=== PATIENT | male | born 1940 | race Caucasian/White ===

== ENCOUNTER 2017-04-08 19:08 | Inpatient (IN) | payer MEDICARE, OTHER ==
[~2017-04-08] VITALS: Ht 180.3 cm; Wt 82.4 kg
[2017-04-08 22:39] VITALS: BP 134/69
[2017-04-08] MEDS ORDERED: METHYL SALICYLATE/MENTHOL TOPICAL OINTMENT 29GM TUBE. TP PRN (23:00)
[2017-04-08] MEDS ORDERED: MAG HYDROX/AL HYDROX/SIMETH 30 ML ORAL.SUSP PO PRN (23:00)
[2017-04-08] MEDS ORDERED: ACETAMINOPHEN 325 MG TABLET PO PRN (23:00)
[2017-04-08] MEDS ORDERED: HALOPERIDOL 5 MG TABLET PO PRN (23:45)
[2017-04-09] MEDS ORDERED: SERT100T PO (00:05)
[2017-04-09] MEDS ORDERED: LORA2TAB PO (00:05)
[2017-04-09] MEDS ORDERED: SENN-6 PO (00:05)
[2017-04-09] MEDS ORDERED: PSYL660P18 PO (00:05)
[2017-04-09] MEDS ORDERED: OMEP40CA5 PO (00:05)
[2017-04-09] MEDS ORDERED: HALO5TAB PO (00:05)
[2017-04-09] MEDS ORDERED: FERR-26 PO (00:05)
[2017-04-09] MEDS ORDERED: OXYB5TAB7 PO (00:05)
[2017-04-09] MEDS ORDERED: CLOM75CA2 PO (00:05)
[2017-04-09] MEDS ORDERED: ARIP30TA4 PO (00:05)
[2017-04-09] MEDS ORDERED: MORP15TA3 PO (00:05)
[2017-04-09] MEDS ORDERED: ENOX40DI SQ (00:05)
[2017-04-09] MEDS ORDERED: LISI10TA2 PO (00:05)
[2017-04-09] MEDS ORDERED: LOXA50CA PO ×2 (00:05)
[2017-04-09] MEDS ORDERED: ASPI325T11 PO (00:05)
[2017-04-09] MEDS ORDERED: BENZ0.5T PO (00:05)
[2017-04-09] MEDS ORDERED: FINA5TAB4 PO (00:05)
[2017-04-09] MEDS ORDERED: CHOL10003 PO (00:05)
[2017-04-09] MEDS ORDERED: METO25TA4 PO (00:05)
[2017-04-09] MEDS ORDERED: LORA1TAB PO (00:05)
[2017-04-09] MEDS ORDERED: LORazepam 1 MG TABLET PO PRN (00:15)
--- NOTE | 2017-04-09 05:37 | EKG ---
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
[2017-04-09 06:28] VITALS: BP 112/67
[2017-04-09 06:51] LABS: BASO # 0.1 x10^3/uL (0.0-0.2); BASO % 1 % (0-3); EOS # 0.2 x10^3/uL (0.0-0.7); EOS % 3 % (0-3); HEMATOCRIT 36.5 % (39.0-53.0); HEMOGLOBIN 12.2 g/dL (13.0-17.5); LYMPH # 2.7 x10^3/uL (1.0-4.8); LYMPH % 28 % (24-48); MEAN CORPUSCULAR HEMOGLOBIN 33 pg (25-35); MEAN CORPUSCULAR HGB CONC 33 g/dL (31-37); MEAN CORPUSCULAR VOLUME 99 fL (79-100); MONO # 0.8 x10^3/uL (0.0-1.1); MONO % 9 % (0-9); NEUT # 5.8 x10^3uL (1.8-7.7); NEUT % 60 % (31-73); PLATELET COUNT 352 x10^3/uL (140-400); RED CELL DISTRIBUTION WIDTH 13.4 % (11.5-14.5); WHITE BLOOD COUNT 9.6 x10^3/uL (4.0-11.0)
[2017-04-09 07:00] LABS: ALBUMIN 3.5 g/dL (3.4-5.0); ALBUMIN/GLOBULIN RATIO 0.9 (1.0-1.7); CALCIUM 8.7 mg/dL (8.5-10.1); GFR 72.6; MAGNESIUM 2.1 mg/dL (1.8-2.4); POTASSIUM 4.2 mmol/L (3.5-5.1); TOTAL BILIRUBIN 0.3 mg/dL (0.2-1.0); TOTAL PROTEIN 7.4 g/dL (6.4-8.2)
[2017-04-09] MEDS ORDERED: SENNOSIDES/DOCUSATE 8.6/50MG TABLET. PO PRN (10:00)
[2017-04-09] MEDS: ASPIRIN ENTERIC COATED 325 MG TABLET.DR. PO SCH (11:12)
[2017-04-09] MEDS: FERROUS SULFATE 325 MG TABLET PO SCH (11:12)
[2017-04-09] MEDS: MORPHINE ER 15 MG TABLET.ER PO SCH (11:12)
[2017-04-09] MEDS: CHOLECALCIFEROL (VITAMIN D3) 1,000 UNIT TABLET PO SCH (11:12)
[2017-04-09] MEDS: BENZTROPINE MESYLATE 0.5 MG TABLET PO SCH ×2 (11:12→19:32)
[2017-04-09] MEDS: OXYBUTYNIN CHLORIDE 5 MG TABLET PO SCH ×2 (11:12→19:32)
[2017-04-09] MEDS: LORazepam 1 MG TABLET PO SCH ×4 (11:14→19:35)
[2017-04-09] MEDS: PANTOPRAZOLE 40 MG TABLET. PO SCH (11:23)
[2017-04-09] MEDS: PSYLLIUM SEED (WITH SUGAR) PACKET. PO SCH (11:23)
[2017-04-09] MEDS: LISINOPRIL 10 MG TABLET PO SCH (11:24)
[2017-04-09] MEDS: METOPROLOL TART IMMED RELEASE 25 MG TABLET PO SCH ×2 (11:24→17:00)
[2017-04-09] MEDS: LOXAPINE SUCCINATE 25 MG CAPSULE PO SCH ×2 (11:26→19:41)
[2017-04-09] MEDS: ARIPiprazole 15 MG TABLET PO SCH (11:31)
[2017-04-09] MEDS ORDERED: ARIPiprazole 15 MG TABLET PO ONE (12:00)
[2017-04-09 13:55] LABS: THYROID STIM HORMONE (TSH) 3.574 uIU/mL (0.358-3.740)
[2017-04-09 16:32] VITALS: BP 102/57
[2017-04-09 16:37] LABS: BILIRUBIN,URINE NEG (NEG); CLARITY,URINE CLEAR; COLOR,URINE YELLOW; GLUCOSE,URINE NEG (NEG); NITRITE,URINE NEG (NEG); RBC,URINE OCC /HPF (0-2); UROBILINOGEN,URINE 0.2 mg/dL (0.2 mg/dL)
[2017-04-09 16:38] LABS: BACTERIA,URINE 0 /HPF (0-FEW); SQUAMOUS EPITHELIAL CELL,UR FEW /LPF
[2017-04-09 18:11] LABS: T3 TOTAL 75 ng/dL (71-180); THYROXINE 5.8 ug/dL (4.5-12.0)
--- NOTE | 2017-04-09 18:39 | PDOC ---
Exam José Miguel Demential Exam: José Miguel Note: Please also refer to the separate dictated note~for this date of service dictated separately.~Patient seen individually. Discussed the patient with Nursing staff reviewed the chart.~Reviewed interim history and current functioning. Reviewed vital signs,~Labs/ Radiology~and current medications noted below. Continue current treatment with the changes noted in the dictated addendum note Assessment: Vital Signs: Vital Signs Date Time Temp Pulse Resp B/P (MAP) Pulse Ox O2 Delivery O2 Flow Rate FiO2 04/09/17 17:00 71 102/57 04/09/17 16:32 97.4 19 99 04/08/17 22:39 Room Air I&O Intake and Output 04/09/17 07:00 # Voids 1 Labs: Laboratory Tests Test 04/09/17 06:25 04/09/17 14:43 White Blood Count 9.6 x10^3/uL (4.0-11.0) Red Blood Count 3.70 x10^6/uL (4.30-5.70) L Hemoglobin 12.2 g/dL (13.0-17.5) L Hematocrit 36.5 % (39.0-53.0) L Mean Corpuscular Volume 99 fL (79-100) Mean Corpuscular Hemoglobin 33 pg (25-35) Mean Corpuscular Hemoglobin Concent 33 g/dL (31-37) Red Cell Distribution Width 13.4 % (11.5-14.5) Platelet Count 352 x10^3/uL (140-400) Neutrophils (%) (Auto) 60 % (31-73) Lymphocytes (%) (Auto) 28 % (24-48) Monocytes (%) (Auto) 9 % (0-9) Eosinophils (%) (Auto) 3 % (0-3) Basophils (%) (Auto) 1 % (0-3) Neutrophils # (Auto) 5.8 x10^3uL (1.8-7.7) Lymphocytes # (Auto) 2.7 x10^3/uL (1.0-4.8) Monocytes # (Auto) 0.8 x10^3/uL (0.0-1.1) Eosinophils # (Auto) 0.2 x10^3/uL (0.0-0.7) Basophils # (Auto) 0.1 x10^3/uL (0.0-0.2) Sodium Level 140 mmol/L (136-145) Potassium Level 4.2 mmol/L (3.5-5.1) Chloride Level 103 mmol/L (98-107) Carbon Dioxide Level 31 mmol/L (21-32) Anion Gap 6 (6-14) Blood Urea Nitrogen 22 mg/dL (8-26) Creatinine 1.0 mg/dL (0.7-1.3) Estimated GFR (Cockcroft-Gault) 72.6 BUN/Creatinine Ratio 22 (6-20) H Glucose Level 87 mg/dL (70-99) Calcium Level 8.7 mg/dL (8.5-10.1) Magnesium Level 2.1 mg/dL (1.8-2.4) Iron Level 86 ug/dL (65-175) Total Iron Binding Capacity 221 ug/dL (250-450) L Iron Saturation 39 % (15-34) H Total Bilirubin 0.3 mg/dL (0.2-1.0) Aspartate Amino Transferase (AST) 16 U/L (15-37) Alanine Aminotransferase (ALT) 25 U/L (16-63) Alkaline Phosphatase 97 U/L (46-116) Total Protein 7.4 g/dL (6.4-8.2) Albumin 3.5 g/dL (3.4-5.0) Albumin/Globulin Ratio 0.9 (1.0-1.7) L Triglycerides Level 142 mg/dL (0-150) Cholesterol Level 187 mg/dL (0-200) LDL Cholesterol, Calculated 114 mg/dL (0-100) H VLDL Cholesterol, Calculated 28 mg/dL (0-40) Non-HDL Cholesterol Calculated 142 mg/dL (0-129) H HDL Cholesterol 45 mg/dL (40-60) Cholesterol/HDL Ratio 4.0 Vitamin B12 Level 448 pg/mL (247-911) 25-Hydroxy Vitamin D Total Pending Thyroid Stimulating Hormone (TSH) 3.574 uIU/mL (0.358-3.740) Thyroxine (T4) 5.8 ug/dL (4.5-12.0) Total Triiodothyronine (TT3) 75 ng/dL (71-180) RPR Titer Additional Testing Pending Urine Collection Type Unknown Urine Color Yellow Urine Clarity Clear Urine pH 5.5 Urine Specific [place] 1.020 Urine Protein Neg (NEG-TRACE) Urine Glucose (UA) Neg mg/dL (NEG) Urine Ketones (Stick) Neg mg/dL (NEG) Urine Blood Neg (NEG) Urine Nitrite Neg (NEG) Urine Bilirubin Neg (NEG) Urine Urobilinogen Dipstick 0.2 mg/dL (0.2 mg/dL) Urine Leukocyte Esterase Neg (NEG) Urine RBC Occ /HPF (0-2) Urine WBC 1-4 /HPF (0-4) Urine Squamous Epithelial Cells Few /LPF Urine Bacteria 0 /HPF (0-FEW) Urine Mucus Slight /LPF Current Medications: Meds: Current Medications Acetaminophen (Tylenol) 650 mg PRN Q6HRS PRN PO PAIN / TEMP; Start 04/08/17 at 23:00 Multi-Ingredient Ointment (Analgesic [place]) 1 phillip PRN QID PRN TP MUSCLE PAIN; Start 04/08/17 at 23:00 Al Hydroxide/Mg Hydroxide (Mylanta Plus Xs) 15 ml PRN AFTMEALHC PRN PO DYSPEPSIA; Start 04/08/17 at 23:00 Magnesium Hydroxide (Milk Of Magnesia) 2,400 mg PRN QHS PRN PO CONSTIPATION; Start 04/08/17 at 23:00 Benztropine Mesylate (Cogentin) 0.5 mg BID PO Last administered on 04/09/17 11 :12; Start 04/09/17 at 09:00 Haloperidol (Haldol) 5 mg PRN QID PRN PO ANXIETY / AGITATION; Start 04/08/17 at 23:45 Lorazepam (Ativan) 1 mg QID PO Last administered on 04/09/17 17:36; Start at 09:00 Aripiprazole (Abilify) 30 mg DAILY PO Last administered on 04/09/17 11:31; Start 04/09/17 at 09:00 Clomipramine HCl (Anafranil) 150 mg QHS PO ; Start 04/09/17 at 21:00 Lorazepam (Ativan) 2 mg PRN Q8HRS PRN PO ANXIETY / AGITATION; Start 04/09/17 at 00:15 Loxapine Succinate (Loxitane) 100 mg DAILY PO Last administered on 04/09/17 11 :26; Start 04/09/17 at 09:00 Loxapine Succinate (Loxitane) 150 mg QHS PO ; Start 04/09/17 at 21:00 Aspirin (Aspirin Enteric Coated) 325 mg DAILY PO Last administered on 11:12; Start 04/09/17 at 11:00 Vitamin D (Vitamin D3) 1,000 unit DAILY PO Last administered on 04/09/17 11:12 ; Start 04/09/17 at 11:00 Enoxaparin Sodium (Lovenox) 40 mg HS SQ ; Start 04/09/17 at 21:00 Ferrous Sulfate (Feosol) 324 mg DAILYAC PO Last administered on 04/09/17 11:12 ; Start 04/09/17 at 11:00 Finasteride (Proscar) 5 mg HS PO ; Start 04/09/17 at 21:00 Lisinopril (Prinivil) 10 mg DAILY PO Last administered on 04/09/17 11:24; Start 04/09/17 at 11:00 Metoprolol Tartrate (Lopressor) 25 mg BIDWMEALS PO Last administered on 11:24; Start 04/09/17 at 11:00 Morphine Sulfate (Ms Contin) 15 mg DAILY PO Last administered on 04/09/17 11: 12; Start 04/09/17 at 11:00 Oxybutynin Chloride (Ditropan) 5 mg BID PO Last administered on 04/09/17 11:12 ; Start 04/09/17 at 11:00 Senna/Docusate Sodium (Senna Plus) 2 tab PRN BID PRN PO CONSTIPATION; Start at 10:00 Pantoprazole Sodium (Protonix) 40 mg DAILYAC PO Last administered on 04/09/17 11:23; Start 04/09/17 at 11:00 Psyllium Hydrophilic Mucilloid (Metamucil) 1 pkt DAILY PO Last administered on 04/09/17 11:23; Start 04/09/17 at 11:00 Aripiprazole (Abilify) 30 mg 1X ONCE PO ; Start 04/09/17 at 12:00; Stop at 12:01; Status DC Active Scripts Active Reported Zoloft (Sertraline Hcl) 100 Mg Tablet 200 Mg PO DAILY Metamucil (Psyllium Husk) 660 Gm Powder 1 Packet PO DAILY Oxybutynin Chloride 5 Mg Tablet 5 Mg PO BID Omeprazole 40 Mg Capsule.dr 40 Mg PO DAILY Morphine Sulfate Er (Morphine Sulfate) 15 Mg Tablet.er 15 Mg PO DAILY Metoprolol Tartrate 25 Mg Tablet 25 Mg PO BIDWMEALS Loxapine (Loxapine Succinate) 50 Mg Capsule 150 Mg PO HS Loxapine (Loxapine Succinate) 50 Mg Capsule 100 Mg PO DAILY Lorazepam 2 Mg Tablet 2 Mg PO PRN Q8HRS PRN Lorazepam 1 Mg Tablet 1 Mg PO QID Lisinopril 10 Mg Tablet 10 Mg PO DAILY Haloperidol 5 Mg Tablet 5 Mg PO PRN QID PRN Finasteride 5 Mg Tablet 5 Mg PO HS Ferrous Sulfate 325 Mg Tablet 324 Mg PO DAILYAC Lovenox (Enoxaparin Sodium) 40 Mg/0.4 Ml Disp.syrin 40 Mg SQ HS Senna S Tablet (Sennosides/Docusate Sodium) 1 Each Tablet 2 Tab PO PRN BID PRN Clomipramine Hcl 75 Mg Capsule 150 Mg PO HS Vitamin D3 (Cholecalciferol (Vitamin D3)) 1,000 Unit Tablet 1,000 Unit PO DAILY Benztropine Mesylate 0.5 Mg Tablet 0.5 Mg PO BID Aspirin Ec (Aspirin) 325 Mg Tablet.dr 325 Mg PO DAILY Abilify (Aripiprazole) 30 Mg Tablet 30 Mg PO DAILY Diagnosis: Problems: (1) Anxiety disorder (2) Impulse control disorder (3) Obsessive compulsive disorder (4) Schizoaffective disorder (5) Schizophrenia, disorganized, subchronic with acute exacerbation (6) Mild cognitive disorder SHAKIR PAEZ MD Apr 09, 2017 18:39
[2017-04-09] MEDS: FINASTERIDE 5 MG TABLET PO SCH (19:38)
[2017-04-09] MEDS ORDERED: ENOXAPARIN 40 MG/0.4 ML DISP.SYRIN. SQ SCH (21:00)
--- NOTE | 2017-04-10 01:50 | ACF ---
Admission Criteria Forms PSYCHIATRIC DISORDERS Clinical Indications for Inpatient Care (Place 'X' for any and all applicable criteria): Ongoing inpatient care may be needed for 1 or more of the following(1)(2)(3)(4)( 6)(7)(8): [ ]I. Danger to self or others not manageable at lower level of care. [ ]II. Grave disability (eg, inability to perform self care necessary at lower level of care) [ ]III. Agitation or inappropriate behavior interfering with care for primary condition (eg, attempting to discontinue lines or drains prematurely, unable to cooperate with respiratory care) [x]IV. Severe disability or disorder indicated by ALL of the following: [x]a) Severe behavioral health disorder-related symptoms or condition indicated by 1 or more of the following: [ ]i) Severe problem with cognition, memory, judgment, or impulse control [x]ii) Severe clinical manifestations (eg, hallucinations, delusions, other acute psychotic symptoms, edie, extreme agitation or anxiety) [x]b) Patient management at lower level of care is not feasible until acute intervention or modification is initiated. Extended stay beyond goal length of stay for the primary condition may be needed untilALLof the following are present(1)(2)(3)(4)(722)(23): [ ]a) Danger to self or others is absent or manageable at lower level of care [ ]b) Behavior crisis management, including physical or chemical restraints, is required and is not available at a lower level of care. [ ]c) Behavioral symptoms (e.g., agitation, somnolence, inappropriate behavior) are present, and are not manageable at a lower level of care. [ ]d) Patient cannot understand follow-up treatment and crisis plan. [ ]e) Provider and supports are sufficiently available at lower level of care. [ ]f) Patient can participate (e.g., verify absence of plan for harm) and is in needed of monitoring. The original [facility] content created by [facility] has been revised. The portions of the content which have been revised are identified through the use of italic text, and [facility] has neither reviewed nor approved the modified material. All other unmodified content is copyright [facility]. Please see references footnoted in the original [facility] edition 2015 Admission Criteria Met?: Yes ANASTASIYA JARQUIN Apr 10, 2017 01:50
[2017-04-10 02:07] LABS: HEMOGLOBIN A1C 5.4 % (4.8-5.6)
[2017-04-10 06:22] VITALS: BP 144/73
[2017-04-10] MEDS: PSYLLIUM SEED (WITH SUGAR) PACKET. PO SCH (08:37)
[2017-04-10] MEDS: BENZTROPINE MESYLATE 0.5 MG TABLET PO SCH ×2 (08:38→19:37)
[2017-04-10] MEDS: METOPROLOL TART IMMED RELEASE 25 MG TABLET PO SCH ×2 (08:38→17:21)
[2017-04-10] MEDS: ASPIRIN ENTERIC COATED 325 MG TABLET.DR. PO SCH (08:38)
[2017-04-10] MEDS: PANTOPRAZOLE 40 MG TABLET. PO SCH (08:38)
[2017-04-10] MEDS: LISINOPRIL 10 MG TABLET PO SCH (08:38)
[2017-04-10] MEDS: OXYBUTYNIN CHLORIDE 5 MG TABLET PO SCH ×2 (08:38→19:37)
[2017-04-10] MEDS: CHOLECALCIFEROL (VITAMIN D3) 1,000 UNIT TABLET PO SCH (08:38)
[2017-04-10] MEDS: FERROUS SULFATE 325 MG TABLET PO SCH (08:39)
[2017-04-10] MEDS: LOXAPINE SUCCINATE 25 MG CAPSULE PO SCH ×2 (08:39→19:47)
[2017-04-10] MEDS: ARIPiprazole 15 MG TABLET PO SCH (08:39)
[2017-04-10] MEDS: LORazepam 1 MG TABLET PO SCH ×4 (08:41→19:46)
[2017-04-10] MEDS: MORPHINE ER 15 MG TABLET.ER PO SCH (08:41)
--- NOTE | 2017-04-10 12:04 | HP ---
ADMIT DATE: 04/09/2017 This late entry 04/09/2017, covers elements not covered in my initial note of 04/09/2017. I met with the patient evening of 04/09/2017 for this evaluation. IDENTIFYING DATA: The patient is a 76-year-old male referred to us from the [facility] by Dr. Rocael Becker, his psychiatrist after he presented to the [facility] from [facility] placement where he normally resides. Reportedly, the patient has been resistant to his medications, uncooperative, psychotic, confused from his baseline, responding to internal stimuli, having multiple falls. He was an inpatient at the [facility], medically stabilized since 03/30/2017, psychotic, received p.r.n. Haldol. Initially, he presented with the UTI. Dr. Becker determined there was a recurrence of schizophrenia, chronic, undifferentiated type with acute exacerbation, needed further psychiatric stabilization resulting in this referral. CHIEF COMPLAINT: "Yes those things happen." The patient responded after I related to him the circumstances and reasons why he was referred to us from inpatient hospitalization and about perceived psychotic symptoms. HISTORY OF PRESENT ILLNESS: Reportedly, the patient has a long history of schizophrenia, chronic, undifferentiated type. He has been residing at the above facility [facility], had a UTI with worsening confusion and psychosis hospitalized at [facility] medically stabilized, but still remains psychotic. He is having sleep and appetite changes, angry, irritable, resistive to his medications, uncooperative and referred for inpatient psychiatric stabilization. He does have a history of mood swings, raising the question of schizoaffective disorder, bipolar type. The patient also has significant symptoms of OCD with obsessive ruminative thinking, ritualistic behavior. Details will be enquired from his past records. PAST PSYCHIATRIC HISTORY: As above. The patient has also had a lobotomy in the past, details are unclear. 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 DRUG ALLERGIES: KLONOPIN. DIET: Regular. Takes his medications whole, ambulates wheelchair 1 or 2 person assist. UA was positive at the [place] on 03/30/2017. Augmentin completed 04/09/2017. CURRENT PSYCHOTROPICS: Abilify 30 mg a day, Cogentin 0.5 mg b.i.d., clomipramine 150 mg at bedtime, Haldol 5 mg p.r.n. q.i.d., Ativan 1 mg q.i.d. and 2 mg q.8h. p.r.n., loxapine 100 mg a.m. and 150 at bedtime, Zoloft 200 mg a.m. FAMILY HISTORY: Noncontributory. SOCIAL HISTORY: No clear history of drug and alcohol abuse. The patient categorically denies any drug or alcohol abuse. MENTAL STATUS EXAMINATION: The patient was seen individually evening of 04/09/2017. He is in his wheelchair, oriented to place and situation, knew it was 03/2017. Speech low in rate and rhythm, low in volume. Attention span short. Language function intact. Seems a little paranoid. Intellect average. Insight somewhat limited. No active suicidal or homicidal ideation. IMPRESSION: Schizophrenia, chronic undifferentiated with acute exacerbation: Schizoaffective disorder, bipolar type, mixed with psychotic features; anxiety disorder, unspecified; impulse control disorder, unspecified. Rest as above. Cognitive disorder, unspecified. PLAN: Continue the patient on his current psychotropics. I have reviewed 30-40 pages of records from the [facility]. We will ask for any further psychiatric records available from the past. Observe the patient's baseline. I will see him daily individually from a psychiatric standpoint. Medical followup per Dr. Flores/Dr Church. We will make further changes in his psychotropics depending on his progress. May need to add a mood stabilizer, perhaps Depakote at some point. Also, the patient is on a combination of clomipramine and Zoloft. Zoloft is 200 mg a day, clomipramine 150 mg at bedtime. I would like to try and avoid using 2 SSRIs and we have to reassess all of this and post baseline assessment. SHAKIR PAEZ MD DR: MELISA/marvel JOB#: [id number] / [id number]
[2017-04-10 16:18] VITALS: BP 122/62
--- NOTE | 2017-04-10 18:58 | HP ---
ADMIT DATE: 04/09/2017 MEDICAL HISTORY AND PHYSICAL FOR THE SENIOR BEHAVIORAL UNIT REASON FOR ADMISSION TO SENIOR BEHAVIORAL UNIT: This is a 76-year-old who was directly admitted from the [facility] where he had been in the hospitalized from "the [facility] in [place], [place] where he resides. Evidently he was being resistive uncooperative, confused from his baseline and having multiple falls. Indeed when I went to see him, he was in the quiet room and had sitting on the floor. Previous to that, he had thrown himself on the floor and had been combative with staff. At one point, he had been in a catatonic state at the [facility] and that is why he was admitted to the [facility]. PAST MEDICAL HISTORY: Consistent with urinary tract infections, psychosis, OCD, schizophrenia. He has had a lobotomy, pacemaker, hyperlipidemia, GERD, anxiety with history of pulmonary embolism, AV block, DVT, hearing loss, hypertension, BPH, anemia and hepatitis C ___. MEDICATIONS: Reviewed from the [place] and are available on the [facility]. HABITS: Tobacco use, never smoked. Alcohol: None. 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 IMMUNIZATIONS: Pneumonia vaccine in 11/2014. Flu shot in 05/2016. FUNCTIONALITY: The patient uses a wheelchair, but has been able to walk independently. He had recent several falls. He eats a regular diet. He is incontinent. FAMILY HISTORY: Unknown. Marital Status: He is single. REVIEW OF SYSTEMS: The patient becomes mildly agitated when asked when he questions and states you are asking me too many questions. He really could not follow the thought processes for review of systems. OBJECTIVE: VITAL SIGNS: Blood pressure is 144/73, pulse 64, temperature 97.4, blood pressure was a little bit lower yesterday afternoon 102/57. Height 71 inches, weight 168 pounds. GENERAL: The patient is awake and was sitting on the floor and was picked up and put in his wheelchair. He sits most of the time. HEENT: Moves eyes closed, but will open them. His eyes were clear. His nose was patent, but he has evidence of broken nose in the past. Throat was clear. He has very bad dentition. Tongue was moist. His hearing is mildly impaired. He states he uses hearing aids and glasses, but does not know where they are. NECK: Supple. LUNGS: Clear. CARDIOVASCULAR: Regular rhythm and rate. ABDOMEN: Soft, nontender. EXTREMITIES: Thin without edema. SKIN: Bruising on his legs. MUSCULOSKELETAL: Evidence of osteoarthritis of the hands, unsteady gait. NEUROLOGIC: Could not follow directions for cranial nerves. Does have a fine resting tremor. Muscle does have some considerable upper arm strength the musculature in his calf is basically atropic. LABORATORY DATA: Normal CBC. Vitamin D 29.9, normal B12, normal TSH. Urinalysis negative nitrites, negative leukocytes, 1-4 white cells, RPR titer is negative. ASSESSMENT: 1. Schizophrenia with behavior disturbance. 2. Resistance to care. 3. Obsessive-compulsive disorder. 4. Frequent falls. 5. Pacemaker. 6. History of urinary tract infection 7. History of pulmonary embolism. 8. Hearing loss. 9. Hypertension. 10. Benign prostatic hypertrophy. 11. Mild anemia. 12. Vitamin D deficiency. PLAN: Follow along with Dr. Hernandez. Treat his medical conditions. PT, OT. GAIL WILKERSON DO DR: KIMBERLEE/marvel JOB#: [id number] / [id number]
[2017-04-10] MEDS: FINASTERIDE 5 MG TABLET PO SCH (19:37)
--- NOTE | 2017-04-10 20:47 | PDOC ---
Exam José Miguel Demential Exam: José Miguel Note: Please also refer to the separate dictated note~for this date of service dictated separately.~Patient seen individually. Discussed the patient with Nursing staff reviewed the chart.~Reviewed interim history and current functioning. Reviewed vital signs,~Labs/ Radiology~and current medications noted below. Continue current treatment with the changes noted in the dictated addendum note Assessment: Vital Signs: Vital Signs Date Time Temp Pulse Resp B/P (MAP) Pulse Ox O2 Delivery O2 Flow Rate FiO2 04/10/17 17:21 64 122/62 04/10/17 16:18 97.8 20 92 04/08/17 22:39 Room Air I&O Intake and Output 04/10/17 07:00 Intake Total 1440 ml Balance 1440 ml Intake Oral 1440 ml # Voids 2 Current Medications: Meds: Current Medications Acetaminophen (Tylenol) 650 mg PRN Q6HRS PRN PO PAIN / TEMP; Start 04/08/17 at 23:00 Multi-Ingredient Ointment (Analgesic [place]) 1 phillip PRN QID PRN TP MUSCLE PAIN; Start 04/08/17 at 23:00 Al Hydroxide/Mg Hydroxide (Mylanta Plus Xs) 15 ml PRN AFTMEALHC PRN PO DYSPEPSIA; Start 04/08/17 at 23:00 Magnesium Hydroxide (Milk Of Magnesia) 2,400 mg PRN QHS PRN PO CONSTIPATION; Start 04/08/17 at 23:00 Benztropine Mesylate (Cogentin) 0.5 mg BID PO Last administered on 04/10/17 19 :37; Start 04/09/17 at 09:00 Haloperidol (Haldol) 5 mg PRN QID PRN PO ANXIETY / AGITATION; Start 04/08/17 at 23:45 Lorazepam (Ativan) 1 mg QID PO Last administered on 04/10/17 19:46; Start at 09:00 Aripiprazole (Abilify) 30 mg DAILY PO Last administered on 04/10/17 08:39; Start 04/09/17 at 09:00 Clomipramine HCl (Anafranil) 150 mg QHS PO Last administered on 04/10/17 19:46 ; Start 04/09/17 at 21:00 Lorazepam (Ativan) 2 mg PRN Q8HRS PRN PO ANXIETY / AGITATION; Start 04/09/17 at 00:15 Loxapine Succinate (Loxitane) 100 mg DAILY PO Last administered on 04/10/17 08 :39; Start 04/09/17 at 09:00 Loxapine Succinate (Loxitane) 150 mg QHS PO Last administered on 04/10/17 19: 47; Start 04/09/17 at 21:00 Aspirin (Aspirin Enteric Coated) 325 mg DAILY PO Last administered on 08:38; Start 04/09/17 at 11:00 Vitamin D (Vitamin D3) 1,000 unit DAILY PO Last administered on 04/10/17 08:38 ; Start 04/09/17 at 11:00; Stop 04/10/17 at 14:48; Status DC Enoxaparin Sodium (Lovenox) 40 mg HS SQ Last administered on 04/09/17 19:38; Start 04/09/17 at 21:00; Stop 04/10/17 at 14:48; Status DC Ferrous Sulfate (Feosol) 324 mg DAILYAC PO Last administered on 04/10/17 08:39 ; Start 04/09/17 at 11:00 Finasteride (Proscar) 5 mg HS PO Last administered on 04/10/17 19:37; Start at 21:00 Lisinopril (Prinivil) 10 mg DAILY PO Last administered on 04/10/17 08:38; Start 04/09/17 at 11:00 Metoprolol Tartrate (Lopressor) 25 mg BIDWMEALS PO Last administered on 17:21; Start 04/09/17 at 11:00 Morphine Sulfate (Ms Contin) 15 mg DAILY PO Last administered on 04/10/17 08: 41; Start 04/09/17 at 11:00 Oxybutynin Chloride (Ditropan) 5 mg BID PO Last administered on 04/10/17 19:37 ; Start 04/09/17 at 11:00 Senna/Docusate Sodium (Senna Plus) 2 tab PRN BID PRN PO CONSTIPATION; Start at 10:00 Pantoprazole Sodium (Protonix) 40 mg DAILYAC PO Last administered on 04/10/17 08:38; Start 04/09/17 at 11:00 Psyllium Hydrophilic Mucilloid (Metamucil) 1 pkt DAILY PO Last administered on 04/10/17t 08:37; Start 04/09/17 at 11:00 Aripiprazole (Abilify) 30 mg 1X ONCE PO ; Start 04/09/17 at 12:00; Stop at 12:01; Status DC Vitamin D (Vitamin D3) 2,000 unit DAILY PO ; Start 04/11/17 at 09:00 Active Scripts Active Reported Zoloft (Sertraline Hcl) 100 Mg Tablet 200 Mg PO DAILY Metamucil (Psyllium Husk) 660 Gm Powder 1 Packet PO DAILY Oxybutynin Chloride 5 Mg Tablet 5 Mg PO BID Omeprazole 40 Mg Capsule.dr 40 Mg PO DAILY Morphine Sulfate Er (Morphine Sulfate) 15 Mg Tablet.er 15 Mg PO DAILY Metoprolol Tartrate 25 Mg Tablet 25 Mg PO BIDWMEALS Loxapine (Loxapine Succinate) 50 Mg Capsule 150 Mg PO HS Loxapine (Loxapine Succinate) 50 Mg Capsule 100 Mg PO DAILY Lorazepam 2 Mg Tablet 2 Mg PO PRN Q8HRS PRN Lorazepam 1 Mg Tablet 1 Mg PO QID Lisinopril 10 Mg Tablet 10 Mg PO DAILY Haloperidol 5 Mg Tablet 5 Mg PO PRN QID PRN Finasteride 5 Mg Tablet 5 Mg PO HS Ferrous Sulfate 325 Mg Tablet 324 Mg PO DAILYAC Lovenox (Enoxaparin Sodium) 40 Mg/0.4 Ml Disp.syrin 40 Mg SQ HS Senna S Tablet (Sennosides/Docusate Sodium) 1 Each Tablet 2 Tab PO PRN BID PRN Clomipramine Hcl 75 Mg Capsule 150 Mg PO HS Vitamin D3 (Cholecalciferol (Vitamin D3)) 1,000 Unit Tablet 1,000 Unit PO DAILY Benztropine Mesylate 0.5 Mg Tablet 0.5 Mg PO BID Aspirin Ec (Aspirin) 325 Mg Tablet.dr 325 Mg PO DAILY Abilify (Aripiprazole) 30 Mg Tablet 30 Mg PO DAILY Diagnosis: Problems: (1) Anxiety disorder (2) Impulse control disorder (3) Obsessive compulsive disorder (4) Schizoaffective disorder (5) Schizophrenia, disorganized, subchronic with acute exacerbation SHAKIR PAEZ MD Apr 10, 2017 20:47
[2017-04-11 06:07] VITALS: BP 165/97
[2017-04-11] MEDS: BENZTROPINE MESYLATE 0.5 MG TABLET PO SCH ×2 (08:49→20:12)
[2017-04-11] MEDS: OXYBUTYNIN CHLORIDE 5 MG TABLET PO SCH ×2 (08:49→20:25)
[2017-04-11] MEDS: LISINOPRIL 10 MG TABLET PO SCH (08:49)
[2017-04-11] MEDS: FERROUS SULFATE 325 MG TABLET PO SCH (08:49)
[2017-04-11] MEDS: PSYLLIUM SEED (WITH SUGAR) PACKET. PO SCH (08:49)
[2017-04-11] MEDS: PANTOPRAZOLE 40 MG TABLET. PO SCH (08:49)
[2017-04-11] MEDS: ASPIRIN ENTERIC COATED 325 MG TABLET.DR. PO SCH (08:49)
[2017-04-11] MEDS: METOPROLOL TART IMMED RELEASE 25 MG TABLET PO SCH ×2 (08:49→17:00)
[2017-04-11] MEDS: ARIPiprazole 15 MG TABLET PO SCH (08:50)
[2017-04-11] MEDS: LORazepam 1 MG TABLET PO SCH ×4 (08:52→20:24)
[2017-04-11] MEDS: MORPHINE ER 15 MG TABLET.ER PO SCH (08:52)
[2017-04-11] MEDS: CHOLECALCIFEROL (VITAMIN D3) 1,000 UNIT TABLET PO SCH (08:52)
[2017-04-11] MEDS: LOXAPINE SUCCINATE 25 MG CAPSULE PO SCH ×2 (08:53→20:24)
[2017-04-11 09:41] LABS: BASO # 0.1 x10^3/uL (0.0-0.2); BASO % 1 % (0-3); EOS # 0.2 x10^3/uL (0.0-0.7); EOS % 2 % (0-3); HEMATOCRIT 37.9 % (39.0-53.0); HEMOGLOBIN 12.6 g/dL (13.0-17.5); LYMPH % 23 % (24-48); MEAN CORPUSCULAR HEMOGLOBIN 33 pg (25-35); MEAN CORPUSCULAR HGB CONC 33 g/dL (31-37); MEAN CORPUSCULAR VOLUME 99 fL (79-100); MONO # 0.6 x10^3/uL (0.0-1.1); MONO % 7 % (0-9); NEUT # 5.8 x10^3uL (1.8-7.7); NEUT % 67 % (31-73); PLATELET COUNT 353 x10^3/uL (140-400); RED BLOOD COUNT 3.84 x10^6/uL (4.30-5.70); RED CELL DISTRIBUTION WIDTH 13.5 % (11.5-14.5); WHITE BLOOD COUNT 8.6 x10^3/uL (4.0-11.0)
[2017-04-11 10:03] LABS: ALBUMIN 3.5 g/dL (3.4-5.0); ALBUMIN/GLOBULIN RATIO 0.9 (1.0-1.7); CALCIUM 8.7 mg/dL (8.5-10.1); CREATININE 1.1 mg/dL (0.7-1.3); GFR 65.1; POTASSIUM 4.4 mmol/L (3.5-5.1); TOTAL BILIRUBIN 0.4 mg/dL (0.2-1.0); TOTAL PROTEIN 7.3 g/dL (6.4-8.2)
--- NOTE | 2017-04-11 10:20 | PDOC ---
Exam José Miguel Demential Exam: José Miguel Note: Please also refer to the separate dictated note~for this date of service dictated separately.~Patient seen individually. Discussed the patient with Nursing staff reviewed the chart.~Reviewed interim history and current functioning. Reviewed vital signs,~Labs/ Radiology~and current medications noted below. Continue current treatment with the changes noted in the dictated addendum note Assessment: Vital Signs: Vital Signs Date Time Temp Pulse Resp B/P (MAP) Pulse Ox O2 Delivery O2 Flow Rate FiO2 04/11/17 08:52 97 04/11/17 08:49 75 165/97 04/11/17 06:07 97.1 18 04/08/17 22:39 Room Air I&O Intake and Output 04/11/17 07:00 Intake Total 1200 ml Balance 1200 ml Intake Oral 1200 ml # Voids 1 # Bowel Movements 2 Labs: Laboratory Tests Test 04/11/17 09:28 White Blood Count 8.6 x10^3/uL (4.0-11.0) Red Blood Count 3.84 x10^6/uL (4.30-5.70) L Hemoglobin 12.6 g/dL (13.0-17.5) L Hematocrit 37.9 % (39.0-53.0) L Mean Corpuscular Volume 99 fL (79-100) Mean Corpuscular Hemoglobin 33 pg (25-35) Mean Corpuscular Hemoglobin Concent 33 g/dL (31-37) Red Cell Distribution Width 13.5 % (11.5-14.5) Platelet Count 353 x10^3/uL (140-400) Neutrophils (%) (Auto) 67 % (31-73) Lymphocytes (%) (Auto) 23 % (24-48) L Monocytes (%) (Auto) 7 % (0-9) Eosinophils (%) (Auto) 2 % (0-3) Basophils (%) (Auto) 1 % (0-3) Neutrophils # (Auto) 5.8 x10^3uL (1.8-7.7) Lymphocytes # (Auto) 2.0 x10^3/uL (1.0-4.8) Monocytes # (Auto) 0.6 x10^3/uL (0.0-1.1) Eosinophils # (Auto) 0.2 x10^3/uL (0.0-0.7) Basophils # (Auto) 0.1 x10^3/uL (0.0-0.2) Sodium Level 139 mmol/L (136-145) Potassium Level 4.4 mmol/L (3.5-5.1) Chloride Level 103 mmol/L (98-107) Carbon Dioxide Level 31 mmol/L (21-32) Anion Gap 5 (6-14) L Blood Urea Nitrogen 26 mg/dL (8-26) Creatinine 1.1 mg/dL (0.7-1.3) Estimated GFR (Cockcroft-Gault) 65.1 BUN/Creatinine Ratio 24 (6-20) H Glucose Level 136 mg/dL (70-99) H Calcium Level 8.7 mg/dL (8.5-10.1) Total Bilirubin 0.4 mg/dL (0.2-1.0) Aspartate Amino Transferase (AST) 14 U/L (15-37) L Alanine Aminotransferase (ALT) 23 U/L (16-63) Alkaline Phosphatase 100 U/L (46-116) Total Protein 7.3 g/dL (6.4-8.2) Albumin 3.5 g/dL (3.4-5.0) Albumin/Globulin Ratio 0.9 (1.0-1.7) L Current Medications: Meds: Current Medications Acetaminophen (Tylenol) 650 mg PRN Q6HRS PRN PO PAIN / TEMP; Start 04/08/17 at 23:00 Multi-Ingredient Ointment (Analgesic [place]) 1 phillip PRN QID PRN TP MUSCLE PAIN; Start 04/08/17 at 23:00 Al Hydroxide/Mg Hydroxide (Mylanta Plus Xs) 15 ml PRN AFTMEALHC PRN PO DYSPEPSIA; Start 04/08/17 at 23:00 Magnesium Hydroxide (Milk Of Magnesia) 2,400 mg PRN QHS PRN PO CONSTIPATION; Start 04/08/17 at 23:00 Benztropine Mesylate (Cogentin) 0.5 mg BID PO Last administered on 04/11/17 08 :49; Start 04/09/17 at 09:00 Haloperidol (Haldol) 5 mg PRN QID PRN PO ANXIETY / AGITATION; Start 04/08/17 at 23:45 Lorazepam (Ativan) 1 mg QID PO Last administered on 04/11/17 08:52; Start at 09:00 Aripiprazole (Abilify) 30 mg DAILY PO Last administered on 04/11/17 08:50; Start 04/09/17 at 09:00 Clomipramine HCl (Anafranil) 150 mg QHS PO Last administered on 04/10/17 19:46 ; Start 04/09/17 at 21:00 Lorazepam (Ativan) 2 mg PRN Q8HRS PRN PO ANXIETY / AGITATION; Start 04/09/17 at 00:15 Loxapine Succinate (Loxitane) 100 mg DAILY PO Last administered on 04/11/17 08 :53; Start 04/09/17 at 09:00 Loxapine Succinate (Loxitane) 150 mg QHS PO Last administered on 04/10/17 19: 47; Start 04/09/17 at 21:00 Aspirin (Aspirin Enteric Coated) 325 mg DAILY PO Last administered on 08:49; Start 04/09/17 at 11:00 Vitamin D (Vitamin D3) 1,000 unit DAILY PO Last administered on 04/10/17 08:38 ; Start 04/09/17 at 11:00; Stop 04/10/17 at 14:48; Status DC Enoxaparin Sodium (Lovenox) 40 mg HS SQ Last administered on 04/09/17 19:38; Start 04/09/17 at 21:00; Stop 04/10/17 at 14:48; Status DC Ferrous Sulfate (Feosol) 324 mg DAILYAC PO Last administered on 04/11/17 08:49 ; Start 04/09/17 at 11:00 Finasteride (Proscar) 5 mg HS PO Last administered on 04/10/17 19:37; Start at 21:00 Lisinopril (Prinivil) 10 mg DAILY PO Last administered on 04/11/17 08:49; Start 04/09/17 at 11:00 Metoprolol Tartrate (Lopressor) 25 mg BIDWMEALS PO Last administered on 08:49; Start 04/09/17 at 11:00 Morphine Sulfate (Ms Contin) 15 mg DAILY PO Last administered on 04/11/17 08: 52; Start 04/09/17 at 11:00 Oxybutynin Chloride (Ditropan) 5 mg BID PO Last administered on 04/11/17 08:49 ; Start 04/09/17 at 11:00 Senna/Docusate Sodium (Senna Plus) 2 tab PRN BID PRN PO CONSTIPATION; Start at 10:00 Pantoprazole Sodium (Protonix) 40 mg DAILYAC PO Last administered on 04/11/17 08:49; Start 04/09/17 at 11:00 Psyllium Hydrophilic Mucilloid (Metamucil) 1 pkt DAILY PO Last administered on 04/11/17 08:49; Start 04/09/17 at 11:00 Aripiprazole (Abilify) 30 mg 1X ONCE PO ; Start 04/09/17 at 12:00; Stop at 12:01; Status DC Vitamin D (Vitamin D3) 2,000 unit DAILY PO Last administered on 04/11/17 08:52 ; Start 04/11/17 at 09:00 Clozapine (Clozaril) 25 mg HS PO ; Start 04/11/17 at 21:00 Active Scripts Active Reported Zoloft (Sertraline Hcl) 100 Mg Tablet 200 Mg PO DAILY Metamucil (Psyllium Husk) 660 Gm Powder 1 Packet PO DAILY Oxybutynin Chloride 5 Mg Tablet 5 Mg PO BID Omeprazole 40 Mg Capsule.dr 40 Mg PO DAILY Morphine Sulfate Er (Morphine Sulfate) 15 Mg Tablet.er 15 Mg PO DAILY Metoprolol Tartrate 25 Mg Tablet 25 Mg PO BIDWMEALS Loxapine (Loxapine Succinate) 50 Mg Capsule 150 Mg PO HS Loxapine (Loxapine Succinate) 50 Mg Capsule 100 Mg PO DAILY Lorazepam 2 Mg Tablet 2 Mg PO PRN Q8HRS PRN Lorazepam 1 Mg Tablet 1 Mg PO QID Lisinopril 10 Mg Tablet 10 Mg PO DAILY Haloperidol 5 Mg Tablet 5 Mg PO PRN QID PRN Finasteride 5 Mg Tablet 5 Mg PO HS Ferrous Sulfate 325 Mg Tablet 324 Mg PO DAILYAC Lovenox (Enoxaparin Sodium) 40 Mg/0.4 Ml Disp.syrin 40 Mg SQ HS Senna S Tablet (Sennosides/Docusate Sodium) 1 Each Tablet 2 Tab PO PRN BID PRN Clomipramine Hcl 75 Mg Capsule 150 Mg PO HS Vitamin D3 (Cholecalciferol (Vitamin D3)) 1,000 Unit Tablet 1,000 Unit PO DAILY Benztropine Mesylate 0.5 Mg Tablet 0.5 Mg PO BID Aspirin Ec (Aspirin) 325 Mg Tablet.dr 325 Mg PO DAILY Abilify (Aripiprazole) 30 Mg Tablet 30 Mg PO DAILY Diagnosis: Problems: (1) Schizophrenia, disorganized, subchronic with acute exacerbation (2) Mild cognitive disorder (3) Schizoaffective disorder (4) Obsessive compulsive disorder (5) Impulse control disorder (6) Anxiety disorder SHAKIR PAEZ MD Apr 11, 2017 10:20
[2017-04-11 15:58] VITALS: BP 98/52
--- NOTE | 2017-04-11 19:58 | PDOC ---
Exam José Miguel Demential Exam: José Miguel Note: Please also refer to the separate dictated note~for this date of service dictated separately.~Patient seen individually. Discussed the patient with Nursing staff reviewed the chart.~Reviewed interim history and current functioning. Reviewed vital signs,~Labs/ Radiology~and current medications noted below. Continue current treatment with the changes noted in the dictated addendum note Assessment: Vital Signs: Vital Signs Date Time Temp Pulse Resp B/P (MAP) Pulse Ox O2 Delivery O2 Flow Rate FiO2 04/11/17 17:00 75 98/52 04/11/17 15:58 97.5 20 04/11/17 13:08 97 04/08/17 22:39 Room Air I&O Intake and Output 04/11/17 06:59 Intake Total 1200 ml Balance 1200 ml Intake Oral 1200 ml # Voids 1 # Bowel Movements 2 Labs: Laboratory Tests Test 04/11/17 09:28 White Blood Count 8.6 x10^3/uL (4.0-11.0) Red Blood Count 3.84 x10^6/uL (4.30-5.70) L Hemoglobin 12.6 g/dL (13.0-17.5) L Hematocrit 37.9 % (39.0-53.0) L Mean Corpuscular Volume 99 fL (79-100) Mean Corpuscular Hemoglobin 33 pg (25-35) Mean Corpuscular Hemoglobin Concent 33 g/dL (31-37) Red Cell Distribution Width 13.5 % (11.5-14.5) Platelet Count 353 x10^3/uL (140-400) Neutrophils (%) (Auto) 67 % (31-73) Lymphocytes (%) (Auto) 23 % (24-48) L Monocytes (%) (Auto) 7 % (0-9) Eosinophils (%) (Auto) 2 % (0-3) Basophils (%) (Auto) 1 % (0-3) Neutrophils # (Auto) 5.8 x10^3uL (1.8-7.7) Lymphocytes # (Auto) 2.0 x10^3/uL (1.0-4.8) Monocytes # (Auto) 0.6 x10^3/uL (0.0-1.1) Eosinophils # (Auto) 0.2 x10^3/uL (0.0-0.7) Basophils # (Auto) 0.1 x10^3/uL (0.0-0.2) Sodium Level 139 mmol/L (136-145) Potassium Level 4.4 mmol/L (3.5-5.1) Chloride Level 103 mmol/L (98-107) Carbon Dioxide Level 31 mmol/L (21-32) Anion Gap 5 (6-14) L Blood Urea Nitrogen 26 mg/dL (8-26) Creatinine 1.1 mg/dL (0.7-1.3) Estimated GFR (Cockcroft-Gault) 65.1 BUN/Creatinine Ratio 24 (6-20) H Glucose Level 136 mg/dL (70-99) H Calcium Level 8.7 mg/dL (8.5-10.1) Total Bilirubin 0.4 mg/dL (0.2-1.0) Aspartate Amino Transferase (AST) 14 U/L (15-37) L Alanine Aminotransferase (ALT) 23 U/L (16-63) Alkaline Phosphatase 100 U/L (46-116) Total Protein 7.3 g/dL (6.4-8.2) Albumin 3.5 g/dL (3.4-5.0) Albumin/Globulin Ratio 0.9 (1.0-1.7) L Current Medications: Meds: Current Medications Acetaminophen (Tylenol) 650 mg PRN Q6HRS PRN PO PAIN / TEMP; Start 04/08/17 at 23:00 Multi-Ingredient Ointment (Analgesic [place]) 1 phillip PRN QID PRN TP MUSCLE PAIN; Start 04/08/17 at 23:00 Al Hydroxide/Mg Hydroxide (Mylanta Plus Xs) 15 ml PRN AFTMEALHC PRN PO DYSPEPSIA; Start 04/08/17 at 23:00 Magnesium Hydroxide (Milk Of Magnesia) 2,400 mg PRN QHS PRN PO CONSTIPATION; Start 04/08/17 at 23:00 Benztropine Mesylate (Cogentin) 0.5 mg BID PO Last administered on 04/11/17 08 :49; Start 04/09/17 at 09:00 Haloperidol (Haldol) 5 mg PRN QID PRN PO ANXIETY / AGITATION; Start 04/08/17 at 23:45 Lorazepam (Ativan) 1 mg QID PO Last administered on 04/11/17 18:16; Start at 09:00 Aripiprazole (Abilify) 30 mg DAILY PO Last administered on 04/11/17 08:50; Start 04/09/17 at 09:00 Clomipramine HCl (Anafranil) 150 mg QHS PO Last administered on 04/10/17 19:46 ; Start 04/09/17 at 21:00 Lorazepam (Ativan) 2 mg PRN Q8HRS PRN PO ANXIETY / AGITATION; Start 04/09/17 at 00:15 Loxapine Succinate (Loxitane) 100 mg DAILY PO Last administered on 04/11/17 08 :53; Start 04/09/17 at 09:00 Loxapine Succinate (Loxitane) 150 mg QHS PO Last administered on 04/10/17 19: 47; Start 04/09/17 at 21:00 Aspirin (Aspirin Enteric Coated) 325 mg DAILY PO Last administered on 08:49; Start 04/09/17 at 11:00 Vitamin D (Vitamin D3) 1,000 unit DAILY PO Last administered on 04/10/17 08:38 ; Start 04/09/17 at 11:00; Stop 04/10/17 at 14:48; Status DC Enoxaparin Sodium (Lovenox) 40 mg HS SQ Last administered on 04/09/17 19:38; Start 04/09/17 at 21:00; Stop 04/10/17 at 14:48; Status DC Ferrous Sulfate (Feosol) 324 mg DAILYAC PO Last administered on 04/11/17 08:49 ; Start 04/09/17 at 11:00 Finasteride (Proscar) 5 mg HS PO Last administered on 04/10/17 19:37; Start at 21:00 Lisinopril (Prinivil) 10 mg DAILY PO Last administered on 04/11/17 08:49; Start 04/09/17 at 11:00 Metoprolol Tartrate (Lopressor) 25 mg BIDWMEALS PO Last administered on 08:49; Start 04/09/17 at 11:00 Morphine Sulfate (Ms Contin) 15 mg DAILY PO Last administered on 04/11/17 08: 52; Start 04/09/17 at 11:00 Oxybutynin Chloride (Ditropan) 5 mg BID PO Last administered on 04/11/17 08:49 ; Start 04/09/17 at 11:00 Senna/Docusate Sodium (Senna Plus) 2 tab PRN BID PRN PO CONSTIPATION; Start at 10:00 Pantoprazole Sodium (Protonix) 40 mg DAILYAC PO Last administered on 04/11/17 08:49; Start 04/09/17 at 11:00 Psyllium Hydrophilic Mucilloid (Metamucil) 1 pkt DAILY PO Last administered on 04/11/17 08:49; Start 04/09/17 at 11:00 Aripiprazole (Abilify) 30 mg 1X ONCE PO ; Start 04/09/17 at 12:00; Stop at 12:01; Status DC Vitamin D (Vitamin D3) 2,000 unit DAILY PO Last administered on 04/11/17 08:52 ; Start 04/11/17 at 09:00 Clozapine (Clozaril) 25 mg HS PO ; Start 04/11/17 at 21:00 Active Scripts Active Reported Zoloft (Sertraline Hcl) 100 Mg Tablet 200 Mg PO DAILY Metamucil (Psyllium Husk) 660 Gm Powder 1 Packet PO DAILY Oxybutynin Chloride 5 Mg Tablet 5 Mg PO BID Omeprazole 40 Mg Capsule.dr 40 Mg PO DAILY Morphine Sulfate Er (Morphine Sulfate) 15 Mg Tablet.er 15 Mg PO DAILY Metoprolol Tartrate 25 Mg Tablet 25 Mg PO BIDWMEALS Loxapine (Loxapine Succinate) 50 Mg Capsule 150 Mg PO HS Loxapine (Loxapine Succinate) 50 Mg Capsule 100 Mg PO DAILY Lorazepam 2 Mg Tablet 2 Mg PO PRN Q8HRS PRN Lorazepam 1 Mg Tablet 1 Mg PO QID Lisinopril 10 Mg Tablet 10 Mg PO DAILY Haloperidol 5 Mg Tablet 5 Mg PO PRN QID PRN Finasteride 5 Mg Tablet 5 Mg PO HS Ferrous Sulfate 325 Mg Tablet 324 Mg PO DAILYAC Lovenox (Enoxaparin Sodium) 40 Mg/0.4 Ml Disp.syrin 40 Mg SQ HS Senna S Tablet (Sennosides/Docusate Sodium) 1 Each Tablet 2 Tab PO PRN BID PRN Clomipramine Hcl 75 Mg Capsule 150 Mg PO HS Vitamin D3 (Cholecalciferol (Vitamin D3)) 1,000 Unit Tablet 1,000 Unit PO DAILY Benztropine Mesylate 0.5 Mg Tablet 0.5 Mg PO BID Aspirin Ec (Aspirin) 325 Mg Tablet. 325 Mg PO DAILY Abilify (Aripiprazole) 30 Mg Tablet 30 Mg PO DAILY Diagnosis: Problems: (1) Anxiety disorder (2) Impulse control disorder (3) Obsessive compulsive disorder (4) Schizoaffective disorder (5) Schizophrenia, disorganized, subchronic with acute exacerbation SHAKIR PAEZ MD Apr 11, 2017 19:58
[2017-04-11] MEDS: FINASTERIDE 5 MG TABLET PO SCH (20:12)
[2017-04-11] MEDS: cloZAPine 25 MG TABLET PO SCH (20:23)
--- NOTE | 2017-04-12 00:40 | PN ---
DATE: 04/10/2017 This is a late entry of 04/10/2017, covers elements not covered in my initial note of 04/10/2017. SUBJECTIVE: The patient was staffed at a treatment team meeting with the entire team morning of 04/10/2017. Reviewed the patient's history, diagnosis, progress, discharge plans. The patient's history reveals history of lobotomy, but when I questioned the patient on this, he is quite clear that he had electroconvulsive therapy and never received lobotomy. We will have to check on the veracity of his past records about this. He remains withdrawn, otherwise compliant social, somewhat paranoid at times, but otherwise pleasant, smiling, forthcoming as I met with him individually evening of 04/10/2017. REVIEW OF SYSTEMS: Ambulation impaired. No CV, , eye, ENT or pulmonary system symptoms on review. MENTAL STATUS EXAM: Oriented to himself and situation. Speech has moderate latency, low in volume. Abstraction fair, computation impaired, language function intact, attention span short. Mood and affect, little less withdrawn. LABORATORY DATA: Reviewed. IMPRESSION: Unchanged from initial note. PLAN: Continue current psychotropics including Abilify 30 mg a day, Cogentin 0.5 b.i.d., clomipramine 150 mg at bedtime, Haldol p.r.n., Ativan 1 mg 4 times a day , Zoloft 200 mg a day. The patient is on multiple antipsychotics including Abilify, loxapine along with Haldol p.r.n. and in addition, he is on a combination of clomipramine 150 mg at bedtime, Zoloft 200 mg a day. We will attempt to simplify his psychotropic regimen by starting treatment on Clozaril 25 mg at bedtime and then gradually reducing the Abilify and loxapine. We will check clomipramine blood level and then attempt to reduce the Zoloft to avoid duplication of antidepressants. Reviewed drug interactions at length and risk/benefit ratio favors no further change at this time. I have carefully reviewed potential of Clozaril to cause a granulocytosis and he should not have any overt drug interactions with his current psychotropics checking his CBC, absolute neutrophil count every week to monitor this carefully. I believe he would need a dosage of approximately 150 at 200 mg of Clozaril perhaps a little less or more depending on his response and then we can taper the other antipsychotics. Discussed all this with the patient. SHAKIR PAEZ MD DR: MELISA/marvel JOB#: [id number] / [id number]
[2017-04-12 06:09] VITALS: BP 173/84
[2017-04-12] MEDS: MORPHINE ER 15 MG TABLET.ER PO SCH (08:40)
[2017-04-12] MEDS: ARIPiprazole 15 MG TABLET PO SCH (08:40)
[2017-04-12] MEDS: PANTOPRAZOLE 40 MG TABLET. PO SCH (08:40)
[2017-04-12] MEDS: LORazepam 1 MG TABLET PO SCH ×5 (08:40→19:29)
[2017-04-12] MEDS: ASPIRIN ENTERIC COATED 325 MG TABLET.DR. PO SCH (08:40)
[2017-04-12] MEDS: OXYBUTYNIN CHLORIDE 5 MG TABLET PO SCH ×2 (08:40→19:27)
[2017-04-12] MEDS: FERROUS SULFATE 325 MG TABLET PO SCH (08:41)
[2017-04-12] MEDS: CHOLECALCIFEROL (VITAMIN D3) 1,000 UNIT TABLET PO SCH (08:41)
[2017-04-12] MEDS: METOPROLOL TART IMMED RELEASE 25 MG TABLET PO SCH ×2 (08:41→16:46)
[2017-04-12] MEDS: PSYLLIUM SEED (WITH SUGAR) PACKET. PO SCH (08:42)
[2017-04-12] MEDS: BENZTROPINE MESYLATE 0.5 MG TABLET PO SCH ×2 (08:42→19:27)
[2017-04-12] MEDS: LISINOPRIL 10 MG TABLET PO SCH (08:42)
[2017-04-12] MEDS: LOXAPINE SUCCINATE 25 MG CAPSULE PO SCH ×2 (08:45→19:28)
--- NOTE | 2017-04-12 09:04 | PN ---
DATE: 04/11/2017 This note covers elements not covered in my initial note of 04/11/2017. I met the patient morning of 04/11/2017. Per nursing report, the patient has been pleasant, compliant with his medications, attending groups. REVIEW OF SYSTEMS: Ambulation impaired, in a wheelchair. No CV, , pulmonary, eye system symptoms on review. MENTAL STATUS EXAM: Oriented to himself and situation. Speech is low in volume, coherent. Abstraction fair, computation impaired, language function intact, attention span short. Mood and affect, somewhat anxious, ____ reviewed. IMPRESSION: Unchanged from initial note that Clozaril has been started at 25 mg p.o. at bedtime. Follow CBC, CMP and absolute neutrophil count weekly and then gradually attempt to taper ____, continue rest unchanged. Reviewed drug interactions, risk benefit ratio favors no further change as of now. MAN Ravi PAEZ MD DR: MELISA/marvel JOB#: [id number] / [id number]
[2017-04-12 15:45] VITALS: BP 124/70
[2017-04-12] MEDS: cloZAPine 25 MG TABLET PO SCH (19:27)
[2017-04-12] MEDS: FINASTERIDE 5 MG TABLET PO SCH (19:27)
[2017-04-13 06:43] VITALS: BP 165/92
[2017-04-13] MEDS: CHOLECALCIFEROL (VITAMIN D3) 1,000 UNIT TABLET PO SCH (07:39)
[2017-04-13] MEDS: PANTOPRAZOLE 40 MG TABLET. PO SCH (07:39)
[2017-04-13] MEDS: LOXAPINE SUCCINATE 25 MG CAPSULE PO SCH ×2 (07:40→19:38)
[2017-04-13] MEDS: FERROUS SULFATE 325 MG TABLET PO SCH (07:41)
[2017-04-13] MEDS: ASPIRIN ENTERIC COATED 325 MG TABLET.DR. PO SCH (07:41)
[2017-04-13] MEDS: LISINOPRIL 10 MG TABLET PO SCH (07:41)
[2017-04-13] MEDS: ARIPiprazole 15 MG TABLET PO SCH (07:41)
[2017-04-13] MEDS: OXYBUTYNIN CHLORIDE 5 MG TABLET PO SCH ×2 (07:42→19:37)
[2017-04-13] MEDS: BENZTROPINE MESYLATE 0.5 MG TABLET PO SCH ×2 (07:42→19:37)
[2017-04-13] MEDS: METOPROLOL TART IMMED RELEASE 25 MG TABLET PO SCH ×2 (07:42→17:40)
[2017-04-13] MEDS: PSYLLIUM SEED (WITH SUGAR) PACKET. PO SCH (07:42)
[2017-04-13] MEDS: LORazepam 1 MG TABLET PO SCH ×5 (07:46→19:39)
[2017-04-13] MEDS: MORPHINE ER 15 MG TABLET.ER PO SCH (07:46)
[2017-04-13 16:46] VITALS: BP 128/75
[2017-04-13] MEDS: FINASTERIDE 5 MG TABLET PO SCH (19:37)
[2017-04-13] MEDS: cloZAPine 25 MG TABLET PO SCH (19:37)
--- NOTE | 2017-04-13 19:51 | PDOC ---
Exam José Miguel Demential Exam: José Miguel Note: Please also refer to the separate dictated note~for this date of service dictated separately.~Patient seen individually. Discussed the patient with Nursing staff reviewed the chart.~Reviewed interim history and current functioning. Reviewed vital signs,~Labs/ Radiology~and current medications noted below. Continue current treatment with the changes noted in the dictated addendum note Assessment: Vital Signs: Vital Signs Date Time Temp Pulse Resp B/P (MAP) Pulse Ox O2 Delivery O2 Flow Rate FiO2 04/13/17 17:40 74 128/75 04/13/17 16:46 97.8 20 99 04/12/17 15:45 Room Air I&O Intake and Output 04/13/17 06:59 Intake Total 1640 ml Balance 1640 ml Intake Oral 1640 ml Current Medications: Meds: Current Medications Acetaminophen (Tylenol) 650 mg PRN Q6HRS PRN PO PAIN / TEMP; Start 04/08/17 at 23:00 Multi-Ingredient Ointment (Analgesic [place]) 1 phillip PRN QID PRN TP MUSCLE PAIN; Start 04/08/17 at 23:00 Al Hydroxide/Mg Hydroxide (Mylanta Plus Xs) 15 ml PRN AFTMEALHC PRN PO DYSPEPSIA; Start 04/08/17 at 23:00 Magnesium Hydroxide (Milk Of Magnesia) 2,400 mg PRN QHS PRN PO CONSTIPATION; Start 04/08/17 at 23:00 Benztropine Mesylate (Cogentin) 0.5 mg BID PO Last administered on 04/13/17 19 :37; Start 04/09/17 at 09:00 Haloperidol (Haldol) 5 mg PRN QID PRN PO ANXIETY / AGITATION; Start 04/08/17 at 23:45 Lorazepam (Ativan) 1 mg QID PO Last administered on 04/13/17 19:39; Start at 09:00 Aripiprazole (Abilify) 30 mg DAILY PO Last administered on 04/13/17 07:41; Start 04/09/17 at 09:00 Clomipramine HCl (Anafranil) 150 mg QHS PO Last administered on 04/13/17 19:41 ; Start 04/09/17 at 21:00 Lorazepam (Ativan) 2 mg PRN Q8HRS PRN PO ANXIETY / AGITATION; Start 04/09/17 at 00:15 Loxapine Succinate (Loxitane) 100 mg DAILY PO Last administered on 04/13/17 07 :40; Start 04/09/17 at 09:00 Loxapine Succinate (Loxitane) 150 mg QHS PO Last administered on 04/13/17 19: 38; Start 04/09/17 at 21:00 Aspirin (Aspirin Enteric Coated) 325 mg DAILY PO Last administered on 07:41; Start 04/09/17 at 11:00 Vitamin D (Vitamin D3) 1,000 unit DAILY PO Last administered on 04/10/17 08:38 ; Start 04/09/17 at 11:00; Stop 04/10/17 at 14:48; Status DC Enoxaparin Sodium (Lovenox) 40 mg HS SQ Last administered on 04/09/17 19:38; Start 04/09/17 at 21:00; Stop 04/10/17 at 14:48; Status DC Ferrous Sulfate (Feosol) 324 mg DAILYAC PO Last administered on 04/11/17 08:49 ; Start 04/09/17 at 11:00; Stop 04/12/17 at 01:56; Status DC Finasteride (Proscar) 5 mg HS PO Last administered on 04/13/17 19:37; Start at 21:00 Lisinopril (Prinivil) 10 mg DAILY PO Last administered on 04/13/17 07:41; Start 04/09/17 at 11:00 Metoprolol Tartrate (Lopressor) 25 mg BIDWMEALS PO Last administered on 17:40; Start 04/09/17 at 11:00 Morphine Sulfate (Ms Contin) 15 mg DAILY PO Last administered on 04/13/17 07: 46; Start 04/09/17 at 11:00 Oxybutynin Chloride (Ditropan) 5 mg BID PO Last administered on 04/13/17 19:37 ; Start 04/09/17 at 11:00 Senna/Docusate Sodium (Senna Plus) 2 tab PRN BID PRN PO CONSTIPATION; Start at 10:00 Pantoprazole Sodium (Protonix) 40 mg DAILYAC PO Last administered on 04/13/17 07:39; Start 04/09/17 at 11:00 Psyllium Hydrophilic Mucilloid (Metamucil) 1 pkt DAILY PO Last administered on 04/13/17 07:42; Start 04/09/17 at 11:00 Aripiprazole (Abilify) 30 mg 1X ONCE PO ; Start 04/09/17 at 12:00; Stop at 12:01; Status DC Vitamin D (Vitamin D3) 2,000 unit DAILY PO Last administered on 04/13/17 07:39 ; Start 04/11/17 at 09:00 Clozapine (Clozaril) 25 mg HS PO Last administered on 04/13/17 19:37; Start at 21:00 Ferrous Sulfate (Feosol) 325 mg DAILYAC PO Last administered on 04/13/17 07:41 ; Start 04/12/17 at 07:30 Active Scripts Active Reported Zoloft (Sertraline Hcl) 100 Mg Tablet 200 Mg PO DAILY Metamucil (Psyllium Husk) 660 Gm Powder 1 Packet PO DAILY Oxybutynin Chloride 5 Mg Tablet 5 Mg PO BID Omeprazole 40 Mg Capsule.dr 40 Mg PO DAILY Morphine Sulfate Er (Morphine Sulfate) 15 Mg Tablet.er 15 Mg PO DAILY Metoprolol Tartrate 25 Mg Tablet 25 Mg PO BIDWMEALS Loxapine (Loxapine Succinate) 50 Mg Capsule 150 Mg PO HS Loxapine (Loxapine Succinate) 50 Mg Capsule 100 Mg PO DAILY Lorazepam 2 Mg Tablet 2 Mg PO PRN Q8HRS PRN Lorazepam 1 Mg Tablet 1 Mg PO QID Lisinopril 10 Mg Tablet 10 Mg PO DAILY Haloperidol 5 Mg Tablet 5 Mg PO PRN QID PRN Finasteride 5 Mg Tablet 5 Mg PO HS Ferrous Sulfate 325 Mg Tablet 324 Mg PO DAILYAC Lovenox (Enoxaparin Sodium) 40 Mg/0.4 Ml Disp.syrin 40 Mg SQ HS Senna S Tablet (Sennosides/Docusate Sodium) 1 Each Tablet 2 Tab PO PRN BID PRN Clomipramine Hcl 75 Mg Capsule 150 Mg PO HS Vitamin D3 (Cholecalciferol (Vitamin D3)) 1,000 Unit Tablet 1,000 Unit PO DAILY Benztropine Mesylate 0.5 Mg Tablet 0.5 Mg PO BID Aspirin Ec (Aspirin) 325 Mg Tablet.dr 325 Mg PO DAILY Abilify (Aripiprazole) 30 Mg Tablet 30 Mg PO DAILY Diagnosis: Problems: (1) Anxiety disorder (2) Impulse control disorder (3) Obsessive compulsive disorder (4) Schizoaffective disorder (5) Schizophrenia, disorganized, subchronic with acute exacerbation SHAKIR PAEZ MD Apr 13, 2017 19:51
[2017-04-14 06:07] VITALS: BP 141/77
[2017-04-14 07:51] LABS: BASO % 0 % (0-3); EOS # 0.2 x10^3/uL (0.0-0.7); EOS % 1 % (0-3); HEMOGLOBIN 12.1 g/dL (13.0-17.5); LYMPH # 1.8 x10^3/uL (1.0-4.8); LYMPH % 12 % (24-48); MEAN CORPUSCULAR HEMOGLOBIN 32 pg (25-35); MEAN CORPUSCULAR HGB CONC 33 g/dL (31-37); MEAN CORPUSCULAR VOLUME 99 fL (79-100); MONO # 1.2 x10^3/uL (0.0-1.1); MONO % 8 % (0-9); NEUT # 11.6 x10^3uL (1.8-7.7); NEUT % 78 % (31-73); PLATELET COUNT 330 x10^3/uL (140-400); RED BLOOD COUNT 3.74 x10^6/uL (4.30-5.70); RED CELL DISTRIBUTION WIDTH 13.5 % (11.5-14.5); WHITE BLOOD COUNT 14.8 x10^3/uL (4.0-11.0)
[2017-04-14 07:58] LABS: ALBUMIN 3.4 g/dL (3.4-5.0); CALCIUM 8.9 mg/dL (8.5-10.1); CREATININE 1.1 mg/dL (0.7-1.3); GFR 65.1; MAGNESIUM 1.9 mg/dL (1.8-2.4); POTASSIUM 4.4 mmol/L (3.5-5.1); TOTAL BILIRUBIN 0.2 mg/dL (0.2-1.0); TOTAL PROTEIN 6.9 g/dL (6.4-8.2)
[2017-04-14 08:38] LABS: % BANDS 1 % (0-9); % EOS 5 % (0-5); % LYMPHS 8 % (24-48); % MONOS 8 % (0-10); % SEGS 78 % (35-66)
[2017-04-14 08:39] LABS: PLT ESTIMATE ADEQUATE (ADEQUATE)
[2017-04-14 08:40] LABS: TOXIC GRANULATION SLIGHT
[2017-04-14] MEDS: PANTOPRAZOLE 40 MG TABLET. PO SCH (10:13)
[2017-04-14] MEDS: FERROUS SULFATE 325 MG TABLET PO SCH (10:13)
[2017-04-14] MEDS: ASPIRIN ENTERIC COATED 325 MG TABLET.DR. PO SCH (10:16)
[2017-04-14] MEDS: OXYBUTYNIN CHLORIDE 5 MG TABLET PO SCH ×2 (10:16→20:34)
[2017-04-14] MEDS: ARIPiprazole 15 MG TABLET PO SCH (10:16)
[2017-04-14] MEDS: LORazepam 1 MG TABLET PO SCH ×4 (10:16→20:38)
[2017-04-14] MEDS: BENZTROPINE MESYLATE 0.5 MG TABLET PO SCH ×2 (10:16→20:33)
[2017-04-14] MEDS: METOPROLOL TART IMMED RELEASE 25 MG TABLET PO SCH ×2 (10:16→17:24)
[2017-04-14] MEDS: MORPHINE ER 15 MG TABLET.ER PO SCH (10:17)
[2017-04-14] MEDS: PSYLLIUM SEED (WITH SUGAR) PACKET. PO SCH (10:17)
[2017-04-14] MEDS: LOXAPINE SUCCINATE 25 MG CAPSULE PO SCH ×2 (10:17→20:38)
[2017-04-14] MEDS: CHOLECALCIFEROL (VITAMIN D3) 1,000 UNIT TABLET PO SCH (10:18)
[2017-04-14] MEDS: LISINOPRIL 10 MG TABLET PO SCH (10:18)
--- NOTE | 2017-04-14 11:32 | RAD ---
AP portable chest radiograph 04/14/2017 Clinical History: Elevated white blood count. An AP portable erect digital radiograph of the chest was obtained. No previous studies are available for comparison. A pacemaker overlies the left anterior chest. Leads extends to overlie the right ventricle of the heart. The cardiac silhouette is borderline enlarged. The thoracic aorta is tortuous. Atherosclerotic calcification of the thoracic aorta is seen. No acute pulmonary infiltrate is noted. No pneumothorax or pleural effusion is seen. Degenerative changes are seen involving the thoracic spine and both shoulders. Impression: No acute abnormality is seen.
[2017-04-14 15:51] VITALS: BP 119/74
--- NOTE | 2017-04-14 19:58 | PDOC ---
Exam José Miguel Demential Exam: José Miguel Note: Please also refer to the separate dictated note~for this date of service dictated separately.~Patient seen individually. Discussed the patient with Nursing staff reviewed the chart.~Reviewed interim history and current functioning. Reviewed vital signs,~Labs/ Radiology~and current medications noted below. Continue current treatment with the changes noted in the dictated addendum note Assessment: Vital Signs: Vital Signs Date Time Temp Pulse Resp B/P (MAP) Pulse Ox O2 Delivery O2 Flow Rate FiO2 04/14/17 17:24 72 119/74 04/14/17 15:51 97.6 20 97 04/12/17 15:45 Room Air I&O Intake and Output 04/14/17 07:00 Intake Total 1200 ml Balance 1200 ml Intake Oral 1200 ml # Voids 1 Labs: Laboratory Tests Test 04/14/17 07:31 White Blood Count 14.8 x10^3/uL (4.0-11.0) #H Red Blood Count 3.74 x10^6/uL (4.30-5.70) L Hemoglobin 12.1 g/dL (13.0-17.5) L Hematocrit 37.0 % (39.0-53.0) L Mean Corpuscular Volume 99 fL (79-100) Mean Corpuscular Hemoglobin 32 pg (25-35) Mean Corpuscular Hemoglobin Concent 33 g/dL (31-37) Red Cell Distribution Width 13.5 % (11.5-14.5) Platelet Count 330 x10^3/uL (140-400) Neutrophils (%) (Auto) 78 % (31-73) H Lymphocytes (%) (Auto) 12 % (24-48) L Monocytes (%) (Auto) 8 % (0-9) Eosinophils (%) (Auto) 1 % (0-3) Basophils (%) (Auto) 0 % (0-3) Neutrophils # (Auto) 11.6 x10^3uL (1.8-7.7) H Lymphocytes # (Auto) 1.8 x10^3/uL (1.0-4.8) Monocytes # (Auto) 1.2 x10^3/uL (0.0-1.1) H Eosinophils # (Auto) 0.2 x10^3/uL (0.0-0.7) Basophils # (Auto) 0.0 x10^3/uL (0.0-0.2) Segmented Neutrophils % 78 % (35-66) H Band Neutrophils % 1 % (0-9) Lymphocytes % 8 % (24-48) L Monocytes % 8 % (0-10) Eosinophils % 5 % (0-5) Toxic Granulation Slight Platelet Estimate Adequate (ADEQUATE) Large Platelets Occ Sodium Level 142 mmol/L (136-145) Potassium Level 4.4 mmol/L (3.5-5.1) Chloride Level 105 mmol/L (98-107) Carbon Dioxide Level 33 mmol/L (21-32) H Anion Gap 4 (6-14) L Blood Urea Nitrogen 24 mg/dL (8-26) Creatinine 1.1 mg/dL (0.7-1.3) Estimated GFR (Cockcroft-Gault) 65.1 BUN/Creatinine Ratio 22 (6-20) H Glucose Level 97 mg/dL (70-99) Calcium Level 8.9 mg/dL (8.5-10.1) Magnesium Level 1.9 mg/dL (1.8-2.4) Total Bilirubin 0.2 mg/dL (0.2-1.0) Aspartate Amino Transferase (AST) 13 U/L (15-37) L Alanine Aminotransferase (ALT) 24 U/L (16-63) Alkaline Phosphatase 103 U/L (46-116) Total Protein 6.9 g/dL (6.4-8.2) Albumin 3.4 g/dL (3.4-5.0) Albumin/Globulin Ratio 1.0 (1.0-1.7) Current Medications: Meds: Current Medications Acetaminophen (Tylenol) 650 mg PRN Q6HRS PRN PO PAIN / TEMP; Start 04/08/17 at 23:00 Multi-Ingredient Ointment (Analgesic [place]) 1 phillip PRN QID PRN TP MUSCLE PAIN; Start 04/08/17 at 23:00 Al Hydroxide/Mg Hydroxide (Mylanta Plus Xs) 15 ml PRN AFTMEALHC PRN PO DYSPEPSIA; Start 04/08/17 at 23:00 Magnesium Hydroxide (Milk Of Magnesia) 2,400 mg PRN QHS PRN PO CONSTIPATION; Start 04/08/17 at 23:00 Benztropine Mesylate (Cogentin) 0.5 mg BID PO Last administered on 04/14/17 10 :16; Start 04/09/17 at 09:00 Haloperidol (Haldol) 5 mg PRN QID PRN PO ANXIETY / AGITATION; Start 04/08/17 at 23:45 Lorazepam (Ativan) 1 mg QID PO Last administered on 04/14/17 17:24; Start at 09:00; Stop 04/14/17 at 23:00 Aripiprazole (Abilify) 30 mg DAILY PO Last administered on 04/14/17 10:16; Start 04/09/17 at 09:00 Clomipramine HCl (Anafranil) 150 mg QHS PO Last administered on 04/13/17 19:41 ; Start 04/09/17 at 21:00 Lorazepam (Ativan) 2 mg PRN Q8HRS PRN PO ANXIETY / AGITATION; Start 04/09/17 at 00:15 Loxapine Succinate (Loxitane) 100 mg DAILY PO Last administered on 04/14/17 10 :17; Start 04/09/17 at 09:00 Loxapine Succinate (Loxitane) 150 mg QHS PO Last administered on 04/13/17 19: 38; Start 04/09/17 at 21:00 Aspirin (Aspirin Enteric Coated) 325 mg DAILY PO Last administered on 10:16; Start 04/09/17 at 11:00 Vitamin D (Vitamin D3) 1,000 unit DAILY PO Last administered on 04/10/17 08:38 ; Start 04/09/17 at 11:00; Stop 04/10/17 at 14:48; Status DC Enoxaparin Sodium (Lovenox) 40 mg HS SQ Last administered on 04/09/17 19:38; Start 04/09/17 at 21:00; Stop 04/10/17 at 14:48; Status DC Ferrous Sulfate (Feosol) 324 mg DAILYAC PO Last administered on 04/11/17 08:49 ; Start 04/09/17 at 11:00; Stop 04/12/17 at 01:56; Status DC Finasteride (Proscar) 5 mg HS PO Last administered on 04/13/17 19:37; Start at 21:00 Lisinopril (Prinivil) 10 mg DAILY PO Last administered on 04/14/17 10:18; Start 04/09/17 at 11:00 Metoprolol Tartrate (Lopressor) 25 mg BIDWMEALS PO Last administered on 17:24; Start 04/09/17 at 11:00 Morphine Sulfate (Ms Contin) 15 mg DAILY PO Last administered on 04/14/17 10: 17; Start 04/09/17 at 11:00 Oxybutynin Chloride (Ditropan) 5 mg BID PO Last administered on 04/14/17 10:16 ; Start 04/09/17 at 11:00 Senna/Docusate Sodium (Senna Plus) 2 tab PRN BID PRN PO CONSTIPATION; Start at 10:00 Pantoprazole Sodium (Protonix) 40 mg DAILYAC PO Last administered on 04/14/17 10:13; Start 04/09/17 at 11:00 Psyllium Hydrophilic Mucilloid (Metamucil) 1 pkt DAILY PO Last administered on 04/14/17 10:17; Start 04/09/17 at 11:00 Aripiprazole (Abilify) 30 mg 1X ONCE PO ; Start 04/09/17 at 12:00; Stop at 12:01; Status DC Vitamin D (Vitamin D3) 2,000 unit DAILY PO Last administered on 04/14/17 10:18 ; Start 04/11/17 at 09:00 Clozapine (Clozaril) 25 mg HS PO Last administered on 04/13/17 19:37; Start at 21:00; Stop 04/15/17 at 20:59 Ferrous Sulfate (Feosol) 325 mg DAILYAC PO Last administered on 04/14/17 10:13 ; Start 04/12/17 at 07:30 Clozapine (Clozaril) 50 mg HS PO ; Start 04/14/17 at 21:00; Stop 04/14/17 at 21: 00; Status DC Clozapine (Clozaril) 50 mg HS PO ; Start 04/16/17 at 21:00 Lorazepam (Ativan) 0.5 mg DAILY PO ; Start 04/15/17 at 09:00; Stop 04/17/17 at 10:00 Lorazepam (Ativan) 1 mg TID@1300,1700,2100 PO ; Start 04/15/17 at 13:00; Stop at 23:00 Lorazepam (Ativan) 0.5 mg BID@0900,1300 PO ; Start 04/18/17 at 09:00; Stop at 15:00 Lorazepam (Ativan) 1 mg BID@1700,2100 PO ; Start 04/18/17 at 17:00; Stop 04/20/17 at 23:00 Lorazepam (Ativan) 0.5 mg TID@0900,1300,1700 PO ; Start 04/21/17 at 09:00; Stop 04/23/17 at 19:00 Lorazepam (Ativan) 1 mg HS PO ; Start 04/21/17 at 21:00; Stop 04/23/17 at 23:00 Lorazepam (Ativan) 0.5 mg QID PO ; Start 04/24/17 at 09:00 Active Scripts Active Reported Zoloft (Sertraline Hcl) 100 Mg Tablet 200 Mg PO DAILY Metamucil (Psyllium Husk) 660 Gm Powder 1 Packet PO DAILY Oxybutynin Chloride 5 Mg Tablet 5 Mg PO BID Omeprazole 40 Mg Capsule. 40 Mg PO DAILY Morphine Sulfate Er (Morphine Sulfate) 15 Mg Tablet.er 15 Mg PO DAILY Metoprolol Tartrate 25 Mg Tablet 25 Mg PO BIDWMEALS Loxapine (Loxapine Succinate) 50 Mg Capsule 150 Mg PO HS Loxapine (Loxapine Succinate) 50 Mg Capsule 100 Mg PO DAILY Lorazepam 2 Mg Tablet 2 Mg PO PRN Q8HRS PRN Lorazepam 1 Mg Tablet 1 Mg PO QID Lisinopril 10 Mg Tablet 10 Mg PO DAILY Haloperidol 5 Mg Tablet 5 Mg PO PRN QID PRN Finasteride 5 Mg Tablet 5 Mg PO HS Ferrous Sulfate 325 Mg Tablet 324 Mg PO DAILYAC Lovenox (Enoxaparin Sodium) 40 Mg/0.4 Ml Disp.syrin 40 Mg SQ HS Senna S Tablet (Sennosides/Docusate Sodium) 1 Each Tablet 2 Tab PO PRN BID PRN Clomipramine Hcl 75 Mg Capsule 150 Mg PO HS Vitamin D3 (Cholecalciferol (Vitamin D3)) 1,000 Unit Tablet 1,000 Unit PO DAILY Benztropine Mesylate 0.5 Mg Tablet 0.5 Mg PO BID Aspirin Ec (Aspirin) 325 Mg Tablet. 325 Mg PO DAILY Abilify (Aripiprazole) 30 Mg Tablet 30 Mg PO DAILY Diagnosis: Problems: (1) Anxiety disorder (2) Impulse control disorder (3) Obsessive compulsive disorder (4) Schizoaffective disorder (5) Schizophrenia, disorganized, subchronic with acute exacerbation SHAKIR PAEZ MD Apr 14, 2017 19:58
[2017-04-14] MEDS: cloZAPine 25 MG TABLET PO SCH (20:33)
[2017-04-14] MEDS: FINASTERIDE 5 MG TABLET PO SCH (20:33)
[2017-04-14] MEDS ORDERED: cloZAPine 25 MG TABLET PO SCH (21:00)
[2017-04-15 09:00] VITALS: BP 185/92
[2017-04-15] MEDS: ARIPiprazole 15 MG TABLET PO SCH (09:11)
[2017-04-15] MEDS: CHOLECALCIFEROL (VITAMIN D3) 1,000 UNIT TABLET PO SCH (09:11)
[2017-04-15] MEDS: ASPIRIN ENTERIC COATED 325 MG TABLET.DR. PO SCH (09:12)
[2017-04-15] MEDS: OXYBUTYNIN CHLORIDE 5 MG TABLET PO SCH ×2 (09:12→20:48)
[2017-04-15] MEDS: BENZTROPINE MESYLATE 0.5 MG TABLET PO SCH ×2 (09:12→20:49)
[2017-04-15] MEDS: PANTOPRAZOLE 40 MG TABLET. PO SCH (09:12)
[2017-04-15] MEDS: METOPROLOL TART IMMED RELEASE 25 MG TABLET PO SCH ×2 (09:12→17:00)
[2017-04-15] MEDS: FERROUS SULFATE 325 MG TABLET PO SCH (09:12)
[2017-04-15] MEDS: LISINOPRIL 10 MG TABLET PO SCH (09:13)
[2017-04-15] MEDS: PSYLLIUM SEED (WITH SUGAR) PACKET. PO SCH (09:13)
[2017-04-15] MEDS: MORPHINE ER 15 MG TABLET.ER PO SCH (09:15)
[2017-04-15] MEDS: LORazepam 0.5 MG TABLET PO SCH (09:15)
[2017-04-15] MEDS: LOXAPINE SUCCINATE 25 MG CAPSULE PO SCH ×2 (09:16→20:52)
--- NOTE | 2017-04-15 13:12 | PN ---
DATE: 04/13/2017 PSYCHIATRIC PROGRESS NOTE This late entry for 04/13/2017 covers elements not covered in my initial note. SUBJECTIVE: I met with the patient in the evening of 04/13/2017. Per nursing report, the patient has been calm, compliant with taking medications. REVIEW OF SYSTEMS: Ambulation impaired, in a wheelchair. No CV, , pulmonary, eye, ENT system symptoms on review. MENTAL STATUS EXAM: Oriented to himself and situation. Speech, low in volume, difficult to understand, coherent, abstraction fair, computation impaired, language function intact, attention span short. Mood and affect, somewhat anxious, obsessive. LABORATORY DATA: Reviewed. IMPRESSION: Unchanged. PLAN: Maintain current psychotropics. We will go ahead and stop the Zoloft since the patient is on clomipramine 150 mg at bedtime. He has been started on Clozaril 25 mg at bedtime. Follow labs level and absolute neutrophil count, increase the Clozaril gradually and then reduce the loxapine. SHAKIR PAEZ MD DR: MELISA/marvel JOB#: [id number] / [id number]
[2017-04-15] MEDS: LORazepam 1 MG TABLET PO SCH ×3 (13:15→20:51)
[2017-04-15 14:10] LABS: BACTERIA,URINE 0 /HPF (0-FEW); BILIRUBIN,URINE NEG (NEG); CLARITY,URINE CLEAR; COLOR,URINE YELLOW; GLUCOSE,URINE NEG (NEG); NITRITE,URINE NEG (NEG); RBC,URINE 0 /HPF (0-2); UROBILINOGEN,URINE 0.2 mg/dL (0.2 mg/dL); WBC,URINE 0 /HPF (0-4)
[2017-04-15 15:58] VITALS: BP 107/64
--- NOTE | 2017-04-15 19:57 | PDOC ---
Exam José Miguel Demential Exam: José Miguel Note: Please also refer to the separate dictated note~for this date of service dictated separately.~Patient seen individually. Discussed the patient with Nursing staff reviewed the chart.~Reviewed interim history and current functioning. Reviewed vital signs,~Labs/ Radiology~and current medications noted below. Continue current treatment with the changes noted in the dictated addendum note Assessment: Vital Signs: Vital Signs Date Time Temp Pulse Resp B/P (MAP) Pulse Ox O2 Delivery O2 Flow Rate FiO2 04/15/17 17:00 63 107/64 04/15/17 15:58 97.8 18 99 04/12/17 15:45 Room Air I&O Intake and Output 04/16/17 07:00 Intake Total 1440 ml Balance 1440 ml Intake Oral 1440 ml # Bowel Movements 1 Labs: Laboratory Tests Test 04/15/17 13:54 Urine Collection Type Unknown Urine Color Yellow Urine Clarity Clear Urine pH 6.5 Urine Specific [place] 1.010 Urine Protein Neg (NEG-TRACE) Urine Glucose (UA) Neg mg/dL (NEG) Urine Ketones (Stick) Neg mg/dL (NEG) Urine Blood Neg (NEG) Urine Nitrite Neg (NEG) Urine Bilirubin Neg (NEG) Urine Urobilinogen Dipstick 0.2 mg/dL (0.2 mg/dL) Urine Leukocyte Esterase Neg (NEG) Urine RBC 0 /HPF (0-2) Urine WBC 0 /HPF (0-4) Urine Squamous Epithelial Cells None /LPF Urine Bacteria 0 /HPF (0-FEW) Current Medications: Meds: Current Medications Acetaminophen (Tylenol) 650 mg PRN Q6HRS PRN PO PAIN / TEMP; Start 04/08/17 at 23:00 Multi-Ingredient Ointment (Analgesic [place]) 1 phillip PRN QID PRN TP MUSCLE PAIN; Start 04/08/17 at 23:00 Al Hydroxide/Mg Hydroxide (Mylanta Plus Xs) 15 ml PRN AFTMEALHC PRN PO DYSPEPSIA; Start 04/08/17 at 23:00 Magnesium Hydroxide (Milk Of Magnesia) 2,400 mg PRN QHS PRN PO CONSTIPATION; Start 04/08/17 at 23:00 Benztropine Mesylate (Cogentin) 0.5 mg BID PO Last administered on 04/15/17t 09 :12; Start 04/09/17 at 09:00 Haloperidol (Haldol) 5 mg PRN QID PRN PO ANXIETY / AGITATION; Start 04/08/17 at 23:45 Lorazepam (Ativan) 1 mg QID PO Last administered on 04/14/17 20:38; Start at 09:00; Stop 04/14/17 at 23:00; Status DC Aripiprazole (Abilify) 30 mg DAILY PO Last administered on 04/15/17 09:11; Start 04/09/17 at 09:00 Clomipramine HCl (Anafranil) 150 mg QHS PO Last administered on 04/14/17 20:39 ; Start 04/09/17 at 21:00 Lorazepam (Ativan) 2 mg PRN Q8HRS PRN PO ANXIETY / AGITATION; Start 04/09/17 at 00:15 Loxapine Succinate (Loxitane) 100 mg DAILY PO Last administered on 04/15/17 09 :16; Start 04/09/17 at 09:00 Loxapine Succinate (Loxitane) 150 mg QHS PO Last administered on 04/14/17 20: 38; Start 04/09/17 at 21:00 Aspirin (Aspirin Enteric Coated) 325 mg DAILY PO Last administered on 09:12; Start 04/09/17 at 11:00 Vitamin D (Vitamin D3) 1,000 unit DAILY PO Last administered on 04/10/17 08:38 ; Start 04/09/17 at 11:00; Stop 04/10/17 at 14:48; Status DC Enoxaparin Sodium (Lovenox) 40 mg HS SQ Last administered on 04/09/17 19:38; Start 04/09/17 at 21:00; Stop 04/10/17 at 14:48; Status DC Ferrous Sulfate (Feosol) 324 mg DAILYAC PO Last administered on 04/11/17 08:49 ; Start 04/09/17 at 11:00; Stop 04/12/17 at 01:56; Status DC Finasteride (Proscar) 5 mg HS PO Last administered on 04/14/17 20:33; Start at 21:00 Lisinopril (Prinivil) 10 mg DAILY PO Last administered on 04/15/17 09:13; Start 04/09/17 at 11:00 Metoprolol Tartrate (Lopressor) 25 mg BIDWMEALS PO Last administered on 09:12; Start 04/09/17 at 11:00 Morphine Sulfate (Ms Contin) 15 mg DAILY PO Last administered on 04/15/17 09: 15; Start 04/09/17 at 11:00 Oxybutynin Chloride (Ditropan) 5 mg BID PO Last administered on 04/15/17 09:12 ; Start 04/09/17 at 11:00 Senna/Docusate Sodium (Senna Plus) 2 tab PRN BID PRN PO CONSTIPATION; Start at 10:00 Pantoprazole Sodium (Protonix) 40 mg DAILYAC PO Last administered on 04/15/17 09:12; Start 04/09/17 at 11:00 Psyllium Hydrophilic Mucilloid (Metamucil) 1 pkt DAILY PO Last administered on 04/15/17 09:13; Start 04/09/17 at 11:00 Aripiprazole (Abilify) 30 mg 1X ONCE PO ; Start 04/09/17 at 12:00; Stop at 12:01; Status DC Vitamin D (Vitamin D3) 2,000 unit DAILY PO Last administered on 04/15/17 09:11 ; Start 04/11/17 at 09:00 Clozapine (Clozaril) 25 mg HS PO Last administered on 04/14/17 20:33; Start at 21:00; Stop 04/15/17 at 20:59 Ferrous Sulfate (Feosol) 325 mg DAILYAC PO Last administered on 04/15/17 09:12 ; Start 04/12/17 at 07:30 Clozapine (Clozaril) 50 mg HS PO ; Start 04/14/17 at 21:00; Stop 04/14/17 at 21: 00; Status DC Clozapine (Clozaril) 50 mg HS PO ; Start 04/16/17 at 21:00 Lorazepam (Ativan) 0.5 mg DAILY PO Last administered on 04/15/17 09:15; Start 04/15/17 at 09:00; Stop 04/17/17 at 10:00 Lorazepam (Ativan) 1 mg TID@1300,1700,2100 PO Last administered on 8/29/17at 17 :34; Start 04/15/17 at 13:00; Stop 04/17/17 at 23:00 Lorazepam (Ativan) 0.5 mg BID@0900,1300 PO ; Start 04/18/17 at 09:00; Stop at 15:00 Lorazepam (Ativan) 1 mg BID@1700,2100 PO ; Start 04/18/17 at 17:00; Stop 04/20/17 at 23:00 Lorazepam (Ativan) 0.5 mg TID@0900,1300,1700 PO ; Start 04/21/17 at 09:00; Stop 04/23/17 at 19:00 Lorazepam (Ativan) 1 mg HS PO ; Start 04/21/17 at 21:00; Stop 04/23/17 at 23:00 Lorazepam (Ativan) 0.5 mg QID PO ; Start 04/24/17 at 09:00 Active Scripts Active Reported Zoloft (Sertraline Hcl) 100 Mg Tablet 200 Mg PO DAILY Metamucil (Psyllium Husk) 660 Gm Powder 1 Packet PO DAILY Oxybutynin Chloride 5 Mg Tablet 5 Mg PO BID Omeprazole 40 Mg Capsule.dr 40 Mg PO DAILY Morphine Sulfate Er (Morphine Sulfate) 15 Mg Tablet.er 15 Mg PO DAILY Metoprolol Tartrate 25 Mg Tablet 25 Mg PO BIDWMEALS Loxapine (Loxapine Succinate) 50 Mg Capsule 150 Mg PO HS Loxapine (Loxapine Succinate) 50 Mg Capsule 100 Mg PO DAILY Lorazepam 2 Mg Tablet 2 Mg PO PRN Q8HRS PRN Lorazepam 1 Mg Tablet 1 Mg PO QID Lisinopril 10 Mg Tablet 10 Mg PO DAILY Haloperidol 5 Mg Tablet 5 Mg PO PRN QID PRN Finasteride 5 Mg Tablet 5 Mg PO HS Ferrous Sulfate 325 Mg Tablet 324 Mg PO DAILYAC Lovenox (Enoxaparin Sodium) 40 Mg/0.4 Ml Disp.syrin 40 Mg SQ HS Senna S Tablet (Sennosides/Docusate Sodium) 1 Each Tablet 2 Tab PO PRN BID PRN Clomipramine Hcl 75 Mg Capsule 150 Mg PO HS Vitamin D3 (Cholecalciferol (Vitamin D3)) 1,000 Unit Tablet 1,000 Unit PO DAILY Benztropine Mesylate 0.5 Mg Tablet 0.5 Mg PO BID Aspirin Ec (Aspirin) 325 Mg Tablet. 325 Mg PO DAILY Abilify (Aripiprazole) 30 Mg Tablet 30 Mg PO DAILY Diagnosis: Problems: (1) Anxiety disorder (2) Impulse control disorder (3) Obsessive compulsive disorder (4) Schizoaffective disorder (5) Schizophrenia, disorganized, subchronic with acute exacerbation SHAKIR PAEZ MD Apr 15, 2017 19:57
[2017-04-15] MEDS: FINASTERIDE 5 MG TABLET PO SCH (20:48)
--- NOTE | 2017-04-16 02:03 | PN ---
DATE: 04/14/2017 This is a late entry for 04/14/2017 and covers the elements not covered in my initial note of 04/14/2017. SUBJECTIVE: I met with the patient in the evening of 04/14/2017. The patient's chest x-ray was negative. UA will be rechecked since he has leukocytosis. There is a case reporting Clozaril causing leukocytosis, especially in combination with Ativan and we will go ahead and taper the Ativan down and monitor labs. Overall, the patient has been calmer, cooperative, taking his medications. REVIEW OF SYSTEMS: Ambulation impaired, in wheelchair. No CV, , pulmonary, eye system symptoms on review. MENTAL STATUS EXAM: Oriented to himself and situation. Speech is coherent, has some latency, low in volume. Abstraction fair, computation impaired, language function intact. Mood and affect remain somewhat anxious, labile at times. LABORATORY DATA: Reviewed. IMPRESSION: Unchanged from initial note. PLAN: Taper the Ativan. Continue Clozaril 25 mg at bedtime. CBC is unremarkable other than leukocytosis, absolute neutrophil count is unremarkable. We will increase Clozaril gradually, follow labs level, maintain Abilify and later taper the Abilify. Reviewed drug interactions, risk/benefit ratio favors no further interventions at this time. SHAKIR PAEZ MD DR: MELISA/marvel JOB#: [id number] / [id number]
[2017-04-16 06:09] VITALS: BP 158/87
[2017-04-16] MEDS: ASPIRIN ENTERIC COATED 325 MG TABLET.DR. PO SCH (08:32)
[2017-04-16] MEDS: PSYLLIUM SEED (WITH SUGAR) PACKET. PO SCH (08:32)
[2017-04-16] MEDS: ARIPiprazole 15 MG TABLET PO SCH (08:32)
[2017-04-16] MEDS: FERROUS SULFATE 325 MG TABLET PO SCH (08:32)
[2017-04-16] MEDS: MORPHINE ER 15 MG TABLET.ER PO SCH (08:32)
[2017-04-16] MEDS: OXYBUTYNIN CHLORIDE 5 MG TABLET PO SCH ×2 (08:32→20:24)
[2017-04-16] MEDS: BENZTROPINE MESYLATE 0.5 MG TABLET PO SCH ×2 (08:33→20:24)
[2017-04-16] MEDS: LORazepam 0.5 MG TABLET PO SCH (08:33)
[2017-04-16] MEDS: PANTOPRAZOLE 40 MG TABLET. PO SCH (08:33)
[2017-04-16] MEDS: METOPROLOL TART IMMED RELEASE 25 MG TABLET PO SCH ×2 (08:33→17:31)
[2017-04-16] MEDS: CHOLECALCIFEROL (VITAMIN D3) 1,000 UNIT TABLET PO SCH (08:34)
[2017-04-16] MEDS: LISINOPRIL 10 MG TABLET PO SCH (08:34)
[2017-04-16] MEDS: LOXAPINE SUCCINATE 25 MG CAPSULE PO SCH ×2 (08:36→20:29)
[2017-04-16] MEDS: LORazepam 1 MG TABLET PO SCH ×3 (14:38→20:29)
--- NOTE | 2017-04-16 20:05 | PDOC ---
Exam José Miguel Demential Exam: José Miguel Note: Please also refer to the separate dictated note~for this date of service dictated separately.~Patient seen individually. Discussed the patient with Nursing staff reviewed the chart.~Reviewed interim history and current functioning. Reviewed vital signs,~Labs/ Radiology~and current medications noted below. Continue current treatment with the changes noted in the dictated addendum note Assessment: Vital Signs: Vital Signs Date Time Temp Pulse Resp B/P (MAP) Pulse Ox O2 Delivery O2 Flow Rate FiO2 04/16/17 17:31 103 177/113 04/16/17 12:47 97 04/16/17 06:09 97.2 18 04/12/17 15:45 Room Air I&O Intake and Output 04/17/17 07:00 Intake Total 0 ml Balance 0 ml Intake Oral 0 ml Current Medications: Meds: Current Medications Acetaminophen (Tylenol) 650 mg PRN Q6HRS PRN PO PAIN / TEMP; Start 04/08/17 at 23:00 Multi-Ingredient Ointment (Analgesic [place]) 1 phillip PRN QID PRN TP MUSCLE PAIN; Start 04/08/17 at 23:00 Al Hydroxide/Mg Hydroxide (Mylanta Plus Xs) 15 ml PRN AFTMEALHC PRN PO DYSPEPSIA; Start 04/08/17 at 23:00 Magnesium Hydroxide (Milk Of Magnesia) 2,400 mg PRN QHS PRN PO CONSTIPATION; Start 04/08/17 at 23:00 Benztropine Mesylate (Cogentin) 0.5 mg BID PO Last administered on 04/16/17 08 :33; Start 04/09/17 at 09:00 Haloperidol (Haldol) 5 mg PRN QID PRN PO ANXIETY / AGITATION; Start 04/08/17 at 23:45 Lorazepam (Ativan) 1 mg QID PO Last administered on 04/14/17 20:38; Start at 09:00; Stop 04/14/17 at 23:00; Status DC Aripiprazole (Abilify) 30 mg DAILY PO Last administered on 04/16/17 08:32; Start 04/09/17 at 09:00 Clomipramine HCl (Anafranil) 150 mg QHS PO Last administered on 04/15/17 20:52 ; Start 04/09/17 at 21:00 Lorazepam (Ativan) 2 mg PRN Q8HRS PRN PO ANXIETY / AGITATION; Start 04/09/17 at 00:15 Loxapine Succinate (Loxitane) 100 mg DAILY PO Last administered on 04/16/17 08 :36; Start 04/09/17 at 09:00 Loxapine Succinate (Loxitane) 150 mg QHS PO Last administered on 04/15/17 20: 52; Start 04/09/17 at 21:00 Aspirin (Aspirin Enteric Coated) 325 mg DAILY PO Last administered on 08:32; Start 04/09/17 at 11:00 Vitamin D (Vitamin D3) 1,000 unit DAILY PO Last administered on 04/10/17 08:38 ; Start 04/09/17 at 11:00; Stop 04/10/17 at 14:48; Status DC Enoxaparin Sodium (Lovenox) 40 mg HS SQ Last administered on 04/09/17 19:38; Start 04/09/17 at 21:00; Stop 04/10/17 at 14:48; Status DC Ferrous Sulfate (Feosol) 324 mg DAILYAC PO Last administered on 04/11/17 08:49 ; Start 04/09/17 at 11:00; Stop 04/12/17 at 01:56; Status DC Finasteride (Proscar) 5 mg HS PO Last administered on 04/15/17 20:48; Start at 21:00 Lisinopril (Prinivil) 10 mg DAILY PO Last administered on 04/16/17 08:34; Start 04/09/17 at 11:00 Metoprolol Tartrate (Lopressor) 25 mg BIDWMEALS PO Last administered on 17:31; Start 04/09/17 at 11:00 Morphine Sulfate (Ms Contin) 15 mg DAILY PO Last administered on 04/16/17 08: 32; Start 04/09/17 at 11:00 Oxybutynin Chloride (Ditropan) 5 mg BID PO Last administered on 04/16/17 08:32 ; Start 04/09/17 at 11:00 Senna/Docusate Sodium (Senna Plus) 2 tab PRN BID PRN PO CONSTIPATION; Start at 10:00 Pantoprazole Sodium (Protonix) 40 mg DAILYAC PO Last administered on 04/16/17 08:33; Start 04/09/17 at 11:00 Psyllium Hydrophilic Mucilloid (Metamucil) 1 pkt DAILY PO Last administered on 04/16/17 08:32; Start 04/09/17 at 11:00 Aripiprazole (Abilify) 30 mg 1X ONCE PO ; Start 04/09/17 at 12:00; Stop at 12:01; Status DC Vitamin D (Vitamin D3) 2,000 unit DAILY PO Last administered on 04/16/17 08:34 ; Start 04/11/17 at 09:00 Clozapine (Clozaril) 25 mg HS PO Last administered on 04/14/17 20:33; Start at 21:00; Stop 04/15/17 at 20:59; Status DC Ferrous Sulfate (Feosol) 325 mg DAILYAC PO Last administered on 04/16/17 08:32 ; Start 04/12/17 at 07:30 Clozapine (Clozaril) 50 mg HS PO ; Start 04/14/17 at 21:00; Stop 04/14/17 at 21: 00; Status DC Clozapine (Clozaril) 50 mg HS PO ; Start 04/16/17 at 21:00 Lorazepam (Ativan) 0.5 mg DAILY PO Last administered on 04/16/17 08:33; Start 04/15/17 at 09:00; Stop 04/16/17 at 18:35; Status DC Lorazepam (Ativan) 1 mg TID@1300,1700,2100 PO Last administered on 04/16/17 17 :30; Start 04/15/17 at 13:00; Stop 04/16/17 at 18:35; Status DC Lorazepam (Ativan) 0.5 mg BID@0900,1300 PO ; Start 04/18/17 at 09:00; Stop at 09:00; Status DC Lorazepam (Ativan) 1 mg BID@1700,2100 PO ; Start 04/18/17 at 17:00; Stop 04/18/17 at 17:00; Status DC Lorazepam (Ativan) 0.5 mg TID@0900,1300,1700 PO ; Start 04/21/17 at 09:00; Stop 04/21/17 at 09:00; Status DC Lorazepam (Ativan) 1 mg HS PO ; Start 04/21/17 at 21:00; Stop 04/21/17 at 21:00; Status DC Lorazepam (Ativan) 0.5 mg QID PO ; Start 04/24/17 at 09:00; Stop 04/24/17 at 09:00 ; Status DC Lorazepam (Ativan) 1 mg QID PO ; Start 04/16/17 at 21:00; Stop 04/17/17 at 23:00 Active Scripts Active Reported Zoloft (Sertraline Hcl) 100 Mg Tablet 200 Mg PO DAILY Metamucil (Psyllium Husk) 660 Gm Powder 1 Packet PO DAILY Oxybutynin Chloride 5 Mg Tablet 5 Mg PO BID Omeprazole 40 Mg Capsule.dr 40 Mg PO DAILY Morphine Sulfate Er (Morphine Sulfate) 15 Mg Tablet.er 15 Mg PO DAILY Metoprolol Tartrate 25 Mg Tablet 25 Mg PO BIDWMEALS Loxapine (Loxapine Succinate) 50 Mg Capsule 150 Mg PO HS Loxapine (Loxapine Succinate) 50 Mg Capsule 100 Mg PO DAILY Lorazepam 2 Mg Tablet 2 Mg PO PRN Q8HRS PRN Lorazepam 1 Mg Tablet 1 Mg PO QID Lisinopril 10 Mg Tablet 10 Mg PO DAILY Haloperidol 5 Mg Tablet 5 Mg PO PRN QID PRN Finasteride 5 Mg Tablet 5 Mg PO HS Ferrous Sulfate 325 Mg Tablet 324 Mg PO DAILYAC Lovenox (Enoxaparin Sodium) 40 Mg/0.4 Ml Disp.syrin 40 Mg SQ HS Senna S Tablet (Sennosides/Docusate Sodium) 1 Each Tablet 2 Tab PO PRN BID PRN Clomipramine Hcl 75 Mg Capsule 150 Mg PO HS Vitamin D3 (Cholecalciferol (Vitamin D3)) 1,000 Unit Tablet 1,000 Unit PO DAILY Benztropine Mesylate 0.5 Mg Tablet 0.5 Mg PO BID Aspirin Ec (Aspirin) 325 Mg Tablet.dr 325 Mg PO DAILY Abilify (Aripiprazole) 30 Mg Tablet 30 Mg PO DAILY Diagnosis: Problems: (1) Anxiety disorder (2) Impulse control disorder (3) Obsessive compulsive disorder (4) Schizoaffective disorder (5) Schizophrenia, disorganized, subchronic with acute exacerbation SHAKIR PAEZ MD Apr 16, 2017 20:05
[2017-04-16] MEDS: FINASTERIDE 5 MG TABLET PO SCH (20:24)
[2017-04-16] MEDS: cloZAPine 25 MG TABLET PO SCH (20:29)
--- NOTE | 2017-04-17 01:00 | PN ---
DATE: 04/15/2017 PSYCHIATRIC PROGRESS NOTE This is a late entry of 04/15/2017 covers elements not covered in my initial note. SUBJECTIVE: I met with the patient evening of 04/15/2017. Overall, the patient is compliant with his medications. UA is negative. He does have some leukocytosis and he is on Clozaril. We will monitor this. Ativan is being tapered. REVIEW OF SYSTEMS: Positive for impaired ambulation in wheelchair. No CV, , pulmonary, eye system symptoms on review. Reliability varies. MENTAL STATUS EXAM: Oriented to himself and situation. Speech, low in volume, coherent, abstraction fair, computation impaired, language function intact. No clear suicidal or homicidal ideation. LABORATORY DATA: Reviewed. IMPRESSION: Schizophrenia, chronic undifferentiated with acute exacerbation, schizoaffective disorder, bipolar type, mixed with psychotic features; cognitive disorder, unspecified versus mild cognitive impairment. PLAN: Taper the Ativan, which is currently at 1 mg 3 times a day, 0.5 mg at bedtime, increase Clozaril on 04/16/2017 to 50 mg at bedtime. Check CBC, CMP, absolute neutrophil count every Friday. Maintain Abilify, Cogentin, ____ at current dosage along with Haldol p.r.n.. loxapine at current dosage, Zoloft. We will next reduce the Abilify once the Clozaril is at a decent dosage. MAN Ravi PAEZ MD DR: MELISA/marvel JOB#: [id number] / [id number]
[2017-04-17 06:16] VITALS: BP 180/88
[2017-04-17] MEDS: ARIPiprazole 15 MG TABLET PO SCH (07:53)
[2017-04-17] MEDS: LISINOPRIL 10 MG TABLET PO SCH (07:54)
[2017-04-17] MEDS: OXYBUTYNIN CHLORIDE 5 MG TABLET PO SCH ×2 (07:54→20:46)
[2017-04-17] MEDS: PANTOPRAZOLE 40 MG TABLET. PO SCH (07:54)
[2017-04-17] MEDS: BENZTROPINE MESYLATE 0.5 MG TABLET PO SCH ×2 (07:54→20:46)
[2017-04-17] MEDS: METOPROLOL TART IMMED RELEASE 25 MG TABLET PO SCH ×2 (07:54→17:17)
[2017-04-17] MEDS: CHOLECALCIFEROL (VITAMIN D3) 1,000 UNIT TABLET PO SCH (07:55)
[2017-04-17] MEDS: LORazepam 1 MG TABLET PO SCH ×4 (07:55→21:02)
[2017-04-17] MEDS: FERROUS SULFATE 325 MG TABLET PO SCH (07:55)
[2017-04-17] MEDS: ASPIRIN ENTERIC COATED 325 MG TABLET.DR. PO SCH (07:55)
[2017-04-17 07:56] LABS: BASO % 1 % (0-3); EOS # 0.1 x10^3/uL (0.0-0.7); EOS % 2 % (0-3); HEMOGLOBIN 11.2 g/dL (13.0-17.5); LYMPH # 2.1 x10^3/uL (1.0-4.8); LYMPH % 28 % (24-48); MEAN CORPUSCULAR HEMOGLOBIN 33 pg (25-35); MEAN CORPUSCULAR HGB CONC 34 g/dL (31-37); MEAN CORPUSCULAR VOLUME 97 fL (79-100); MONO # 1.1 x10^3/uL (0.0-1.1); MONO % 15 % (0-9); NEUT # 4.2 x10^3uL (1.8-7.7); NEUT % 55 % (31-73); PLATELET COUNT 254 x10^3/uL (140-400); RED CELL DISTRIBUTION WIDTH 13.2 % (11.5-14.5); WHITE BLOOD COUNT 7.6 x10^3/uL (4.0-11.0)
[2017-04-17] MEDS: MORPHINE ER 15 MG TABLET.ER PO SCH (07:56)
[2017-04-17] MEDS: PSYLLIUM SEED (WITH SUGAR) PACKET. PO SCH (07:56)
[2017-04-17] MEDS: LOXAPINE SUCCINATE 25 MG CAPSULE PO SCH ×2 (07:58→21:02)
[2017-04-17 08:14] LABS: ALBUMIN 3.2 g/dL (3.4-5.0); CALCIUM 8.6 mg/dL (8.5-10.1); CREATININE 1.1 mg/dL (0.7-1.3); GFR 65.1; MAGNESIUM 1.9 mg/dL (1.8-2.4); POTASSIUM 3.9 mmol/L (3.5-5.1); TOTAL BILIRUBIN 0.6 mg/dL (0.2-1.0); TOTAL PROTEIN 6.3 g/dL (6.4-8.2)
[2017-04-17 16:21] VITALS: BP 131/60
--- NOTE | 2017-04-17 20:03 | PDOC ---
Exam José Miguel Demential Exam: José Miguel Note: Please also refer to the separate dictated note~for this date of service dictated separately.~Patient seen individually. Discussed the patient with Nursing staff reviewed the chart.~Reviewed interim history and current functioning. Reviewed vital signs,~Labs/ Radiology~and current medications noted below. Continue current treatment with the changes noted in the dictated addendum note Assessment: Vital Signs: Vital Signs Date Time Temp Pulse Resp B/P (MAP) Pulse Ox O2 Delivery O2 Flow Rate FiO2 04/17/17 17:17 60 131/60 04/17/17 16:21 97.3 18 92 04/17/17 07:56 Room Air I&O Intake and Output 04/18/17 07:00 Intake Total 1560 ml Balance 1560 ml Intake Oral 1560 ml Labs: Laboratory Tests Test 04/17/17 07:02 White Blood Count 7.6 x10^3/uL (4.0-11.0) Red Blood Count 3.40 x10^6/uL (4.30-5.70) L Hemoglobin 11.2 g/dL (13.0-17.5) L Hematocrit 33.0 % (39.0-53.0) L Mean Corpuscular Volume 97 fL (79-100) Mean Corpuscular Hemoglobin 33 pg (25-35) Mean Corpuscular Hemoglobin Concent 34 g/dL (31-37) Red Cell Distribution Width 13.2 % (11.5-14.5) Platelet Count 254 x10^3/uL (140-400) Neutrophils (%) (Auto) 55 % (31-73) Lymphocytes (%) (Auto) 28 % (24-48) Monocytes (%) (Auto) 15 % (0-9) H Eosinophils (%) (Auto) 2 % (0-3) Basophils (%) (Auto) 1 % (0-3) Neutrophils # (Auto) 4.2 x10^3uL (1.8-7.7) Lymphocytes # (Auto) 2.1 x10^3/uL (1.0-4.8) Monocytes # (Auto) 1.1 x10^3/uL (0.0-1.1) Eosinophils # (Auto) 0.1 x10^3/uL (0.0-0.7) Basophils # (Auto) 0.0 x10^3/uL (0.0-0.2) Sodium Level 140 mmol/L (136-145) Potassium Level 3.9 mmol/L (3.5-5.1) Chloride Level 105 mmol/L (98-107) Carbon Dioxide Level 30 mmol/L (21-32) Anion Gap 5 (6-14) L Blood Urea Nitrogen 27 mg/dL (8-26) H Creatinine 1.1 mg/dL (0.7-1.3) Estimated GFR (Cockcroft-Gault) 65.1 BUN/Creatinine Ratio 25 (6-20) H Glucose Level 78 mg/dL (70-99) Calcium Level 8.6 mg/dL (8.5-10.1) Magnesium Level 1.9 mg/dL (1.8-2.4) Total Bilirubin 0.6 mg/dL (0.2-1.0) Aspartate Amino Transferase (AST) 17 U/L (15-37) Alanine Aminotransferase (ALT) 20 U/L (16-63) Alkaline Phosphatase 86 U/L (46-116) Total Protein 6.3 g/dL (6.4-8.2) L Albumin 3.2 g/dL (3.4-5.0) L Albumin/Globulin Ratio 1.0 (1.0-1.7) Current Medications: Meds: Current Medications Acetaminophen (Tylenol) 650 mg PRN Q6HRS PRN PO PAIN / TEMP; Start 04/08/17 at 23:00 Multi-Ingredient Ointment (Analgesic [place]) 1 phillip PRN QID PRN TP MUSCLE PAIN; Start 04/08/17 at 23:00 Al Hydroxide/Mg Hydroxide (Mylanta Plus Xs) 15 ml PRN AFTMEALHC PRN PO DYSPEPSIA; Start 04/08/17 at 23:00 Magnesium Hydroxide (Milk Of Magnesia) 2,400 mg PRN QHS PRN PO CONSTIPATION; Start 04/08/17 at 23:00 Benztropine Mesylate (Cogentin) 0.5 mg BID PO Last administered on 04/17/17t 07 :54; Start 04/09/17 at 09:00 Haloperidol (Haldol) 5 mg PRN QID PRN PO ANXIETY / AGITATION; Start 04/08/17 at 23:45 Lorazepam (Ativan) 1 mg QID PO Last administered on 04/14/17 20:38; Start at 09:00; Stop 04/14/17 at 23:00; Status DC Aripiprazole (Abilify) 30 mg DAILY PO Last administered on 04/17/17 07:53; Start 04/09/17 at 09:00 Clomipramine HCl (Anafranil) 150 mg QHS PO Last administered on 04/16/17 20:29 ; Start 04/09/17 at 21:00 Lorazepam (Ativan) 2 mg PRN Q8HRS PRN PO ANXIETY / AGITATION; Start 04/09/17 at 00:15 Loxapine Succinate (Loxitane) 100 mg DAILY PO Last administered on 04/17/17 07 :58; Start 04/09/17 at 09:00 Loxapine Succinate (Loxitane) 150 mg QHS PO Last administered on 04/16/17 20: 29; Start 04/09/17 at 21:00 Aspirin (Aspirin Enteric Coated) 325 mg DAILY PO Last administered on 07:55; Start 04/09/17 at 11:00 Vitamin D (Vitamin D3) 1,000 unit DAILY PO Last administered on 04/10/17 08:38 ; Start 04/09/17 at 11:00; Stop 04/10/17 at 14:48; Status DC Enoxaparin Sodium (Lovenox) 40 mg HS SQ Last administered on 04/09/17 19:38; Start 04/09/17 at 21:00; Stop 04/10/17 at 14:48; Status DC Ferrous Sulfate (Feosol) 324 mg DAILYAC PO Last administered on 04/11/17 08:49 ; Start 04/09/17 at 11:00; Stop 04/12/17 at 01:56; Status DC Finasteride (Proscar) 5 mg HS PO Last administered on 04/16/17 20:24; Start at 21:00 Lisinopril (Prinivil) 10 mg DAILY PO Last administered on 04/17/17 07:54; Start 04/09/17 at 11:00 Metoprolol Tartrate (Lopressor) 25 mg BIDWMEALS PO Last administered on 17:17; Start 04/09/17 at 11:00 Morphine Sulfate (Ms Contin) 15 mg DAILY PO Last administered on 04/17/17 07: 56; Start 04/09/17 at 11:00 Oxybutynin Chloride (Ditropan) 5 mg BID PO Last administered on 04/17/17 07:54 ; Start 04/09/17 at 11:00 Senna/Docusate Sodium (Senna Plus) 2 tab PRN BID PRN PO CONSTIPATION; Start at 10:00 Pantoprazole Sodium (Protonix) 40 mg DAILYAC PO Last administered on 04/17/17 07:54; Start 04/09/17 at 11:00 Psyllium Hydrophilic Mucilloid (Metamucil) 1 pkt DAILY PO Last administered on 04/17/17 07:56; Start 04/09/17 at 11:00 Aripiprazole (Abilify) 30 mg 1X ONCE PO ; Start 04/09/17 at 12:00; Stop at 12:01; Status DC Vitamin D (Vitamin D3) 2,000 unit DAILY PO Last administered on 04/17/17 07:55 ; Start 04/11/17 at 09:00 Clozapine (Clozaril) 25 mg HS PO Last administered on 04/14/17 20:33; Start at 21:00; Stop 04/15/17 at 20:59; Status DC Ferrous Sulfate (Feosol) 325 mg DAILYAC PO Last administered on 04/17/17 07:55 ; Start 04/12/17 at 07:30 Clozapine (Clozaril) 50 mg HS PO ; Start 04/14/17 at 21:00; Stop 04/14/17 at 21: 00; Status DC Clozapine (Clozaril) 50 mg HS PO Last administered on 04/16/17 20:29; Start at 21:00 Lorazepam (Ativan) 0.5 mg DAILY PO Last administered on 04/16/17 08:33; Start 04/15/17 at 09:00; Stop 04/16/17 at 18:35; Status DC Lorazepam (Ativan) 1 mg TID@1300,1700,2100 PO Last administered on 04/16/17 17 :30; Start 04/15/17 at 13:00; Stop 04/16/17 at 18:35; Status DC Lorazepam (Ativan) 0.5 mg BID@0900,1300 PO ; Start 04/18/17 at 09:00; Stop at 09:00; Status DC Lorazepam (Ativan) 1 mg BID@1700,2100 PO ; Start 04/18/17 at 17:00; Stop 04/18/17 at 17:00; Status DC Lorazepam (Ativan) 0.5 mg TID@0900,1300,1700 PO ; Start 04/21/17 at 09:00; Stop 04/21/17 at 09:00; Status DC Lorazepam (Ativan) 1 mg HS PO ; Start 04/21/17 at 21:00; Stop 04/21/17 at 21:00; Status DC Lorazepam (Ativan) 0.5 mg QID PO ; Start 04/24/17 at 09:00; Stop 04/24/17 at 09:00 ; Status DC Lorazepam (Ativan) 1 mg QID PO Last administered on 04/17/17t 17:17; Start at 21:00; Stop 04/17/17 at 23:00 Active Scripts Active Reported Zoloft (Sertraline Hcl) 100 Mg Tablet 200 Mg PO DAILY Metamucil (Psyllium Husk) 660 Gm Powder 1 Packet PO DAILY Oxybutynin Chloride 5 Mg Tablet 5 Mg PO BID Omeprazole 40 Mg Capsule.dr 40 Mg PO DAILY Morphine Sulfate Er (Morphine Sulfate) 15 Mg Tablet.er 15 Mg PO DAILY Metoprolol Tartrate 25 Mg Tablet 25 Mg PO BIDWMEALS Loxapine (Loxapine Succinate) 50 Mg Capsule 150 Mg PO HS Loxapine (Loxapine Succinate) 50 Mg Capsule 100 Mg PO DAILY Lorazepam 2 Mg Tablet 2 Mg PO PRN Q8HRS PRN Lorazepam 1 Mg Tablet 1 Mg PO QID Lisinopril 10 Mg Tablet 10 Mg PO DAILY Haloperidol 5 Mg Tablet 5 Mg PO PRN QID PRN Finasteride 5 Mg Tablet 5 Mg PO HS Ferrous Sulfate 325 Mg Tablet 324 Mg PO DAILYAC Lovenox (Enoxaparin Sodium) 40 Mg/0.4 Ml Disp.syrin 40 Mg SQ HS Senna S Tablet (Sennosides/Docusate Sodium) 1 Each Tablet 2 Tab PO PRN BID PRN Clomipramine Hcl 75 Mg Capsule 150 Mg PO HS Vitamin D3 (Cholecalciferol (Vitamin D3)) 1,000 Unit Tablet 1,000 Unit PO DAILY Benztropine Mesylate 0.5 Mg Tablet 0.5 Mg PO BID Aspirin Ec (Aspirin) 325 Mg Tablet.dr 325 Mg PO DAILY Abilify (Aripiprazole) 30 Mg Tablet 30 Mg PO DAILY Diagnosis: Problems: (1) Anxiety disorder (2) Impulse control disorder (3) Obsessive compulsive disorder (4) Schizoaffective disorder (5) Schizophrenia, disorganized, subchronic with acute exacerbation SHAKIR PAEZ MD Apr 17, 2017 20:03
[2017-04-17] MEDS: FINASTERIDE 5 MG TABLET PO SCH (20:46)
[2017-04-17] MEDS: cloZAPine 25 MG TABLET PO SCH (20:47)
--- NOTE | 2017-04-18 03:13 | PN ---
DATE: 04/16/2017 This late entry 04/16/2017 covers elements, not covered in my initial note. I met with the patient in the evening of 04/16/2017. Per nursing report, he has had a very difficult day, anxious, agitated, refusing to eat, refusing to interact with staff "get away, get away." This was evident even as I met with him in the evening of 04/16/2017. He slept through breakfast, was combative, tense. Some of this seems to be worsened, tapered the Ativan. REVIEW OF SYSTEMS: Ambulation impaired, in wheelchair. No CV, , pulmonary, eye system symptoms on review. Reliability poor. MENTAL STATUS EXAM: Oriented to himself and situation. Speech moderate latency, often responses monosyllabic, dismissive abstraction fair, computation impaired, language function intact, attention span short, mood and affect labile, anxious, psychotic. IMPRESSION: Unchanged from initial note. PLAN: Stop the taper of Ativan, gated back to the previous dosage 1 mg 4 times a day. We will attempt to taper again. Once the Clozaril is therapeutic, maintain the rest of his psychotropics, reviewed drug contractions, risk/benefit ratio favors no further change as of now. SHAKIR PAEZ MD DR: MELISA/marvel JOB#: [id number] / [id number]
[2017-04-18 05:35] VITALS: BP 144/80
[2017-04-18] MEDS ORDERED: LORazepam 0.5 MG TABLET PO SCH (09:00)
[2017-04-18] MEDS: ASPIRIN ENTERIC COATED 325 MG TABLET.DR. PO SCH (09:31)
[2017-04-18] MEDS: PANTOPRAZOLE 40 MG TABLET. PO SCH (09:31)
[2017-04-18] MEDS: PSYLLIUM SEED (WITH SUGAR) PACKET. PO SCH (09:31)
[2017-04-18] MEDS: METOPROLOL TART IMMED RELEASE 25 MG TABLET PO SCH ×2 (09:31→17:08)
[2017-04-18] MEDS: BENZTROPINE MESYLATE 0.5 MG TABLET PO SCH ×2 (09:32→19:57)
[2017-04-18] MEDS: ARIPiprazole 15 MG TABLET PO SCH (09:32)
[2017-04-18] MEDS: FERROUS SULFATE 325 MG TABLET PO SCH (09:32)
[2017-04-18] MEDS: LISINOPRIL 10 MG TABLET PO SCH (09:32)
[2017-04-18] MEDS: OXYBUTYNIN CHLORIDE 5 MG TABLET PO SCH ×2 (09:32→19:57)
[2017-04-18] MEDS: CHOLECALCIFEROL (VITAMIN D3) 1,000 UNIT TABLET PO SCH (09:32)
[2017-04-18] MEDS: LORazepam 1 MG TABLET PO SCH ×4 (10:15→20:03)
[2017-04-18] MEDS: MORPHINE ER 15 MG TABLET.ER PO SCH (10:16)
[2017-04-18] MEDS: LOXAPINE SUCCINATE 25 MG CAPSULE PO SCH ×2 (10:16→20:05)
[2017-04-18 16:19] VITALS: BP 144/73
[2017-04-18] MEDS ORDERED: LORazepam 1 MG TABLET PO SCH (17:00)
--- NOTE | 2017-04-18 19:53 | PDOC ---
Exam José Miguel Demential Exam: José Miguel Note: Please also refer to the separate dictated note~for this date of service dictated separately.~Patient seen individually. Discussed the patient with Nursing staff reviewed the chart.~Reviewed interim history and current functioning. Reviewed vital signs,~Labs/ Radiology~and current medications noted below. Continue current treatment with the changes noted in the dictated addendum note Assessment: Vital Signs: Vital Signs Date Time Temp Pulse Resp B/P (MAP) Pulse Ox O2 Delivery O2 Flow Rate FiO2 04/18/17 17:08 63 144/73 04/18/17 16:19 97.7 16 100 04/17/17 07:56 Room Air I&O Intake and Output 04/19/17 07:00 Intake Total 840 ml Balance 840 ml Intake Oral 840 ml Current Medications: Meds: Current Medications Acetaminophen (Tylenol) 650 mg PRN Q6HRS PRN PO PAIN / TEMP; Start 04/08/17 at 23:00 Multi-Ingredient Ointment (Analgesic [place]) 1 phillip PRN QID PRN TP MUSCLE PAIN; Start 04/08/17 at 23:00 Al Hydroxide/Mg Hydroxide (Mylanta Plus Xs) 15 ml PRN AFTMEALHC PRN PO DYSPEPSIA; Start 04/08/17 at 23:00 Magnesium Hydroxide (Milk Of Magnesia) 2,400 mg PRN QHS PRN PO CONSTIPATION; Start 04/08/17 at 23:00 Benztropine Mesylate (Cogentin) 0.5 mg BID PO Last administered on 04/18/17 09: 32; Start 04/09/17 at 09:00 Haloperidol (Haldol) 5 mg PRN QID PRN PO ANXIETY / AGITATION; Start 04/08/17 at 23:45 Lorazepam (Ativan) 1 mg QID PO Last administered on 04/14/17 20:38; Start at 09:00; Stop 04/14/17 at 23:00; Status DC Aripiprazole (Abilify) 30 mg DAILY PO Last administered on 04/18/17 09:32; Start 04/09/17 at 09:00; Stop 04/18/17 at 18:33; Status DC Clomipramine HCl (Anafranil) 150 mg QHS PO Last administered on 04/17/17 21:02 ; Start 04/09/17 at 21:00 Lorazepam (Ativan) 2 mg PRN Q8HRS PRN PO ANXIETY / AGITATION; Start 04/09/17 at 00:15 Loxapine Succinate (Loxitane) 100 mg DAILY PO Last administered on 04/18/17 10: 16; Start 04/09/17 at 09:00 Loxapine Succinate (Loxitane) 150 mg QHS PO Last administered on 04/17/17 21: 02; Start 04/09/17 at 21:00 Aspirin (Aspirin Enteric Coated) 325 mg DAILY PO Last administered on 04/18/17 09:31; Start 04/09/17 at 11:00 Vitamin D (Vitamin D3) 1,000 unit DAILY PO Last administered on 04/10/17 08:38 ; Start 04/09/17 at 11:00; Stop 04/10/17 at 14:48; Status DC Enoxaparin Sodium (Lovenox) 40 mg HS SQ Last administered on 04/09/17 19:38; Start 04/09/17 at 21:00; Stop 04/10/17 at 14:48; Status DC Ferrous Sulfate (Feosol) 324 mg DAILYAC PO Last administered on 04/11/17 08:49 ; Start 04/09/17 at 11:00; Stop 04/12/17 at 01:56; Status DC Finasteride (Proscar) 5 mg HS PO Last administered on 04/17/17 20:46; Start at 21:00 Lisinopril (Prinivil) 10 mg DAILY PO Last administered on 04/18/17 09:32; Start 04/09/17 at 11:00 Metoprolol Tartrate (Lopressor) 25 mg BIDWMEALS PO Last administered on 17:08; Start 04/09/17 at 11:00 Morphine Sulfate (Ms Contin) 15 mg DAILY PO Last administered on 04/18/17 10:16 ; Start 04/09/17 at 11:00 Oxybutynin Chloride (Ditropan) 5 mg BID PO Last administered on 04/18/17 09:32 ; Start 04/09/17 at 11:00 Senna/Docusate Sodium (Senna Plus) 2 tab PRN BID PRN PO CONSTIPATION; Start at 10:00 Pantoprazole Sodium (Protonix) 40 mg DAILYAC PO Last administered on 04/18/17 09:31; Start 04/09/17 at 11:00 Psyllium Hydrophilic Mucilloid (Metamucil) 1 pkt DAILY PO Last administered on 04/18/17 09:31; Start 04/09/17 at 11:00 Aripiprazole (Abilify) 30 mg 1X ONCE PO ; Start 04/09/17 at 12:00; Stop at 12:01; Status DC Vitamin D (Vitamin D3) 2,000 unit DAILY PO Last administered on 04/18/17 09:32 ; Start 04/11/17 at 09:00 Clozapine (Clozaril) 25 mg HS PO Last administered on 04/14/17 20:33; Start at 21:00; Stop 04/15/17 at 20:59; Status DC Ferrous Sulfate (Feosol) 325 mg DAILYAC PO Last administered on 04/18/17 09:32 ; Start 04/12/17 at 07:30 Clozapine (Clozaril) 50 mg HS PO ; Start 04/14/17 at 21:00; Stop 04/14/17 at 21: 00; Status DC Clozapine (Clozaril) 50 mg HS PO Last administered on 04/17/17 20:47; Start at 21:00 Lorazepam (Ativan) 0.5 mg DAILY PO Last administered on 04/16/17 08:33; Start 04/15/17 at 09:00; Stop 04/16/17 at 18:35; Status DC Lorazepam (Ativan) 1 mg TID@1300,1700,2100 PO Last administered on 04/16/17 17 :30; Start 04/15/17 at 13:00; Stop 04/16/17 at 18:35; Status DC Lorazepam (Ativan) 0.5 mg BID@0900,1300 PO ; Start 04/18/17 at 09:00; Stop at 09:00; Status DC Lorazepam (Ativan) 1 mg BID@1700,2100 PO ; Start 04/18/17 at 17:00; Stop 04/18/17 at 17:00; Status DC Lorazepam (Ativan) 0.5 mg TID@0900,1300,1700 PO ; Start 04/21/17 at 09:00; Stop 04/21/17 at 09:00; Status DC Lorazepam (Ativan) 1 mg HS PO ; Start 04/21/17 at 21:00; Stop 04/21/17 at 21:00; Status DC Lorazepam (Ativan) 0.5 mg QID PO ; Start 04/24/17 at 09:00; Stop 04/24/17 at 09:00 ; Status DC Lorazepam (Ativan) 1 mg QID PO Last administered on 04/17/17 21:02; Start at 21:00; Stop 04/17/17 at 23:00; Status DC Lorazepam (Ativan) 1 mg QID PO Last administered on 04/18/17 17:08; Start at 09:00 Aripiprazole (Abilify) 20 mg DAILY PO ; Start 04/19/17 at 09:00 Divalproex Sodium (Depakote Sprinkles) 250 mg BID PO ; Start 04/18/17 at 21:00 Active Scripts Active Reported Zoloft (Sertraline Hcl) 100 Mg Tablet 200 Mg PO DAILY Metamucil (Psyllium Husk) 660 Gm Powder 1 Packet PO DAILY Oxybutynin Chloride 5 Mg Tablet 5 Mg PO BID Omeprazole 40 Mg Capsule.dr 40 Mg PO DAILY Morphine Sulfate Er (Morphine Sulfate) 15 Mg Tablet.er 15 Mg PO DAILY Metoprolol Tartrate 25 Mg Tablet 25 Mg PO BIDWMEALS Loxapine (Loxapine Succinate) 50 Mg Capsule 150 Mg PO HS Loxapine (Loxapine Succinate) 50 Mg Capsule 100 Mg PO DAILY Lorazepam 2 Mg Tablet 2 Mg PO PRN Q8HRS PRN Lorazepam 1 Mg Tablet 1 Mg PO QID Lisinopril 10 Mg Tablet 10 Mg PO DAILY Haloperidol 5 Mg Tablet 5 Mg PO PRN QID PRN Finasteride 5 Mg Tablet 5 Mg PO HS Ferrous Sulfate 325 Mg Tablet 324 Mg PO DAILYAC Lovenox (Enoxaparin Sodium) 40 Mg/0.4 Ml Disp.syrin 40 Mg SQ HS Senna S Tablet (Sennosides/Docusate Sodium) 1 Each Tablet 2 Tab PO PRN BID PRN Clomipramine Hcl 75 Mg Capsule 150 Mg PO HS Vitamin D3 (Cholecalciferol (Vitamin D3)) 1,000 Unit Tablet 1,000 Unit PO DAILY Benztropine Mesylate 0.5 Mg Tablet 0.5 Mg PO BID Aspirin Ec (Aspirin) 325 Mg Tablet. 325 Mg PO DAILY Abilify (Aripiprazole) 30 Mg Tablet 30 Mg PO DAILY Diagnosis: Problems: (1) Anxiety disorder (2) Impulse control disorder (3) Obsessive compulsive disorder (4) Schizoaffective disorder (5) Schizophrenia, disorganized, subchronic with acute exacerbation SHAKIR PAEZ MD Apr 18, 2017 19:53
[2017-04-18] MEDS: cloZAPine 25 MG TABLET PO SCH (19:56)
[2017-04-18] MEDS: FINASTERIDE 5 MG TABLET PO SCH (19:57)
[2017-04-18] MEDS: DIVALPROEX 125 MG CAP.SPRINK PO SCH (20:03)
[2017-04-19 05:51] VITALS: BP 179/91
[2017-04-19] MEDS: FERROUS SULFATE 325 MG TABLET PO SCH (07:59)
[2017-04-19] MEDS: OXYBUTYNIN CHLORIDE 5 MG TABLET PO SCH ×2 (07:59→20:03)
[2017-04-19] MEDS: METOPROLOL TART IMMED RELEASE 25 MG TABLET PO SCH ×2 (07:59→17:51)
[2017-04-19] MEDS: ASPIRIN ENTERIC COATED 325 MG TABLET.DR. PO SCH (07:59)
[2017-04-19] MEDS: PANTOPRAZOLE 40 MG TABLET. PO SCH (07:59)
[2017-04-19] MEDS: PSYLLIUM SEED (WITH SUGAR) PACKET. PO SCH (08:00)
[2017-04-19] MEDS: LISINOPRIL 10 MG TABLET PO SCH (08:00)
[2017-04-19] MEDS: CHOLECALCIFEROL (VITAMIN D3) 1,000 UNIT TABLET PO SCH (08:00)
[2017-04-19] MEDS: BENZTROPINE MESYLATE 0.5 MG TABLET PO SCH ×2 (08:01→20:03)
[2017-04-19] MEDS: DIVALPROEX 125 MG CAP.SPRINK PO SCH ×2 (08:01→20:03)
[2017-04-19] MEDS: ARIPiprazole 10 MG TABLET PO SCH (08:06)
[2017-04-19] MEDS: LOXAPINE SUCCINATE 25 MG CAPSULE PO SCH ×2 (08:06→20:05)
[2017-04-19] MEDS: LORazepam 1 MG TABLET PO SCH ×4 (08:06→20:03)
[2017-04-19] MEDS: MORPHINE ER 15 MG TABLET.ER PO SCH (08:06)
--- NOTE | 2017-04-19 08:32 | PN ---
DATE: 04/17/2017 PSYCHIATRIC PROGRESS NOTE This is a late entry for 04/17/2017, covers elements not covered in my initial note of 04/17/2017. SUBJECTIVE: The patient was staffed at a treatment team meeting morning of 04/17/2017. Seen individually evening of 04/17/2017. Since restarting Ativan back at 1 mg 4 times a day, he is much less anxious and doing better on 04/17/2017 as compared to 04/16/2017, more cooperative. Previous evening, he was resistive to medications. REVIEW OF SYSTEMS: Ambulation impaired, in a wheelchair. No CV, , pulmonary, eye system symptoms on review. MENTAL STATUS EXAM: Oriented to himself and situation. Speech low in volume, coherent, abstraction fair, computation impaired, language function intact, attention span short. Mood and affect somewhat labile, anxious at times. LABORATORY DATA: Reviewed. IMPRESSION: Unchanged from initial note. PLAN: Continue psychotropics mentioned in my initial note. Review drug interactions, risk/benefit ratio favors no further change at this time other than having got the Ativan back to the previous dosage. Clozaril has been increased. Follow labs, absolute neutrophil count on the Clozaril. SHAKIR PAEZ MD DR: MELISA/marvel JOB#: [id number] / [id number]
[2017-04-19 16:16] VITALS: BP 151/82
[2017-04-19] MEDS: FINASTERIDE 5 MG TABLET PO SCH (20:03)
[2017-04-19] MEDS: cloZAPine 25 MG TABLET PO SCH (20:03)
--- NOTE | 2017-04-19 23:25 | PDOC ---
Exam José Miguel Demential Exam: José Miguel Note: Please also refer to the separate dictated note~for this date of service dictated separately.~Patient seen individually. Discussed the patient with Nursing staff reviewed the chart.~Reviewed interim history and current functioning. Reviewed vital signs,~Labs/ Radiology~and current medications noted below. Continue current treatment with the changes noted in the dictated addendum note Assessment: Vital Signs: Vital Signs Date Time Temp Pulse Resp B/P (MAP) Pulse Ox O2 Delivery O2 Flow Rate FiO2 04/19/17 17:51 61 151/82 04/19/17 16:16 98.1 20 93 04/19/17 08:06 Room Air I&O Intake and Output 04/20/17 06:59 Intake Total 960 ml Balance 960 ml Intake Oral 960 ml Current Medications: Meds: Current Medications Acetaminophen (Tylenol) 650 mg PRN Q6HRS PRN PO PAIN / TEMP; Start 04/08/17 at 23:00 Multi-Ingredient Ointment (Analgesic [place]) 1 phillip PRN QID PRN TP MUSCLE PAIN; Start 04/08/17 at 23:00 Al Hydroxide/Mg Hydroxide (Mylanta Plus Xs) 15 ml PRN AFTMEALHC PRN PO DYSPEPSIA; Start 04/08/17 at 23:00 Magnesium Hydroxide (Milk Of Magnesia) 2,400 mg PRN QHS PRN PO CONSTIPATION; Start 04/08/17 at 23:00 Benztropine Mesylate (Cogentin) 0.5 mg BID PO Last administered on 04/19/17 20: 03; Start 04/09/17 at 09:00 Haloperidol (Haldol) 5 mg PRN QID PRN PO ANXIETY / AGITATION; Start 04/08/17 at 23:45 Lorazepam (Ativan) 1 mg QID PO Last administered on 04/14/17 20:38; Start at 09:00; Stop 04/14/17 at 23:00; Status DC Aripiprazole (Abilify) 30 mg DAILY PO Last administered on 04/18/17 09:32; Start 04/09/17 at 09:00; Stop 04/18/17 at 18:33; Status DC Clomipramine HCl (Anafranil) 150 mg QHS PO Last administered on 04/19/17 20:04 ; Start 04/09/17 at 21:00 Lorazepam (Ativan) 2 mg PRN Q8HRS PRN PO ANXIETY / AGITATION; Start 04/09/17 at 00:15 Loxapine Succinate (Loxitane) 100 mg DAILY PO Last administered on 04/19/17 08: 06; Start 04/09/17 at 09:00 Loxapine Succinate (Loxitane) 150 mg QHS PO Last administered on 04/19/17 20:05 ; Start 04/09/17 at 21:00 Aspirin (Aspirin Enteric Coated) 325 mg DAILY PO Last administered on 04/19/17 07:59; Start 04/09/17 at 11:00 Vitamin D (Vitamin D3) 1,000 unit DAILY PO Last administered on 04/10/17 08:38 ; Start 04/09/17 at 11:00; Stop 04/10/17 at 14:48; Status DC Enoxaparin Sodium (Lovenox) 40 mg HS SQ Last administered on 04/09/17 19:38; Start 04/09/17 at 21:00; Stop 04/10/17 at 14:48; Status DC Ferrous Sulfate (Feosol) 324 mg DAILYAC PO Last administered on 04/11/17 08:49 ; Start 04/09/17 at 11:00; Stop 04/12/17 at 01:56; Status DC Finasteride (Proscar) 5 mg HS PO Last administered on 04/19/17 20:03; Start at 21:00 Lisinopril (Prinivil) 10 mg DAILY PO Last administered on 04/19/17 08:00; Start 04/09/17 at 11:00 Metoprolol Tartrate (Lopressor) 25 mg BIDWMEALS PO Last administered on 17:51; Start 04/09/17 at 11:00 Morphine Sulfate (Ms Contin) 15 mg DAILY PO Last administered on 04/19/17 08:06 ; Start 04/09/17 at 11:00 Oxybutynin Chloride (Ditropan) 5 mg BID PO Last administered on 04/19/17 20:03 ; Start 04/09/17 at 11:00 Senna/Docusate Sodium (Senna Plus) 2 tab PRN BID PRN PO CONSTIPATION; Start at 10:00 Pantoprazole Sodium (Protonix) 40 mg DAILYAC PO Last administered on 04/19/17 07:59; Start 04/09/17 at 11:00 Psyllium Hydrophilic Mucilloid (Metamucil) 1 pkt DAILY PO Last administered on 04/19/17 08:00; Start 04/09/17 at 11:00 Aripiprazole (Abilify) 30 mg 1X ONCE PO ; Start 04/09/17 at 12:00; Stop at 12:01; Status DC Vitamin D (Vitamin D3) 2,000 unit DAILY PO Last administered on 04/19/17 08:00 ; Start 04/11/17 at 09:00 Clozapine (Clozaril) 25 mg HS PO Last administered on 04/14/17 20:33; Start at 21:00; Stop 04/15/17 at 20:59; Status DC Ferrous Sulfate (Feosol) 325 mg DAILYAC PO Last administered on 04/19/17 07:59 ; Start 04/12/17 at 07:30 Clozapine (Clozaril) 50 mg HS PO ; Start 04/14/17 at 21:00; Stop 04/14/17 at 21: 00; Status DC Clozapine (Clozaril) 50 mg HS PO Last administered on 04/19/17 20:03; Start at 21:00 Lorazepam (Ativan) 0.5 mg DAILY PO Last administered on 04/16/17 08:33; Start 04/15/17 at 09:00; Stop 04/16/17 at 18:35; Status DC Lorazepam (Ativan) 1 mg TID@1300,1700,2100 PO Last administered on 04/16/17 17 :30; Start 04/15/17 at 13:00; Stop 04/16/17 at 18:35; Status DC Lorazepam (Ativan) 0.5 mg BID@0900,1300 PO ; Start 04/18/17 at 09:00; Stop at 09:00; Status DC Lorazepam (Ativan) 1 mg BID@1700,2100 PO ; Start 04/18/17 at 17:00; Stop 04/18/17 at 17:00; Status DC Lorazepam (Ativan) 0.5 mg TID@0900,1300,1700 PO ; Start 04/21/17 at 09:00; Stop 04/21/17 at 09:00; Status DC Lorazepam (Ativan) 1 mg HS PO ; Start 04/21/17 at 21:00; Stop 04/21/17 at 21:00; Status DC Lorazepam (Ativan) 0.5 mg QID PO ; Start 04/24/17 at 09:00; Stop 04/24/17 at 09:00 ; Status DC Lorazepam (Ativan) 1 mg QID PO Last administered on 04/17/17 21:02; Start at 21:00; Stop 04/17/17 at 23:00; Status DC Lorazepam (Ativan) 1 mg QID PO Last administered on 04/19/17 20:03; Start at 09:00 Aripiprazole (Abilify) 20 mg DAILY PO Last administered on 04/19/17 08:06; Start 04/19/17 at 09:00 Divalproex Sodium (Depakote Sprinkles) 250 mg BID PO Last administered on 20:03; Start 04/18/17 at 21:00 Active Scripts Active Reported Zoloft (Sertraline Hcl) 100 Mg Tablet 200 Mg PO DAILY Metamucil (Psyllium Husk) 660 Gm Powder 1 Packet PO DAILY Oxybutynin Chloride 5 Mg Tablet 5 Mg PO BID Omeprazole 40 Mg Capsule.dr 40 Mg PO DAILY Morphine Sulfate Er (Morphine Sulfate) 15 Mg Tablet.er 15 Mg PO DAILY Metoprolol Tartrate 25 Mg Tablet 25 Mg PO BIDWMEALS Loxapine (Loxapine Succinate) 50 Mg Capsule 150 Mg PO HS Loxapine (Loxapine Succinate) 50 Mg Capsule 100 Mg PO DAILY Lorazepam 2 Mg Tablet 2 Mg PO PRN Q8HRS PRN Lorazepam 1 Mg Tablet 1 Mg PO QID Lisinopril 10 Mg Tablet 10 Mg PO DAILY Haloperidol 5 Mg Tablet 5 Mg PO PRN QID PRN Finasteride 5 Mg Tablet 5 Mg PO HS Ferrous Sulfate 325 Mg Tablet 324 Mg PO DAILYAC Lovenox (Enoxaparin Sodium) 40 Mg/0.4 Ml Disp.syrin 40 Mg SQ HS Senna S Tablet (Sennosides/Docusate Sodium) 1 Each Tablet 2 Tab PO PRN BID PRN Clomipramine Hcl 75 Mg Capsule 150 Mg PO HS Vitamin D3 (Cholecalciferol (Vitamin D3)) 1,000 Unit Tablet 1,000 Unit PO DAILY Benztropine Mesylate 0.5 Mg Tablet 0.5 Mg PO BID Aspirin Ec (Aspirin) 325 Mg Tablet.dr 325 Mg PO DAILY Abilify (Aripiprazole) 30 Mg Tablet 30 Mg PO DAILY Diagnosis: Problems: (1) Anxiety disorder (2) Impulse control disorder (3) Obsessive compulsive disorder (4) Schizoaffective disorder (5) Mild cognitive disorder (6) Schizophrenia, disorganized, subchronic with acute exacerbation SHAKIR PAEZ MD Apr 19, 2017 23:25
--- NOTE | 2017-04-20 03:48 | PN ---
DATE: 04/18/2017 PSYCHIATRIC PROGRESS NOTE This is a late entry of 04/18/2017 covers elements not covered in my initial note. SUBJECTIVE: I met with the patient evening of 04/18/2017. The patient has been noncompliant during the day 04/18/2017, leaning forward in his wheelchair following over banging his head on the table. He refused to answer or open his eyes resistive with staff assisting him on the toilet, refusing to eat feed himself, wanting staff to help him when they stopped helping him he fed himself somewhat irritable. REVIEW OF SYSTEMS: Ambulation impaired in wheelchair. No CV, , pulmonary, eye, ENT system symptoms on review. MENTAL STATUS EXAM: Oriented to himself and situation. Speech low in volume, coherent, abstraction fair, computation impaired, language function intact, attention span short, mood and affect withdrawn. LABORATORY DATA: Reviewed. IMPRESSION: Unchanged from initial note. PLAN: Continue current psychotropics. Reduce Abilify from 30 mg a day to 20 mg a day since the patient has been started on Clozaril. Start Depakote as a mood stabilizer 250 mg twice a day. Follow labs level. Continue Luvox, Loxitane, Zoloft, and adjust the Clozaril gradually. MAN Ravi PAEZ MD DR: MELISA/marvel JOB#: [id number] / [id number]
[2017-04-20 06:00] VITALS: BP 142/71
[2017-04-20] MEDS: FERROUS SULFATE 325 MG TABLET PO SCH (07:37)
[2017-04-20] MEDS: PANTOPRAZOLE 40 MG TABLET. PO SCH (07:38)
[2017-04-20] MEDS: METOPROLOL TART IMMED RELEASE 25 MG TABLET PO SCH ×2 (07:38→16:55)
[2017-04-20] MEDS: ASPIRIN ENTERIC COATED 325 MG TABLET.DR. PO SCH (07:39)
[2017-04-20] MEDS: BENZTROPINE MESYLATE 0.5 MG TABLET PO SCH ×2 (07:39→20:17)
[2017-04-20] MEDS: ARIPiprazole 10 MG TABLET PO SCH (07:39)
[2017-04-20] MEDS: DIVALPROEX 125 MG CAP.SPRINK PO SCH ×2 (07:39→20:16)
[2017-04-20] MEDS: OXYBUTYNIN CHLORIDE 5 MG TABLET PO SCH ×2 (07:40→20:17)
[2017-04-20] MEDS: PSYLLIUM SEED (WITH SUGAR) PACKET. PO SCH (07:40)
[2017-04-20] MEDS: MORPHINE ER 15 MG TABLET.ER PO SCH (07:42)
[2017-04-20] MEDS: LORazepam 1 MG TABLET PO SCH ×4 (07:43→20:17)
[2017-04-20] MEDS: CHOLECALCIFEROL (VITAMIN D3) 1,000 UNIT TABLET PO SCH (07:43)
[2017-04-20] MEDS: LISINOPRIL 10 MG TABLET PO SCH (07:43)
[2017-04-20] MEDS: LOXAPINE SUCCINATE 25 MG CAPSULE PO SCH ×2 (07:46→20:17)
[2017-04-20 15:50] VITALS: BP 140/58
[2017-04-20] MEDS: cloZAPine 25 MG TABLET PO SCH (20:16)
[2017-04-20] MEDS: FINASTERIDE 5 MG TABLET PO SCH (20:16)
--- NOTE | 2017-04-20 21:54 | PDOC ---
Exam José Miguel Demential Exam: José Miguel Note: Please also refer to the separate dictated note~for this date of service dictated separately.~Patient seen individually. Discussed the patient with Nursing staff reviewed the chart.~Reviewed interim history and current functioning. Reviewed vital signs,~Labs/ Radiology~and current medications noted below. Continue current treatment with the changes noted in the dictated addendum note Assessment: Vital Signs: Vital Signs Date Time Temp Pulse Resp B/P (MAP) Pulse Ox O2 Delivery O2 Flow Rate FiO2 04/20/17 16:55 76 140/58 04/20/17 15:50 98.3 17 92 04/20/17 11:42 Room Air I&O Intake and Output 04/21/17 06:59 Intake Total 1085 ml Balance 1085 ml Intake Oral 1085 ml Current Medications: Meds: Current Medications Acetaminophen (Tylenol) 650 mg PRN Q6HRS PRN PO PAIN / TEMP; Start 04/08/17 at 23:00 Multi-Ingredient Ointment (Analgesic [place]) 1 phillip PRN QID PRN TP MUSCLE PAIN; Start 04/08/17 at 23:00 Al Hydroxide/Mg Hydroxide (Mylanta Plus Xs) 15 ml PRN AFTMEALHC PRN PO DYSPEPSIA; Start 04/08/17 at 23:00 Magnesium Hydroxide (Milk Of Magnesia) 2,400 mg PRN QHS PRN PO CONSTIPATION; Start 04/08/17 at 23:00 Benztropine Mesylate (Cogentin) 0.5 mg BID PO Last administered on 04/20/17 20: 17; Start 04/09/17 at 09:00 Haloperidol (Haldol) 5 mg PRN QID PRN PO ANXIETY / AGITATION; Start 04/08/17 at 23:45 Lorazepam (Ativan) 1 mg QID PO Last administered on 04/14/17 20:38; Start at 09:00; Stop 04/14/17 at 23:00; Status DC Aripiprazole (Abilify) 30 mg DAILY PO Last administered on 04/18/17 09:32; Start 04/09/17 at 09:00; Stop 04/18/17 at 18:33; Status DC Clomipramine HCl (Anafranil) 150 mg QHS PO Last administered on 04/20/17 20:20 ; Start 04/09/17 at 21:00 Lorazepam (Ativan) 2 mg PRN Q8HRS PRN PO ANXIETY / AGITATION; Start 04/09/17 at 00:15 Loxapine Succinate (Loxitane) 100 mg DAILY PO Last administered on 04/20/17 07: 46; Start 04/09/17 at 09:00 Loxapine Succinate (Loxitane) 150 mg QHS PO Last administered on 04/20/17 20:17 ; Start 04/09/17 at 21:00 Aspirin (Aspirin Enteric Coated) 325 mg DAILY PO Last administered on 04/20/17 07:39; Start 04/09/17 at 11:00 Vitamin D (Vitamin D3) 1,000 unit DAILY PO Last administered on 04/10/17 08:38 ; Start 04/09/17 at 11:00; Stop 04/10/17 at 14:48; Status DC Enoxaparin Sodium (Lovenox) 40 mg HS SQ Last administered on 04/09/17 19:38; Start 04/09/17 at 21:00; Stop 04/10/17 at 14:48; Status DC Ferrous Sulfate (Feosol) 324 mg DAILYAC PO Last administered on 04/11/17 08:49 ; Start 04/09/17 at 11:00; Stop 04/12/17 at 01:56; Status DC Finasteride (Proscar) 5 mg HS PO Last administered on 04/20/17 20:16; Start at 21:00 Lisinopril (Prinivil) 10 mg DAILY PO Last administered on 04/20/17 07:43; Start 04/09/17 at 11:00 Metoprolol Tartrate (Lopressor) 25 mg BIDWMEALS PO Last administered on 16:55; Start 04/09/17 at 11:00 Morphine Sulfate (Ms Contin) 15 mg DAILY PO Last administered on 04/20/17 07:42 ; Start 04/09/17 at 11:00 Oxybutynin Chloride (Ditropan) 5 mg BID PO Last administered on 04/20/17 20:17 ; Start 04/09/17 at 11:00 Senna/Docusate Sodium (Senna Plus) 2 tab PRN BID PRN PO CONSTIPATION; Start at 10:00 Pantoprazole Sodium (Protonix) 40 mg DAILYAC PO Last administered on 04/20/17 07:38; Start 04/09/17 at 11:00 Psyllium Hydrophilic Mucilloid (Metamucil) 1 pkt DAILY PO Last administered on 04/20/17 07:40; Start 04/09/17 at 11:00 Aripiprazole (Abilify) 30 mg 1X ONCE PO ; Start 04/09/17 at 12:00; Stop at 12:01; Status DC Vitamin D (Vitamin D3) 2,000 unit DAILY PO Last administered on 04/20/17 07:43 ; Start 04/11/17 at 09:00 Clozapine (Clozaril) 25 mg HS PO Last administered on 04/14/17 20:33; Start at 21:00; Stop 04/15/17 at 20:59; Status DC Ferrous Sulfate (Feosol) 325 mg DAILYAC PO Last administered on 04/20/17 07:37 ; Start 04/12/17 at 07:30 Clozapine (Clozaril) 50 mg HS PO ; Start 04/14/17 at 21:00; Stop 04/14/17 at 21: 00; Status DC Clozapine (Clozaril) 50 mg HS PO Last administered on 04/20/17 20:16; Start at 21:00 Lorazepam (Ativan) 0.5 mg DAILY PO Last administered on 04/16/17 08:33; Start 04/15/17 at 09:00; Stop 04/16/17 at 18:35; Status DC Lorazepam (Ativan) 1 mg TID@1300,1700,2100 PO Last administered on 04/16/17 17 :30; Start 04/15/17 at 13:00; Stop 04/16/17 at 18:35; Status DC Lorazepam (Ativan) 0.5 mg BID@0900,1300 PO ; Start 04/18/17 at 09:00; Stop at 09:00; Status DC Lorazepam (Ativan) 1 mg BID@1700,2100 PO ; Start 04/18/17 at 17:00; Stop 04/18/17 at 17:00; Status DC Lorazepam (Ativan) 0.5 mg TID@0900,1300,1700 PO ; Start 04/21/17 at 09:00; Stop 04/21/17 at 09:00; Status DC Lorazepam (Ativan) 1 mg HS PO ; Start 04/21/17 at 21:00; Stop 04/21/17 at 21:00; Status DC Lorazepam (Ativan) 0.5 mg QID PO ; Start 04/24/17 at 09:00; Stop 04/24/17 at 09:00 ; Status DC Lorazepam (Ativan) 1 mg QID PO Last administered on 04/17/17 21:02; Start at 21:00; Stop 04/17/17 at 23:00; Status DC Lorazepam (Ativan) 1 mg QID PO Last administered on 04/20/17 20:17; Start at 09:00 Aripiprazole (Abilify) 20 mg DAILY PO Last administered on 04/20/17 07:39; Start 04/19/17 at 09:00 Divalproex Sodium (Depakote Sprinkles) 250 mg BID PO Last administered on 20:16; Start 04/18/17 at 21:00 Active Scripts Active Reported Zoloft (Sertraline Hcl) 100 Mg Tablet 200 Mg PO DAILY Metamucil (Psyllium Husk) 660 Gm Powder 1 Packet PO DAILY Oxybutynin Chloride 5 Mg Tablet 5 Mg PO BID Omeprazole 40 Mg Capsule.dr 40 Mg PO DAILY Morphine Sulfate Er (Morphine Sulfate) 15 Mg Tablet.er 15 Mg PO DAILY Metoprolol Tartrate 25 Mg Tablet 25 Mg PO BIDWMEALS Loxapine (Loxapine Succinate) 50 Mg Capsule 150 Mg PO HS Loxapine (Loxapine Succinate) 50 Mg Capsule 100 Mg PO DAILY Lorazepam 2 Mg Tablet 2 Mg PO PRN Q8HRS PRN Lorazepam 1 Mg Tablet 1 Mg PO QID Lisinopril 10 Mg Tablet 10 Mg PO DAILY Haloperidol 5 Mg Tablet 5 Mg PO PRN QID PRN Finasteride 5 Mg Tablet 5 Mg PO HS Ferrous Sulfate 325 Mg Tablet 324 Mg PO DAILYAC Lovenox (Enoxaparin Sodium) 40 Mg/0.4 Ml Disp.syrin 40 Mg SQ HS Senna S Tablet (Sennosides/Docusate Sodium) 1 Each Tablet 2 Tab PO PRN BID PRN Clomipramine Hcl 75 Mg Capsule 150 Mg PO HS Vitamin D3 (Cholecalciferol (Vitamin D3)) 1,000 Unit Tablet 1,000 Unit PO DAILY Benztropine Mesylate 0.5 Mg Tablet 0.5 Mg PO BID Aspirin Ec (Aspirin) 325 Mg Tablet.dr 325 Mg PO DAILY Abilify (Aripiprazole) 30 Mg Tablet 30 Mg PO DAILY Diagnosis: Problems: (1) Anxiety disorder (2) Impulse control disorder (3) Obsessive compulsive disorder (4) Schizoaffective disorder (5) Schizophrenia, disorganized, subchronic with acute exacerbation SHAKIR PAEZ MD Apr 20, 2017 21:54
--- NOTE | 2017-04-21 01:29 | PN ---
DATE: 04/19/2017 PSYCHIATRIC PROGRESS NOTE This is a late entry of 04/19/2017 covers elements not covered in my initial note of 04/19/2017. SUBJECTIVE: The patient was seen individually evening of 04/19/2017. Per nursing report, the patient propels himself in the wheelchair. At times asks for assistance still somewhat irritable, labile at times, compliant with medications, demanding at times, stating staff is rude per nursing report. REVIEW OF SYSTEMS: Ambulation impaired in wheelchair. No CV, , pulmonary, eye system symptoms on review. MENTAL STATUS EXAM: Oriented to himself and situation. Speech is low in volume, difficult to understand. Abstraction fair, computation impaired, language function intact. Memory is impaired. No active suicidal or homicidal ideation. Still paranoid, psychotic. IMPRESSION: Unchanged from initial note. PLAN: Continue current psychotropics. We have increased the Ativan back to 1 mg 4 times a day since he was much worse with reduction and Abilify has been reduced to 20 mg a day. We will repeat labs on 04/21/2017 if absolute neutrophil count unremarkable, we will increase the Clozaril to 75 mg at bedtime and adhere to later reduce the Abilify further. Reviewed drug interactions risk/benefit ratio favors no further change beyond what is mentioned above. MAN Ravi PAEZ MD DR: MELISA/marvel JOB#: [id number] / [id number]
[2017-04-21 06:32] VITALS: BP 186/97
[2017-04-21] MEDS: PANTOPRAZOLE 40 MG TABLET. PO SCH (08:41)
[2017-04-21] MEDS: FERROUS SULFATE 325 MG TABLET PO SCH (08:41)
[2017-04-21] MEDS: CHOLECALCIFEROL (VITAMIN D3) 1,000 UNIT TABLET PO SCH (08:41)
[2017-04-21] MEDS: BENZTROPINE MESYLATE 0.5 MG TABLET PO SCH ×2 (08:41→20:06)
[2017-04-21] MEDS: OXYBUTYNIN CHLORIDE 5 MG TABLET PO SCH ×2 (08:41→20:06)
[2017-04-21] MEDS: DIVALPROEX 125 MG CAP.SPRINK PO SCH ×2 (08:41→20:06)
[2017-04-21] MEDS: METOPROLOL TART IMMED RELEASE 25 MG TABLET PO SCH ×2 (08:41→16:17)
[2017-04-21] MEDS: ASPIRIN ENTERIC COATED 325 MG TABLET.DR. PO SCH (08:41)
[2017-04-21] MEDS: ARIPiprazole 10 MG TABLET PO SCH (08:41)
[2017-04-21] MEDS: LISINOPRIL 10 MG TABLET PO SCH (08:41)
[2017-04-21] MEDS: PSYLLIUM SEED (WITH SUGAR) PACKET. PO SCH (08:42)
[2017-04-21] MEDS: MORPHINE ER 15 MG TABLET.ER PO SCH (08:43)
[2017-04-21] MEDS: LOXAPINE SUCCINATE 25 MG CAPSULE PO SCH ×2 (08:43→20:02)
[2017-04-21] MEDS: LORazepam 1 MG TABLET PO SCH ×4 (08:43→20:08)
[2017-04-21] MEDS ORDERED: LORazepam 0.5 MG TABLET PO SCH (09:00)
[2017-04-21 09:33] LABS: BASO # 0.1 x10^3/uL (0.0-0.2); BASO % 1 % (0-3); EOS # 0.1 x10^3/uL (0.0-0.7); EOS % 2 % (0-3); HEMATOCRIT 38.5 % (39.0-53.0); HEMOGLOBIN 12.7 g/dL (13.0-17.5); LYMPH # 1.5 x10^3/uL (1.0-4.8); LYMPH % 18 % (24-48); MEAN CORPUSCULAR HEMOGLOBIN 33 pg (25-35); MEAN CORPUSCULAR HGB CONC 33 g/dL (31-37); MEAN CORPUSCULAR VOLUME 100 fL (79-100); MONO # 0.5 x10^3/uL (0.0-1.1); MONO % 6 % (0-9); NEUT # 6.1 x10^3uL (1.8-7.7); NEUT % 74 % (31-73); PLATELET COUNT 276 x10^3/uL (140-400); RED BLOOD COUNT 3.85 x10^6/uL (4.30-5.70); RED CELL DISTRIBUTION WIDTH 13.6 % (11.5-14.5); WHITE BLOOD COUNT 8.2 x10^3/uL (4.0-11.0)
[2017-04-21 09:40] LABS: VAL ACID 30 mcg/mL (50-100)
[2017-04-21 09:41] LABS: ALBUMIN 3.5 g/dL (3.4-5.0); CALCIUM 8.6 mg/dL (8.5-10.1); GFR 72.6; MAGNESIUM 1.8 mg/dL (1.8-2.4); POTASSIUM 3.6 mmol/L (3.5-5.1); TOTAL BILIRUBIN 0.4 mg/dL (0.2-1.0)
[2017-04-21 13:00] VITALS: BP 88/40
[2017-04-21] MEDS ORDERED: IV NORMAL SALINE 1,000ML 500 ML IV ONE (15:30)
[2017-04-21 15:56] VITALS: BP 122/62
[2017-04-21] MEDS: FINASTERIDE 5 MG TABLET PO SCH (20:02)
[2017-04-21] MEDS: cloZAPine 25 MG TABLET PO SCH (20:08)
[2017-04-21] MEDS ORDERED: LORazepam 1 MG TABLET PO SCH (21:00)
--- NOTE | 2017-04-21 22:50 | PDOC ---
Exam José Miguel Demential Exam: José Miguel Note: Please also refer to the separate dictated note~for this date of service dictated separately.~Patient seen individually. Discussed the patient with Nursing staff reviewed the chart.~Reviewed interim history and current functioning. Reviewed vital signs,~Labs/ Radiology~and current medications noted below. Continue current treatment with the changes noted in the dictated addendum note Assessment: Vital Signs: Vital Signs Date Time Temp Pulse Resp B/P (MAP) Pulse Ox O2 Delivery O2 Flow Rate FiO2 04/21/17 15:56 122/62 (82) 04/21/17 13:00 97.8 84 20 95 04/20/17 11:42 Room Air I&O Intake and Output 04/22/17 06:59 Intake Total 1320 ml Balance 1320 ml Intake Oral 1320 ml # Voids 2 Labs: Laboratory Tests Test 04/21/17 09:17 White Blood Count 8.2 x10^3/uL (4.0-11.0) Red Blood Count 3.85 x10^6/uL (4.30-5.70) L Hemoglobin 12.7 g/dL (13.0-17.5) L Hematocrit 38.5 % (39.0-53.0) L Mean Corpuscular Volume 100 fL (79-100) Mean Corpuscular Hemoglobin 33 pg (25-35) Mean Corpuscular Hemoglobin Concent 33 g/dL (31-37) Red Cell Distribution Width 13.6 % (11.5-14.5) Platelet Count 276 x10^3/uL (140-400) Neutrophils (%) (Auto) 74 % (31-73) H Lymphocytes (%) (Auto) 18 % (24-48) L Monocytes (%) (Auto) 6 % (0-9) Eosinophils (%) (Auto) 2 % (0-3) Basophils (%) (Auto) 1 % (0-3) Neutrophils # (Auto) 6.1 x10^3uL (1.8-7.7) Lymphocytes # (Auto) 1.5 x10^3/uL (1.0-4.8) Monocytes # (Auto) 0.5 x10^3/uL (0.0-1.1) Eosinophils # (Auto) 0.1 x10^3/uL (0.0-0.7) Basophils # (Auto) 0.1 x10^3/uL (0.0-0.2) Sodium Level 142 mmol/L (136-145) Potassium Level 3.6 mmol/L (3.5-5.1) Chloride Level 105 mmol/L (98-107) Carbon Dioxide Level 32 mmol/L (21-32) Anion Gap 5 (6-14) L Blood Urea Nitrogen 20 mg/dL (8-26) Creatinine 1.0 mg/dL (0.7-1.3) Estimated GFR (Cockcroft-Gault) 72.6 BUN/Creatinine Ratio 20 (6-20) Glucose Level 121 mg/dL (70-99) H Calcium Level 8.6 mg/dL (8.5-10.1) Magnesium Level 1.8 mg/dL (1.8-2.4) Total Bilirubin 0.4 mg/dL (0.2-1.0) Aspartate Amino Transferase (AST) 15 U/L (15-37) Alanine Aminotransferase (ALT) 19 U/L (16-63) Alkaline Phosphatase 98 U/L (46-116) Total Protein 7.0 g/dL (6.4-8.2) Albumin 3.5 g/dL (3.4-5.0) Albumin/Globulin Ratio 1.0 (1.0-1.7) Valproic Acid Level 30 mcg/mL (50-100) L Valproic Acid Last Dose Date 04/20/2017 Valproic Acid Last Dose Time 2100 Current Medications: Meds: Current Medications Acetaminophen (Tylenol) 650 mg PRN Q6HRS PRN PO PAIN / TEMP; Start 04/08/17 at 23:00 Multi-Ingredient Ointment (Analgesic [place]) 1 phillip PRN QID PRN TP MUSCLE PAIN; Start 04/08/17 at 23:00 Al Hydroxide/Mg Hydroxide (Mylanta Plus Xs) 15 ml PRN AFTMEALHC PRN PO DYSPEPSIA; Start 04/08/17 at 23:00 Magnesium Hydroxide (Milk Of Magnesia) 2,400 mg PRN QHS PRN PO CONSTIPATION; Start 04/08/17 at 23:00 Benztropine Mesylate (Cogentin) 0.5 mg BID PO Last administered on 04/21/17t 20: 06; Start 04/09/17 at 09:00 Haloperidol (Haldol) 5 mg PRN QID PRN PO ANXIETY / AGITATION; Start 04/08/17 at 23:45 Lorazepam (Ativan) 1 mg QID PO Last administered on 04/14/17 20:38; Start at 09:00; Stop 04/14/17 at 23:00; Status DC Aripiprazole (Abilify) 30 mg DAILY PO Last administered on 04/18/17 09:32; Start 04/09/17 at 09:00; Stop 04/18/17 at 18:33; Status DC Clomipramine HCl (Anafranil) 150 mg QHS PO Last administered on 04/21/17 20:04 ; Start 04/09/17 at 21:00 Lorazepam (Ativan) 2 mg PRN Q8HRS PRN PO ANXIETY / AGITATION; Start 04/09/17 at 00:15 Loxapine Succinate (Loxitane) 100 mg DAILY PO Last administered on 04/21/17 08: 43; Start 04/09/17 at 09:00 Loxapine Succinate (Loxitane) 150 mg QHS PO Last administered on 04/21/17 20:02 ; Start 04/09/17 at 21:00 Aspirin (Aspirin Enteric Coated) 325 mg DAILY PO Last administered on 04/21/17 08:41; Start 04/09/17 at 11:00 Vitamin D (Vitamin D3) 1,000 unit DAILY PO Last administered on 04/10/17 08:38 ; Start 04/09/17 at 11:00; Stop 04/10/17 at 14:48; Status DC Enoxaparin Sodium (Lovenox) 40 mg HS SQ Last administered on 04/09/17 19:38; Start 04/09/17 at 21:00; Stop 04/10/17 at 14:48; Status DC Ferrous Sulfate (Feosol) 324 mg DAILYAC PO Last administered on 04/11/17 08:49 ; Start 04/09/17 at 11:00; Stop 04/12/17 at 01:56; Status DC Finasteride (Proscar) 5 mg HS PO Last administered on 04/21/17 20:02; Start at 21:00 Lisinopril (Prinivil) 10 mg DAILY PO Last administered on 04/21/17 08:41; Start 04/09/17 at 11:00 Metoprolol Tartrate (Lopressor) 25 mg BIDWMEALS PO Last administered on 08:41; Start 04/09/17 at 11:00 Morphine Sulfate (Ms Contin) 15 mg DAILY PO Last administered on 04/21/17 08:43 ; Start 04/09/17 at 11:00 Oxybutynin Chloride (Ditropan) 5 mg BID PO Last administered on 04/21/17 20:06 ; Start 04/09/17 at 11:00 Senna/Docusate Sodium (Senna Plus) 2 tab PRN BID PRN PO CONSTIPATION; Start at 10:00 Pantoprazole Sodium (Protonix) 40 mg DAILYAC PO Last administered on 04/21/17 08:41; Start 04/09/17 at 11:00 Psyllium Hydrophilic Mucilloid (Metamucil) 1 pkt DAILY PO Last administered on 04/21/17 08:42; Start 04/09/17 at 11:00 Aripiprazole (Abilify) 30 mg 1X ONCE PO ; Start 04/09/17 at 12:00; Stop at 12:01; Status DC Vitamin D (Vitamin D3) 2,000 unit DAILY PO Last administered on 04/21/17 08:41 ; Start 04/11/17 at 09:00 Clozapine (Clozaril) 25 mg HS PO Last administered on 04/14/17 20:33; Start at 21:00; Stop 04/15/17 at 20:59; Status DC Ferrous Sulfate (Feosol) 325 mg DAILYAC PO Last administered on 04/21/17 08:41 ; Start 04/12/17 at 07:30 Clozapine (Clozaril) 50 mg HS PO ; Start 04/14/17 at 21:00; Stop 04/14/17 at 21: 00; Status DC Clozapine (Clozaril) 50 mg HS PO Last administered on 04/21/17 20:08; Start at 21:00 Lorazepam (Ativan) 0.5 mg DAILY PO Last administered on 04/16/17 08:33; Start 04/15/17 at 09:00; Stop 04/16/17 at 18:35; Status DC Lorazepam (Ativan) 1 mg TID@1300,1700,2100 PO Last administered on 04/16/17 17 :30; Start 04/15/17 at 13:00; Stop 04/16/17 at 18:35; Status DC Lorazepam (Ativan) 0.5 mg BID@0900,1300 PO ; Start 04/18/17 at 09:00; Stop at 09:00; Status DC Lorazepam (Ativan) 1 mg BID@1700,2100 PO ; Start 04/18/17 at 17:00; Stop 04/18/17 at 17:00; Status DC Lorazepam (Ativan) 0.5 mg TID@0900,1300,1700 PO ; Start 04/21/17 at 09:00; Stop 04/21/17 at 09:00; Status DC Lorazepam (Ativan) 1 mg HS PO ; Start 04/21/17 at 21:00; Stop 04/21/17 at 21:00; Status DC Lorazepam (Ativan) 0.5 mg QID PO ; Start 04/24/17 at 09:00; Stop 04/24/17 at 09:00 ; Status DC Lorazepam (Ativan) 1 mg QID PO Last administered on 04/17/17 21:02; Start at 21:00; Stop 04/17/17 at 23:00; Status DC Lorazepam (Ativan) 1 mg QID PO Last administered on 04/21/17 20:08; Start at 09:00 Aripiprazole (Abilify) 20 mg DAILY PO Last administered on 04/21/17 08:41; Start 04/19/17 at 09:00 Divalproex Sodium (Depakote Sprinkles) 250 mg BID PO Last administered on 20:06; Start 04/18/17 at 21:00 Sodium Chloride 500 ml @ 0 mls/hr 1X ONCE IV Last administered on 04/21/17 15: 30; Start 04/21/17 at 15:30; Stop 04/21/17 at 15:31; Status DC Active Scripts Active Reported Zoloft (Sertraline Hcl) 100 Mg Tablet 200 Mg PO DAILY Metamucil (Psyllium Husk) 660 Gm Powder 1 Packet PO DAILY Oxybutynin Chloride 5 Mg Tablet 5 Mg PO BID Omeprazole 40 Mg Capsule.dr 40 Mg PO DAILY Morphine Sulfate Er (Morphine Sulfate) 15 Mg Tablet.er 15 Mg PO DAILY Metoprolol Tartrate 25 Mg Tablet 25 Mg PO BIDWMEALS Loxapine (Loxapine Succinate) 50 Mg Capsule 150 Mg PO HS Loxapine (Loxapine Succinate) 50 Mg Capsule 100 Mg PO DAILY Lorazepam 2 Mg Tablet 2 Mg PO PRN Q8HRS PRN Lorazepam 1 Mg Tablet 1 Mg PO QID Lisinopril 10 Mg Tablet 10 Mg PO DAILY Haloperidol 5 Mg Tablet 5 Mg PO PRN QID PRN Finasteride 5 Mg Tablet 5 Mg PO HS Ferrous Sulfate 325 Mg Tablet 324 Mg PO DAILYAC Lovenox (Enoxaparin Sodium) 40 Mg/0.4 Ml Disp.syrin 40 Mg SQ HS Senna S Tablet (Sennosides/Docusate Sodium) 1 Each Tablet 2 Tab PO PRN BID PRN Clomipramine Hcl 75 Mg Capsule 150 Mg PO HS Vitamin D3 (Cholecalciferol (Vitamin D3)) 1,000 Unit Tablet 1,000 Unit PO DAILY Benztropine Mesylate 0.5 Mg Tablet 0.5 Mg PO BID Aspirin Ec (Aspirin) 325 Mg Tablet.dr 325 Mg PO DAILY Abilify (Aripiprazole) 30 Mg Tablet 30 Mg PO DAILY Diagnosis: Problems: (1) Anxiety disorder (2) Impulse control disorder (3) Obsessive compulsive disorder (4) Schizophrenia, disorganized, subchronic with acute exacerbation SHAKIR PAEZ MD Apr 21, 2017 22:50
--- NOTE | 2017-04-22 00:34 | PN ---
DATE: 04/20/2017 This late entry of 04/20/2017 covers elements not covered in my initial note. SUBJECTIVE: The patient slept 7-1/2 hours the previous evening. During the day, he is being keeping his eyes closed, not interactive, staff having to feed him, still remains psychotic. REVIEW OF SYSTEMS: Ambulation impaired, in wheelchair. No CV, , pulmonary, eye, ENT system symptoms on review; reliability poor. MENTAL STATUS EXAMINATION: Oriented to himself and situation. Speech has some latency, low in volume, often responses monosyllabic. Abstraction fair, computation impaired, language function intact, attention span short, mood and affect withdrawn. LABORATORY DATA: Reviewed. IMPRESSION: Unchanged from initial note. PLAN: Continue current psychotropics. Check labs, 04/21/2017, if absolute neutrophil count unremarkable, we will increase Clozaril to 75 mg at bedtime, reduce the Abilify further. Continue Anafranil and Zoloft, would like to reduce the Zoloft at some stage as well. Check valproic acid level, adjust further as clinically indicated. Review drug interactions risk, benefit ratio, favors changes noted above. MAN Ravi PAEZ MD DR: MELISA/marvel JOB#: [id number] / [id number]
[2017-04-22 06:38] VITALS: BP 175/71
[2017-04-22] MEDS: PANTOPRAZOLE 40 MG TABLET. PO SCH (08:22)
[2017-04-22] MEDS: BENZTROPINE MESYLATE 0.5 MG TABLET PO SCH ×2 (08:22→19:43)
[2017-04-22] MEDS: FERROUS SULFATE 325 MG TABLET PO SCH (08:22)
[2017-04-22] MEDS: ASPIRIN ENTERIC COATED 325 MG TABLET.DR. PO SCH (08:22)
[2017-04-22] MEDS: OXYBUTYNIN CHLORIDE 5 MG TABLET PO SCH ×2 (08:22→19:44)
[2017-04-22] MEDS: PSYLLIUM SEED (WITH SUGAR) PACKET. PO SCH (08:22)
[2017-04-22] MEDS: ARIPiprazole 10 MG TABLET PO SCH (08:23)
[2017-04-22] MEDS: LISINOPRIL 10 MG TABLET PO SCH (08:23)
[2017-04-22] MEDS: CHOLECALCIFEROL (VITAMIN D3) 1,000 UNIT TABLET PO SCH (08:23)
[2017-04-22] MEDS: DIVALPROEX 125 MG CAP.SPRINK PO SCH ×2 (08:23→19:43)
[2017-04-22] MEDS: METOPROLOL TART IMMED RELEASE 25 MG TABLET PO SCH ×2 (08:23→17:27)
[2017-04-22] MEDS: LOXAPINE SUCCINATE 25 MG CAPSULE PO SCH ×2 (08:25→19:47)
[2017-04-22] MEDS: MORPHINE ER 15 MG TABLET.ER PO SCH (08:25)
[2017-04-22] MEDS: LORazepam 1 MG TABLET PO SCH ×4 (08:25→19:46)
[2017-04-22] MEDS: MAGNESIUM HYDROXIDE 2,400 MG/30 ML ORAL.SUSP. PO PRN (17:26)
[2017-04-22 17:33] VITALS: BP 172/81
--- NOTE | 2017-04-22 19:38 | PDOC ---
Exam José Miguel Demential Exam: José Miguel Note: Please also refer to the separate dictated note~for this date of service dictated separately.~Patient seen individually. Discussed the patient with Nursing staff reviewed the chart.~Reviewed interim history and current functioning. Reviewed vital signs,~Labs/ Radiology~and current medications noted below. Continue current treatment with the changes noted in the dictated addendum note Assessment: Vital Signs: Vital Signs Date Time Temp Pulse Resp B/P (MAP) Pulse Ox O2 Delivery O2 Flow Rate FiO2 04/22/17 17:33 97.5 65 18 172/81 (111) 98 Room Air I&O Intake and Output 04/23/17 07:00 Intake Total 840 ml Balance 840 ml Intake Oral 840 ml Current Medications: Meds: Current Medications Acetaminophen (Tylenol) 650 mg PRN Q6HRS PRN PO PAIN / TEMP; Start 04/08/17 at 23:00 Multi-Ingredient Ointment (Analgesic [place]) 1 phillip PRN QID PRN TP MUSCLE PAIN; Start 04/08/17 at 23:00 Al Hydroxide/Mg Hydroxide (Mylanta Plus Xs) 15 ml PRN AFTMEALHC PRN PO DYSPEPSIA; Start 04/08/17 at 23:00 Magnesium Hydroxide (Milk Of Magnesia) 2,400 mg PRN QHS PRN PO CONSTIPATION Last administered on 04/22/17 17:26; Start 04/08/17 at 23:00 Benztropine Mesylate (Cogentin) 0.5 mg BID PO Last administered on 04/22/17 08: 22; Start 04/09/17 at 09:00 Haloperidol (Haldol) 5 mg PRN QID PRN PO ANXIETY / AGITATION; Start 04/08/17 at 23:45 Lorazepam (Ativan) 1 mg QID PO Last administered on 04/14/17 20:38; Start at 09:00; Stop 04/14/17 at 23:00; Status DC Aripiprazole (Abilify) 30 mg DAILY PO Last administered on 04/18/17 09:32; Start 04/09/17 at 09:00; Stop 04/18/17 at 18:33; Status DC Clomipramine HCl (Anafranil) 150 mg QHS PO Last administered on 04/21/17 20:04 ; Start 04/09/17 at 21:00 Lorazepam (Ativan) 2 mg PRN Q8HRS PRN PO ANXIETY / AGITATION; Start 04/09/17 at 00:15 Loxapine Succinate (Loxitane) 100 mg DAILY PO Last administered on 04/22/17 08: 25; Start 04/09/17 at 09:00; Stop 04/22/17 at 18:32; Status DC Loxapine Succinate (Loxitane) 150 mg QHS PO Last administered on 04/21/17 20:02 ; Start 04/09/17 at 21:00 Aspirin (Aspirin Enteric Coated) 325 mg DAILY PO Last administered on 04/22/17 08:22; Start 04/09/17 at 11:00 Vitamin D (Vitamin D3) 1,000 unit DAILY PO Last administered on 04/10/17 08:38 ; Start 04/09/17 at 11:00; Stop 04/10/17 at 14:48; Status DC Enoxaparin Sodium (Lovenox) 40 mg HS SQ Last administered on 04/09/17 19:38; Start 04/09/17 at 21:00; Stop 04/10/17 at 14:48; Status DC Ferrous Sulfate (Feosol) 324 mg DAILYAC PO Last administered on 04/11/17 08:49 ; Start 04/09/17 at 11:00; Stop 04/12/17 at 01:56; Status DC Finasteride (Proscar) 5 mg HS PO Last administered on 04/21/17 20:02; Start at 21:00 Lisinopril (Prinivil) 10 mg DAILY PO Last administered on 04/22/17 08:23; Start 04/09/17 at 11:00 Metoprolol Tartrate (Lopressor) 25 mg BIDWMEALS PO Last administered on 17:27; Start 04/09/17 at 11:00 Morphine Sulfate (Ms Contin) 15 mg DAILY PO Last administered on 04/22/17 08:25 ; Start 04/09/17 at 11:00 Oxybutynin Chloride (Ditropan) 5 mg BID PO Last administered on 04/22/17 08:22 ; Start 04/09/17 at 11:00 Senna/Docusate Sodium (Senna Plus) 2 tab PRN BID PRN PO CONSTIPATION; Start at 10:00 Pantoprazole Sodium (Protonix) 40 mg DAILYAC PO Last administered on 04/22/17 08:22; Start 04/09/17 at 11:00 Psyllium Hydrophilic Mucilloid (Metamucil) 1 pkt DAILY PO Last administered on 04/22/17 08:22; Start 04/09/17 at 11:00 Aripiprazole (Abilify) 30 mg 1X ONCE PO ; Start 04/09/17 at 12:00; Stop at 12:01; Status DC Vitamin D (Vitamin D3) 2,000 unit DAILY PO Last administered on 04/22/17 08:23 ; Start 04/11/17 at 09:00 Clozapine (Clozaril) 25 mg HS PO Last administered on 04/14/17 20:33; Start at 21:00; Stop 04/15/17 at 20:59; Status DC Ferrous Sulfate (Feosol) 325 mg DAILYAC PO Last administered on 04/22/17 08:22 ; Start 04/12/17 at 07:30 Clozapine (Clozaril) 50 mg HS PO ; Start 04/14/17 at 21:00; Stop 04/14/17 at 21: 00; Status DC Clozapine (Clozaril) 50 mg HS PO Last administered on 04/21/17 20:08; Start at 21:00; Stop 04/22/17 at 18:32; Status DC Lorazepam (Ativan) 0.5 mg DAILY PO Last administered on 04/16/17 08:33; Start 04/15/17 at 09:00; Stop 04/16/17 at 18:35; Status DC Lorazepam (Ativan) 1 mg TID@1300,1700,2100 PO Last administered on 04/16/17 17 :30; Start 04/15/17 at 13:00; Stop 04/16/17 at 18:35; Status DC Lorazepam (Ativan) 0.5 mg BID@0900,1300 PO ; Start 04/18/17 at 09:00; Stop at 09:00; Status DC Lorazepam (Ativan) 1 mg BID@1700,2100 PO ; Start 04/18/17 at 17:00; Stop 04/18/17 at 17:00; Status DC Lorazepam (Ativan) 0.5 mg TID@0900,1300,1700 PO ; Start 04/21/17 at 09:00; Stop 04/21/17 at 09:00; Status DC Lorazepam (Ativan) 1 mg HS PO ; Start 04/21/17 at 21:00; Stop 04/21/17 at 21:00; Status DC Lorazepam (Ativan) 0.5 mg QID PO ; Start 04/24/17 at 09:00; Stop 04/24/17 at 09:00 ; Status DC Lorazepam (Ativan) 1 mg QID PO Last administered on 04/17/17 21:02; Start at 21:00; Stop 04/17/17 at 23:00; Status DC Lorazepam (Ativan) 1 mg QID PO Last administered on 04/22/17 17:27; Start at 09:00 Aripiprazole (Abilify) 20 mg DAILY PO Last administered on 04/22/17 08:23; Start 04/19/17 at 09:00 Divalproex Sodium (Depakote Sprinkles) 250 mg BID PO Last administered on 08:23; Start 04/18/17 at 21:00; Stop 04/22/17 at 16:11; Status DC Sodium Chloride 500 ml @ 0 mls/hr 1X ONCE IV Last administered on 04/21/17 15: 30; Start 04/21/17 at 15:30; Stop 04/21/17 at 15:31; Status DC Divalproex Sodium (Depakote Sprinkles) 500 mg BID PO ; Start 04/22/17 at 21:00 Clozapine (Clozaril) 75 mg HS PO ; Start 04/22/17 at 21:00 Loxapine Succinate (Loxitane) 50 mg DAILY PO ; Start 04/23/17 at 09:00 Active Scripts Active Reported Zoloft (Sertraline Hcl) 100 Mg Tablet 200 Mg PO DAILY Metamucil (Psyllium Husk) 660 Gm Powder 1 Packet PO DAILY Oxybutynin Chloride 5 Mg Tablet 5 Mg PO BID Omeprazole 40 Mg Capsule.dr 40 Mg PO DAILY Morphine Sulfate Er (Morphine Sulfate) 15 Mg Tablet.er 15 Mg PO DAILY Metoprolol Tartrate 25 Mg Tablet 25 Mg PO BIDWMEALS Loxapine (Loxapine Succinate) 50 Mg Capsule 150 Mg PO HS Loxapine (Loxapine Succinate) 50 Mg Capsule 100 Mg PO DAILY Lorazepam 2 Mg Tablet 2 Mg PO PRN Q8HRS PRN Lorazepam 1 Mg Tablet 1 Mg PO QID Lisinopril 10 Mg Tablet 10 Mg PO DAILY Haloperidol 5 Mg Tablet 5 Mg PO PRN QID PRN Finasteride 5 Mg Tablet 5 Mg PO HS Ferrous Sulfate 325 Mg Tablet 324 Mg PO DAILYAC Lovenox (Enoxaparin Sodium) 40 Mg/0.4 Ml Disp.syrin 40 Mg SQ HS Senna S Tablet (Sennosides/Docusate Sodium) 1 Each Tablet 2 Tab PO PRN BID PRN Clomipramine Hcl 75 Mg Capsule 150 Mg PO HS Vitamin D3 (Cholecalciferol (Vitamin D3)) 1,000 Unit Tablet 1,000 Unit PO DAILY Benztropine Mesylate 0.5 Mg Tablet 0.5 Mg PO BID Aspirin Ec (Aspirin) 325 Mg Tablet.dr 325 Mg PO DAILY Abilify (Aripiprazole) 30 Mg Tablet 30 Mg PO DAILY Diagnosis: Problems: (1) Anxiety disorder (2) Impulse control disorder (3) Obsessive compulsive disorder (4) Schizoaffective disorder (5) Schizophrenia, disorganized, subchronic with acute exacerbation SHAKIR PAEZ MD Apr 22, 2017 19:38
[2017-04-22] MEDS: cloZAPine 25 MG TABLET PO SCH (19:44)
[2017-04-22] MEDS: FINASTERIDE 5 MG TABLET PO SCH (19:44)
--- NOTE | 2017-04-23 01:50 | PN ---
DATE: 04/21/2017 This is a late entry for 04/21/2017, covers the elements not covered in my initial note of 04/21/2017. SUBJECTIVE: I met with the patient evening of 04/21/2017. Overall, per nursing report, labile, combative, with IV meds had to be placed for IV infusion. REVIEW OF SYSTEMS: Ambulation impaired, in a wheelchair. No CV, , pulmonary, eye, ENT system symptoms on review. Reliability varies. MENTAL STATUS EXAM: Oriented to himself. Insight, judgment, recent memory is impaired. Language function intact. Attention span short. Mood and affect remains labile; less so than before feeding himself, which is an improvement. LABORATORY DATA: Reviewed. IMPRESSION: Unchanged from initial note. PLAN: He has received a 500 mL normal saline bolus per Dr. Church. Valproic acid level on 04/21/2017 is 30; starting 04/22/2017, we will increase the Depakote from 250 b.i.d. to 500 mg b.i.d. Check labs level. Continue the rest of psychotropics including Clozaril. Check CBC, CMP, valproic acid level and absolute neutrophil count and if the latter is unremarkable, we will increase the Clozaril to 75 mg at bedtime. Adjust further as clinically indicated. MAN Ravi PAEZ MD DR: MELISA/marvel JOB#: [id number] / [id number]
[2017-04-23 06:14] VITALS: BP 182/91
[2017-04-23] MEDS ORDERED: LOXAPINE SUCCINATE 25 MG CAPSULE PO SCH (09:00)
[2017-04-23] MEDS: OXYBUTYNIN CHLORIDE 5 MG TABLET PO SCH ×2 (09:06→19:50)
[2017-04-23] MEDS: LISINOPRIL 10 MG TABLET PO SCH (09:06)
[2017-04-23] MEDS: PSYLLIUM SEED (WITH SUGAR) PACKET. PO SCH (09:06)
[2017-04-23] MEDS: BENZTROPINE MESYLATE 0.5 MG TABLET PO SCH ×2 (09:06→19:49)
[2017-04-23] MEDS: MORPHINE ER 15 MG TABLET.ER PO SCH (09:07)
[2017-04-23] MEDS: PANTOPRAZOLE 40 MG TABLET. PO SCH (09:07)
[2017-04-23] MEDS: METOPROLOL TART IMMED RELEASE 25 MG TABLET PO SCH ×2 (09:07→18:09)
[2017-04-23] MEDS: FERROUS SULFATE 325 MG TABLET PO SCH (09:07)
[2017-04-23] MEDS: ASPIRIN ENTERIC COATED 325 MG TABLET.DR. PO SCH (09:07)
[2017-04-23] MEDS: LORazepam 1 MG TABLET PO SCH ×4 (09:07→19:49)
[2017-04-23] MEDS: ARIPiprazole 10 MG TABLET PO SCH (09:08)
[2017-04-23] MEDS: CHOLECALCIFEROL (VITAMIN D3) 1,000 UNIT TABLET PO SCH (09:08)
[2017-04-23] MEDS: DIVALPROEX 125 MG CAP.SPRINK PO SCH ×2 (09:08→19:49)
[2017-04-23 16:24] VITALS: BP 184/94
[2017-04-23] MEDS: MAGNESIUM HYDROXIDE 2,400 MG/30 ML ORAL.SUSP. PO PRN (18:09)
[2017-04-23] MEDS: cloZAPine 25 MG TABLET PO SCH (19:49)
[2017-04-23] MEDS: LOXAPINE SUCCINATE 25 MG CAPSULE PO SCH (19:50)
[2017-04-23] MEDS: FINASTERIDE 5 MG TABLET PO SCH (19:51)
--- NOTE | 2017-04-23 20:01 | PDOC ---
Exam José Miguel Demential Exam: José Miguel Note: Please also refer to the separate dictated note~for this date of service dictated separately.~Patient seen individually. Discussed the patient with Nursing staff reviewed the chart.~Reviewed interim history and current functioning. Reviewed vital signs,~Labs/ Radiology~and current medications noted below. Continue current treatment with the changes noted in the dictated addendum note Assessment: Vital Signs: Vital Signs Date Time Temp Pulse Resp B/P (MAP) Pulse Ox O2 Delivery O2 Flow Rate FiO2 04/23/17 18:09 97 184/94 04/23/17 16:24 97.2 20 98 04/22/17 17:33 Room Air I&O Intake and Output 04/24/17 07:00 Intake Total 720 ml Balance 720 ml Intake Oral 720 ml Current Medications: Meds: Current Medications Acetaminophen (Tylenol) 650 mg PRN Q6HRS PRN PO PAIN / TEMP; Start 04/08/17 at 23:00 Multi-Ingredient Ointment (Analgesic [place]) 1 phillip PRN QID PRN TP MUSCLE PAIN; Start 04/08/17 at 23:00 Al Hydroxide/Mg Hydroxide (Mylanta Plus Xs) 15 ml PRN AFTMEALHC PRN PO DYSPEPSIA; Start 04/08/17 at 23:00 Magnesium Hydroxide (Milk Of Magnesia) 2,400 mg PRN QHS PRN PO CONSTIPATION Last administered on 04/23/17 18:09; Start 04/08/17 at 23:00 Benztropine Mesylate (Cogentin) 0.5 mg BID PO Last administered on 04/23/17 19: 49; Start 04/09/17 at 09:00 Haloperidol (Haldol) 5 mg PRN QID PRN PO ANXIETY / AGITATION; Start 04/08/17 at 23:45 Lorazepam (Ativan) 1 mg QID PO Last administered on 04/14/17 20:38; Start at 09:00; Stop 04/14/17 at 23:00; Status DC Aripiprazole (Abilify) 30 mg DAILY PO Last administered on 04/18/17 09:32; Start 04/09/17 at 09:00; Stop 04/18/17 at 18:33; Status DC Clomipramine HCl (Anafranil) 150 mg QHS PO Last administered on 04/23/17 19:48 ; Start 04/09/17 at 21:00 Lorazepam (Ativan) 2 mg PRN Q8HRS PRN PO ANXIETY / AGITATION; Start 04/09/17 at 00:15 Loxapine Succinate (Loxitane) 100 mg DAILY PO Last administered on 04/22/17 08: 25; Start 04/09/17 at 09:00; Stop 04/22/17 at 18:32; Status DC Loxapine Succinate (Loxitane) 150 mg QHS PO Last administered on 04/23/17 19:50 ; Start 04/09/17 at 21:00 Aspirin (Aspirin Enteric Coated) 325 mg DAILY PO Last administered on 04/23/17 09:07; Start 04/09/17 at 11:00 Vitamin D (Vitamin D3) 1,000 unit DAILY PO Last administered on 04/10/17 08:38 ; Start 04/09/17 at 11:00; Stop 04/10/17 at 14:48; Status DC Enoxaparin Sodium (Lovenox) 40 mg HS SQ Last administered on 04/09/17 19:38; Start 04/09/17 at 21:00; Stop 04/10/17 at 14:48; Status DC Ferrous Sulfate (Feosol) 324 mg DAILYAC PO Last administered on 04/11/17 08:49 ; Start 04/09/17 at 11:00; Stop 04/12/17 at 01:56; Status DC Finasteride (Proscar) 5 mg HS PO Last administered on 04/23/17 19:51; Start at 21:00 Lisinopril (Prinivil) 10 mg DAILY PO Last administered on 04/23/17 09:06; Start 04/09/17 at 11:00 Metoprolol Tartrate (Lopressor) 25 mg BIDWMEALS PO Last administered on 18:09; Start 04/09/17 at 11:00 Morphine Sulfate (Ms Contin) 15 mg DAILY PO Last administered on 04/23/17 09:07 ; Start 04/09/17 at 11:00 Oxybutynin Chloride (Ditropan) 5 mg BID PO Last administered on 04/23/17 19:50 ; Start 04/09/17 at 11:00 Senna/Docusate Sodium (Senna Plus) 2 tab PRN BID PRN PO CONSTIPATION; Start at 10:00 Pantoprazole Sodium (Protonix) 40 mg DAILYAC PO Last administered on 04/23/17 09:07; Start 04/09/17 at 11:00 Psyllium Hydrophilic Mucilloid (Metamucil) 1 pkt DAILY PO Last administered on 04/23/17 09:06; Start 04/09/17 at 11:00 Aripiprazole (Abilify) 30 mg 1X ONCE PO ; Start 04/09/17 at 12:00; Stop at 12:01; Status DC Vitamin D (Vitamin D3) 2,000 unit DAILY PO Last administered on 04/23/17 09:08 ; Start 04/11/17 at 09:00 Clozapine (Clozaril) 25 mg HS PO Last administered on 04/14/17 20:33; Start at 21:00; Stop 04/15/17 at 20:59; Status DC Ferrous Sulfate (Feosol) 325 mg DAILYAC PO Last administered on 04/23/17 09:07 ; Start 04/12/17 at 07:30 Clozapine (Clozaril) 50 mg HS PO ; Start 04/14/17 at 21:00; Stop 04/14/17 at 21: 00; Status DC Clozapine (Clozaril) 50 mg HS PO Last administered on 04/21/17 20:08; Start at 21:00; Stop 04/22/17 at 18:32; Status DC Lorazepam (Ativan) 0.5 mg DAILY PO Last administered on 04/16/17 08:33; Start 04/15/17 at 09:00; Stop 04/16/17 at 18:35; Status DC Lorazepam (Ativan) 1 mg TID@1300,1700,2100 PO Last administered on 04/16/17 17 :30; Start 04/15/17 at 13:00; Stop 04/16/17 at 18:35; Status DC Lorazepam (Ativan) 0.5 mg BID@0900,1300 PO ; Start 04/18/17 at 09:00; Stop at 09:00; Status DC Lorazepam (Ativan) 1 mg BID@1700,2100 PO ; Start 04/18/17 at 17:00; Stop 04/18/17 at 17:00; Status DC Lorazepam (Ativan) 0.5 mg TID@0900,1300,1700 PO ; Start 04/21/17 at 09:00; Stop 04/21/17 at 09:00; Status DC Lorazepam (Ativan) 1 mg HS PO ; Start 04/21/17 at 21:00; Stop 04/21/17 at 21:00; Status DC Lorazepam (Ativan) 0.5 mg QID PO ; Start 04/24/17 at 09:00; Stop 04/24/17 at 09:00 ; Status DC Lorazepam (Ativan) 1 mg QID PO Last administered on 04/17/17 21:02; Start at 21:00; Stop 04/17/17 at 23:00; Status DC Lorazepam (Ativan) 1 mg QID PO Last administered on 04/23/17 19:49; Start at 09:00 Aripiprazole (Abilify) 20 mg DAILY PO Last administered on 04/23/17 09:08; Start 04/19/17 at 09:00 Divalproex Sodium (Depakote Sprinkles) 250 mg BID PO Last administered on 08:23; Start 04/18/17 at 21:00; Stop 04/22/17 at 16:11; Status DC Sodium Chloride 500 ml @ 0 mls/hr 1X ONCE IV Last administered on 04/21/17 15: 30; Start 04/21/17 at 15:30; Stop 04/21/17 at 15:31; Status DC Divalproex Sodium (Depakote Sprinkles) 500 mg BID PO Last administered on 19:49; Start 04/22/17 at 21:00 Clozapine (Clozaril) 75 mg HS PO Last administered on 04/23/17 19:49; Start 04/22/17 at 21:00 Loxapine Succinate (Loxitane) 50 mg DAILY PO Last administered on 04/23/17 09: 09; Start 04/23/17 at 09:00; Stop 04/23/17 at 18:26; Status DC Active Scripts Active Reported Zoloft (Sertraline Hcl) 100 Mg Tablet 200 Mg PO DAILY Metamucil (Psyllium Husk) 660 Gm Powder 1 Packet PO DAILY Oxybutynin Chloride 5 Mg Tablet 5 Mg PO BID Omeprazole 40 Mg Capsule.dr 40 Mg PO DAILY Morphine Sulfate Er (Morphine Sulfate) 15 Mg Tablet.er 15 Mg PO DAILY Metoprolol Tartrate 25 Mg Tablet 25 Mg PO BIDWMEALS Loxapine (Loxapine Succinate) 50 Mg Capsule 150 Mg PO HS Loxapine (Loxapine Succinate) 50 Mg Capsule 100 Mg PO DAILY Lorazepam 2 Mg Tablet 2 Mg PO PRN Q8HRS PRN Lorazepam 1 Mg Tablet 1 Mg PO QID Lisinopril 10 Mg Tablet 10 Mg PO DAILY Haloperidol 5 Mg Tablet 5 Mg PO PRN QID PRN Finasteride 5 Mg Tablet 5 Mg PO HS Ferrous Sulfate 325 Mg Tablet 324 Mg PO DAILYAC Lovenox (Enoxaparin Sodium) 40 Mg/0.4 Ml Disp.syrin 40 Mg SQ HS Senna S Tablet (Sennosides/Docusate Sodium) 1 Each Tablet 2 Tab PO PRN BID PRN Clomipramine Hcl 75 Mg Capsule 150 Mg PO HS Vitamin D3 (Cholecalciferol (Vitamin D3)) 1,000 Unit Tablet 1,000 Unit PO DAILY Benztropine Mesylate 0.5 Mg Tablet 0.5 Mg PO BID Aspirin Ec (Aspirin) 325 Mg Tablet.dr 325 Mg PO DAILY Abilify (Aripiprazole) 30 Mg Tablet 30 Mg PO DAILY Diagnosis: Problems: (1) Anxiety disorder (2) Impulse control disorder (3) Obsessive compulsive disorder (4) Schizoaffective disorder (5) Schizophrenia, disorganized, subchronic with acute exacerbation SHAKIR PAEZ MD Apr 23, 2017 20:01
--- NOTE | 2017-04-24 01:17 | PN ---
DATE: 04/22/2017 PSYCHIATRIC PROGRESS NOTE This is a late entry for 04/22/2017, covers elements not covered in my initial note. SUBJECTIVE: I met with the patient the evening of 04/22/2017. The patient has had slumped forward in his wheelchair most of the day, was little more straight in the wheelchair evening of 04/22/2017 as I met with him, he was feeding himself supper, seemed to wake up after another psychotic patient seemed to attack and no injury was noted. REVIEW OF SYSTEMS: Ambulation impaired, in a wheelchair. No CV, , pulmonary, eye, ENT system symptoms on review. MENTAL STATUS EXAM: Oriented to himself and situation. Speech, low in volume, coherent, rapid at times. Abstraction fair, computation impaired, language function intact. Attention span short, somewhat obsessive, but improved. LABORATORY DATA: Reviewed. IMPRESSION: Unchanged from initial note. PLAN: Absolute neutrophil count is unremarkable. Increase Clozaril from 50 mg at bedtime to 75 mg at bedtime. Reduce loxapine from 100 mg in the morning to 50 mg in the morning, continue 150 mg at night. Continue Zoloft 200 mg a day, clomipramine 150 mg at bedtime, Haldol p.r.n., Cogentin 0.5 mg b.i.d., Abilify 20 mg a day, Depakote at 500 b.i.d., which was recently increased. Labs level to be checked on 04/25/2017. Reviewed drug contractions. Risk/benefit ratio favors no further change at this time. SHAKIR PAEZ MD DR: MELISA/marvel JOB#: [id number] / [id number]
[2017-04-24] MEDS: PANTOPRAZOLE 40 MG TABLET. PO SCH (05:31)
[2017-04-24] MEDS: FERROUS SULFATE 325 MG TABLET PO SCH (05:31)
[2017-04-24 06:02] VITALS: BP 175/83
[2017-04-24] MEDS: PSYLLIUM SEED (WITH SUGAR) PACKET. PO SCH (08:31)
[2017-04-24] MEDS: ARIPiprazole 10 MG TABLET PO SCH (08:31)
[2017-04-24] MEDS: LISINOPRIL 10 MG TABLET PO SCH (08:31)
[2017-04-24] MEDS: BENZTROPINE MESYLATE 0.5 MG TABLET PO SCH ×2 (08:32→19:39)
[2017-04-24] MEDS: METOPROLOL TART IMMED RELEASE 25 MG TABLET PO SCH ×2 (08:32→16:52)
[2017-04-24] MEDS: ASPIRIN ENTERIC COATED 325 MG TABLET.DR. PO SCH (08:32)
[2017-04-24] MEDS: CHOLECALCIFEROL (VITAMIN D3) 1,000 UNIT TABLET PO SCH (08:32)
[2017-04-24] MEDS: DIVALPROEX 125 MG CAP.SPRINK PO SCH ×2 (08:32→19:40)
[2017-04-24] MEDS: OXYBUTYNIN CHLORIDE 5 MG TABLET PO SCH ×2 (08:32→19:40)
[2017-04-24] MEDS: MORPHINE ER 15 MG TABLET.ER PO SCH (08:34)
[2017-04-24] MEDS: LORazepam 1 MG TABLET PO SCH ×4 (08:35→21:13)
[2017-04-24] MEDS ORDERED: LORazepam 0.5 MG TABLET PO SCH (09:00)
[2017-04-24 16:03] VITALS: BP 131/64
[2017-04-24] MEDS: MAGNESIUM HYDROXIDE 2,400 MG/30 ML ORAL.SUSP. PO PRN (16:51)
[2017-04-24] MEDS: cloZAPine 25 MG TABLET PO SCH (19:39)
[2017-04-24] MEDS: FINASTERIDE 5 MG TABLET PO SCH (19:40)
--- NOTE | 2017-04-24 19:44 | PDOC ---
Exam José Miguel Demential Exam: José Miguel Note: Please also refer to the separate dictated note~for this date of service dictated separately.~Patient seen individually. Discussed the patient with Nursing staff reviewed the chart.~Reviewed interim history and current functioning. Reviewed vital signs,~Labs/ Radiology~and current medications noted below. Continue current treatment with the changes noted in the dictated addendum note Assessment: Vital Signs: Vital Signs Date Time Temp Pulse Resp B/P (MAP) Pulse Ox O2 Delivery O2 Flow Rate FiO2 04/24/17 16:52 66 131/64 04/24/17 16:03 97.6 16 97 04/24/17 13:30 Room Air I&O Intake and Output 04/25/17 07:00 Intake Total 1000 ml Balance 1000 ml Intake Oral 1000 ml Current Medications: Meds: Current Medications Acetaminophen (Tylenol) 650 mg PRN Q6HRS PRN PO PAIN / TEMP; Start 04/08/17 at 23:00 Multi-Ingredient Ointment (Analgesic [place]) 1 phillip PRN QID PRN TP MUSCLE PAIN; Start 04/08/17 at 23:00 Al Hydroxide/Mg Hydroxide (Mylanta Plus Xs) 15 ml PRN AFTMEALHC PRN PO DYSPEPSIA; Start 04/08/17 at 23:00 Magnesium Hydroxide (Milk Of Magnesia) 2,400 mg PRN QHS PRN PO CONSTIPATION Last administered on 04/24/17 16:51; Start 04/08/17 at 23:00 Benztropine Mesylate (Cogentin) 0.5 mg BID PO Last administered on 04/24/17 08: 32; Start 04/09/17 at 09:00 Haloperidol (Haldol) 5 mg PRN QID PRN PO ANXIETY / AGITATION; Start 04/08/17 at 23:45 Lorazepam (Ativan) 1 mg QID PO Last administered on 04/14/17 20:38; Start at 09:00; Stop 04/14/17 at 23:00; Status DC Aripiprazole (Abilify) 30 mg DAILY PO Last administered on 04/18/17 09:32; Start 04/09/17 at 09:00; Stop 04/18/17 at 18:33; Status DC Clomipramine HCl (Anafranil) 150 mg QHS PO Last administered on 04/23/17 19:48 ; Start 04/09/17 at 21:00 Lorazepam (Ativan) 2 mg PRN Q8HRS PRN PO ANXIETY / AGITATION; Start 04/09/17 at 00:15 Loxapine Succinate (Loxitane) 100 mg DAILY PO Last administered on 04/22/17 08: 25; Start 04/09/17 at 09:00; Stop 04/22/17 at 18:32; Status DC Loxapine Succinate (Loxitane) 150 mg QHS PO Last administered on 04/23/17 19:50 ; Start 04/09/17 at 21:00 Aspirin (Aspirin Enteric Coated) 325 mg DAILY PO Last administered on 04/24/17 08:32; Start 04/09/17 at 11:00 Vitamin D (Vitamin D3) 1,000 unit DAILY PO Last administered on 04/10/17 08:38 ; Start 04/09/17 at 11:00; Stop 04/10/17 at 14:48; Status DC Enoxaparin Sodium (Lovenox) 40 mg HS SQ Last administered on 04/09/17 19:38; Start 04/09/17 at 21:00; Stop 04/10/17 at 14:48; Status DC Ferrous Sulfate (Feosol) 324 mg DAILYAC PO Last administered on 04/11/17 08:49 ; Start 04/09/17 at 11:00; Stop 04/12/17 at 01:56; Status DC Finasteride (Proscar) 5 mg HS PO Last administered on 04/23/17 19:51; Start at 21:00 Lisinopril (Prinivil) 10 mg DAILY PO Last administered on 04/24/17 08:31; Start 04/09/17 at 11:00 Metoprolol Tartrate (Lopressor) 25 mg BIDWMEALS PO Last administered on 16:52; Start 04/09/17 at 11:00 Morphine Sulfate (Ms Contin) 15 mg DAILY PO Last administered on 04/24/17 08:34 ; Start 04/09/17 at 11:00 Oxybutynin Chloride (Ditropan) 5 mg BID PO Last administered on 04/24/17 08:32 ; Start 04/09/17 at 11:00 Senna/Docusate Sodium (Senna Plus) 2 tab PRN BID PRN PO CONSTIPATION; Start at 10:00 Pantoprazole Sodium (Protonix) 40 mg DAILYAC PO Last administered on 04/24/17 05:31; Start 04/09/17 at 11:00 Psyllium Hydrophilic Mucilloid (Metamucil) 1 pkt DAILY PO Last administered on 04/24/17 08:31; Start 04/09/17 at 11:00 Aripiprazole (Abilify) 30 mg 1X ONCE PO ; Start 04/09/17 at 12:00; Stop at 12:01; Status DC Vitamin D (Vitamin D3) 2,000 unit DAILY PO Last administered on 04/24/17 08:32 ; Start 04/11/17 at 09:00 Clozapine (Clozaril) 25 mg HS PO Last administered on 04/14/17 20:33; Start at 21:00; Stop 04/15/17 at 20:59; Status DC Ferrous Sulfate (Feosol) 325 mg DAILYAC PO Last administered on 04/24/17 05:31 ; Start 04/12/17 at 07:30 Clozapine (Clozaril) 50 mg HS PO ; Start 04/14/17 at 21:00; Stop 04/14/17 at 21: 00; Status DC Clozapine (Clozaril) 50 mg HS PO Last administered on 04/21/17 20:08; Start at 21:00; Stop 04/22/17 at 18:32; Status DC Lorazepam (Ativan) 0.5 mg DAILY PO Last administered on 04/16/17 08:33; Start 04/15/17 at 09:00; Stop 04/16/17 at 18:35; Status DC Lorazepam (Ativan) 1 mg TID@1300,1700,2100 PO Last administered on 04/16/17 17 :30; Start 04/15/17 at 13:00; Stop 04/16/17 at 18:35; Status DC Lorazepam (Ativan) 0.5 mg BID@0900,1300 PO ; Start 04/18/17 at 09:00; Stop at 09:00; Status DC Lorazepam (Ativan) 1 mg BID@1700,2100 PO ; Start 04/18/17 at 17:00; Stop 04/18/17 at 17:00; Status DC Lorazepam (Ativan) 0.5 mg TID@0900,1300,1700 PO ; Start 04/21/17 at 09:00; Stop 04/21/17 at 09:00; Status DC Lorazepam (Ativan) 1 mg HS PO ; Start 04/21/17 at 21:00; Stop 04/21/17 at 21:00; Status DC Lorazepam (Ativan) 0.5 mg QID PO ; Start 04/24/17 at 09:00; Stop 04/24/17 at 09:00 ; Status DC Lorazepam (Ativan) 1 mg QID PO Last administered on 04/17/17 21:02; Start at 21:00; Stop 04/17/17 at 23:00; Status DC Lorazepam (Ativan) 1 mg QID PO Last administered on 04/24/17 16:51; Start at 09:00 Aripiprazole (Abilify) 20 mg DAILY PO Last administered on 04/24/17 08:31; Start 04/19/17 at 09:00 Divalproex Sodium (Depakote Sprinkles) 250 mg BID PO Last administered on 08:23; Start 04/18/17 at 21:00; Stop 04/22/17 at 16:11; Status DC Sodium Chloride 500 ml @ 0 mls/hr 1X ONCE IV Last administered on 04/21/17 15: 30; Start 04/21/17 at 15:30; Stop 04/21/17 at 15:31; Status DC Divalproex Sodium (Depakote Sprinkles) 500 mg BID PO Last administered on 08:32; Start 04/22/17 at 21:00 Clozapine (Clozaril) 75 mg HS PO Last administered on 04/23/17 19:49; Start 04/22/17 at 21:00 Loxapine Succinate (Loxitane) 50 mg DAILY PO Last administered on 04/23/17 09: 09; Start 04/23/17 at 09:00; Stop 04/23/17 at 18:26; Status DC Active Scripts Active Reported Zoloft (Sertraline Hcl) 100 Mg Tablet 200 Mg PO DAILY Metamucil (Psyllium Husk) 660 Gm Powder 1 Packet PO DAILY Oxybutynin Chloride 5 Mg Tablet 5 Mg PO BID Omeprazole 40 Mg Capsule.dr 40 Mg PO DAILY Morphine Sulfate Er (Morphine Sulfate) 15 Mg Tablet.er 15 Mg PO DAILY Metoprolol Tartrate 25 Mg Tablet 25 Mg PO BIDWMEALS Loxapine (Loxapine Succinate) 50 Mg Capsule 150 Mg PO HS Loxapine (Loxapine Succinate) 50 Mg Capsule 100 Mg PO DAILY Lorazepam 2 Mg Tablet 2 Mg PO PRN Q8HRS PRN Lorazepam 1 Mg Tablet 1 Mg PO QID Lisinopril 10 Mg Tablet 10 Mg PO DAILY Haloperidol 5 Mg Tablet 5 Mg PO PRN QID PRN Finasteride 5 Mg Tablet 5 Mg PO HS Ferrous Sulfate 325 Mg Tablet 324 Mg PO DAILYAC Lovenox (Enoxaparin Sodium) 40 Mg/0.4 Ml Disp.syrin 40 Mg SQ HS Senna S Tablet (Sennosides/Docusate Sodium) 1 Each Tablet 2 Tab PO PRN BID PRN Clomipramine Hcl 75 Mg Capsule 150 Mg PO HS Vitamin D3 (Cholecalciferol (Vitamin D3)) 1,000 Unit Tablet 1,000 Unit PO DAILY Benztropine Mesylate 0.5 Mg Tablet 0.5 Mg PO BID Aspirin Ec (Aspirin) 325 Mg Tablet.dr 325 Mg PO DAILY Abilify (Aripiprazole) 30 Mg Tablet 30 Mg PO DAILY Diagnosis: Problems: (1) Anxiety disorder (2) Impulse control disorder (3) Obsessive compulsive disorder (4) Schizoaffective disorder (5) Schizophrenia, disorganized, subchronic with acute exacerbation SHAKIR PAEZ MD Apr 24, 2017 19:44
[2017-04-24] MEDS: LOXAPINE SUCCINATE 25 MG CAPSULE PO SCH (21:33)
--- NOTE | 2017-04-25 02:55 | PN ---
DATE: 04/23/2017 This late entry for 04/23/2017 cover elements not covered in my initial note.. SUBJECTIVE: I met with the patient in the evening of 04/23/2017. He continues to bend forward in his wheelchair then straightens up, seems more behavioral than anything related to his psychosis. REVIEW OF SYSTEMS: Ambulation impaired, in wheelchair. No CV, , pulmonary, eye system symptoms on review, feeding himself supper. MENTAL STATUS EXAM: Speech, low in volume, coherent, abstraction fair, computation impaired, language function intact, attention span short. Mood and affect remains somewhat withdrawn. LABORATORY DATA: Reviewed. IMPRESSION: Unchanged from initial note. PLAN: Stop the morning Loxitane 50 mg. Continue 150 mg at bedtime. Clozaril was increased to 75 mg at bedtime. Depakote increased to 500 mg b.i.d. Repeat labs, , continue rest unchanged. Reviewed drug interactions. Risk/benefit ratio favors no further change. SHAKIR PAEZ MD DR: MELISA/marvel JOB#: [id number] / [id number]
[2017-04-25 06:04] VITALS: BP 129/75
[2017-04-25] MEDS: OXYBUTYNIN CHLORIDE 5 MG TABLET PO SCH ×2 (07:38→20:17)
[2017-04-25 07:39] LABS: BASO # 0.1 x10^3/uL (0.0-0.2); BASO % 1 % (0-3); EOS # 0.2 x10^3/uL (0.0-0.7); EOS % 3 % (0-3); HEMATOCRIT 32.1 % (39.0-53.0); HEMOGLOBIN 11.1 g/dL (13.0-17.5); LYMPH # 2.1 x10^3/uL (1.0-4.8); LYMPH % 29 % (24-48); MEAN CORPUSCULAR HEMOGLOBIN 34 pg (25-35); MEAN CORPUSCULAR HGB CONC 35 g/dL (31-37); MEAN CORPUSCULAR VOLUME 98 fL (79-100); MONO % 15 % (0-9); NEUT # 3.6 x10^3uL (1.8-7.7); NEUT % 52 % (31-73); PLATELET COUNT 210 x10^3/uL (140-400); RED BLOOD COUNT 3.27 x10^6/uL (4.30-5.70); RED CELL DISTRIBUTION WIDTH 13.6 % (11.5-14.5)
[2017-04-25] MEDS: LISINOPRIL 10 MG TABLET PO SCH (07:39)
[2017-04-25] MEDS: METOPROLOL TART IMMED RELEASE 25 MG TABLET PO SCH ×2 (07:39→17:00)
[2017-04-25] MEDS: ASPIRIN ENTERIC COATED 325 MG TABLET.DR. PO SCH (07:39)
[2017-04-25] MEDS: ARIPiprazole 10 MG TABLET PO SCH (07:39)
[2017-04-25] MEDS: PANTOPRAZOLE 40 MG TABLET. PO SCH (07:39)
[2017-04-25] MEDS: DIVALPROEX 125 MG CAP.SPRINK PO SCH ×2 (07:39→20:17)
[2017-04-25] MEDS: FERROUS SULFATE 325 MG TABLET PO SCH (07:40)
[2017-04-25] MEDS: BENZTROPINE MESYLATE 0.5 MG TABLET PO SCH ×2 (07:40→20:17)
[2017-04-25] MEDS: CHOLECALCIFEROL (VITAMIN D3) 1,000 UNIT TABLET PO SCH (07:40)
[2017-04-25] MEDS: PSYLLIUM SEED (WITH SUGAR) PACKET. PO SCH (07:40)
[2017-04-25] MEDS: LORazepam 1 MG TABLET PO SCH ×4 (07:41→20:19)
[2017-04-25] MEDS: MORPHINE ER 15 MG TABLET.ER PO SCH (07:42)
[2017-04-25 07:49] LABS: ALK PHOS 86 U/L (46-116); ALT (SGPT) 19 U/L (16-63); ANION GAP 0 (6-14); AST (SGOT) 19 U/L (15-37); BLOOD UREA NITROGEN 26 mg/dL (8-26); BUN/CREATININE RATIO 26 (6-20); CALCIUM 8.3 mg/dL (8.5-10.1); CARBON DIOXIDE 36 mmol/L (21-32); CHLORIDE 104 mmol/L (98-107); GFR 72.6; GLUCOSE 88 mg/dL (70-99); POTASSIUM 4.1 mmol/L (3.5-5.1); SODIUM 140 mmol/L (136-145); TOTAL BILIRUBIN 0.4 mg/dL (0.2-1.0)
[2017-04-25 07:53] LABS: VAL ACID 31 mcg/mL (50-100)
[2017-04-25 15:47] VITALS: BP 101/58
[2017-04-25] MEDS: cloZAPine 25 MG TABLET PO SCH (20:15)
[2017-04-25] MEDS: LOXAPINE SUCCINATE 25 MG CAPSULE PO SCH (20:15)
[2017-04-25] MEDS: FINASTERIDE 5 MG TABLET PO SCH (20:17)
--- NOTE | 2017-04-25 20:41 | PDOC ---
Exam José Miguel Demential Exam: José Miguel Note: Please also refer to the separate dictated note~for this date of service dictated separately.~Patient seen individually. Discussed the patient with Nursing staff reviewed the chart.~Reviewed interim history and current functioning. Reviewed vital signs,~Labs/ Radiology~and current medications noted below. Continue current treatment with the changes noted in the dictated addendum note Assessment: Vital Signs: Vital Signs Date Time Temp Pulse Resp B/P (MAP) Pulse Ox O2 Delivery O2 Flow Rate FiO2 04/25/17 17:00 66 101/58 04/25/17 15:47 97.1 19 96 04/25/17 13:53 Room Air I&O Intake and Output 04/26/17 07:00 Intake Total 840 ml Balance 840 ml Intake Oral 840 ml # Bowel Movements 1 Labs: Laboratory Tests Test 04/25/17 07:28 White Blood Count 7.0 x10^3/uL (4.0-11.0) Red Blood Count 3.27 x10^6/uL (4.30-5.70) L Hemoglobin 11.1 g/dL (13.0-17.5) L Hematocrit 32.1 % (39.0-53.0) L Mean Corpuscular Volume 98 fL (79-100) Mean Corpuscular Hemoglobin 34 pg (25-35) Mean Corpuscular Hemoglobin Concent 35 g/dL (31-37) Red Cell Distribution Width 13.6 % (11.5-14.5) Platelet Count 210 x10^3/uL (140-400) Neutrophils (%) (Auto) 52 % (31-73) Lymphocytes (%) (Auto) 29 % (24-48) Monocytes (%) (Auto) 15 % (0-9) H Eosinophils (%) (Auto) 3 % (0-3) Basophils (%) (Auto) 1 % (0-3) Neutrophils # (Auto) 3.6 x10^3uL (1.8-7.7) Lymphocytes # (Auto) 2.1 x10^3/uL (1.0-4.8) Monocytes # (Auto) 1.0 x10^3/uL (0.0-1.1) Eosinophils # (Auto) 0.2 x10^3/uL (0.0-0.7) Basophils # (Auto) 0.1 x10^3/uL (0.0-0.2) Sodium Level 140 mmol/L (136-145) Potassium Level 4.1 mmol/L (3.5-5.1) Chloride Level 104 mmol/L (98-107) Carbon Dioxide Level 36 mmol/L (21-32) H Anion Gap 0 (6-14) L Blood Urea Nitrogen 26 mg/dL (8-26) Creatinine 1.0 mg/dL (0.7-1.3) Estimated GFR (Cockcroft-Gault) 72.6 BUN/Creatinine Ratio 26 (6-20) H Glucose Level 88 mg/dL (70-99) Calcium Level 8.3 mg/dL (8.5-10.1) L Total Bilirubin 0.4 mg/dL (0.2-1.0) Aspartate Amino Transferase (AST) 19 U/L (15-37) Alanine Aminotransferase (ALT) 19 U/L (16-63) Alkaline Phosphatase 86 U/L (46-116) Total Protein 6.0 g/dL (6.4-8.2) L Albumin 3.0 g/dL (3.4-5.0) L Albumin/Globulin Ratio 1.0 (1.0-1.7) Valproic Acid Level 31 mcg/mL (50-100) L Valproic Acid Last Dose Date 04/24/2107 Valproic Acid Last Dose Time 2100 Current Medications: Meds: Current Medications Acetaminophen (Tylenol) 650 mg PRN Q6HRS PRN PO PAIN / TEMP; Start 04/08/17 at 23:00 Multi-Ingredient Ointment (Analgesic [place]) 1 phillip PRN QID PRN TP MUSCLE PAIN; Start 04/08/17 at 23:00 Al Hydroxide/Mg Hydroxide (Mylanta Plus Xs) 15 ml PRN AFTMEALHC PRN PO DYSPEPSIA; Start 04/08/17 at 23:00 Magnesium Hydroxide (Milk Of Magnesia) 2,400 mg PRN QHS PRN PO CONSTIPATION Last administered on 04/24/17 16:51; Start 04/08/17 at 23:00 Benztropine Mesylate (Cogentin) 0.5 mg BID PO Last administered on 04/25/17 20: 17; Start 04/09/17 at 09:00 Haloperidol (Haldol) 5 mg PRN QID PRN PO ANXIETY / AGITATION; Start 04/08/17 at 23:45 Lorazepam (Ativan) 1 mg QID PO Last administered on 04/14/17 20:38; Start at 09:00; Stop 04/14/17 at 23:00; Status DC Aripiprazole (Abilify) 30 mg DAILY PO Last administered on 04/18/17 09:32; Start 04/09/17 at 09:00; Stop 04/18/17 at 18:33; Status DC Clomipramine HCl (Anafranil) 150 mg QHS PO Last administered on 04/25/17 20:16 ; Start 04/09/17 at 21:00 Lorazepam (Ativan) 2 mg PRN Q8HRS PRN PO ANXIETY / AGITATION; Start 04/09/17 at 00:15 Loxapine Succinate (Loxitane) 100 mg DAILY PO Last administered on 04/22/17 08: 25; Start 04/09/17 at 09:00; Stop 04/22/17 at 18:32; Status DC Loxapine Succinate (Loxitane) 150 mg QHS PO Last administered on 04/25/17 20:15 ; Start 04/09/17 at 21:00 Aspirin (Aspirin Enteric Coated) 325 mg DAILY PO Last administered on 04/25/17 07:39; Start 04/09/17 at 11:00 Vitamin D (Vitamin D3) 1,000 unit DAILY PO Last administered on 04/10/17 08:38 ; Start 04/09/17 at 11:00; Stop 04/10/17 at 14:48; Status DC Enoxaparin Sodium (Lovenox) 40 mg HS SQ Last administered on 04/09/17 19:38; Start 04/09/17 at 21:00; Stop 04/10/17 at 14:48; Status DC Ferrous Sulfate (Feosol) 324 mg DAILYAC PO Last administered on 04/11/17 08:49 ; Start 04/09/17 at 11:00; Stop 04/12/17 at 01:56; Status DC Finasteride (Proscar) 5 mg HS PO Last administered on 04/25/17 20:17; Start at 21:00 Lisinopril (Prinivil) 10 mg DAILY PO Last administered on 04/25/17 07:39; Start 04/09/17 at 11:00 Metoprolol Tartrate (Lopressor) 25 mg BIDWMEALS PO Last administered on 07:39; Start 04/09/17 at 11:00 Morphine Sulfate (Ms Contin) 15 mg DAILY PO Last administered on 04/25/17 07:42 ; Start 04/09/17 at 11:00 Oxybutynin Chloride (Ditropan) 5 mg BID PO Last administered on 04/25/17 20:17 ; Start 04/09/17 at 11:00 Senna/Docusate Sodium (Senna Plus) 2 tab PRN BID PRN PO CONSTIPATION; Start at 10:00 Pantoprazole Sodium (Protonix) 40 mg DAILYAC PO Last administered on 04/25/17 07:39; Start 04/09/17 at 11:00 Psyllium Hydrophilic Mucilloid (Metamucil) 1 pkt DAILY PO Last administered on 04/25/17 07:40; Start 04/09/17 at 11:00 Aripiprazole (Abilify) 30 mg 1X ONCE PO ; Start 04/09/17 at 12:00; Stop at 12:01; Status DC Vitamin D (Vitamin D3) 2,000 unit DAILY PO Last administered on 04/25/17 07:40 ; Start 04/11/17 at 09:00 Clozapine (Clozaril) 25 mg HS PO Last administered on 04/14/17 20:33; Start at 21:00; Stop 04/15/17 at 20:59; Status DC Ferrous Sulfate (Feosol) 325 mg DAILYAC PO Last administered on 04/25/17 07:40 ; Start 04/12/17 at 07:30 Clozapine (Clozaril) 50 mg HS PO ; Start 04/14/17 at 21:00; Stop 04/14/17 at 21: 00; Status DC Clozapine (Clozaril) 50 mg HS PO Last administered on 04/21/17 20:08; Start at 21:00; Stop 04/22/17 at 18:32; Status DC Lorazepam (Ativan) 0.5 mg DAILY PO Last administered on 04/16/17 08:33; Start 04/15/17 at 09:00; Stop 04/16/17 at 18:35; Status DC Lorazepam (Ativan) 1 mg TID@1300,1700,2100 PO Last administered on 04/16/17 17 :30; Start 04/15/17 at 13:00; Stop 04/16/17 at 18:35; Status DC Lorazepam (Ativan) 0.5 mg BID@0900,1300 PO ; Start 04/18/17 at 09:00; Stop at 09:00; Status DC Lorazepam (Ativan) 1 mg BID@1700,2100 PO ; Start 04/18/17 at 17:00; Stop 04/18/17 at 17:00; Status DC Lorazepam (Ativan) 0.5 mg TID@0900,1300,1700 PO ; Start 04/21/17 at 09:00; Stop 04/21/17 at 09:00; Status DC Lorazepam (Ativan) 1 mg HS PO ; Start 04/21/17 at 21:00; Stop 04/21/17 at 21:00; Status DC Lorazepam (Ativan) 0.5 mg QID PO ; Start 04/24/17 at 09:00; Stop 04/24/17 at 09:00 ; Status DC Lorazepam (Ativan) 1 mg QID PO Last administered on 04/17/17 21:02; Start at 21:00; Stop 04/17/17 at 23:00; Status DC Lorazepam (Ativan) 1 mg QID PO Last administered on 04/25/17 20:19; Start at 09:00 Aripiprazole (Abilify) 20 mg DAILY PO Last administered on 04/25/17 07:39; Start 04/19/17 at 09:00 Divalproex Sodium (Depakote Sprinkles) 250 mg BID PO Last administered on 08:23; Start 04/18/17 at 21:00; Stop 04/22/17 at 16:11; Status DC Sodium Chloride 500 ml @ 0 mls/hr 1X ONCE IV Last administered on 04/21/17 15: 30; Start 04/21/17 at 15:30; Stop 04/21/17 at 15:31; Status DC Divalproex Sodium (Depakote Sprinkles) 500 mg BID PO Last administered on 07:39; Start 04/22/17 at 21:00; Stop 04/25/17 at 19:03; Status DC Clozapine (Clozaril) 75 mg HS PO Last administered on 04/25/17 20:15; Start 04/22/17 at 21:00 Loxapine Succinate (Loxitane) 50 mg DAILY PO Last administered on 04/23/17 09: 09; Start 04/23/17 at 09:00; Stop 04/23/17 at 18:26; Status DC Divalproex Sodium (Depakote Sprinkles) 750 mg BID PO Last administered on 20:17; Start 04/25/17 at 21:00 Active Scripts Active Reported Zoloft (Sertraline Hcl) 100 Mg Tablet 200 Mg PO DAILY Metamucil (Psyllium Husk) 660 Gm Powder 1 Packet PO DAILY Oxybutynin Chloride 5 Mg Tablet 5 Mg PO BID Omeprazole 40 Mg Capsule.dr 40 Mg PO DAILY Morphine Sulfate Er (Morphine Sulfate) 15 Mg Tablet.er 15 Mg PO DAILY Metoprolol Tartrate 25 Mg Tablet 25 Mg PO BIDWMEALS Loxapine (Loxapine Succinate) 50 Mg Capsule 150 Mg PO HS Loxapine (Loxapine Succinate) 50 Mg Capsule 100 Mg PO DAILY Lorazepam 2 Mg Tablet 2 Mg PO PRN Q8HRS PRN Lorazepam 1 Mg Tablet 1 Mg PO QID Lisinopril 10 Mg Tablet 10 Mg PO DAILY Haloperidol 5 Mg Tablet 5 Mg PO PRN QID PRN Finasteride 5 Mg Tablet 5 Mg PO HS Ferrous Sulfate 325 Mg Tablet 324 Mg PO DAILYAC Lovenox (Enoxaparin Sodium) 40 Mg/0.4 Ml Disp.syrin 40 Mg SQ HS Senna S Tablet (Sennosides/Docusate Sodium) 1 Each Tablet 2 Tab PO PRN BID PRN Clomipramine Hcl 75 Mg Capsule 150 Mg PO HS Vitamin D3 (Cholecalciferol (Vitamin D3)) 1,000 Unit Tablet 1,000 Unit PO DAILY Benztropine Mesylate 0.5 Mg Tablet 0.5 Mg PO BID Aspirin Ec (Aspirin) 325 Mg Tablet.dr 325 Mg PO DAILY Abilify (Aripiprazole) 30 Mg Tablet 30 Mg PO DAILY Diagnosis: Problems: (1) Anxiety disorder (2) Impulse control disorder (3) Obsessive compulsive disorder (4) Schizoaffective disorder (5) Schizophrenia, disorganized, subchronic with acute exacerbation SHAKIR PAEZ MD Apr 25, 2017 20:41
--- NOTE | 2017-04-26 02:42 | PN ---
DATE: 04/24/2017 SUBJECTIVE: This is a late entry 04/24/2017 covers elements not covered in my initial note of 04/24/2017. The patient was staffed at a treatment team meeting morning of 04/24/2017. Seen individually evening of 04/24/2017. At the treatment team meeting reviewed his history sleeping about 6 hours. Appetite 78%. Still somewhat sedated in the morning sitting bent forward at times. When I questioned him on it, he stated he has done this a long time and did not attribute it to any of his medications. REVIEW OF SYSTEMS: Otherwise, ambulation impaired in wheelchair. No CV, , pulmonary, or eye system symptoms on review. MENTAL STATUS EXAM: Oriented to himself and situation. Speech is low in rate and rhythm, low in volume, and often responses monosyllabic. Abstraction fair, computation impaired, and language function intact. No active suicidal or homicidal ideation. LABORATORY DATA: Reviewed. IMPRESSION: Unchanged from initial note sleeping about 8 hours. Labs to be checked on 04/25/2017 since Depakote was increased to 500 b.i.d. on the 04/22/2017. We will stop the morning Loxitane. Continue 150 at bedtime Loxitane. Clozaril 75 mg at bedtime, Abilify 20 mg a day and we will try and taper and stop the Abilify and Loxitane once Clozaril is therapeutic. Absolute neutrophil count so far unremarkable on the Clozaril. SHAKIR PAEZ MD DR: MELISA/marvel JOB#: [id number] / [id number]
[2017-04-26 05:58] VITALS: BP 173/81
[2017-04-26] MEDS: PSYLLIUM SEED (WITH SUGAR) PACKET. PO SCH (07:58)
[2017-04-26] MEDS: ARIPiprazole 10 MG TABLET PO SCH (07:58)
[2017-04-26] MEDS: DIVALPROEX 125 MG CAP.SPRINK PO SCH ×2 (07:58→20:16)
[2017-04-26] MEDS: METOPROLOL TART IMMED RELEASE 25 MG TABLET PO SCH ×2 (07:59→17:53)
[2017-04-26] MEDS: LISINOPRIL 10 MG TABLET PO SCH (07:59)
[2017-04-26] MEDS: OXYBUTYNIN CHLORIDE 5 MG TABLET PO SCH ×2 (07:59→20:17)
[2017-04-26] MEDS: BENZTROPINE MESYLATE 0.5 MG TABLET PO SCH ×2 (07:59→20:16)
[2017-04-26] MEDS: ASPIRIN ENTERIC COATED 325 MG TABLET.DR. PO SCH (07:59)
[2017-04-26] MEDS: FERROUS SULFATE 325 MG TABLET PO SCH (07:59)
[2017-04-26] MEDS: PANTOPRAZOLE 40 MG TABLET. PO SCH (08:00)
[2017-04-26] MEDS: CHOLECALCIFEROL (VITAMIN D3) 1,000 UNIT TABLET PO SCH (08:00)
[2017-04-26] MEDS: LORazepam 1 MG TABLET PO SCH ×4 (08:01→20:16)
[2017-04-26] MEDS: MORPHINE ER 15 MG TABLET.ER PO SCH (08:01)
[2017-04-26 17:22] VITALS: BP 147/77
[2017-04-26] MEDS: LOXAPINE SUCCINATE 25 MG CAPSULE PO SCH (20:15)
[2017-04-26] MEDS: FINASTERIDE 5 MG TABLET PO SCH (20:16)
[2017-04-26] MEDS: cloZAPine 25 MG TABLET PO SCH (20:17)
--- NOTE | 2017-04-26 21:55 | PN ---
DATE: 04/24/2017 This is a late entry for date of service 04/24/2017 and covers elements not covered in my initial note of 04/24/217. SUBJECTIVE: The patient was staffed at a treatment team meeting with the entire team morning of 04/24/2017 and seen individually evening of 04/24/2017. Reviewed the patient's history at some length at a treatment team meeting. The patient slept 6 hours previous evening. Appetite about 80%. He often sits bent forward in his wheelchair. Speech is slow in rate and rhythm, remains confused and psychotic, but better than before. REVIEW OF SYSTEMS: Ambulation impaired. No CV, , pulmonary, eye, ENT system symptoms on review. Reliability poor. MENTAL STATUS EXAM: Oriented to himself and situation. Speech as noted low in rate and rhythm, low in volume. Abstraction fair, computation impaired, language function intact. Attention span short, remains somewhat paranoid, better than before. LABORATORY DATA: Reviewed. IMPRESSION: Unchanged from initial note. Schizoaffective disorder, bipolar type, mixed with psychotic features; anxiety disorder, unspecified; impulse control disorder, unspecified; status post urinary tract infection. PLAN: Morning Loxitane has been discontinued. Continue Loxitane 150 mg at bedtime, Clozaril 75 mg at bedtime, Depakote 500 b.i.d., was increased on the . Labs to be checked on the . Maintain Luvox 150 at bedtime and rest of the psychotropics unchanged including Ativan 1 mg 4 times a day, Abilify 20 mg a day, Cogentin 0.5 b.i.d., Haldol p.r.n. Once the valproic acid level is therapeutic and we are able to increase the Clozaril further, we will ultimately stop the Loxitane and hopefully even the Abilify. Reviewed drug interactions, risk/benefit ratio favors no further change at this time. SHAKIR PAEZ MD DR: MELISA/marvel JOB#: [id number] / [id number]
--- NOTE | 2017-04-26 23:11 | PDOC ---
Exam José Miguel Demential Exam: José Miguel Note: Please also refer to the separate dictated note~for this date of service dictated separately.~Patient seen individually. Discussed the patient with Nursing staff reviewed the chart.~Reviewed interim history and current functioning. Reviewed vital signs,~Labs/ Radiology~and current medications noted below. Continue current treatment with the changes noted in the dictated addendum note Assessment: Vital Signs: Vital Signs Date Time Temp Pulse Resp B/P (MAP) Pulse Ox O2 Delivery O2 Flow Rate FiO2 04/26/17 17:53 65 147/77 04/26/17 17:22 97.4 18 98 04/26/17 12:01 Room Air I&O Intake and Output 04/27/17 07:00 Intake Total 840 ml Balance 840 ml Intake Oral 840 ml Current Medications: Meds: Current Medications Acetaminophen (Tylenol) 650 mg PRN Q6HRS PRN PO PAIN / TEMP; Start 04/08/17 at 23:00 Multi-Ingredient Ointment (Analgesic [place]) 1 phillip PRN QID PRN TP MUSCLE PAIN; Start 04/08/17 at 23:00 Al Hydroxide/Mg Hydroxide (Mylanta Plus Xs) 15 ml PRN AFTMEALHC PRN PO DYSPEPSIA; Start 04/08/17 at 23:00 Magnesium Hydroxide (Milk Of Magnesia) 2,400 mg PRN QHS PRN PO CONSTIPATION Last administered on 04/24/17 16:51; Start 04/08/17 at 23:00 Benztropine Mesylate (Cogentin) 0.5 mg BID PO Last administered on 04/26/17 20: 16; Start 04/09/17 at 09:00 Haloperidol (Haldol) 5 mg PRN QID PRN PO ANXIETY / AGITATION; Start 04/08/17 at 23:45 Lorazepam (Ativan) 1 mg QID PO Last administered on 04/14/17 20:38; Start at 09:00; Stop 04/14/17 at 23:00; Status DC Aripiprazole (Abilify) 30 mg DAILY PO Last administered on 04/18/17 09:32; Start 04/09/17 at 09:00; Stop 04/18/17 at 18:33; Status DC Clomipramine HCl (Anafranil) 150 mg QHS PO Last administered on 04/26/17 20:15 ; Start 04/09/17 at 21:00 Lorazepam (Ativan) 2 mg PRN Q8HRS PRN PO ANXIETY / AGITATION; Start 04/09/17 at 00:15 Loxapine Succinate (Loxitane) 100 mg DAILY PO Last administered on 04/22/17 08: 25; Start 04/09/17 at 09:00; Stop 04/22/17 at 18:32; Status DC Loxapine Succinate (Loxitane) 150 mg QHS PO Last administered on 04/26/17 20:15 ; Start 04/09/17 at 21:00 Aspirin (Aspirin Enteric Coated) 325 mg DAILY PO Last administered on 04/26/17 07:59; Start 04/09/17 at 11:00 Vitamin D (Vitamin D3) 1,000 unit DAILY PO Last administered on 04/10/17 08:38 ; Start 04/09/17 at 11:00; Stop 04/10/17 at 14:48; Status DC Enoxaparin Sodium (Lovenox) 40 mg HS SQ Last administered on 04/09/17 19:38; Start 04/09/17 at 21:00; Stop 04/10/17 at 14:48; Status DC Ferrous Sulfate (Feosol) 324 mg DAILYAC PO Last administered on 04/11/17 08:49 ; Start 04/09/17 at 11:00; Stop 04/12/17 at 01:56; Status DC Finasteride (Proscar) 5 mg HS PO Last administered on 04/26/17 20:16; Start at 21:00 Lisinopril (Prinivil) 10 mg DAILY PO Last administered on 04/26/17 07:59; Start 04/09/17 at 11:00 Metoprolol Tartrate (Lopressor) 25 mg BIDWMEALS PO Last administered on 17:53; Start 04/09/17 at 11:00 Morphine Sulfate (Ms Contin) 15 mg DAILY PO Last administered on 04/26/17 08:01 ; Start 04/09/17 at 11:00 Oxybutynin Chloride (Ditropan) 5 mg BID PO Last administered on 04/26/17 20:17 ; Start 04/09/17 at 11:00 Senna/Docusate Sodium (Senna Plus) 2 tab PRN BID PRN PO CONSTIPATION; Start at 10:00 Pantoprazole Sodium (Protonix) 40 mg DAILYAC PO Last administered on 04/26/17 08:00; Start 04/09/17 at 11:00 Psyllium Hydrophilic Mucilloid (Metamucil) 1 pkt DAILY PO Last administered on 04/26/17 07:58; Start 04/09/17 at 11:00 Aripiprazole (Abilify) 30 mg 1X ONCE PO ; Start 04/09/17 at 12:00; Stop at 12:01; Status DC Vitamin D (Vitamin D3) 2,000 unit DAILY PO Last administered on 04/26/17 08:00 ; Start 04/11/17 at 09:00 Clozapine (Clozaril) 25 mg HS PO Last administered on 04/14/17 20:33; Start at 21:00; Stop 04/15/17 at 20:59; Status DC Ferrous Sulfate (Feosol) 325 mg DAILYAC PO Last administered on 04/26/17 07:59 ; Start 04/12/17 at 07:30 Clozapine (Clozaril) 50 mg HS PO ; Start 04/14/17 at 21:00; Stop 04/14/17 at 21: 00; Status DC Clozapine (Clozaril) 50 mg HS PO Last administered on 04/21/17 20:08; Start at 21:00; Stop 04/22/17 at 18:32; Status DC Lorazepam (Ativan) 0.5 mg DAILY PO Last administered on 04/16/17 08:33; Start 04/15/17 at 09:00; Stop 04/16/17 at 18:35; Status DC Lorazepam (Ativan) 1 mg TID@1300,1700,2100 PO Last administered on 04/16/17 17 :30; Start 04/15/17 at 13:00; Stop 04/16/17 at 18:35; Status DC Lorazepam (Ativan) 0.5 mg BID@0900,1300 PO ; Start 04/18/17 at 09:00; Stop at 09:00; Status DC Lorazepam (Ativan) 1 mg BID@1700,2100 PO ; Start 04/18/17 at 17:00; Stop 04/18/17 at 17:00; Status DC Lorazepam (Ativan) 0.5 mg TID@0900,1300,1700 PO ; Start 04/21/17 at 09:00; Stop 04/21/17 at 09:00; Status DC Lorazepam (Ativan) 1 mg HS PO ; Start 04/21/17 at 21:00; Stop 04/21/17 at 21:00; Status DC Lorazepam (Ativan) 0.5 mg QID PO ; Start 04/24/17 at 09:00; Stop 04/24/17 at 09:00 ; Status DC Lorazepam (Ativan) 1 mg QID PO Last administered on 04/17/17 21:02; Start at 21:00; Stop 04/17/17 at 23:00; Status DC Lorazepam (Ativan) 1 mg QID PO Last administered on 04/26/17 20:16; Start at 09:00 Aripiprazole (Abilify) 20 mg DAILY PO Last administered on 04/26/17 07:58; Start 04/19/17 at 09:00; Stop 04/26/17 at 18:46; Status DC Divalproex Sodium (Depakote Sprinkles) 250 mg BID PO Last administered on 08:23; Start 04/18/17 at 21:00; Stop 04/22/17 at 16:11; Status DC Sodium Chloride 500 ml @ 0 mls/hr 1X ONCE IV Last administered on 04/21/17 15: 30; Start 04/21/17 at 15:30; Stop 04/21/17 at 15:31; Status DC Divalproex Sodium (Depakote Sprinkles) 500 mg BID PO Last administered on 07:39; Start 04/22/17 at 21:00; Stop 04/25/17 at 19:03; Status DC Clozapine (Clozaril) 75 mg HS PO Last administered on 04/26/17 20:17; Start 04/22/17 at 21:00 Loxapine Succinate (Loxitane) 50 mg DAILY PO Last administered on 04/23/17 09: 09; Start 04/23/17 at 09:00; Stop 04/23/17 at 18:26; Status DC Divalproex Sodium (Depakote Sprinkles) 750 mg BID PO Last administered on t 20:16; Start 04/25/17 at 21:00 Aripiprazole (Abilify) 10 mg DAILY PO ; Start 04/27/17 at 09:00; Status UNV Aripiprazole (Abilify) 10 mg DAILY PO ; Start 04/27/17 at 09:00 Active Scripts Active Reported Zoloft (Sertraline Hcl) 100 Mg Tablet 200 Mg PO DAILY Metamucil (Psyllium Husk) 660 Gm Powder 1 Packet PO DAILY Oxybutynin Chloride 5 Mg Tablet 5 Mg PO BID Omeprazole 40 Mg Capsule.dr 40 Mg PO DAILY Morphine Sulfate Er (Morphine Sulfate) 15 Mg Tablet.er 15 Mg PO DAILY Metoprolol Tartrate 25 Mg Tablet 25 Mg PO BIDWMEALS Loxapine (Loxapine Succinate) 50 Mg Capsule 150 Mg PO HS Loxapine (Loxapine Succinate) 50 Mg Capsule 100 Mg PO DAILY Lorazepam 2 Mg Tablet 2 Mg PO PRN Q8HRS PRN Lorazepam 1 Mg Tablet 1 Mg PO QID Lisinopril 10 Mg Tablet 10 Mg PO DAILY Haloperidol 5 Mg Tablet 5 Mg PO PRN QID PRN Finasteride 5 Mg Tablet 5 Mg PO HS Ferrous Sulfate 325 Mg Tablet 324 Mg PO DAILYAC Lovenox (Enoxaparin Sodium) 40 Mg/0.4 Ml Disp.syrin 40 Mg SQ HS Senna S Tablet (Sennosides/Docusate Sodium) 1 Each Tablet 2 Tab PO PRN BID PRN Clomipramine Hcl 75 Mg Capsule 150 Mg PO HS Vitamin D3 (Cholecalciferol (Vitamin D3)) 1,000 Unit Tablet 1,000 Unit PO DAILY Benztropine Mesylate 0.5 Mg Tablet 0.5 Mg PO BID Aspirin Ec (Aspirin) 325 Mg Tablet.dr 325 Mg PO DAILY Abilify (Aripiprazole) 30 Mg Tablet 30 Mg PO DAILY Diagnosis: Problems: (1) Anxiety disorder (2) Impulse control disorder (3) Obsessive compulsive disorder (4) Schizoaffective disorder (5) Mild cognitive disorder (6) Schizophrenia, disorganized, subchronic with acute exacerbation SHAKIR PAEZ MD Apr 26, 2017 23:11
--- NOTE | 2017-04-27 03:13 | PN ---
DATE: 04/25/2017 PSYCHIATRIC PROGRESS NOTE This late entry 04/25/2017 covers elements not covered in my initial note. SUBJECTIVE: I met with the patient in the evening of 04/25/2017. The patient has been fairly calm whole day, previous evening, he was combative at night, sorting his pills out by different colors and shapes before taking it. REVIEW OF SYSTEMS: Ambulation impaired, in a wheelchair. No CV, , pulmonary, eye, ENT system symptoms on review. Reliability poor. MENTAL STATUS EXAM: Oriented to himself and situation. Speech, low in volume, coherent, abstraction fair, computation impaired, language function intact, attention span short. Mood and affect still somewhat labile, anxious, still paranoid, but better than before. LABORATORY DATA: Reviewed. IMPRESSION: Unchanged from initial note. PLAN: Valproic acid level is 31 on 04/25/2017, on Depakote 500 b.i.d. We will increase to 750 twice a day. Check labs level. Ammonia level in 3 days and make further adjustments as clinically indicated. MAN Ravi PAEZ MD DR: MELISA/marvel JOB#: [id number] / [id number]
[2017-04-27 06:09] VITALS: BP 143/78
[2017-04-27] MEDS: CHOLECALCIFEROL (VITAMIN D3) 1,000 UNIT TABLET PO SCH (08:20)
[2017-04-27] MEDS: PANTOPRAZOLE 40 MG TABLET. PO SCH (08:21)
[2017-04-27] MEDS: LISINOPRIL 10 MG TABLET PO SCH (08:21)
[2017-04-27] MEDS: PSYLLIUM SEED (WITH SUGAR) PACKET. PO SCH (08:21)
[2017-04-27] MEDS: DIVALPROEX 125 MG CAP.SPRINK PO SCH ×2 (08:21→20:31)
[2017-04-27] MEDS: OXYBUTYNIN CHLORIDE 5 MG TABLET PO SCH ×2 (08:21→20:31)
[2017-04-27] MEDS: METOPROLOL TART IMMED RELEASE 25 MG TABLET PO SCH ×2 (08:21→17:51)
[2017-04-27] MEDS: BENZTROPINE MESYLATE 0.5 MG TABLET PO SCH ×2 (08:22→20:32)
[2017-04-27] MEDS: FERROUS SULFATE 325 MG TABLET PO SCH (08:22)
[2017-04-27] MEDS: LORazepam 1 MG TABLET PO SCH ×4 (08:22→20:32)
[2017-04-27] MEDS: ASPIRIN ENTERIC COATED 325 MG TABLET.DR. PO SCH (08:22)
[2017-04-27] MEDS: MORPHINE ER 15 MG TABLET.ER PO SCH (08:23)
[2017-04-27] MEDS: ARIPiprazole 10 MG TABLET PO SCH (08:23)
[2017-04-27] MEDS ORDERED: ARIPiprazole 10 MG TABLET PO SCH (09:00)
[2017-04-27 16:54] VITALS: BP 142/86
--- NOTE | 2017-04-27 20:08 | PDOC ---
Exam José Miguel Demential Exam: José Miguel Note: Please also refer to the separate dictated note~for this date of service dictated separately.~Patient seen individually. Discussed the patient with Nursing staff reviewed the chart.~Reviewed interim history and current functioning. Reviewed vital signs,~Labs/ Radiology~and current medications noted below. Continue current treatment with the changes noted in the dictated addendum note Assessment: Vital Signs: Vital Signs Date Time Temp Pulse Resp B/P (MAP) Pulse Ox O2 Delivery O2 Flow Rate FiO2 04/27/17 17:51 91 142/86 04/27/17 16:54 97.2 22 96 04/27/17 12:23 Room Air I&O Intake and Output 04/28/17 07:00 Intake Total 580 ml Balance 580 ml Intake Oral 580 ml Current Medications: Meds: Current Medications Acetaminophen (Tylenol) 650 mg PRN Q6HRS PRN PO PAIN / TEMP; Start 04/08/17 at 23:00 Multi-Ingredient Ointment (Analgesic [place]) 1 phillip PRN QID PRN TP MUSCLE PAIN; Start 04/08/17 at 23:00 Al Hydroxide/Mg Hydroxide (Mylanta Plus Xs) 15 ml PRN AFTMEALHC PRN PO DYSPEPSIA; Start 04/08/17 at 23:00 Magnesium Hydroxide (Milk Of Magnesia) 2,400 mg PRN QHS PRN PO CONSTIPATION Last administered on 04/24/17 16:51; Start 04/08/17 at 23:00 Benztropine Mesylate (Cogentin) 0.5 mg BID PO Last administered on 04/27/17 08 :22; Start 04/09/17 at 09:00 Haloperidol (Haldol) 5 mg PRN QID PRN PO ANXIETY / AGITATION; Start 04/08/17 at 23:45 Lorazepam (Ativan) 1 mg QID PO Last administered on 04/14/17 20:38; Start at 09:00; Stop 04/14/17 at 23:00; Status DC Aripiprazole (Abilify) 30 mg DAILY PO Last administered on 04/18/17 09:32; Start 04/09/17 at 09:00; Stop 04/18/17 at 18:33; Status DC Clomipramine HCl (Anafranil) 150 mg QHS PO Last administered on 04/26/17 20:15 ; Start 04/09/17 at 21:00 Lorazepam (Ativan) 2 mg PRN Q8HRS PRN PO ANXIETY / AGITATION; Start 04/09/17 at 00:15 Loxapine Succinate (Loxitane) 100 mg DAILY PO Last administered on 04/22/17 08: 25; Start 04/09/17 at 09:00; Stop 04/22/17 at 18:32; Status DC Loxapine Succinate (Loxitane) 150 mg QHS PO Last administered on 04/26/17 20:15 ; Start 04/09/17 at 21:00 Aspirin (Aspirin Enteric Coated) 325 mg DAILY PO Last administered on 08:22; Start 04/09/17 at 11:00 Vitamin D (Vitamin D3) 1,000 unit DAILY PO Last administered on 04/10/17 08:38 ; Start 04/09/17 at 11:00; Stop 04/10/17 at 14:48; Status DC Enoxaparin Sodium (Lovenox) 40 mg HS SQ Last administered on 04/09/17 19:38; Start 04/09/17 at 21:00; Stop 04/10/17 at 14:48; Status DC Ferrous Sulfate (Feosol) 324 mg DAILYAC PO Last administered on 04/11/17 08:49 ; Start 04/09/17 at 11:00; Stop 04/12/17 at 01:56; Status DC Finasteride (Proscar) 5 mg HS PO Last administered on 04/26/17 20:16; Start at 21:00 Lisinopril (Prinivil) 10 mg DAILY PO Last administered on 04/27/17 08:21; Start 04/09/17 at 11:00 Metoprolol Tartrate (Lopressor) 25 mg BIDWMEALS PO Last administered on 17:51; Start 04/09/17 at 11:00 Morphine Sulfate (Ms Contin) 15 mg DAILY PO Last administered on 04/27/17 08: 23; Start 04/09/17 at 11:00 Oxybutynin Chloride (Ditropan) 5 mg BID PO Last administered on 04/27/17 08:21 ; Start 04/09/17 at 11:00 Senna/Docusate Sodium (Senna Plus) 2 tab PRN BID PRN PO CONSTIPATION; Start at 10:00 Pantoprazole Sodium (Protonix) 40 mg DAILYAC PO Last administered on 04/27/17 08:21; Start 04/09/17 at 11:00 Psyllium Hydrophilic Mucilloid (Metamucil) 1 pkt DAILY PO Last administered on 04/27/17 08:21; Start 04/09/17 at 11:00 Aripiprazole (Abilify) 30 mg 1X ONCE PO ; Start 04/09/17 at 12:00; Stop at 12:01; Status DC Vitamin D (Vitamin D3) 2,000 unit DAILY PO Last administered on 04/27/17 08:20 ; Start 04/11/17 at 09:00 Clozapine (Clozaril) 25 mg HS PO Last administered on 04/14/17 20:33; Start at 21:00; Stop 04/15/17 at 20:59; Status DC Ferrous Sulfate (Feosol) 325 mg DAILYAC PO Last administered on 04/27/17 08:22 ; Start 04/12/17 at 07:30 Clozapine (Clozaril) 50 mg HS PO ; Start 04/14/17 at 21:00; Stop 04/14/17 at 21: 00; Status DC Clozapine (Clozaril) 50 mg HS PO Last administered on 04/21/17 20:08; Start at 21:00; Stop 04/22/17 at 18:32; Status DC Lorazepam (Ativan) 0.5 mg DAILY PO Last administered on 04/16/17 08:33; Start 04/15/17 at 09:00; Stop 04/16/17 at 18:35; Status DC Lorazepam (Ativan) 1 mg TID@1300,1700,2100 PO Last administered on 04/16/17 17 :30; Start 04/15/17 at 13:00; Stop 04/16/17 at 18:35; Status DC Lorazepam (Ativan) 0.5 mg BID@0900,1300 PO ; Start 04/18/17 at 09:00; Stop at 09:00; Status DC Lorazepam (Ativan) 1 mg BID@1700,2100 PO ; Start 04/18/17 at 17:00; Stop 04/18/17 at 17:00; Status DC Lorazepam (Ativan) 0.5 mg TID@0900,1300,1700 PO ; Start 04/21/17 at 09:00; Stop 04/21/17 at 09:00; Status DC Lorazepam (Ativan) 1 mg HS PO ; Start 04/21/17 at 21:00; Stop 04/21/17 at 21:00; Status DC Lorazepam (Ativan) 0.5 mg QID PO ; Start 04/24/17 at 09:00; Stop 04/24/17 at 09:00 ; Status DC Lorazepam (Ativan) 1 mg QID PO Last administered on 04/17/17 21:02; Start at 21:00; Stop 04/17/17 at 23:00; Status DC Lorazepam (Ativan) 1 mg QID PO Last administered on 04/27/17 17:51; Start 04/18 at 09:00 Aripiprazole (Abilify) 20 mg DAILY PO Last administered on 04/26/17 07:58; Start 04/19/17 at 09:00; Stop 04/26/17 at 18:46; Status DC Divalproex Sodium (Depakote Sprinkles) 250 mg BID PO Last administered on 08:23; Start 04/18/17 at 21:00; Stop 04/22/17 at 16:11; Status DC Sodium Chloride 500 ml @ 0 mls/hr 1X ONCE IV Last administered on 04/21/17 15: 30; Start 04/21/17 at 15:30; Stop 04/21/17 at 15:31; Status DC Divalproex Sodium (Depakote Sprinkles) 500 mg BID PO Last administered on 07:39; Start 04/22/17 at 21:00; Stop 04/25/17 at 19:03; Status DC Clozapine (Clozaril) 75 mg HS PO Last administered on 04/26/17 20:17; Start 04/22/17 at 21:00 Loxapine Succinate (Loxitane) 50 mg DAILY PO Last administered on 04/23/17 09: 09; Start 04/23/17 at 09:00; Stop 04/23/17 at 18:26; Status DC Divalproex Sodium (Depakote Sprinkles) 750 mg BID PO Last administered on 08:21; Start 04/25/17 at 21:00 Aripiprazole (Abilify) 10 mg DAILY PO ; Start 04/27/17 at 09:00; Status UNV Aripiprazole (Abilify) 10 mg DAILY PO Last administered on 04/27/17 08:23; Start 04/27/17 at 09:00 Active Scripts Active Reported Zoloft (Sertraline Hcl) 100 Mg Tablet 200 Mg PO DAILY Metamucil (Psyllium Husk) 660 Gm Powder 1 Packet PO DAILY Oxybutynin Chloride 5 Mg Tablet 5 Mg PO BID Omeprazole 40 Mg Capsule.dr 40 Mg PO DAILY Morphine Sulfate Er (Morphine Sulfate) 15 Mg Tablet.er 15 Mg PO DAILY Metoprolol Tartrate 25 Mg Tablet 25 Mg PO BIDWMEALS Loxapine (Loxapine Succinate) 50 Mg Capsule 150 Mg PO HS Loxapine (Loxapine Succinate) 50 Mg Capsule 100 Mg PO DAILY Lorazepam 2 Mg Tablet 2 Mg PO PRN Q8HRS PRN Lorazepam 1 Mg Tablet 1 Mg PO QID Lisinopril 10 Mg Tablet 10 Mg PO DAILY Haloperidol 5 Mg Tablet 5 Mg PO PRN QID PRN Finasteride 5 Mg Tablet 5 Mg PO HS Ferrous Sulfate 325 Mg Tablet 324 Mg PO DAILYAC Lovenox (Enoxaparin Sodium) 40 Mg/0.4 Ml Disp.syrin 40 Mg SQ HS Senna S Tablet (Sennosides/Docusate Sodium) 1 Each Tablet 2 Tab PO PRN BID PRN Clomipramine Hcl 75 Mg Capsule 150 Mg PO HS Vitamin D3 (Cholecalciferol (Vitamin D3)) 1,000 Unit Tablet 1,000 Unit PO DAILY Benztropine Mesylate 0.5 Mg Tablet 0.5 Mg PO BID Aspirin Ec (Aspirin) 325 Mg Tablet.dr 325 Mg PO DAILY Abilify (Aripiprazole) 30 Mg Tablet 30 Mg PO DAILY Diagnosis: Problems: (1) Anxiety disorder (2) Impulse control disorder (3) Obsessive compulsive disorder (4) Schizoaffective disorder (5) Schizophrenia, disorganized, subchronic with acute exacerbation SHAKIR PAEZ MD Apr 27, 2017 20:08
[2017-04-27] MEDS: FINASTERIDE 5 MG TABLET PO SCH (20:32)
[2017-04-27] MEDS: cloZAPine 25 MG TABLET PO SCH (20:32)
[2017-04-27] MEDS: LOXAPINE SUCCINATE 25 MG CAPSULE PO SCH (20:34)
--- NOTE | 2017-04-27 23:37 | PN ---
DATE: 04/26/2017 This late entry, 04/26/2017, covers elements not covered in my initial note of 04/26/2017. SUBJECTIVE: The patient seen individually evening of 04/26/2017. The patient continues to lean forward, but then starting around 3:00 p.m., he was sitting straight in his chair as he was evening of 04/26/2017 as I met with him. Overall, he is less psychotic than before. REVIEW OF SYSTEMS: Ambulation impaired, in wheelchair. No CV, , pulmonary, eye, ENT system symptoms on review. MENTAL STATUS EXAM: Oriented to himself and situation. Speech is coherent flow and volume, often responses monosyllabic. Abstraction fair, computation impaired, language function intact, attention span short. Mood and affect somewhat withdrawn. LABORATORY DATA: Reviewed. IMPRESSION: Schizoaffective disorder, bipolar type, mixed with psychotic features versus schizophrenia, chronic, undifferentiated with acute exacerbation. Rest unchanged. PLAN: We would reduce the Abilify from 20 mg a day down to 10 mg a day as we have increased the Clozaril, which is now at 75 mg at bedtime. Additionally, he is also on Loxitane 150 mg at bedtime, Ativan stays at 1 mg 4 times a day, Cogentin 0.5 b.i.d., clomipramine 150 at bedtime, Depakote 750 b.i.d. Labs level will be repeated 04/28/2017 to reach a therapeutic level. Plan is to gradually increase the Clozaril further as tolerated, especially with respect to the absolute neutrophil counts and ultimately stop the Abilify, and perhaps even stop the Loxitane at some stage with her here in the hospital or during as an outpatient alf followup post discharge. We will just have to see how he does before making that decision. Reviewed drug interactions. Risk/benefit ratio favors no further change at this time. SHAKIR PAEZ MD DR: MELISA/marvel JOB#: [id number] / [id number]
[2017-04-28 06:12] VITALS: BP 119/65
[2017-04-28 07:34] LABS: BASO % 1 % (0-3); EOS # 0.3 x10^3/uL (0.0-0.7); EOS % 4 % (0-3); HEMATOCRIT 36.6 % (39.0-53.0); HEMOGLOBIN 12.4 g/dL (13.0-17.5); LYMPH # 1.9 x10^3/uL (1.0-4.8); LYMPH % 25 % (24-48); MEAN CORPUSCULAR HEMOGLOBIN 34 pg (25-35); MEAN CORPUSCULAR HGB CONC 34 g/dL (31-37); MEAN CORPUSCULAR VOLUME 99 fL (79-100); MONO % 13 % (0-9); NEUT # 4.7 x10^3uL (1.8-7.7); NEUT % 58 % (31-73); PLATELET COUNT 229 x10^3/uL (140-400); RED BLOOD COUNT 3.69 x10^6/uL (4.30-5.70); RED CELL DISTRIBUTION WIDTH 13.3 % (11.5-14.5)
[2017-04-28 07:53] LABS: ALBUMIN 3.2 g/dL (3.4-5.0); ALBUMIN/GLOBULIN RATIO 0.9 (1.0-1.7); ALK PHOS 86 U/L (46-116); ALT (SGPT) 17 U/L (16-63); ANION GAP 4 (6-14); AST (SGOT) 12 U/L (15-37); BLOOD UREA NITROGEN 18 mg/dL (8-26); BUN/CREATININE RATIO 18 (6-20); CALCIUM 8.9 mg/dL (8.5-10.1); CARBON DIOXIDE 35 mmol/L (21-32); CHLORIDE 104 mmol/L (98-107); GFR 72.6; GLUCOSE 88 mg/dL (70-99); POTASSIUM 4.2 mmol/L (3.5-5.1); SODIUM 143 mmol/L (136-145); TOTAL BILIRUBIN 0.4 mg/dL (0.2-1.0); TOTAL PROTEIN 6.8 g/dL (6.4-8.2); VAL ACID 80 mcg/mL (50-100)
[2017-04-28] MEDS: PSYLLIUM SEED (WITH SUGAR) PACKET. PO SCH (08:39)
[2017-04-28] MEDS: DIVALPROEX 125 MG CAP.SPRINK PO SCH ×2 (08:40→19:13)
[2017-04-28] MEDS: ARIPiprazole 10 MG TABLET PO SCH (08:40)
[2017-04-28] MEDS: OXYBUTYNIN CHLORIDE 5 MG TABLET PO SCH ×2 (08:40→19:12)
[2017-04-28] MEDS: ASPIRIN ENTERIC COATED 325 MG TABLET.DR. PO SCH (08:40)
[2017-04-28] MEDS: BENZTROPINE MESYLATE 0.5 MG TABLET PO SCH ×2 (08:40→19:12)
[2017-04-28] MEDS: LORazepam 1 MG TABLET PO SCH ×4 (08:40→19:17)
[2017-04-28] MEDS: PANTOPRAZOLE 40 MG TABLET. PO SCH (08:40)
[2017-04-28] MEDS: CHOLECALCIFEROL (VITAMIN D3) 1,000 UNIT TABLET PO SCH (08:41)
[2017-04-28] MEDS: MORPHINE ER 15 MG TABLET.ER PO SCH (08:41)
[2017-04-28] MEDS: FERROUS SULFATE 325 MG TABLET PO SCH (08:41)
[2017-04-28] MEDS: LISINOPRIL 10 MG TABLET PO SCH (08:42)
[2017-04-28] MEDS: METOPROLOL TART IMMED RELEASE 25 MG TABLET PO SCH ×2 (08:43→17:28)
[2017-04-28 16:04] VITALS: BP 158/79
[2017-04-28] MEDS: FINASTERIDE 5 MG TABLET PO SCH (19:13)
[2017-04-28] MEDS: LOXAPINE SUCCINATE 25 MG CAPSULE PO SCH (19:15)
--- NOTE | 2017-04-28 19:49 | PDOC ---
Exam José Miguel Demential Exam: José Miguel Note: Please also refer to the separate dictated note~for this date of service dictated separately.~Patient seen individually. Discussed the patient with Nursing staff reviewed the chart.~Reviewed interim history and current functioning. Reviewed vital signs,~Labs/ Radiology~and current medications noted below. Continue current treatment with the changes noted in the dictated addendum note Assessment: Vital Signs: Vital Signs Date Time Temp Pulse Resp B/P (MAP) Pulse Ox O2 Delivery O2 Flow Rate FiO2 04/28/17 17:28 69 158/79 04/28/17 16:04 97.8 16 98 04/27/17 12:23 Room Air I&O Intake and Output 04/29/17 07:00 Intake Total 860 ml Balance 860 ml Intake Oral 860 ml Labs: Laboratory Tests Test 04/28/17 07:24 White Blood Count 8.0 x10^3/uL (4.0-11.0) Red Blood Count 3.69 x10^6/uL (4.30-5.70) L Hemoglobin 12.4 g/dL (13.0-17.5) L Hematocrit 36.6 % (39.0-53.0) L Mean Corpuscular Volume 99 fL (79-100) Mean Corpuscular Hemoglobin 34 pg (25-35) Mean Corpuscular Hemoglobin Concent 34 g/dL (31-37) Red Cell Distribution Width 13.3 % (11.5-14.5) Platelet Count 229 x10^3/uL (140-400) Neutrophils (%) (Auto) 58 % (31-73) Lymphocytes (%) (Auto) 25 % (24-48) Monocytes (%) (Auto) 13 % (0-9) H Eosinophils (%) (Auto) 4 % (0-3) H Basophils (%) (Auto) 1 % (0-3) Neutrophils # (Auto) 4.7 x10^3uL (1.8-7.7) Lymphocytes # (Auto) 1.9 x10^3/uL (1.0-4.8) Monocytes # (Auto) 1.0 x10^3/uL (0.0-1.1) Eosinophils # (Auto) 0.3 x10^3/uL (0.0-0.7) Basophils # (Auto) 0.0 x10^3/uL (0.0-0.2) Sodium Level 143 mmol/L (136-145) Potassium Level 4.2 mmol/L (3.5-5.1) Chloride Level 104 mmol/L (98-107) Carbon Dioxide Level 35 mmol/L (21-32) H Anion Gap 4 (6-14) L Blood Urea Nitrogen 18 mg/dL (8-26) Creatinine 1.0 mg/dL (0.7-1.3) Estimated GFR (Cockcroft-Gault) 72.6 BUN/Creatinine Ratio 18 (6-20) Glucose Level 88 mg/dL (70-99) Calcium Level 8.9 mg/dL (8.5-10.1) Total Bilirubin 0.4 mg/dL (0.2-1.0) Aspartate Amino Transferase (AST) 12 U/L (15-37) L Alanine Aminotransferase (ALT) 17 U/L (16-63) Alkaline Phosphatase 86 U/L (46-116) Ammonia < 10 mcmol/L (11-34) L Total Protein 6.8 g/dL (6.4-8.2) Albumin 3.2 g/dL (3.4-5.0) L Albumin/Globulin Ratio 0.9 (1.0-1.7) L Valproic Acid Level 80 mcg/mL (50-100) Valproic Acid Last Dose Date 04/27/17 Valproic Acid Last Dose Time 2100 Current Medications: Meds: Current Medications Acetaminophen (Tylenol) 650 mg PRN Q6HRS PRN PO PAIN / TEMP; Start 04/08/17 at 23:00 Multi-Ingredient Ointment (Analgesic [place]) 1 phillip PRN QID PRN TP MUSCLE PAIN; Start 04/08/17 at 23:00 Al Hydroxide/Mg Hydroxide (Mylanta Plus Xs) 15 ml PRN AFTMEALHC PRN PO DYSPEPSIA; Start 04/08/17 at 23:00 Magnesium Hydroxide (Milk Of Magnesia) 2,400 mg PRN QHS PRN PO CONSTIPATION Last administered on 04/24/17 16:51; Start 04/08/17 at 23:00 Benztropine Mesylate (Cogentin) 0.5 mg BID PO Last administered on 04/28/17 19 :12; Start 04/09/17 at 09:00 Haloperidol (Haldol) 5 mg PRN QID PRN PO ANXIETY / AGITATION; Start 04/08/17 at 23:45 Lorazepam (Ativan) 1 mg QID PO Last administered on 04/14/17 20:38; Start at 09:00; Stop 04/14/17 at 23:00; Status DC Aripiprazole (Abilify) 30 mg DAILY PO Last administered on 04/18/17 09:32; Start 04/09/17 at 09:00; Stop 04/18/17 at 18:33; Status DC Clomipramine HCl (Anafranil) 150 mg QHS PO Last administered on 04/28/17 19:14 ; Start 04/09/17 at 21:00 Lorazepam (Ativan) 2 mg PRN Q8HRS PRN PO ANXIETY / AGITATION; Start 04/09/17 at 00:15 Loxapine Succinate (Loxitane) 100 mg DAILY PO Last administered on 04/22/17 08: 25; Start 04/09/17 at 09:00; Stop 04/22/17 at 18:32; Status DC Loxapine Succinate (Loxitane) 150 mg QHS PO Last administered on 04/28/17 19: 15; Start 04/09/17 at 21:00 Aspirin (Aspirin Enteric Coated) 325 mg DAILY PO Last administered on 08:40; Start 04/09/17 at 11:00 Vitamin D (Vitamin D3) 1,000 unit DAILY PO Last administered on 04/10/17 08:38 ; Start 04/09/17 at 11:00; Stop 04/10/17 at 14:48; Status DC Enoxaparin Sodium (Lovenox) 40 mg HS SQ Last administered on 04/09/17 19:38; Start 04/09/17 at 21:00; Stop 04/10/17 at 14:48; Status DC Ferrous Sulfate (Feosol) 324 mg DAILYAC PO Last administered on 04/11/17 08:49 ; Start 04/09/17 at 11:00; Stop 04/12/17 at 01:56; Status DC Finasteride (Proscar) 5 mg HS PO Last administered on 04/28/17 19:13; Start at 21:00 Lisinopril (Prinivil) 10 mg DAILY PO Last administered on 04/28/17 08:42; Start 04/09/17 at 11:00 Metoprolol Tartrate (Lopressor) 25 mg BIDWMEALS PO Last administered on 17:28; Start 04/09/17 at 11:00 Morphine Sulfate (Ms Contin) 15 mg DAILY PO Last administered on 04/28/17 08: 41; Start 04/09/17 at 11:00 Oxybutynin Chloride (Ditropan) 5 mg BID PO Last administered on 04/28/17 19:12 ; Start 04/09/17 at 11:00 Senna/Docusate Sodium (Senna Plus) 2 tab PRN BID PRN PO CONSTIPATION; Start at 10:00 Pantoprazole Sodium (Protonix) 40 mg DAILYAC PO Last administered on 04/28/17 08:40; Start 04/09/17 at 11:00 Psyllium Hydrophilic Mucilloid (Metamucil) 1 pkt DAILY PO Last administered on 04/28/17 08:39; Start 04/09/17 at 11:00 Aripiprazole (Abilify) 30 mg 1X ONCE PO ; Start 04/09/17 at 12:00; Stop at 12:01; Status DC Vitamin D (Vitamin D3) 2,000 unit DAILY PO Last administered on 04/28/17 08:41 ; Start 04/11/17 at 09:00 Clozapine (Clozaril) 25 mg HS PO Last administered on 04/14/17 20:33; Start at 21:00; Stop 04/15/17 at 20:59; Status DC Ferrous Sulfate (Feosol) 325 mg DAILYAC PO Last administered on 04/28/17 08:41 ; Start 04/12/17 at 07:30 Clozapine (Clozaril) 50 mg HS PO ; Start 04/14/17 at 21:00; Stop 04/14/17 at 21: 00; Status DC Clozapine (Clozaril) 50 mg HS PO Last administered on 04/21/17 20:08; Start at 21:00; Stop 04/22/17 at 18:32; Status DC Lorazepam (Ativan) 0.5 mg DAILY PO Last administered on 04/16/17 08:33; Start 04/15/17 at 09:00; Stop 04/16/17 at 18:35; Status DC Lorazepam (Ativan) 1 mg TID@1300,1700,2100 PO Last administered on 04/16/17 17 :30; Start 04/15/17 at 13:00; Stop 04/16/17 at 18:35; Status DC Lorazepam (Ativan) 0.5 mg BID@0900,1300 PO ; Start 04/18/17 at 09:00; Stop at 09:00; Status DC Lorazepam (Ativan) 1 mg BID@1700,2100 PO ; Start 04/18/17 at 17:00; Stop 04/18/17 at 17:00; Status DC Lorazepam (Ativan) 0.5 mg TID@0900,1300,1700 PO ; Start 04/21/17 at 09:00; Stop 04/21/17 at 09:00; Status DC Lorazepam (Ativan) 1 mg HS PO ; Start 04/21/17 at 21:00; Stop 04/21/17 at 21:00; Status DC Lorazepam (Ativan) 0.5 mg QID PO ; Start 04/24/17 at 09:00; Stop 04/24/17 at 09:00 ; Status DC Lorazepam (Ativan) 1 mg QID PO Last administered on 04/17/17 21:02; Start at 21:00; Stop 04/17/17 at 23:00; Status DC Lorazepam (Ativan) 1 mg QID PO Last administered on 04/28/17 19:17; Start 04/18 at 09:00 Aripiprazole (Abilify) 20 mg DAILY PO Last administered on 04/26/17 07:58; Start 04/19/17 at 09:00; Stop 04/26/17 at 18:46; Status DC Divalproex Sodium (Depakote Sprinkles) 250 mg BID PO Last administered on 08:23; Start 04/18/17 at 21:00; Stop 04/22/17 at 16:11; Status DC Sodium Chloride 500 ml @ 0 mls/hr 1X ONCE IV Last administered on 04/21/17 15: 30; Start 04/21/17 at 15:30; Stop 04/21/17 at 15:31; Status DC Divalproex Sodium (Depakote Sprinkles) 500 mg BID PO Last administered on 07:39; Start 04/22/17 at 21:00; Stop 04/25/17 at 19:03; Status DC Clozapine (Clozaril) 75 mg HS PO Last administered on 04/27/17 20:32; Start at 21:00; Stop 04/28/17 at 18:23; Status DC Loxapine Succinate (Loxitane) 50 mg DAILY PO Last administered on 04/23/17 09: 09; Start 04/23/17 at 09:00; Stop 04/23/17 at 18:26; Status DC Divalproex Sodium (Depakote Sprinkles) 750 mg BID PO Last administered on 19:13; Start 04/25/17 at 21:00 Aripiprazole (Abilify) 10 mg DAILY PO ; Start 04/27/17 at 09:00; Status UNV Aripiprazole (Abilify) 10 mg DAILY PO Last administered on 04/28/17 08:40; Start 04/27/17 at 09:00; Stop 04/28/17 at 18:23; Status DC Clozapine (Clozaril) 100 mg HS PO Last administered on 04/28/17 19:47; Start 04/28/17 at 21:00 Active Scripts Active Reported Zoloft (Sertraline Hcl) 100 Mg Tablet 200 Mg PO DAILY Metamucil (Psyllium Husk) 660 Gm Powder 1 Packet PO DAILY Oxybutynin Chloride 5 Mg Tablet 5 Mg PO BID Omeprazole 40 Mg Capsule.dr 40 Mg PO DAILY Morphine Sulfate Er (Morphine Sulfate) 15 Mg Tablet.er 15 Mg PO DAILY Metoprolol Tartrate 25 Mg Tablet 25 Mg PO BIDWMEALS Loxapine (Loxapine Succinate) 50 Mg Capsule 150 Mg PO HS Loxapine (Loxapine Succinate) 50 Mg Capsule 100 Mg PO DAILY Lorazepam 2 Mg Tablet 2 Mg PO PRN Q8HRS PRN Lorazepam 1 Mg Tablet 1 Mg PO QID Lisinopril 10 Mg Tablet 10 Mg PO DAILY Haloperidol 5 Mg Tablet 5 Mg PO PRN QID PRN Finasteride 5 Mg Tablet 5 Mg PO HS Ferrous Sulfate 325 Mg Tablet 324 Mg PO DAILYAC Lovenox (Enoxaparin Sodium) 40 Mg/0.4 Ml Disp.syrin 40 Mg SQ HS Senna S Tablet (Sennosides/Docusate Sodium) 1 Each Tablet 2 Tab PO PRN BID PRN Clomipramine Hcl 75 Mg Capsule 150 Mg PO HS Vitamin D3 (Cholecalciferol (Vitamin D3)) 1,000 Unit Tablet 1,000 Unit PO DAILY Benztropine Mesylate 0.5 Mg Tablet 0.5 Mg PO BID Aspirin Ec (Aspirin) 325 Mg Tablet.dr 325 Mg PO DAILY Abilify (Aripiprazole) 30 Mg Tablet 30 Mg PO DAILY Diagnosis: Problems: (1) Anxiety disorder (2) Impulse control disorder (3) Obsessive compulsive disorder (4) Schizoaffective disorder (5) Schizophrenia, disorganized, subchronic with acute exacerbation SHAKIR PAEZ MD Apr 28, 2017 19:49
[2017-04-28] MEDS ORDERED: cloZAPine 100 MG TABLET PO SCH (21:00)
--- NOTE | 2017-04-29 01:21 | PN ---
DATE: 04/27/2017 This is a late entry for 04/27/2017 and the elements not covered in my initial note. SUBJECTIVE: The patient was seen individually evening of 04/27/2017. The patient continues to lean forward in his wheelchair, but this is typical for him, often he is closing his eyes during the day on 04/27/2017, preferring not to interact with others, but less psychotic. REVIEW OF SYSTEMS: Ambulation impaired, in a wheelchair. No CV, , pulmonary, eye system symptoms on review. Reliability poor. MENTAL STATUS EXAM: Oriented to himself and situation. Speech coherent, has some latency, often responses monosyllabic. Abstraction fair, computation impaired, language function intact, attention span short. Mood and affect somewhat withdrawn, still psychotic, but better. LABORATORY DATA: Reviewed. IMPRESSION: Absolute neutrophil count will be repeated on 04/28/2017. IMPRESSION: Unchanged from initial note. PLAN: Continue current psychotropics mentioned in my initial note. Check labs level of absolute neutrophil count on 04/28/2017 if this is appropriate, we will increase the Clozaril further to 100 mg at bedtime, gradually discontinue the Abilify and loxapine, maintain Depakote at current dosage. It was increased and we are repeating labs level on 04/28/2017. Review drug interactions, risk/benefit ratio favors no further change. MAN Ravi PAEZ MD DR: MELISA/marvel JOB#: [id number] / [id number]
[2017-04-29 06:05] VITALS: BP 156/83
[2017-04-29 06:56] LABS: BASO # 0.1 x10^3/uL (0.0-0.2); BASO % 0 % (0-3); EOS # 0.4 x10^3/uL (0.0-0.7); EOS % 3 % (0-3); HEMATOCRIT 38.3 % (39.0-53.0); HEMOGLOBIN 12.8 g/dL (13.0-17.5); LYMPH # 0.9 x10^3/uL (1.0-4.8); LYMPH % 6 % (24-48); MEAN CORPUSCULAR HEMOGLOBIN 33 pg (25-35); MEAN CORPUSCULAR HGB CONC 33 g/dL (31-37); MEAN CORPUSCULAR VOLUME 99 fL (79-100); MONO # 0.6 x10^3/uL (0.0-1.1); MONO % 4 % (0-9); NEUT # 11.9 x10^3uL (1.8-7.7); NEUT % 86 % (31-73); PLATELET COUNT 241 x10^3/uL (140-400); RED BLOOD COUNT 3.86 x10^6/uL (4.30-5.70); RED CELL DISTRIBUTION WIDTH 13.5 % (11.5-14.5); WHITE BLOOD COUNT 13.8 x10^3/uL (4.0-11.0)
[2017-04-29] MEDS ORDERED: IV NORMAL SALINE 1,000ML 1,000 ML ONE (07:20)
[2017-04-29 07:21] LABS: ALBUMIN 3.3 g/dL (3.4-5.0); ALBUMIN/GLOBULIN RATIO 0.9 (1.0-1.7); CALCIUM 8.9 mg/dL (8.5-10.1); GFR 72.6; TOTAL BILIRUBIN 0.4 mg/dL (0.2-1.0)
[2017-04-29 07:25] LABS: BGAS PH 7.42 (7.35-7.46)
[2017-04-29] MEDS ORDERED: IPRATRPIUM/ALBUTEROL 0.5/2.5MG 3 ML NEBU. ONE (07:27)
[2017-04-29] MEDS ORDERED: CLOZ100T7 PO (07:34)
[2017-04-29] MEDS ORDERED: DIVA125C PO (07:34)
--- NOTE | 2017-04-29 07:52 | RAD ---
Portable chest, 04/29/2017: History: Shortness of breath Comparison is made to a study from 04/14/2017. 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 The heart size and pulmonary vascularity are normal. There are mild right parahilar infiltrates. The left lung is clear. There is no evidence of pleural fluid or pneumothorax. IMPRESSION: Right parahilar infiltrates suggesting pneumonia. Unilateral pulmonary edema is less likely.
[2017-04-29 08:30] LABS: % BANDS 3 % (0-9); % EOS 2 % (0-5); % LYMPHS 10 % (24-48); % MONOS 3 % (0-10); % SEGS 82 % (35-66); PLATELET CLUMP PRESENT; PLT ESTIMATE ADEQUATE (ADEQUATE)
[2017-04-29] MEDS ORDERED: ACET325T9 PO (14:14)
--- NOTE | 2017-04-29 21:32 | PDOC ---
Exam José Miguel Demential Exam: José Miguel Note: Please also refer to the separate dictated note~for this date of service dictated separately.~Patient seen individually. Discussed the patient with Nursing staff reviewed the chart.~Reviewed interim history and current functioning. Reviewed vital signs,~Labs/ Radiology~and current medications noted below. Continue current treatment with the changes noted in the dictated addendum note Assessment: Vital Signs: Vital Signs Date Time Temp Pulse Resp B/P (MAP) Pulse Ox O2 Delivery O2 Flow Rate FiO2 04/29/17 07:40 93 Nasal Cannula 4.0 04/29/17 06:05 96.7 77 20 156/83 (107) Labs: Laboratory Tests Test 04/29/17 06:43 04/29/17 07:13 White Blood Count 13.8 x10^3/uL (4.0-11.0) #H Red Blood Count 3.86 x10^6/uL (4.30-5.70) L Hemoglobin 12.8 g/dL (13.0-17.5) L Hematocrit 38.3 % (39.0-53.0) L Mean Corpuscular Volume 99 fL (79-100) Mean Corpuscular Hemoglobin 33 pg (25-35) Mean Corpuscular Hemoglobin Concent 33 g/dL (31-37) Red Cell Distribution Width 13.5 % (11.5-14.5) Platelet Count 241 x10^3/uL (140-400) Neutrophils (%) (Auto) 86 % (31-73) H Lymphocytes (%) (Auto) 6 % (24-48) L Monocytes (%) (Auto) 4 % (0-9) Eosinophils (%) (Auto) 3 % (0-3) Basophils (%) (Auto) 0 % (0-3) Neutrophils # (Auto) 11.9 x10^3uL (1.8-7.7) H Lymphocytes # (Auto) 0.9 x10^3/uL (1.0-4.8) L Monocytes # (Auto) 0.6 x10^3/uL (0.0-1.1) Eosinophils # (Auto) 0.4 x10^3/uL (0.0-0.7) Basophils # (Auto) 0.1 x10^3/uL (0.0-0.2) Segmented Neutrophils % 82 % (35-66) H Band Neutrophils % 3 % (0-9) Lymphocytes % 10 % (24-48) L Monocytes % 3 % (0-10) Eosinophils % 2 % (0-5) Platelet Estimate Adequate (ADEQUATE) Platelet Clumps, EDTA Present Sodium Level 142 mmol/L (136-145) Potassium Level 4.0 mmol/L (3.5-5.1) Chloride Level 104 mmol/L (98-107) Carbon Dioxide Level 34 mmol/L (21-32) H Anion Gap 4 (6-14) L Blood Urea Nitrogen 19 mg/dL (8-26) Creatinine 1.0 mg/dL (0.7-1.3) Estimated GFR (Cockcroft-Gault) 72.6 BUN/Creatinine Ratio 19 (6-20) Glucose Level 105 mg/dL (70-99) H Lactic Acid Level 1.7 mmol/L (0.4-2.0) Calcium Level 8.9 mg/dL (8.5-10.1) Total Bilirubin 0.4 mg/dL (0.2-1.0) Aspartate Amino Transferase (AST) 12 U/L (15-37) L Alanine Aminotransferase (ALT) 15 U/L (16-63) L Alkaline Phosphatase 89 U/L (46-116) Creatine Kinase 88 U/L (39-308) Creatine Kinase MB (Mass) 1.7 ng/mL (0.0-3.6) Creatine Kinase MB Relative Index 1.9 % (0-4) Troponin I Quantitative < 0.017 ng/mL (0-0.055) GB-Dnq-U-Type Natriuretic Peptide 1358 pg/mL (0-449) H Total Protein 7.0 g/dL (6.4-8.2) Albumin 3.3 g/dL (3.4-5.0) L Albumin/Globulin Ratio 0.9 (1.0-1.7) L Blood pH 7.42 (7.35-7.46) Blood Gas PCO2 49 mmHg (35-46) H Blood Gas PO2 68 mmHg (71-100) L Blood Gas HCO3 31 mmol/L (21-28) H Arterial Bld O2 Saturation (Calc) 92 % (92-99) FiO2 36 % Current Medications: Meds: Current Medications Acetaminophen (Tylenol) 650 mg PRN Q6HRS PRN PO PAIN / TEMP; Start 04/08/17 at 23:00; Stop 04/29/17 at 07:49; Status DC Multi-Ingredient Ointment (Analgesic [place]) 1 phillip PRN QID PRN TP MUSCLE PAIN; Start 04/08/17 at 23:00; Stop 04/29/17 at 07:49; Status DC Al Hydroxide/Mg Hydroxide (Mylanta Plus Xs) 15 ml PRN AFTMEALHC PRN PO DYSPEPSIA; Start 04/08/17 at 23:00; Stop 04/29/17 at 07:49; Status DC Magnesium Hydroxide (Milk Of Magnesia) 2,400 mg PRN QHS PRN PO CONSTIPATION Last administered on 04/24/17 16:51; Start 04/08/17 at 23:00; Stop 04/29/17 at 07:49; Status DC Benztropine Mesylate (Cogentin) 0.5 mg BID PO Last administered on 04/28/17 19 :12; Start 04/09/17 at 09:00; Stop 04/29/17 at 07:49; Status DC Haloperidol (Haldol) 5 mg PRN QID PRN PO ANXIETY / AGITATION; Start 04/08/17 at 23:45; Stop 04/29/17 at 07:49; Status DC Lorazepam (Ativan) 1 mg QID PO Last administered on 04/14/17 20:38; Start at 09:00; Stop 04/14/17 at 23:00; Status DC Aripiprazole (Abilify) 30 mg DAILY PO Last administered on 04/18/17 09:32; Start 04/09/17 at 09:00; Stop 04/18/17 at 18:33; Status DC Clomipramine HCl (Anafranil) 150 mg QHS PO Last administered on 04/28/17 19:14 ; Start 04/09/17 at 21:00; Stop 04/29/17 at 07:49; Status DC Lorazepam (Ativan) 2 mg PRN Q8HRS PRN PO ANXIETY / AGITATION; Start 04/09/17 at 00:15; Stop 04/29/17 at 07:49; Status DC Loxapine Succinate (Loxitane) 100 mg DAILY PO Last administered on 04/22/17 08: 25; Start 04/09/17 at 09:00; Stop 04/22/17 at 18:32; Status DC Loxapine Succinate (Loxitane) 150 mg QHS PO Last administered on 04/28/17 19: 15; Start 04/09/17 at 21:00; Stop 04/29/17 at 07:49; Status DC Aspirin (Aspirin Enteric Coated) 325 mg DAILY PO Last administered on 08:40; Start 04/09/17 at 11:00; Stop 04/29/17 at 07:49; Status DC Vitamin D (Vitamin D3) 1,000 unit DAILY PO Last administered on 04/10/17 08:38 ; Start 04/09/17 at 11:00; Stop 04/10/17 at 14:48; Status DC Enoxaparin Sodium (Lovenox) 40 mg HS SQ Last administered on 04/09/17 19:38; Start 04/09/17 at 21:00; Stop 04/10/17 at 14:48; Status DC Ferrous Sulfate (Feosol) 324 mg DAILYAC PO Last administered on 04/11/17 08:49 ; Start 04/09/17 at 11:00; Stop 04/12/17 at 01:56; Status DC Finasteride (Proscar) 5 mg HS PO Last administered on 04/28/17 19:13; Start at 21:00; Stop 04/29/17 at 07:49; Status DC Lisinopril (Prinivil) 10 mg DAILY PO Last administered on 04/28/17 08:42; Start 04/09/17 at 11:00; Stop 04/29/17 at 07:49; Status DC Metoprolol Tartrate (Lopressor) 25 mg BIDWMEALS PO Last administered on 17:28; Start 04/09/17 at 11:00; Stop 04/29/17 at 07:49; Status DC Morphine Sulfate (Ms Contin) 15 mg DAILY PO Last administered on 04/28/17 08: 41; Start 04/09/17 at 11:00; Stop 04/29/17 at 07:49; Status DC Oxybutynin Chloride (Ditropan) 5 mg BID PO Last administered on 04/28/17 19:12 ; Start 04/09/17 at 11:00; Stop 04/29/17 at 07:49; Status DC Senna/Docusate Sodium (Senna Plus) 2 tab PRN BID PRN PO CONSTIPATION; Start at 10:00; Stop 04/29/17 at 07:49; Status DC Pantoprazole Sodium (Protonix) 40 mg DAILYAC PO Last administered on 04/28/17 08:40; Start 04/09/17 at 11:00; Stop 04/29/17 at 07:49; Status DC Psyllium Hydrophilic Mucilloid (Metamucil) 1 pkt DAILY PO Last administered on 04/28/17 08:39; Start 04/09/17 at 11:00; Stop 04/29/17 at 07:49; Status DC Aripiprazole (Abilify) 30 mg 1X ONCE PO ; Start 04/09/17 at 12:00; Stop at 12:01; Status DC Vitamin D (Vitamin D3) 2,000 unit DAILY PO Last administered on 04/28/17 08:41 ; Start 04/11/17 at 09:00; Stop 04/29/17 at 07:49; Status DC Clozapine (Clozaril) 25 mg HS PO Last administered on 04/14/17 20:33; Start at 21:00; Stop 04/15/17 at 20:59; Status DC Ferrous Sulfate (Feosol) 325 mg DAILYAC PO Last administered on 04/28/17 08:41 ; Start 04/12/17 at 07:30; Stop 04/29/17 at 07:49; Status DC Clozapine (Clozaril) 50 mg HS PO ; Start 04/14/17 at 21:00; Stop 04/14/17 at 21: 00; Status DC Clozapine (Clozaril) 50 mg HS PO Last administered on 04/21/17 20:08; Start at 21:00; Stop 04/22/17 at 18:32; Status DC Lorazepam (Ativan) 0.5 mg DAILY PO Last administered on 04/16/17 08:33; Start 04/15/17 at 09:00; Stop 04/16/17 at 18:35; Status DC Lorazepam (Ativan) 1 mg TID@1300,1700,2100 PO Last administered on 04/16/17 17 :30; Start 04/15/17 at 13:00; Stop 04/16/17 at 18:35; Status DC Lorazepam (Ativan) 0.5 mg BID@0900,1300 PO ; Start 04/18/17 at 09:00; Stop at 09:00; Status DC Lorazepam (Ativan) 1 mg BID@1700,2100 PO ; Start 04/18/17 at 17:00; Stop 04/18/17 at 17:00; Status DC Lorazepam (Ativan) 0.5 mg TID@0900,1300,1700 PO ; Start 04/21/17 at 09:00; Stop 04/21/17 at 09:00; Status DC Lorazepam (Ativan) 1 mg HS PO ; Start 04/21/17 at 21:00; Stop 04/21/17 at 21:00; Status DC Lorazepam (Ativan) 0.5 mg QID PO ; Start 04/24/17 at 09:00; Stop 04/24/17 at 09:00 ; Status DC Lorazepam (Ativan) 1 mg QID PO Last administered on 04/17/17 21:02; Start at 21:00; Stop 04/17/17 at 23:00; Status DC Lorazepam (Ativan) 1 mg QID PO Last administered on 04/28/17 19:17; Start 04/18 at 09:00; Stop 04/29/17 at 07:49; Status DC Aripiprazole (Abilify) 20 mg DAILY PO Last administered on 04/26/17 07:58; Start 04/19/17 at 09:00; Stop 04/26/17 at 18:46; Status DC Divalproex Sodium (Depakote Sprinkles) 250 mg BID PO Last administered on 08:23; Start 04/18/17 at 21:00; Stop 04/22/17 at 16:11; Status DC Sodium Chloride 500 ml @ 0 mls/hr 1X ONCE IV Last administered on 04/21/17 15: 30; Start 04/21/17 at 15:30; Stop 04/21/17 at 15:31; Status DC Divalproex Sodium (Depakote Sprinkles) 500 mg BID PO Last administered on 07:39; Start 04/22/17 at 21:00; Stop 04/25/17 at 19:03; Status DC Clozapine (Clozaril) 75 mg HS PO Last administered on 04/27/17 20:32; Start at 21:00; Stop 04/28/17 at 18:23; Status DC Loxapine Succinate (Loxitane) 50 mg DAILY PO Last administered on 04/23/17 09: 09; Start 04/23/17 at 09:00; Stop 04/23/17 at 18:26; Status DC Divalproex Sodium (Depakote Sprinkles) 750 mg BID PO Last administered on 19:13; Start 04/25/17 at 21:00; Stop 04/29/17 at 07:49; Status DC Aripiprazole (Abilify) 10 mg DAILY PO ; Start 04/27/17 at 09:00; Status UNV Aripiprazole (Abilify) 10 mg DAILY PO Last administered on 04/28/17 08:40; Start 04/27/17 at 09:00; Stop 04/28/17 at 18:23; Status DC Clozapine (Clozaril) 100 mg HS PO Last administered on 04/28/17 19:47; Start 04/28/17 at 21:00; Stop 04/29/17 at 07:49; Status DC Sodium Chloride 1,000 ml @ As Directed STK-MED ONCE .ROUTE ; Start 04/29/17 at 07:20; Stop 04/29/17 at 07:21; Status DC Albuterol/ Ipratropium (Duoneb) 3 ml STK-MED ONCE .ROUTE ; Start 04/29/17 at 07: 27; Stop 04/29/17 at 07:28; Status DC Active Scripts Active Reported Tylenol (Acetaminophen) 325 Mg Tablet 2 Tab PO PRN Q6HRS PRN Clozapine 100 Mg Tablet 100 Mg PO HS Depakote Sprinkle (Divalproex Sodium) 125 Mg Cap.sprink 750 Mg PO BID Metamucil (Psyllium Husk) 660 Gm Powder 1 Packet PO DAILY Oxybutynin Chloride 5 Mg Tablet 5 Mg PO BID Omeprazole 40 Mg Capsule.dr 40 Mg PO DAILY Morphine Sulfate Er (Morphine Sulfate) 15 Mg Tablet.er 15 Mg PO DAILY Metoprolol Tartrate 25 Mg Tablet 25 Mg PO BIDWMEALS Loxapine (Loxapine Succinate) 50 Mg Capsule 150 Mg PO HS Lisinopril 10 Mg Tablet 10 Mg PO DAILY Haloperidol 5 Mg Tablet 5 Mg PO PRN QID PRN Finasteride 5 Mg Tablet 5 Mg PO HS Ferrous Sulfate 325 Mg Tablet 324 Mg PO DAILYAC Senna S Tablet (Sennosides/Docusate Sodium) 1 Each Tablet 2 Tab PO PRN BID PRN Clomipramine Hcl 75 Mg Capsule 150 Mg PO HS Vitamin D3 (Cholecalciferol (Vitamin D3)) 1,000 Unit Tablet 2,000 Unit PO DAILY Benztropine Mesylate 0.5 Mg Tablet 0.5 Mg PO BID Aspirin Ec (Aspirin) 325 Mg Tablet.dr 325 Mg PO DAILY Diagnosis: Problems: (1) Anxiety disorder (2) Impulse control disorder (3) Obsessive compulsive disorder (4) Schizoaffective disorder (5) Schizophrenia, disorganized, subchronic with acute exacerbation SHAKIR PAEZ MD Apr 29, 2017 21:32
--- NOTE | 2017-04-30 01:05 | EKG ---
[address] [address] Test Date: 2017-04-29 Test Time: 07:40:03 Pat Name: AMARILIS JEWELL Department: Room: [address] [place] [address] Gender: M Briefcase Sewer: BEBETO : 1940 Requested By: KIRA ALMAZAN Order Number: [id number] Reading MD: Measurements Intervals [place] Rate: 103 P: -115 [place]: 186 QRS: -81 QRSD: 160 T: 105 QT: 376 QTc: 495 Interpretive Statements SUPRAVENTRICULAR RHYTHM LEFT ATRIAL ABNORMALITY ABNORMAL LEFT AXIS DEVIATION LEFT ANTERIOR FASCICULAR BLOCK RIGHT BUNDLE BRANCH BLOCK BIFASCICULAR BLOCK RVH WITH REPOLARIZATION ABNORMALITY ST-T ELEVATION, CONSIDER ACUTE ANTERIOR INFARCT ABNORMAL ECG RI6.01 No previous ECG available for comparison
--- NOTE | 2017-04-30 03:04 | PN ---
DATE: 04/28/2017 PSYCHIATRIC PROGRESS NOTE This is late entry for 04/28/2017 and covers the elements not covered in my initial note of 04/28/2017. SUBJECTIVE: I met with the patient the evening of 04/28/2017. Valproic acid level is 80, absolute neutrophil count is unremarkable on the Clozaril 75 mg at bedtime, we will increase to 100 mg at bedtime. Continue with weekly CBC, absolute neutrophil count. He is in a cardiac/Broda chair to help him sit straight, which is something he tends to lean forward, but this is better with the Broda chair. He often sits with his eyes closed. REVIEW OF SYSTEMS: No CV, , pulmonary, eye system symptoms on review. MENTAL STATUS EXAM: Oriented to himself and situation. Speech slow in volume, coherent, rapid at times. Abstraction fair, computation impaired, language function intact, attention span short. Mood and affect somewhat withdrawn, less psychotic. LABORATORY DATA: Reviewed. IMPRESSION: Unchanged from initial note. PLAN: 1. Increase Clozaril to 100 mg at bedtime, stop the Abilify. 2. We will try and taper the Ativan. Continue Loxitane 150 mg at bedtime. We will try and taper this as well. Rest will maintain unchanged. Reviewed drug interactions. Risk/benefit ratio favors no further change beyond noted above. MAN Ravi PAEZ MD DR: MELISA/marvel JOB#: [id number] / [id number]
--- NOTE | 2017-04-30 22:02 | DS ---
DATE OF DISCHARGE: 04/29/2017 DISCHARGE SUMMARY/PSYCHIATRIC PROGRESS NOTE This late entry for 04/29/2017 covers elements not covered in my initial note of 04/29/2017. REASON FOR ADMISSION: Please refer to the admission history for details. Briefly, the patient is a 76-year-old male referred to us from the [place] where he presented from his Nursing Facility on account of being resistive to medications, uncooperative, confused, responding to internal stimuli, extremely psychotic, having multiple falls. This is within the context of his diagnosis of schizophrenia versus schizoaffective disorder, bipolar type with marked acute exacerbation and psychotic symptoms. SIGNIFICANT FINDINGS AND CLINICAL COURSE: Following admission, the patient was seen individually daily by myself, followed medically per Dr. Flores/Dr. Church. Initially, he was quite psychotic, disorganized, agitated, actively hallucinating. A careful review of his history revealed multiple failures on antipsychotics and additionally, he was on rather large dosages of loxapine, Abilify along with clomipramine for his OCD symptoms and Haldol p.r.n. It was felt that he needed to start on Clozaril, which we initiated and then gradually discontinued his Abilify and ultimately his morning dosage of Loxitane with a plan to ultimately discontinue the entire dosage of Loxitane. He seemed to be responding to his treatment. At one point, I had attempted reduction of his Ativan from 4 mg a day that he came to us on, gradually reduced it, but he became extremely agitated, withdrawn, refusing to eat, disconnected with reality and we restarted the Ativan back to the original dosage 4 mg a day with a plan to taper it once the Clozaril was therapeutic. However, while this was being done morning of 04/29/2017, he was noted to be either in CHF or having an acute pneumonia/bronchitis and was transferred to the ICU per Dr. Flores/Dr. Church. Psychiatrically, he was improved at discharge, but medically more compromised prior to discharge on 04/29/2017. REVIEW OF SYSTEMS: Ambulation impaired, difficulty with his breathing. No CV, , eye, ENT system symptoms on review. Reliability poor. MENTAL STATUS EXAM: Oriented to himself and situation. Speech, low in volume, often responses monosyllabic, less pressured. Abstraction fair, computation impaired, language function intact, attention span short. Mood and affect still withdrawn, but improved. LABORATORY DATA: Reviewed. FINAL DIAGNOSES: Schizoaffective disorder, bipolar type, mixed with psychotic features, in partial remission; history of schizophrenia, chronic, undifferentiated with acute exacerbation, in partial remission; anxiety disorder, unspecified; impulse control disorder, unspecified; possible pneumonia versus congestive heart failure. Rest diagnosis unchanged from admission. DISCHARGE MEDICATIONS: Abilify was discontinued prior to discharge. He remained on loxapine 150 mg at bedtime, morning loxapine had been discontinued, Cogentin 0.5 b.i.d., clomipramine 150 mg at bedtime. Ativan was at 1 mg 4 times a day, but I had left orders to taper it down to total of 1.5 mg a day gradually, Clozaril was 75 mg at bedtime, Depakote 750 b.i.d. with the therapeutic level at 80, and Haldol and Ativan were p.r.n. I will be happy to follow the patient in the ICU from a psychiatric standpoint if requested and reassess the patient for coming back to on our unit if needed from a psychiatric standpoint once he is medically stable. Time for discharge and management greater than 30 minutes. SHAKIR PAEZ MD DR: MELISA/marvel JOB#: [id number] / [id number]
== END 2017-04-29 07:00 | disposition short-term general hospital (02) | DRG 885 ==
LOC: GEROPSY 22:11
PROVIDERS: ADMIT Psychiatry & Neurology Psychiatry; ATTEND Psychiatry & Neurology Psychiatry
DX: F25.0 Schizoaffective disorder, bipolar type (principal); D64.9 Anemia, unspecified; Z91.19 Patient's noncompliance with other medical treatment and regimen; I10 Essential (primary) hypertension; F09 Unspecified mental disorder due to known physiological condition; H91.90 Unspecified hearing loss, unspecified ear; E78.5 Hyperlipidemia, unspecified; B19.20 Unspecified viral hepatitis C without hepatic coma; F63.9 Impulse disorder, unspecified; R29.6 Repeated falls; N40.1 Benign prostatic hyperplasia with lower urinary tract symptoms; N39.498 Other specified urinary incontinence; E55.9 Vitamin D deficiency, unspecified; F42.9 Obsessive-compulsive disorder, unspecified; F91.9 Conduct disorder, unspecified; K21.9 Gastro-esophageal reflux disease without esophagitis; F41.9 Anxiety disorder, unspecified; Z95.0 Presence of cardiac pacemaker; Z86.711 Personal history of pulmonary embolism; Z86.718 Personal history of other venous thrombosis and embolism; Z87.440 Personal history of urinary (tract) infections; Z88.8 Allergy status to other drugs, medicaments and biological substances; Z86.19 Personal history of other infectious and parasitic diseases
CPT/HCPCS: 36415; 71010; 80053; 80061; 80164; 81001; 82140; 82306; 82553; 82607; 82803; 83036; 83540; 83550; 83605; 83735; 83880; 84436; 84443; 84480; 84484; 85007; 85025; 86592; 86593; 93005; J1650; 97116; 97530; 97535; J7030

== ENCOUNTER 2017-04-29 07:05 | Inpatient (IN) | payer MEDICARE, OTHER ==
[2017-04-29] VITALS (15 sets, daily range): BP systolic 93–208; BP diastolic 44–89
[~2017-04-29] VITALS: Ht 180.3 cm; Wt 80.8 kg
[~2017-04-29 07:05] MED LIST: ARIP30TA4 PO; ASPI325T11 PO; BENZ0.5T PO; CHOL10003 PO; CLOM75CA2 PO; ENOX40DI SQ; FERR-26 PO; FINA5TAB4 PO; HALO5TAB PO; LISI10TA2 PO; LORA1TAB PO; LORA2TAB PO; LOXA50CA PO; METO25TA4 PO; MORP15TA3 PO; OMEP40CA5 PO; OXYB5TAB7 PO; PSYL660P18 PO; SENN-6 PO; SERT100T PO
[2017-04-29] MEDS ORDERED: CLOZ100T7 PO (07:34)
[2017-04-29] MEDS ORDERED: DIVA125C PO (07:34)
[2017-04-29] MEDS ORDERED: FUROSEMIDE 40 MG/4 ML VIAL IVP ONE (08:30)
[2017-04-29] MEDS: LORazepam 1 MG TABLET PO SCH ×3 (08:55→21:06)
[2017-04-29] MEDS: PIPERACILLIN/TAZOBACTAM 3.375 GM in IV NORMAL SALINE 50ML 50 ML IV SCH ×2 (09:09→17:30)
[2017-04-29] MEDS: VANCOMYCIN PER PHARMACY MC PRN (09:12)
[2017-04-29] MEDS ORDERED: VANCOMYCIN 2 GM in IV NORMAL SALINE 500ML 500 ML IV ONE (11:00)
[2017-04-29] MEDS: ENOXAPARIN 40 MG/0.4 ML DISP.SYRIN. SQ SCH (11:49)
[2017-04-29] MEDS: IPRATRPIUM/ALBUTEROL 0.5/2.5MG 3 ML NEBU. NEB SCH ×3 (12:27→21:46)
[2017-04-29] MEDS ORDERED: ACET325T9 PO (14:14)
[2017-04-29] MEDS ORDERED: SENNOSIDES/DOCUSATE 8.6/50MG TABLET. PO PRN (14:15)
[2017-04-29] MEDS ORDERED: ACETAMINOPHEN 325 MG TABLET PO PRN (14:15)
[2017-04-29] MEDS ORDERED: HALOPERIDOL 5 MG TABLET PO PRN (14:15)
--- NOTE | 2017-04-29 14:36 | HP ---
ADMIT DATE: 04/29/2017 HISTORY OF PRESENT ILLNESS: The patient is a 76-year-old male patient, who was transferred from [facility] where he was admitted there on 04/08/2017 with schizophrenia with behavioral disturbances, resistant to care, obsessive-compulsive disorder and was doing well up until this morning when was noted by the nursing staff to be extremely lethargic and unresponsive. He was also noted to be hypoxic, found to be fluid overloaded and his lab work showed that his white cell count was elevated 13,800 and he did have a chest x-ray done, which showed that he has left-sided transvenous pacemaker is in place with 2 leads extending into the right heart. The heart size and pulmonary vascularity are normal. There are mild right perihilar infiltrate. The left lung is clear. There is no evidence of pleural fluid or pneumothorax and the impression is that the patient has right perihilar infiltrate suggesting pneumonia, unilateral pulmonary edema is less likely. Because of all these changes, decision was made to transfer him down to the ICU to be treated for healthcare-associated pneumonia. The patient himself is schizophrenic and was extremely lethargic this morning. PAST MEDICAL HISTORY: Significant for recurrent urinary tract infection, schizophrenia, obsessive-compulsive disorder, hyperlipidemia, gastroesophageal reflux disease, history of pulmonary embolism and pacemaker placement for atrioventricular block, DVT, hearing loss, hypertension, benign prostatic hypertrophy, anemia and hepatitis C. PAST SURGICAL HISTORY: He has a pacemaker placement as well as frontal lobe lobotomy. ALLERGIES: He is allergic to CLONAZEPAM. MEDICATIONS: He is currently on following medications: He is on aspirin 325 mg once a day, benztropine mesylate 0.5 mg p.o. b.i.d., cholecalciferol, vitamin D3 2000 international units p.o. daily, clomipramine 150 mg p.o. at bedtime, clozapine 100 mg at bedtime, divalproex sodium 750 mg p.o. b.i.d., ferrous sulfate 325 mg daily, finasteride 5 mg at bedtime, haloperidol 5 mg p.o. q.i.d. p.r.n. for anxiety and agitation, lisinopril 10 mg daily, loxapine succinate 150 mg at bedtime for schizophrenia, metoprolol tartrate 25 mg p.o. b.i.d., morphine sulfate extended release 15 mg tablet p.o. daily, omeprazole 40 mg capsule daily, oxybutynin chloride 5 mg p.o. b.i.d., packet p.o. daily, Senna S 2 tablets twice a day as needed for constipation. FAMILY HISTORY: Unremarkable. SOCIAL HISTORY: He is single. He apparently never smoked, does not drink alcohol. 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 He is now wheelchair bound, but has been able to walk independently. He apparently had several falls and he is incontinent. REVIEW OF SYSTEMS: Unobtainable as the patient is extremely lethargic. PHYSICAL EXAMINATION: GENERAL: On arrival to the ICU; he was extremely lethargic, pale, but no jaundice, cyanosis, or thyromegaly. No jugular venous distension. No limb edema. VITAL SIGNS: His heart rate was 104, blood pressure was 186/89, temperature was 101.1, respiratory rate was 38 and oxygen saturation was 88% on 2 liters of oxygen. HEAD, EYES, EARS, NOSE AND THROAT: Showed normocephalic, atraumatic. NECK: Supple. HEART: Showed normal first and second heart sounds with no gallop, rub or murmur. CHEST: Showed central trachea, equal bilateral chest expansion, air entry, with crepitation more on the right side, very few scattered rhonchi. ABDOMEN: Distended, soft, nontender. NEUROLOGIC: He was lethargic, but arousable. All his cranial nerves are intact. He moves extremities without difficulty. He has tardive dyskinesia and probably also what seem to be pin rolling tremors in both upper extremities consistent with Parkinson's disease. LABORATORY DATA: As of this morning showed a serum sodium 142, potassium 4, chloride 104, bicarbonate 34, anion gap of 4, BUN 19, creatinine 1, estimated GFR was 72 mL per minute. His glucose was 105. Hemoglobin A1c was 5.4%. Lactic acid was only 1.7, calcium was 8.9, magnesium was 1.8. His total bilirubin, AST, ALT, alkaline phosphatase were normal. His ammonia was less than 10. His beta natriuretic peptide was 1358, total protein 7, albumin 3.3. ASSESSMENT AND PLAN: In summary, this is a 76-year-old male patient, who was transferred from [facility] with altered mental status and probably an acute hypoxic respiratory failure and most likely aspiration pneumonia. We will start him on triple antibiotic in the form of vancomycin, Zosyn, and Levaquin. We will continue with all his other medications as long as able to swallow. Obviously after we will adjust antibiotics according to the results of culture and sensitivity. Other medical problems include schizophrenia, obsessive-compulsive disorder, history of pulmonary embolism, hypertension, benign prostatic hypertrophy, anemia, and vitamin D deficiency. We will also consult Dr. Hernandez to continue management of his psychotic behavior. KIRA ALMAZAN MD DR: NADEEM/marvel JOB#: [id number] / [id number]
[2017-04-29] MEDS: METOPROLOL TART IMMED RELEASE 25 MG TABLET PO SCH (16:45)
[2017-04-29] MEDS: HALOPERIDOL LACT 5 MG/ML VIAL. IVP PRN ×2 (17:03→21:05)
[2017-04-29] MEDS: LOXAPINE SUCCINATE 25 MG CAPSULE PO SCH (21:06)
[2017-04-29] MEDS: BENZTROPINE MESYLATE 0.5 MG TABLET PO SCH (21:06)
[2017-04-29] MEDS: DIVALPROEX 125 MG CAP.SPRINK PO SCH (21:06)
[2017-04-29] MEDS: cloZAPine 100 MG TABLET PO SCH (21:06)
[2017-04-29] MEDS: FINASTERIDE 5 MG TABLET PO SCH (21:06)
[2017-04-29] MEDS: OXYBUTYNIN CHLORIDE 5 MG TABLET PO SCH (21:06)
[2017-04-30] VITALS (11 sets, daily range): BP systolic 90–155; BP diastolic 43–74
[2017-04-30] MEDS: VANCOMYCIN 1.25 GM in IV NORMAL SALINE 250ML 250 ML IV SCH ×3 (00:15→23:10)
[2017-04-30] MEDS: PIPERACILLIN/TAZOBACTAM 3.375 GM in IV NORMAL SALINE 50ML 50 ML IV SCH ×3 (02:57→18:16)
[2017-04-30] MEDS: IPRATRPIUM/ALBUTEROL 0.5/2.5MG 3 ML NEBU. NEB SCH ×4 (05:59→20:00)
[2017-04-30 06:25] LABS: HEMATOCRIT 30.6 % (39.0-53.0); HEMOGLOBIN 10.5 g/dL (13.0-17.5); RED BLOOD COUNT 3.08 x10^6/uL (4.30-5.70); RED CELL DISTRIBUTION WIDTH 13.3 % (11.5-14.5); WHITE BLOOD COUNT 12.5 x10^3/uL (4.0-11.0)
[2017-04-30 06:37] LABS: ALBUMIN 2.6 g/dL (3.4-5.0); ALBUMIN/GLOBULIN RATIO 0.8 (1.0-1.7); CREATININE 1.4 mg/dL (0.7-1.3); GFR 49.3; POTASSIUM 3.3 mmol/L (3.5-5.1); TOTAL BILIRUBIN 0.7 mg/dL (0.2-1.0)
[2017-04-30] MEDS: PANTOPRAZOLE 40 MG TABLET. PO SCH (07:30)
[2017-04-30] MEDS: FERROUS SULFATE 325 MG TABLET PO SCH (07:30)
[2017-04-30] MEDS: PSYLLIUM SEED (WITH SUGAR) PACKET. PO SCH (08:26)
[2017-04-30] MEDS: ASPIRIN ENTERIC COATED 325 MG TABLET.DR. PO SCH (08:26)
[2017-04-30] MEDS: CHOLECALCIFEROL (VITAMIN D3) 1,000 UNIT TABLET PO SCH (08:28)
[2017-04-30] MEDS: DIVALPROEX 125 MG CAP.SPRINK PO SCH ×3 (08:35→21:00)
[2017-04-30] MEDS: OXYBUTYNIN CHLORIDE 5 MG TABLET PO SCH ×3 (08:35→21:00)
[2017-04-30] MEDS: MORPHINE ER 15 MG TABLET.ER PO SCH (08:35)
[2017-04-30] MEDS: LORazepam 1 MG TABLET PO SCH ×4 (08:36→21:00)
[2017-04-30] MEDS: BENZTROPINE MESYLATE 0.5 MG TABLET PO SCH ×3 (08:36→21:00)
[2017-04-30] MEDS: ENOXAPARIN 40 MG/0.4 ML DISP.SYRIN. SQ SCH (08:36)
[2017-04-30] MEDS: METOPROLOL TART IMMED RELEASE 25 MG TABLET PO SCH ×2 (08:36→17:00)
[2017-04-30] MEDS: LISINOPRIL 10 MG TABLET PO SCH (08:36)
[2017-04-30] MEDS: FINASTERIDE 5 MG TABLET PO SCH ×2 (20:09→21:00)
[2017-04-30] MEDS: LOXAPINE SUCCINATE 25 MG CAPSULE PO SCH ×2 (20:09→21:00)
[2017-04-30] MEDS: cloZAPine 100 MG TABLET PO SCH ×2 (20:09→21:00)
[2017-04-30] MEDS: HALOPERIDOL LACT 5 MG/ML VIAL. IVP PRN (22:34)
[2017-04-30 22:43] LABS: VANC TR 19.3 mcg/mL (10.0-20.0)
[2017-05-01] MEDS ORDERED: IV NORMAL SALINE 500ML 500 ML ONE (00:03)
[2017-05-01 00:21] VITALS: BP 156/70
[2017-05-01] MEDS: PIPERACILLIN/TAZOBACTAM 3.375 GM in IV NORMAL SALINE 50ML 50 ML IV SCH ×3 (01:52→17:34)
--- NOTE | 2017-05-01 02:22 | PN ---
DATE: 04/30/2017 SUBJECTIVE: The patient is resting, slightly propped up in bed, definitely more awake, alert, responsive. His was evaluated by the speech therapist and unfortunately failed his swallowing evaluation, although the speech therapist said he can take his medication orally. He is afebrile. OBJECTIVE: GENERAL: When I examined him today, he looked well and was clearly in no apparent respiratory distress, pale, but not jaundiced, cyanosed, or thyromegaly. No jugular venous distention. No limb edema. VITAL SIGNS: His heart rate was 82, blood pressure 145/60, temperature was 98.1, respiratory rate was 20, and oxygen saturation was 93% on 3-1/2 liters of oxygen. HEAD, EYES, EARS, NOSE AND THROAT: Showed normocephalic, atraumatic. NECK: Supple. HEART: Showed normal first and second heart sounds with no gallop, rub or murmur. CHEST: Shows central trachea, equal bilateral chest expansion, air entry, vesicular breath sounds with crepitation mostly in the right side posteriorly. I could not really appreciate any rhonchi. ABDOMEN: Distended, soft, nontender. NEUROLOGIC: He is demented, but without any obvious lateralizing sign. Has also seems to have tardive dyskinesia with lip smacking and abnormal orofacial movement. He has also pill-rolling tremors of both hands. The patient continues to be a 2-person assist and was in a Broda chair while he was at [facility]. LABORATORY DATA: His lab work as of this morning showed a serum sodium 141, potassium 3.3, chloride 104, bicarbonate 34, anion gap of 3, BUN 26, creatinine 1.4, estimated GFR was 49 mL per minute. His glucose was 92, calcium was 8. Total bilirubin, AST, ALT, alkaline phosphatase were normal. His total protein was 6, albumin 2.6. His white cell count is slightly down at 12,500, hemoglobin 10.5, hematocrit 30.6, MCV 99 and platelet count of 185,000. His blood cultures still showed no growth after 24 hours. ASSESSMENT: 1. Aspiration pneumonia for which he now continues to be on triple antibiotic in the form of vancomycin, Zosyn and Levaquin. 2. Dysphagia, unfortunately failed his swallowing evaluation and for the time being, he would be only allowed to take his medication by mouth. 3. Benign prostatic hypertrophy. 4. Hypertension. This seems to be well controlled. 5. Anemia that is normochromic normocytic. 6. Hepatitis C; however, his liver enzymes are normal. 7. Gastroesophageal reflux disease. 8. History of deep venous thrombosis and pulmonary embolism, although he currently is not on anticoagulation, and has history of recurrent urinary tract infection, schizophrenia, and obsessive compulsive disorder. PLAN: To continue with the IV antibiotics for the time being. We have restarted him on all his medication as before. If the blood cultures continue to be negative, we will discontinue his vancomycin. We will repeat his swallowing evaluation tomorrow. KIRA ALMAZAN MD DR: NADEEM/marvel JOB#: [id number] / [id number]
[2017-05-01] MEDS: HALOPERIDOL LACT 5 MG/ML VIAL. IVP SCH ×6 (02:30→20:50)
[2017-05-01 02:54] VITALS: BP 126/62
[2017-05-01 05:05] VITALS: BP 139/62
[2017-05-01] MEDS: IPRATRPIUM/ALBUTEROL 0.5/2.5MG 3 ML NEBU. NEB SCH ×4 (05:31→21:46)
[2017-05-01 06:47] LABS: ALBUMIN 2.4 g/dL (3.4-5.0); ALBUMIN/GLOBULIN RATIO 0.7 (1.0-1.7); CALCIUM 8.2 mg/dL (8.5-10.1); CREATININE 1.1 mg/dL (0.7-1.3); GFR 65.1; POTASSIUM 3.7 mmol/L (3.5-5.1); TOTAL BILIRUBIN 0.5 mg/dL (0.2-1.0)
[2017-05-01 06:49] LABS: HEMATOCRIT 29.3 % (39.0-53.0); HEMOGLOBIN 10.1 g/dL (13.0-17.5); RED BLOOD COUNT 2.97 x10^6/uL (4.30-5.70); RED CELL DISTRIBUTION WIDTH 12.9 % (11.5-14.5); WHITE BLOOD COUNT 9.4 x10^3/uL (4.0-11.0)
[2017-05-01] MEDS: PANTOPRAZOLE 40 MG TABLET. PO SCH (07:30)
[2017-05-01] MEDS: FERROUS SULFATE 325 MG TABLET PO SCH (07:30)
[2017-05-01] MEDS: DIVALPROEX 125 MG CAP.SPRINK PO SCH ×2 (08:17→20:52)
[2017-05-01] MEDS: ENOXAPARIN 40 MG/0.4 ML DISP.SYRIN. SQ SCH (08:17)
[2017-05-01] MEDS: MORPHINE ER 15 MG TABLET.ER PO SCH (08:17)
[2017-05-01] MEDS: BENZTROPINE MESYLATE 0.5 MG TABLET PO SCH ×2 (08:18→20:51)
[2017-05-01] MEDS: METOPROLOL TART IMMED RELEASE 25 MG TABLET PO SCH ×2 (08:18→16:06)
[2017-05-01] MEDS: LISINOPRIL 10 MG TABLET PO SCH (08:18)
[2017-05-01] MEDS: OXYBUTYNIN CHLORIDE 5 MG TABLET PO SCH ×2 (08:18→20:52)
[2017-05-01] MEDS: LORazepam 1 MG TABLET PO SCH ×3 (08:18→20:51)
[2017-05-01] MEDS: PSYLLIUM SEED (WITH SUGAR) PACKET. PO SCH (08:20)
[2017-05-01] MEDS: CHOLECALCIFEROL (VITAMIN D3) 1,000 UNIT TABLET PO SCH (08:20)
[2017-05-01] MEDS: ASPIRIN ENTERIC COATED 325 MG TABLET.DR. PO SCH (08:20)
[2017-05-01] MEDS: VANCOMYCIN PER PHARMACY MC PRN (09:44)
[2017-05-01] MEDS: VANCOMYCIN 1.25 GM in IV NORMAL SALINE 250ML 250 ML IV SCH (11:20)
[2017-05-01 11:38] VITALS: BP 118/60
[2017-05-01 15:06] VITALS: BP 155/78
[2017-05-01 19:25] VITALS: BP 178/82
[2017-05-01] MEDS: cloZAPine 100 MG TABLET PO SCH (20:51)
[2017-05-01] MEDS: FINASTERIDE 5 MG TABLET PO SCH (20:52)
[2017-05-01] MEDS: LOXAPINE SUCCINATE 25 MG CAPSULE PO SCH (20:52)
--- NOTE | 2017-05-01 21:31 | PDOC ---
Exam José Miguel Demential Exam: José Miguel Note: Please also refer to the separate dictated note~for this date of service dictated separately.~Patient seen individually. Discussed the patient with Nursing staff reviewed the chart.~Reviewed interim history and current functioning. Reviewed vital signs,~Labs/ Radiology~and current medications noted below. Continue current treatment with the changes noted in the dictated addendum note Assessment: Vital Signs: Vital Signs Date Time Temp Pulse Resp B/P (MAP) Pulse Ox O2 Delivery O2 Flow Rate FiO2 05/01/17 19:25 98.9 20 178/82 (114) 94 Room Air 05/01/17 16:06 58 05/01/17 08:44 3.5 I&O Intake and Output 05/02/17 07:00 Intake Total 0 ml Output Total 375 ml Balance -375 ml Intake Oral 0 ml Output Urine Total 375 ml # Bowel Movements 1 Labs: Laboratory Tests Test 04/30/17 22:25 05/01/17 06:04 Vancomycin Level Trough 19.3 mcg/mL (10.0-20.0) Vancomycin Last Dose Date 04/30/17 Vancomycin Last Dose Time 1100 White Blood Count 9.4 x10^3/uL (4.0-11.0) Red Blood Count 2.97 x10^6/uL (4.30-5.70) L Hemoglobin 10.1 g/dL (13.0-17.5) L Hematocrit 29.3 % (39.0-53.0) L Mean Corpuscular Volume 99 fL (79-100) Mean Corpuscular Hemoglobin 34 pg (25-35) Mean Corpuscular Hemoglobin Concent 34 g/dL (31-37) Red Cell Distribution Width 12.9 % (11.5-14.5) Platelet Count 183 x10^3/uL (140-400) Sodium Level 142 mmol/L (136-145) Potassium Level 3.7 mmol/L (3.5-5.1) Chloride Level 106 mmol/L (98-107) Carbon Dioxide Level 32 mmol/L (21-32) Anion Gap 4 (6-14) L Blood Urea Nitrogen 19 mg/dL (8-26) Creatinine 1.1 mg/dL (0.7-1.3) Estimated GFR (Cockcroft-Gault) 65.1 BUN/Creatinine Ratio 17 (6-20) Glucose Level 86 mg/dL (70-99) Calcium Level 8.2 mg/dL (8.5-10.1) L Total Bilirubin 0.5 mg/dL (0.2-1.0) Aspartate Amino Transferase (AST) 10 U/L (15-37) L Alanine Aminotransferase (ALT) 11 U/L (16-63) L Alkaline Phosphatase 61 U/L (46-116) Total Protein 6.0 g/dL (6.4-8.2) L Albumin 2.4 g/dL (3.4-5.0) L Albumin/Globulin Ratio 0.7 (1.0-1.7) L Current Medications: Meds: Current Medications Furosemide (Lasix) 40 mg 1X ONCE IVP Last administered on 04/29/17 09:08; Start 04/29/17 at 08:30; Stop 04/29/17 at 08:31; Status DC Levofloxacin/ Dextrose 150 ml @ 150 mls/hr Q24H IV Last administered on 08:17; Start 04/29/17 at 09:00 Vancomycin HCl (Vanco Per Pharmacy) 1 each PRN DAILY PRN MC SEE COMMENTS Last administered on 05/01/17 09:44; Start 04/29/17 at 08:15; Stop 05/01/17 at 12:16 ; Status DC Piperacillin Sod/ Tazobactam Sod 3.375 gm/Sodium Chloride 50 ml @ 100 mls/hr Q8H IV Last administered on 05/01/17 17:34; Start 04/29/17 at 10:00 Albuterol/ Ipratropium (Duoneb) 3 ml RTQID NEB Last administered on 05/01/17 15:16; Start 04/29/17 at 12:00 Vancomycin HCl 2 gm/Sodium Chloride 500 ml @ 250 mls/hr 1X ONCE IV Last administered on 04/29/17 11:49; Start 04/29/17 at 11:00; Stop 04/29/17 at 12:59 ; Status DC Vancomycin HCl 1.25 gm/Sodium Chloride 250 ml @ 167 mls/hr Q12H IV Last administered on 05/01/17 11:20; Start 04/29/17 at 23:00; Stop 05/01/17 at 12:27 ; Status DC Vancomycin HCl 1 each 1X ONCE MC Last administered on 04/30/17 22:30; Start 04/30/17 at 22:30; Stop 05/01/17 at 12:16; Status DC Lorazepam (Ativan) 1 mg TID PO Last administered on 05/01/17 20:51; Start 08/03 at 09:00; Stop 05/01/17 at 22:00 Lorazepam (Ativan) 0.5 mg DAILY PO ; Start 05/02/17 at 09:00; Stop 05/04/17 at 09:01 Lorazepam (Ativan) 1 mg BID@1400,2100 PO ; Start 05/02/17 at 14:00; Stop at 21:01 Lorazepam (Ativan) 1 mg BID PO ; Start 05/05/17 at 09:00; Stop 05/08/17 at 08:59 Lorazepam (Ativan) 0.5 mg DAILY PO ; Start 05/08/17 at 09:00 Lorazepam (Ativan) 1 mg HS PO ; Start 05/08/17 at 21:00 Enoxaparin Sodium (Lovenox) 40 mg Q24H SQ Last administered on 05/01/17 08:17 ; Start 04/29/17 at 09:30 Aspirin (Aspirin Enteric Coated) 325 mg DAILY PO ; Start 04/30/17 at 09:00 Benztropine Mesylate (Cogentin) 0.5 mg BID PO Last administered on 05/01/17 20 :51; Start 04/29/17 at 21:00 Vitamin D (Vitamin D3) 2,000 unit DAILY PO ; Start 04/30/17 at 09:00 Clozapine (Clozaril) 100 mg HS PO Last administered on 05/01/17 20:51; Start 04/29/17 at 21:00 Divalproex Sodium (Depakote Sprinkles) 750 mg BID PO Last administered on 20:52; Start 04/29/17 at 21:00 Ferrous Sulfate (Feosol) 325 mg DAILYAC PO ; Start 04/30/17 at 07:30 Finasteride (Proscar) 5 mg HS PO Last administered on 05/01/17 20:52; Start at 21:00 Haloperidol (Haldol) 5 mg PRN QID PRN PO ANXIETY / AGITATION; Start 04/29/17 at 14:15 Lisinopril (Prinivil) 10 mg DAILY PO Last administered on 05/01/17 08:18; Start 04/30/17 at 09:00 Metoprolol Tartrate (Lopressor) 25 mg BIDWMEALS PO Last administered on 08:18; Start 04/29/17 at 17:00 Morphine Sulfate (Ms Contin) 15 mg DAILY PO Last administered on 05/01/17 08: 17; Start 04/30/17 at 09:00 Oxybutynin Chloride (Ditropan) 5 mg BID PO Last administered on 05/01/17 20:52 ; Start 04/29/17 at 21:00 Senna/Docusate Sodium (Senna Plus) 2 tab PRN BID PRN PO CONSTIPATION; Start 08/03 at 14:15 Clomipramine HCl (Anafranil) 150 mg HS PO Last administered on 05/01/17 20:51 ; Start 04/29/17 at 21:00 Loxapine Succinate (Loxitane) 150 mg HS PO Last administered on 05/01/17 20:52 ; Start 04/29/17 at 21:00 Pantoprazole Sodium (Protonix) 40 mg DAILYAC PO ; Start 04/30/17 at 07:30 Psyllium Hydrophilic Mucilloid (Metamucil) 1 pkt DAILY PO ; Start 04/30/17 at 09 :00 Acetaminophen (Tylenol) 650 mg PRN Q6HRS PRN PO FEVER; Start 04/29/17 at 14:15 Haloperidol Lactate (Haldol) 5 mg PRN Q4HRS PRN IVP AGITATION Last administered on 04/30/17 22:34; Start 04/29/17 at 16:45; Stop 04/30/17 at 23:07 ; Status DC Haloperidol Lactate (Haldol) 5 mg Q4HRS IVP Last administered on 05/01/17 20: 50; Start 05/01/17 at 02:30 Sodium Chloride 500 ml @ As Directed STK-MED ONCE .ROUTE ; Start 05/01/17 at 00 :03; Stop 05/01/17 at 00:04; Status DC Vancomycin HCl 1 each 1X ONCE MC ; Start 05/02/17 at 10:30; Stop 05/02/17 at 10 :30; Status DC Active Scripts Active Reported Tylenol (Acetaminophen) 325 Mg Tablet 2 Tab PO PRN Q6HRS PRN Clozapine 100 Mg Tablet 100 Mg PO HS Depakote Sprinkle (Divalproex Sodium) 125 Mg Cap.sprink 750 Mg PO BID Metamucil (Psyllium Husk) 660 Gm Powder 1 Packet PO DAILY Oxybutynin Chloride 5 Mg Tablet 5 Mg PO BID Omeprazole 40 Mg Capsule.dr 40 Mg PO DAILY Morphine Sulfate Er (Morphine Sulfate) 15 Mg Tablet.er 15 Mg PO DAILY Metoprolol Tartrate 25 Mg Tablet 25 Mg PO BIDWMEALS Loxapine (Loxapine Succinate) 50 Mg Capsule 150 Mg PO HS Lisinopril 10 Mg Tablet 10 Mg PO DAILY Haloperidol 5 Mg Tablet 5 Mg PO PRN QID PRN Finasteride 5 Mg Tablet 5 Mg PO HS Ferrous Sulfate 325 Mg Tablet 324 Mg PO DAILYAC Senna S Tablet (Sennosides/Docusate Sodium) 1 Each Tablet 2 Tab PO PRN BID PRN Clomipramine Hcl 75 Mg Capsule 150 Mg PO HS Vitamin D3 (Cholecalciferol (Vitamin D3)) 1,000 Unit Tablet 2,000 Unit PO DAILY Benztropine Mesylate 0.5 Mg Tablet 0.5 Mg PO BID Aspirin Ec (Aspirin) 325 Mg Tablet.dr 325 Mg PO DAILY Diagnosis: Problems: (1) Anxiety disorder (2) Impulse control disorder (3) Obsessive compulsive disorder (4) Schizoaffective disorder (5) Mild cognitive disorder (6) Schizophrenia, disorganized, subchronic with acute exacerbation SHAKIR PAEZ MD May 01, 2017 21:31
[2017-05-02 01:00] VITALS: BP 126/52
[2017-05-02] MEDS: PIPERACILLIN/TAZOBACTAM 3.375 GM in IV NORMAL SALINE 50ML 50 ML IV SCH ×2 (01:27→08:38)
[2017-05-02] MEDS: HALOPERIDOL LACT 5 MG/ML VIAL. IVP SCH ×6 (01:27→15:45)
--- NOTE | 2017-05-02 02:00 | PN ---
DATE: 04/30/2017 PSYCHIATRIC PROGRESS NOTE This is a late entry for date of service, 04/30, covers the elements not covered in my initial note of 04/30. SUBJECTIVE: I met with the patient evening of 04/30. Discussed with nursing staff, reviewed the chart. Overall, the patient per nursing report has done "better" from a psychiatric standpoint on 04/30 as compared to 04/29. He seems less confused, less irritable, less labile, less psychotic. Medically, he is improving as well. REVIEW OF SYSTEMS: Positive for impaired ambulation and tiredness. No CV, , eye, ENT system symptoms on review. MENTAL STATUS EXAM: The patient seemed to recognize me. Speech, low in volume, coherent, abstraction fair, computation impaired, language function intact. Attention span short, seems less psychotic, but still somewhat paranoid as I questioned him. LABORATORY DATA: Reviewed. No suicidal or homicidal ideation. IMPRESSION: Unchanged from initial note. PLAN: Continue current psychotropics noted in my initial note. Ativan is being tapered. SHAKIR PAEZ MD DR: MELISA/marvel JOB#: [id number] / [id number]
--- NOTE | 2017-05-02 03:41 | PN ---
DATE: 05/01/2017 SUBJECTIVE: The patient is resting slightly propped up in bed, in no apparent distress. He is definitely more awake, alert, complaining that he has difficulty finding words. He was seen by the speech therapist and is now on dysphagia 1 with a thickened liquid. His oxygen saturation is 94% on room air. PHYSICAL EXAMINATION: GENERAL: When I examined him, he looked pale, but not jaundiced, cyanosis or thyromegaly. No jugular venous distention. No limb edema. VITAL SIGNS: His heart rate was 68, blood pressure was 118/60, temperature was 98.6, respiratory rate was 18 and oxygen saturation was 94% on room air. HEAD, EYES, EARS, NOSE AND THROAT: Showed normocephalic, atraumatic. NECK: Supple. HEART: Showed normal first and second heart sounds with no gallop, rub or murmur. CHEST: Shows central trachea, equal bilateral expansion, air entry, vesicular sounds. The crepitation mostly in the right side posteriorly. I could not appreciate any rhonchi. ABDOMEN: Slightly distended, soft, nontender. No guarding or rigidity. No organomegaly. All hernial orifices intact. Bowel sounds normal. NEUROLOGIC: He was definitely more awake, alert. All his cranial nerves are intact. He moves extremities without difficulty, although he is mostly bed bound and chair bound. His intake over the last 24 hours was 800, output was 1750. LABORATORY DATA: Her lab work this morning showed a white cell count of 9400, hemoglobin 10, hematocrit 29, MCV 99, and platelet count 203,000. His chemistry showed a serum sodium 142, potassium 3.7, chloride 106, bicarbonate 32, anion gap of 4, BUN 19, creatinine 1.1, estimated GFR was 65 mL per minute. His glucose was 86, calcium was 8.2. Total bilirubin, AST, ALT, alkaline phosphatase were normal. Total protein was 6, albumin 2.4. ASSESSMENT: 1. Aspiration pneumonia which was treated triple antibiotic. His blood culture is negative, so I discontinued his vancomycin. 2. Dysphagia for which he was seen again today by the speech therapist and he is now on a dysphagia 1 nectar thickened liquid diet. 3. Benign prostatic hypertrophy requiring indwelling Moreno catheter. 4. Hypertension, seems to be well controlled. 5. Anemia that is normochromic, normocytic. 6. Hepatitis C; however, his liver enzymes are normal. 7. Gastroesophageal reflux disease. 8. History of deep vein thrombosis and pulmonary embolism, although he is currently on no anticoagulation. 9. History of recurrent urinary tract infection. 10. Schizophrenia. 11. Obsessive compulsive disorder. 12. Hypokalemia, has resolved. His serum potassium is up to 3.7. 13. Acute kidney injury, resolving. 14. Severe protein calorie malnutrition with serum albumin is 2.4 g/dL. PLAN: To continue with IV Zosyn and Levaquin. He will eventually be switched to probably Augmentin tomorrow and will be [facility] stabilization. KIRA ALMAZAN MD DR: NADEEM/marvel JOB#: [id number] / [id number]
[2017-05-02 05:00] VITALS: BP 138/57
[2017-05-02] MEDS ORDERED: FERROUS SULFATE 325 MG TABLET. PO ONE (08:10)
[2017-05-02] MEDS: OXYBUTYNIN CHLORIDE 5 MG TABLET PO SCH (08:16)
[2017-05-02] MEDS: FERROUS SULFATE 325 MG TABLET PO SCH (08:16)
[2017-05-02] MEDS: CHOLECALCIFEROL (VITAMIN D3) 1,000 UNIT TABLET PO SCH (08:16)
[2017-05-02] MEDS: DIVALPROEX 125 MG CAP.SPRINK PO SCH (08:17)
[2017-05-02] MEDS: MORPHINE ER 15 MG TABLET.ER PO SCH (08:18)
[2017-05-02] MEDS: ENOXAPARIN 40 MG/0.4 ML DISP.SYRIN. SQ SCH (08:18)
[2017-05-02] MEDS: ASPIRIN ENTERIC COATED 325 MG TABLET.DR. PO SCH (08:19)
[2017-05-02] MEDS: BENZTROPINE MESYLATE 0.5 MG TABLET PO SCH (08:19)
[2017-05-02] MEDS: PANTOPRAZOLE 40 MG TABLET. PO SCH (08:19)
[2017-05-02] MEDS: LISINOPRIL 10 MG TABLET PO SCH (08:23)
[2017-05-02] MEDS: PSYLLIUM SEED (WITH SUGAR) PACKET. PO SCH (08:24)
[2017-05-02] MEDS: METOPROLOL TART IMMED RELEASE 25 MG TABLET PO SCH (08:38)
[2017-05-02 08:57] VITALS: BP 100/65
[2017-05-02] MEDS ORDERED: LORazepam 0.5 MG TABLET PO SCH (09:00)
[2017-05-02] MEDS: IPRATRPIUM/ALBUTEROL 0.5/2.5MG 3 ML NEBU. NEB SCH ×2 (09:09→12:00)
[2017-05-02 10:00] LABS: BASO % 0 % (0-3); EOS # 0.2 x10^3/uL (0.0-0.7); EOS % 2 % (0-3); HEMATOCRIT 29.4 % (39.0-53.0); HEMOGLOBIN 10.1 g/dL (13.0-17.5); LYMPH # 0.9 x10^3/uL (1.0-4.8); LYMPH % 10 % (24-48); MEAN CORPUSCULAR HEMOGLOBIN 34 pg (25-35); MEAN CORPUSCULAR HGB CONC 34 g/dL (31-37); MEAN CORPUSCULAR VOLUME 99 fL (79-100); MONO # 1.1 x10^3/uL (0.0-1.1); MONO % 11 % (0-9); NEUT # 7.5 x10^3uL (1.8-7.7); NEUT % 76 % (31-73); PLATELET COUNT 195 x10^3/uL (140-400); RED BLOOD COUNT 2.97 x10^6/uL (4.30-5.70); RED CELL DISTRIBUTION WIDTH 12.9 % (11.5-14.5); WHITE BLOOD COUNT 9.8 x10^3/uL (4.0-11.0)
[2017-05-02 10:12] LABS: CALCIUM 8.5 mg/dL (8.5-10.1); CREATININE 1.1 mg/dL (0.7-1.3); GFR 65.1; MAGNESIUM 1.8 mg/dL (1.8-2.4); POTASSIUM 3.5 mmol/L (3.5-5.1)
[2017-05-02 13:28] VITALS: BP 158/79
[2017-05-02 13:36] VITALS: BP 150/68
[2017-05-02] MEDS ORDERED: LORazepam 1 MG TABLET PO SCH (14:00)
[2017-05-02] MEDS ORDERED: AMOX1TAB61 PO (14:34)
[2017-05-02] MEDS ORDERED: AMOXICILLIN/K CLAV 875/125MG TABLET. PO SCH (21:00)
--- NOTE | 2017-05-03 00:25 | DS ---
DATE OF DISCHARGE: 05/02/2017 HOSPITAL COURSE: The patient is a 76-year-old male patient who was transferred from [facility] on 04/29 on the account of extreme lethargy and unresponsiveness. He was noted to be hypoxic, found to be fluid overloaded. His lab work showed a white cell count elevated. Chest x-ray showed that he has right-sided perihilar infiltrate. He was admitted to the ICU with diagnosis of healthcare-associated pneumonia and was started on triple antibiotic in the form of vancomycin, Zosyn and levofloxacin. His blood cultures were negative and therefore we discontinued his vancomycin. He was continued on IV Levaquin and Zosyn. His level of consciousness has improved and he did well in his video swallowing evaluation and he is now more awake, alert, eating and drinking, though he continued to be somewhat confused. He remained afebrile. White blood count has normalized. His kidney function also improved as he was relatively dehydrated. His BUN and creatinine came down to 18 and 1.1 from 26 and 1.4 and as he became stable, medical decision was made to transfer him upstairs to [facility] for inpatient psychiatry to continue with inpatient psychiatric stabilization. PHYSICAL EXAMINATION: GENERAL: When I saw him this afternoon, he looked well and was clearly in no apparent respiratory distress. He was pale, but no jaundice, cyanosis or thyromegaly. No jugular venous distention. No limb edema. VITAL SIGNS: His heart rate was 85, blood pressure was 150/68, temperature was 98.3, respiratory rate 20, and oxygen saturation was 92%. HEAD, EYES, EARS, NOSE AND THROAT: Showed normocephalic, atraumatic. NECK: Supple. HEART: Showed normal first and second heart sounds with no gallop, rub or murmur. CHEST: Clear to auscultation. No crepitation or rhonchi. ABDOMEN: Distended, soft, nontender. NEUROLOGIC: He was awake, alert, but confused, difficult to understand him, but generally all his cranial nerves were intact. He moves extremities without difficulty, although he is mostly bed-bound and chair-bound. His intake over the last 24 hours was 840, output was 725. LABORATORY DATA: This morning showed a serum sodium 142, potassium 3.5, chloride 106, bicarbonate 31, anion gap of 5, BUN 18, creatinine 1.1, estimated GFR was 65 mL per minute. His glucose was 134, calcium was 8.5, magnesium was 1.8. Total bilirubin, AST, ALT, alkaline phosphatase were normal. Total protein 6, albumin 2.4. His white cell count was 9800; hemoglobin 10; hematocrit 29; MCV 99 and platelet count of 195,000. DISCHARGE MEDICATIONS: He was discharged on following medications: Augmentin 875/125 one tablet twice a day for 7 days, acetaminophen 650 mg every 6 hours, aspirin 325 mg daily, benztropine mesylate 0.5 mg p.o. b.i.d., vitamin D3 2000 international units once a day, glimepiride 150 mg at bedtime, clozapine 100 mg at bedtime for psychosis, divalproex sodium 750 mg p.o. b.i.d., ferrous sulfate 325 mg daily, finasteride 5 mg daily at bedtime, Haldol 5 mg 4 times a day for anxiety and agitation, lisinopril 10 mg once a day, loxapine succinate 150 mg at bedtime for schizophrenia, metoprolol tartrate 25 mg p.o. b.i.d. with meals, morphine sulfate extended release 15 mg once a day, omeprazole 40 mg daily, oxybutynin chloride 5 mg p.o. b.i.d. psyllium husk or Metamucil 1 packet daily for constipation, Senna-S 2 tablets p.o. b.i.d. for constipation. FINAL DISCHARGE DIAGNOSES: Altered toxic metabolic encephalopathy, acute hypoxic respiratory failure, healthcare-associated pneumonia. Other medical problems including recurrent urinary tract infection, hyperlipidemia, gastroesophageal reflux disease, history of pulmonary embolism, atrioventricular block status post permanent pacemaker placement, hypertension, benign prostatic hypertrophy, normochromic normocytic anemia, hepatitis C, hearing loss, severe protein-calorie malnutrition. He also has history of schizophrenia and obsessive compulsive disorder. KIRA ALMAZAN MD DR: NADEEM/marvel JOB#: [id number] / [id number]
--- NOTE | 2017-05-03 02:11 | PN ---
DATE: 05/01/2017 PSYCHIATRIC PROGRESS NOTE This is a late entry for 05/01/2017, covers elements not covered in my initial note of 05/01/2017. SUBJECTIVE: I met with the patient the evening of 05/01/2017. Discussed with nursing staff. Overall, the patient has been more anxious, restless, trying to get out of his bed, not aggressive, however. REVIEW OF SYSTEMS: Ambulation impaired. No CV, , pulmonary, eye, ENT system symptoms on review. Reliability poor. MENTAL STATUS EXAM: Oriented to himself. Insight limited, judgment marginal, language function intact, attention span short, short-term memory is impaired, somewhat paranoid, as I met with him individually, but no active hallucinations. No suicidal or homicidal ideation. LABORATORY DATA: Reviewed. IMPRESSION: Unchanged from initial note. PLAN: Continue psychotropics as mentioned in my initial note. We will [facility] once medically stable. Continue to adjust his Clozaril with therapeutic level. Ultimately discontinue the Loxitane. Rest will be continued unchanged for now. MAN Ravi PAEZ MD DR: MELISA/marvel JOB#: [id number] / [id number]
[2017-05-05] MEDS ORDERED: LORazepam 1 MG TABLET PO SCH (09:00)
[2017-05-08] MEDS ORDERED: LORazepam 0.5 MG TABLET PO SCH (09:00)
[2017-05-08] MEDS ORDERED: LORazepam 1 MG TABLET PO SCH (21:00)
== END 2017-05-02 16:45 | disposition home or self-care (01) | DRG 177 ==
LOC: ICU 07:05
PROVIDERS: ADMIT Internal Medicine; ATTEND Internal Medicine
DX: J69.0 Pneumonitis due to inhalation of food and vomit (principal); J96.01 Acute respiratory failure with hypoxia; E43 Unspecified severe protein-calorie malnutrition; G92 Toxic encephalopathy; N17.9 Acute kidney failure, unspecified; D64.9 Anemia, unspecified; E86.0 Dehydration; E87.70 Fluid overload, unspecified; F20.1 Disorganized schizophrenia; K21.9 Gastro-esophageal reflux disease without esophagitis; I10 Essential (primary) hypertension; E78.5 Hyperlipidemia, unspecified; B19.20 Unspecified viral hepatitis C without hepatic coma; F42.9 Obsessive-compulsive disorder, unspecified; E55.9 Vitamin D deficiency, unspecified; F41.9 Anxiety disorder, unspecified; F63.9 Impulse disorder, unspecified; H91.90 Unspecified hearing loss, unspecified ear; N40.1 Benign prostatic hyperplasia with lower urinary tract symptoms; N39.498 Other specified urinary incontinence; F91.9 Conduct disorder, unspecified; E87.6 Hypokalemia; Z87.440 Personal history of urinary (tract) infections; Z86.711 Personal history of pulmonary embolism; Z95.0 Presence of cardiac pacemaker; Z79.899 Other long term (current) drug therapy; Z79.82 Long term (current) use of aspirin; Z86.718 Personal history of other venous thrombosis and embolism; Z88.8 Allergy status to other drugs, medicaments and biological substances; Z68.24 Body mass index [BMI] 24.0-24.9, adult
CPT/HCPCS: 36415; 80048; 80053; 80202; 82947; 83735; 85025; 85027; 87040; 87641; 92526; 94640; J1630; J1650; J1940; J1956; J2543; J3370; J7040; J7050; J7620; 92610; 97116; 97530

== ENCOUNTER 2017-05-02 16:45 | Inpatient (IN) | payer MEDICARE, OTHER ==
[~2017-05-02] VITALS: Ht 188 cm; Wt 69.2 kg
[~2017-05-02 16:45] MED LIST changes: +ACET325T9 PO; +AMOX1TAB61 PO; +CLOZ100T7 PO; +DIVA125C PO
--- NOTE | 2017-05-02 17:00 | NUR ---
Patient arrived on unit via wheelchair from ICU accompanied by patient belongings. VS obtained, patient assessed, photo taken for ID, and order set entered. Will monitor patient for behaviours.
[2017-05-02] MEDS ORDERED: HALOPERIDOL 5 MG TABLET PO PRN (18:30)
[2017-05-02] MEDS ORDERED: ACETAMINOPHEN 325 MG TABLET PO PRN (18:30)
--- NOTE | 2017-05-02 18:30 | NUR ---
Patient was in rm 209 repeatedly running his wheelchair in to a corner stating that he needed to get on the elevator. Patient placed in day room, will monitor for behaviours.
[2017-05-02] MEDS ORDERED: Influenza vaccine per PROTOCOL. MC PRN (19:15)
--- NOTE | 2017-05-02 20:15 | PDOC ---
Exam José Miguel Demential Exam: José Miguel Note: Please also refer to the separate dictated note~for this date of service dictated separately.~Patient seen individually. Discussed the patient with Nursing staff reviewed the chart.~Reviewed interim history and current functioning. Reviewed vital signs,~Labs/ Radiology~and current medications noted below. Continue current treatment with the changes noted in the dictated addendum note Current Medications: Meds: Current Medications Benztropine Mesylate (Cogentin) 0.5 mg BID PO ; Start 05/02/17 at 21:00 Clozapine (Clozaril) 100 mg HS PO ; Start 05/02/17 at 21:00 Divalproex Sodium (Depakote Sprinkles) 750 mg BID PO ; Start 05/02/17 at 21:00 Haloperidol (Haldol) 5 mg PRN QID PRN PO ANXIETY / AGITATION; Start 05/02/17 at 18:30 Clomipramine HCl (Anafranil) 150 mg HS PO ; Start 05/02/17 at 21:00 Loxapine Succinate (Loxitane) 150 mg HS PO ; Start 05/02/17 at 21:00 Acetaminophen (Tylenol) 650 mg PRN Q6HRS PRN PO FEVER; Start 05/02/17 at 18:30 Amoxicillin/ Clavulanate Potassium (Augmentin 875/ 125mg) 1 tab BID PO ; Start 05/02/17 at 21:00 Aspirin (Aspirin Enteric Coated) 325 mg DAILY PO ; Start 05/03/17 at 09:00 Vitamin D (Vitamin D3) 2,000 unit DAILY PO ; Start 05/03/17 at 09:00 Ferrous Sulfate (Feosol) 325 mg DAILYAC PO ; Start 05/03/17 at 07:30 Finasteride (Proscar) 5 mg HS PO ; Start 05/02/17 at 21:00 Lisinopril (Prinivil) 10 mg DAILY PO ; Start 05/03/17 at 09:00 Metoprolol Tartrate (Lopressor) 25 mg BIDWMEALS PO ; Start 05/03/17 at 08:00 Morphine Sulfate (Ms Contin) 15 mg DAILY PO ; Start 05/03/17 at 09:00 Oxybutynin Chloride (Ditropan) 5 mg BID PO ; Start 05/02/17 at 21:00 Senna/Docusate Sodium (Senna Plus) 2 tab PRN BID PRN PO CONSTIPATION; Start at 18:30 Pantoprazole Sodium (Protonix) 40 mg DAILY PO ; Start 05/03/17 at 09:00 Psyllium Hydrophilic Mucilloid (Metamucil) 1 pkt DAILY PO ; Start 05/03/17 at 09 :00 Info (FLU VACCINE per PROTOCOL) 1 ea PRN 1X PRN MC PER PROTOCOL; Start at 19:15; Status UNV Active Scripts Active Augmentin 875-125 Tablet (Amoxicillin/Potassium Clav) 1 Each Tablet 1 Tab PO BID Reported Tylenol (Acetaminophen) 325 Mg Tablet 2 Tab PO PRN Q6HRS PRN Clozapine 100 Mg Tablet 100 Mg PO HS Depakote Sprinkle (Divalproex Sodium) 125 Mg Cap.sprink 750 Mg PO BID Metamucil (Psyllium Husk) 660 Gm Powder 1 Packet PO DAILY Oxybutynin Chloride 5 Mg Tablet 5 Mg PO BID Omeprazole 40 Mg Capsule.dr 40 Mg PO DAILY Morphine Sulfate Er (Morphine Sulfate) 15 Mg Tablet.er 15 Mg PO DAILY Metoprolol Tartrate 25 Mg Tablet 25 Mg PO BIDWMEALS Loxapine (Loxapine Succinate) 50 Mg Capsule 150 Mg PO HS Lisinopril 10 Mg Tablet 10 Mg PO DAILY Haloperidol 5 Mg Tablet 5 Mg PO PRN QID PRN Finasteride 5 Mg Tablet 5 Mg PO HS Ferrous Sulfate 325 Mg Tablet 324 Mg PO DAILYAC Senna S Tablet (Sennosides/Docusate Sodium) 1 Each Tablet 2 Tab PO PRN BID PRN Clomipramine Hcl 75 Mg Capsule 150 Mg PO HS Vitamin D3 (Cholecalciferol (Vitamin D3)) 1,000 Unit Tablet 2,000 Unit PO DAILY Benztropine Mesylate 0.5 Mg Tablet 0.5 Mg PO BID Aspirin Ec (Aspirin) 325 Mg Tablet.dr 325 Mg PO DAILY Diagnosis: Problems: (1) Anxiety disorder (2) Impulse control disorder (3) Obsessive compulsive disorder (4) Schizoaffective disorder (5) Schizophrenia, disorganized, subchronic with acute exacerbation SHAKIR PAEZ MD May 02, 2017 20:15
[2017-05-02] MEDS: cloZAPine 100 MG TABLET PO SCH (20:21)
[2017-05-02] MEDS: FINASTERIDE 5 MG TABLET PO SCH (20:21)
[2017-05-02] MEDS: DIVALPROEX 125 MG CAP.SPRINK PO SCH (20:21)
[2017-05-02] MEDS: BENZTROPINE MESYLATE 0.5 MG TABLET PO SCH (20:21)
[2017-05-02] MEDS: OXYBUTYNIN CHLORIDE 5 MG TABLET PO SCH (20:21)
[2017-05-02] MEDS: AMOXICILLIN/K CLAV 875/125MG TABLET. PO SCH (20:21)
--- NOTE | 2017-05-02 21:56 | NUR ---
Behavior Intervention Response and Plan: BIRP Note: Behavior: Assumed Care of patient, patient located in Day Room at shift change. Patient exhibited the following behavior Compliant, Cooperative, Appropriate. Brief assessment on rounds of vital signs, medication needs, lab studies, and pain. Treatment plan problems 1-2. Intervention: Patient assessed and the following interventions initiated safety checks 15 Minute Checks Cognitive Assessment , Head to toe Assessment , Medications. Response: After interactions and interventions patient responded in the following manner, Compliant , Cooperative ,Appropriate. Continue to assess behaviors and condition will continue to monitor throughout the shift as needed. Patient educated on ADL's, and hand hygiene. Plan: Continue to monitor Master Treatment Plan for patient's progress toward short term goals of Decreased Agitation, Improved Mood, termite helper goals to return to previous living setting vs placement. Continue to assess patient for changes in above assessment. Monitor for medication needs, pain, and safety concerns. Hourly rounding performed to ensure safe environment.
[2017-05-02 23:10] VITALS: BP 164/68
[2017-05-02] MEDS: LOXAPINE SUCCINATE 25 MG CAPSULE PO SCH (23:21)
[2017-05-03 06:02] VITALS: BP 190/90
[2017-05-03] MEDS: FERROUS SULFATE 325 MG TABLET PO SCH (07:30)
[2017-05-03] MEDS: OXYBUTYNIN CHLORIDE 5 MG TABLET PO SCH ×2 (07:56→19:42)
[2017-05-03] MEDS: BENZTROPINE MESYLATE 0.5 MG TABLET PO SCH ×2 (07:56→19:42)
[2017-05-03] MEDS: AMOXICILLIN/K CLAV 875/125MG TABLET. PO SCH ×2 (07:56→19:42)
[2017-05-03] MEDS: DIVALPROEX 125 MG CAP.SPRINK PO SCH ×2 (07:57→19:42)
[2017-05-03] MEDS: PSYLLIUM SEED (WITH SUGAR) PACKET. PO SCH (07:59)
[2017-05-03] MEDS: CHOLECALCIFEROL (VITAMIN D3) 1,000 UNIT TABLET PO SCH (08:00)
[2017-05-03] MEDS: SENNOSIDES/DOCUSATE 8.6/50MG TABLET. PO PRN (08:00)
[2017-05-03] MEDS: PANTOPRAZOLE 40 MG TABLET. PO SCH (08:00)
[2017-05-03] MEDS: MORPHINE ER 15 MG TABLET.ER PO SCH (08:00)
[2017-05-03] MEDS: ASPIRIN ENTERIC COATED 325 MG TABLET.DR. PO SCH (08:00)
[2017-05-03] MEDS: METOPROLOL TART IMMED RELEASE 25 MG TABLET PO SCH ×3 (08:00→19:43)
--- NOTE | 2017-05-03 08:00 | NUR ---
Administered PRN Senna patient does not have a documented BM since 04/25. Will continue to monitor.
--- NOTE | 2017-05-03 08:10 | NUR ---
Behavior Intervention Response and Plan: BIRP Note: Behavior: Assumed Care of patient, patient located in Dining Room at shift change. Patient exhibited the following behavior Calm, Disorganized, Appropriate. Brief assessment on rounds of vital signs, medication needs, lab studies, and pain. Treatment plan problems . Intervention: Patient assessed and the following interventions initiated safety checks 15 Minute Checks Head to toe Assessment , Medications , Cognitive Assessment. Response: After interactions and interventions patient responded in the following manner, Cooperative , Compliant ,Able to Focus on Task. Continue to assess behaviors and condition will continue to monitor throughout the shift as needed. Patient educated on ADL's, and hand hygiene. Plan: Continue to monitor Master Treatment Plan for patient's progress toward short term goals of Improved Mood, Decreased Agitation, custodial goals to return to previous living setting vs placement. Continue to assess patient for changes in above assessment. Monitor for medication needs, pain, and safety concerns. Hourly rounding performed to ensure safe environment.
[2017-05-03] MEDS ORDERED: LISINOPRIL 10 MG TABLET PO SCH (09:00)
[2017-05-03] MEDS ORDERED: FLU VACC QS2017-18 (36MOS+)/PF 0.5 ML SYRINGE. VAX IM ONE (09:00)
--- NOTE | 2017-05-03 10:46 | HP ---
ADMIT DATE: 05/02/2017 This is a late entry on 05/02/2017, covers the elements not covered in my initial note of 05/02/2017. IDENTIFYING DATA: The patient is a 76-year-old male who was referred back to us from the ICU of [facility] where he was transferred while on our unit being treated for his schizoaffective disorder, bipolar type, mixed versus schizophrenia. He developed a cough, which was productive and he is having difficulty swallowing, transferred by Dr. Church for medical stabilization. He has been medically stabilized, continued to be quite psychotic, paranoid, intermittently agitated, restless, needing inpatient psychiatric restabilization, referred back to us for inpatient hospitalization. The patient has been on Clozaril, which we will gradually increasing and during his most recent psychiatric hospitalization, I had discontinue the Abilify, which he was taking up to 30 mg a day, then I had reduced the Loxitane to almost half the previous dosage as we adjusted the Clozaril. Further adjustments in the psychotropics were deemed necessary due to the ongoing problems, thus resulting in this referral. CHIEF COMPLAINT: "I am okay. How are you?" HISTORY OF PRESENT ILLNESS: The patient has a history of schizoaffective disorder, bipolar type, mixed with psychotic features versus schizophrenia, chronic, undifferentiated type. He was initially referred to us from the [facility] in [place] by Dr. Rocael Becker who was treating him in the hospital from a psychiatric standpoint after he presented to the [place] from [facility] where he normally resides. The patient had been resistant to his medications, uncooperative, psychotic, confused from his baseline, responding to internal stimuli, having multiple falls. He was an inpatient at the [facility], medically stabilized since 03/30/2017, then admitted to us on 04/09/2017 until he was transferred to the ICU. He did have a UTI initially, which was treated. It was felt that he had significant recurrence of his schizophrenia, chronic, undifferentiated with acute exacerbation, needing further psychiatric hospitalization. As noted during that hospitalization, a number of changes were made in his psychotropics, he was transferred to the ICU back again now. PAST PSYCHIATRIC HISTORY: As above. MEDICAL HISTORY: Status post UTI, questionable history of lobotomy in the past, but the patient denies the same. Pacemaker in place, hyperlipidemia, GERD, anxiety, history of pulmonary embolism, AV block, DVT, hearing loss, hypertension, impaired ambulation, BPH, anemia. Possible past history of ECT treatment. The patient has a history of OCD, marked obsessions, ritualistic behaviors. DRUG ALLERGIES: KLONOPIN. DIET: Regular. He takes his medications whole, ambulates in wheelchair 1 or 2-person assist. CURRENT PSYCHOTROPICS: Clozaril 75 mg p.o. at bedtime, which was increased to 100 mg p.o. at bedtime; Anafranil 150 mg at bedtime for his obsessive thought processes; Cogentin 0.5 mg twice a day; Depakote 750 b.i.d., level has been therapeutic at this dosage; Haldol 5 mg q.i.d. p.r.n. psychosis; Loxitane 150 mg at bedtime; MS Contin 15 mg daily. He is a full code. FAMILY HISTORY: Noncontributory. SOCIAL HISTORY: The patient resides at the above nursing facility, [facility] and he will return there once stable. No alcohol, drug abuse, physical, sexual or elder abuse history is noted. Not found to be a perpetrator. REACTION TO HOSPITALIZATION: The patient is accepting of this. ASSETS: Services from the [facility], supportive living at the above [facility]. MENTAL STATUS EXAMINATION: The patient was seen individually in the evening of 05/02/2017. He is in his wheelchair. Eye contact poor. Speech, low in rate and rhythm, often responses monosyllabic. He seemed to remember me. Abstraction fair, computation impaired, language function intact, attention span short, mood and affect somewhat withdrawn, paranoid, delusional, but much less so than before. No active suicidal or homicidal ideation. Attention span short, language function intact. LABORATORY DATA: Reviewed. IMPRESSION: Schizoaffective disorder, bipolar type, mixed with psychotic features, in partial remission; schizophrenia, chronic, undifferentiated with acute exacerbation, in partial remission; anxiety disorder, unspecified; cognitive disorder, unspecified; impulse control disorder, unspecified. Rest as above. PLAN: Continue current psychotropics. I have carefully reviewed the drug contractions. Risk, benefit ratio favors no further change at this time, but we will gradually increase the Clozaril. Follow labs and make further adjustments as clinically indicated. I will see the patient daily individually from a psychiatric standpoint during this hospitalization and medical followup with Dr. Flores/Dr. Church. MAN Ravi PAEZ MD DR: MELISA/marvel JOB#: [id number] / [id number]
[2017-05-03 15:25] LABS: COLOR,URINE AMBER
[2017-05-03 15:26] LABS: BILIRUBIN,URINE NEG (NEG); CLARITY,URINE CLEAR; GLUCOSE,URINE NEG (NEG); NITRITE,URINE NEG (NEG); UROBILINOGEN,URINE 0.2 mg/dL (0.2 mg/dL); WBC,URINE RARE /HPF (0-4)
[2017-05-03 15:27] LABS: BACTERIA,URINE 0 /HPF (0-FEW)
[2017-05-03 15:37] VITALS: BP 155/71
[2017-05-03] MEDS: FINASTERIDE 5 MG TABLET PO SCH (19:42)
[2017-05-03] MEDS: cloZAPine 100 MG TABLET PO SCH (19:43)
[2017-05-03] MEDS: LORazepam 0.5 MG TABLET PO SCH (19:46)
[2017-05-03] MEDS: TAMSULOSIN 0.4 MG CAP.ER.24H. PO SCH (19:49)
[2017-05-03] MEDS: LOXAPINE SUCCINATE 25 MG CAPSULE PO SCH (19:50)
--- NOTE | 2017-05-03 22:38 | PDOC ---
Exam José Miguel Demential Exam: José Miguel Note: Please also refer to the separate dictated note~for this date of service dictated separately.~Patient seen individually. Discussed the patient with Nursing staff reviewed the chart.~Reviewed interim history and current functioning. Reviewed vital signs,~Labs/ Radiology~and current medications noted below. Continue current treatment with the changes noted in the dictated addendum note Assessment: Vital Signs: Vital Signs Date Time Temp Pulse Resp B/P (MAP) Pulse Ox O2 Delivery O2 Flow Rate FiO2 05/03/17 19:43 71 155/71 05/03/17 15:37 98.2 18 94 05/03/17 12:00 Room Air I&O Intake and Output 05/04/17 07:00 Intake Total 1200 ml Balance 1200 ml Intake Oral 1200 ml Labs: Laboratory Tests Test 05/03/17 15:03 Urine Collection Type Void Urine Color Lissette Urine Clarity Clear Urine pH 6.0 Urine Specific [place] 1.025 Urine Protein 30 mg/dl (NEG-TRACE) Urine Glucose (UA) Neg mg/dL (NEG) Urine Ketones (Stick) Trace mg/dL (NEG) Urine Blood Mod (NEG) Urine Nitrite Neg (NEG) Urine Bilirubin Neg (NEG) Urine Urobilinogen Dipstick 0.2 mg/dL (0.2 mg/dL) Urine Leukocyte Esterase Neg (NEG) Urine RBC 11-20 /HPF (0-2) Urine WBC Rare /HPF (0-4) Urine Squamous Epithelial Cells None /LPF Urine Bacteria 0 /HPF (0-FEW) Current Medications: Meds: Current Medications Benztropine Mesylate (Cogentin) 0.5 mg BID PO Last administered on 05/03/17 19 :42; Start 05/02/17 at 21:00 Clozapine (Clozaril) 100 mg HS PO Last administered on 05/03/17 19:43; Start 05/02/17 at 21:00 Divalproex Sodium (Depakote Sprinkles) 750 mg BID PO Last administered on 19:42; Start 05/02/17 at 21:00 Haloperidol (Haldol) 5 mg PRN QID PRN PO ANXIETY / AGITATION; Start 05/02/17 at 18:30 Clomipramine HCl (Anafranil) 150 mg HS PO Last administered on 05/03/17 19:46 ; Start 05/02/17 at 21:00 Loxapine Succinate (Loxitane) 150 mg HS PO Last administered on 05/03/17 19:50 ; Start 05/02/17 at 21:00 Acetaminophen (Tylenol) 650 mg PRN Q6HRS PRN PO FEVER; Start 05/02/17 at 18:30 Amoxicillin/ Clavulanate Potassium (Augmentin 875/ 125mg) 1 tab BID PO Last administered on 05/03/17 19:42; Start 05/02/17 at 21:00 Aspirin (Aspirin Enteric Coated) 325 mg DAILY PO Last administered on 08:00; Start 05/03/17 at 09:00 Vitamin D (Vitamin D3) 2,000 unit DAILY PO Last administered on 05/03/17 08:00 ; Start 05/03/17 at 09:00 Ferrous Sulfate (Feosol) 325 mg DAILYAC PO ; Start 05/03/17 at 07:30 Finasteride (Proscar) 5 mg HS PO Last administered on 05/03/17 19:42; Start at 21:00 Lisinopril (Prinivil) 10 mg DAILY PO Last administered on 05/03/17 08:01; Start 05/03/17 at 09:00; Stop 05/03/17 at 13:47; Status DC Metoprolol Tartrate (Lopressor) 25 mg BIDWMEALS PO Last administered on 19:43; Start 05/03/17 at 08:00 Morphine Sulfate (Ms Contin) 15 mg DAILY PO Last administered on 05/03/17 08: 00; Start 05/03/17 at 09:00 Oxybutynin Chloride (Ditropan) 5 mg BID PO Last administered on 05/03/17 19:42 ; Start 05/02/17 at 21:00 Senna/Docusate Sodium (Senna Plus) 2 tab PRN BID PRN PO CONSTIPATION Last administered on 05/03/17 08:00; Start 05/02/17 at 18:30 Pantoprazole Sodium (Protonix) 40 mg DAILY PO Last administered on 05/03/17 08 :00; Start 05/03/17 at 09:00 Psyllium Hydrophilic Mucilloid (Metamucil) 1 pkt DAILY PO Last administered on 05/03/17 07:59; Start 05/03/17 at 09:00 Info (FLU VACCINE per PROTOCOL) 1 ea PRN 1X PRN MC PER PROTOCOL; Start at 19:15; Status UNV Influenza Virus Vaccine Quadrival (Fluarix Quad [id number] Syringe) 0.5 ml ONCE ONCE VAX IM Last administered on 05/03/17 14:46; Start 05/03/17 at 09:00; Stop 05/03/17 at 09:01; Status DC Lisinopril (Prinivil) 20 mg DAILY PO ; Start 05/04/17 at 09:00 Tamsulosin HCl (Flomax) 0.4 mg QHS PO Last administered on 05/03/17 19:49; Start 05/03/17 at 21:00 Lorazepam (Ativan) 0.5 mg QID PO Last administered on 05/03/17 19:46; Start at 21:00 Active Scripts Active Augmentin 875-125 Tablet (Amoxicillin/Potassium Clav) 1 Each Tablet 1 Tab PO BID Reported Tylenol (Acetaminophen) 325 Mg Tablet 2 Tab PO PRN Q6HRS PRN Clozapine 100 Mg Tablet 100 Mg PO HS Depakote Sprinkle (Divalproex Sodium) 125 Mg Cap.sprink 750 Mg PO BID Metamucil (Psyllium Husk) 660 Gm Powder 1 Packet PO DAILY Oxybutynin Chloride 5 Mg Tablet 5 Mg PO BID Omeprazole 40 Mg Capsule.dr 40 Mg PO DAILY Morphine Sulfate Er (Morphine Sulfate) 15 Mg Tablet.er 15 Mg PO DAILY Metoprolol Tartrate 25 Mg Tablet 25 Mg PO BIDWMEALS Loxapine (Loxapine Succinate) 50 Mg Capsule 150 Mg PO HS Lisinopril 10 Mg Tablet 10 Mg PO DAILY Haloperidol 5 Mg Tablet 5 Mg PO PRN QID PRN Finasteride 5 Mg Tablet 5 Mg PO HS Ferrous Sulfate 325 Mg Tablet 325 Mg PO DAILYAC Senna S Tablet (Sennosides/Docusate Sodium) 1 Each Tablet 2 Tab PO PRN BID PRN Clomipramine Hcl 75 Mg Capsule 150 Mg PO HS Vitamin D3 (Cholecalciferol (Vitamin D3)) 1,000 Unit Tablet 2,000 Unit PO DAILY Benztropine Mesylate 0.5 Mg Tablet 0.5 Mg PO BID Aspirin Ec (Aspirin) 325 Mg Tablet. 325 Mg PO DAILY Diagnosis: Problems: (1) Schizophrenia, disorganized, subchronic with acute exacerbation (2) Mild cognitive disorder (3) Schizoaffective disorder (4) Obsessive compulsive disorder (5) Impulse control disorder (6) Anxiety disorder SHAKIR PAEZ MD May 03, 2017 22:38
--- NOTE | 2017-05-03 22:42 | NUR ---
Behavior Intervention Response and Plan: BIRP Note: Behavior: Assumed Care of patient, patient located in Day Room at shift change. Patient exhibited the following behavior Restless, Disorganized, Defensive. Brief assessment on rounds of vital signs, medication needs, lab studies, and pain. Treatment plan problems :1-2 Intervention: Patient assessed and the following interventions initiated safety checks 15 Minute Checks Cognitive Assessment , Head to toe Assessment , Medications. Response: After interactions and interventions patient responded in the following manner, Disorganized , Non Compliant with Meds ,Delusions. Continue to assess behaviors and condition will continue to monitor throughout the shift as needed. Patient educated on ADL's, and hand hygiene. Pt refused meds x2 for me stating "those aren't mine". He did take them w/ much coaxing from a female RN. Pt also stated he wanted to call the police because he wanted to leave & this was not his room. Plan: Continue to monitor Master Treatment Plan for patient's progress toward short term goals of Decreased Agitation, Medication Compliance, [facility] goals to return to previous living setting vs placement. Continue to assess patient for changes in above assessment. Monitor for medication needs, pain, and safety concerns. Hourly rounding performed to ensure safe environment.
--- NOTE | 2017-05-03 22:46 | NUR ---
Nsg note: Pt was assisted x2 to the bathroom before HS. Pt would not answer whether he voided or not & only min. discoloration noted in toilet water. Bladder scan done @ 2200 & indicated less than 200ml present. Will cont. to monitor.
--- NOTE | 2017-05-04 00:53 | NUR ---
Nsg Note: Pt awake @ 0030 & was noted to be incont. of urine. Aranza-care performed. His brief was estimated to be moderately saturated. Will cont. to monitor.
--- NOTE | 2017-05-04 04:45 | NUR ---
Nsg Note: Pt incont. of urine @ approx. 0315. Aranza-care performed. Brief estimated to be heavily saturated w/ urine. Will cont. to monitor.
[2017-05-04 05:39] VITALS: BP 109/60
[2017-05-04] MEDS: FERROUS SULFATE 325 MG TABLET PO SCH (07:30)
--- NOTE | 2017-05-04 08:00 | NUR ---
Behavior Intervention Response and Plan: BIRP Note: Behavior: Assumed Care of patient, patient located in Dining Room at shift change. Patient exhibited the following behavior Calm, Disorganized, Compliant. Brief assessment on rounds of vital signs, medication needs, lab studies, and pain. Treatment plan problems . Intervention: Patient assessed and the following interventions initiated safety checks 15 Minute Checks Head to toe Assessment , Cognitive Assessment , Medications. Response: After interactions and interventions patient responded in the following manner, Drowsy , Compliant ,Cooperative. Continue to assess behaviors and condition will continue to monitor throughout the shift as needed. Patient educated on ADL's, and hand hygiene. 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 Continue to assess patient for changes in above assessment. Monitor for medication needs, pain, and safety concerns. Hourly rounding performed to ensure safe environment.
--- NOTE | 2017-05-04 08:16 | CONS ---
DATE OF CONSULTATION: 05/03/2017 REASON FOR CONSULTATION: Medical management. HISTORY OF PRESENT ILLNESS: The patient is a 76-year-old who was transferred to [address] [place] [id number] in the ICU on account of hypoxia and was found to have right lower lobe infiltrate and leukocytosis, he was admitted and treated with triple antibiotics for healthcare-associated pneumonia. He did actually very well. He maintained his oxygen saturation at 96% on room air without any oxygen supplementation. His white cell count normalized and therefore, a decision was made to transfer him to [facility] for inpatient psychiatric stabilization. PAST PSYCHIATRIC HISTORY: Significant for schizophrenia with behavioral disturbances, resistance to care, obsessive compulsive disorder. PAST MEDICAL HISTORY: Significant for recurrent urinary tract infection, schizophrenia, obsessive compulsive disorder, hyperlipidemia, gastroesophageal reflux disease, history of pulmonary embolism and pacemaker placement for atrioventricular block, DVT, hearing loss, hypertension, benign prostatic hypertrophy, anemia and hepatitis C. PAST SURGICAL HISTORY: Significant for permanent pacemaker placement as well as frontal lobe lobotomy. ALLERGIES: He is allergic to CLONAZEPAM. MEDICATIONS: He is currently on following medications: He is on acetaminophen 650 mg every 4 hours as needed, amoxicillin and clavulanic acid or Augmentin 1 tablet twice a day with food, aspirin 325 mg once a day, benztropine mesylate 0.5 mg p.o. b.i.d., cholecalciferol or vitamin D3 2000 units p.o. daily, clomipramine 150 mg at bedtime, clozapine 100 mg at bedtime, divalproex sodium or Depakote Sprinkle 750 mg p.o. b.i.d., ferrous sulfate 325 mg daily, finasteride 5 mg at bedtime, haloperidol 5 mg 4 times a day as needed for agitation, lisinopril 10 mg once a day, loxapine succinate 150 mg p.o. at bedtime, metoprolol tartrate 25 mg p.o. b.i.d., morphine sulfate 15 mg extended release tablet once a day, omeprazole 40 mg once a day, oxybutynin chloride 5 mg twice a day, psyllium husk or Metamucil 1 packet p.o. daily and Senna-S 2 tablets twice a day. FAMILY HISTORY: Unremarkable. 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 He is now wheelchair bound, but has been able to walk independently, apparently had several falls and he is incontinent. On questioning him, he was complaining of pain in the suprapubic and perianal area whenever he urinates. There was some suggestion that he might have hematuria. PHYSICAL EXAMINATION: GENERAL: When I examined him, he looked well and was clearly in no apparent respiratory distress, pale, no jaundice, cyanosis, or thyromegaly. No jugular venous distention. No limb edema. VITAL SIGNS: His heart rate was 62, blood pressure was 190/90, temperature was 97.4, respiratory rate was 18 and oxygen saturation was 93%. HEENT: Showed normocephalic, atraumatic. NECK: Supple. HEART: Showed normal first and second heart sounds with no gallop, rub or murmur. CHEST: Clear to auscultation. No crepitation or rhonchi. ABDOMEN: Distended, soft, nontender. NEUROLOGICAL: He is very confused, but without any obvious lateralizing signs. Cranial nerves intact. EXTREMITIES: He moves all extremities without difficulty. He is mostly bed bound, chair bound. 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 LABORATORY DATA: As of yesterday, his white cell count was 9100, hemoglobin 10, hematocrit 29, MCV 99, and platelet count 295,000. His serum sodium as of yesterday was 142, potassium 3.5, chloride 106, bicarbonate 31, anion gap of 5, BUN 18, creatinine 1.1, estimated GFR was 65 mL per minute. His calcium was 8.5, magnesium was 1.8. IMPRESSION AND PLAN: In summary, this is a 76-year-old male patient who was admitted to [facility] after a short stay at ICU for what seems to be an aspiration pneumonia. When I saw him today, he was complaining of pain in the suprapubic area and perianal area. There was suggestion that he might have hematuria. He did have an indwelling Moreno catheter that was removed yesterday. From medical point of view, he has aspiration pneumonia, treated with healthcare-associated pneumonia protocol with IV Zosyn, vancomycin, and Levaquin. He is now here on Augmentin 875/125 mg 1 tablet twice a day with food for 7 more days. Other medical problems include: 1. Toxic metabolic encephalopathy, resolving. 2. Acute hypoxic respiratory failure, resolving. 3. Recurrent urinary tract infection. 4. Hyperlipidemia. 5. Gastroesophageal reflux disease. 6. History of pulmonary embolism. 7. Atrioventricular block status post permanent pacemaker placement. 8. Hypertension. 9. Benign prostatic hypertrophy. 10. Normochromic normocytic anemia. 11. Hepatitis C. 12. Hearing loss. 13. Severe protein-calorie malnutrition. He is obviously here for schizophrenia as well as obsessive compulsive disorder, so in all, the patient seems to be stable. I will order to scan his bladder to make sure that he has urine. We will send also urine for culture and sensitivity. We will monitor her labs closely. Thank you, Dr. Hernandez for allowing me to participate in the care of this patient. KIRA ALAMZAN MD DR: NADEEM/marvel JOB#: [id number] / [id number]
[2017-05-04] MEDS: LISINOPRIL 20 MG TABLET PO SCH (09:00)
[2017-05-04] MEDS: DIVALPROEX 125 MG CAP.SPRINK PO SCH ×2 (09:10→20:06)
[2017-05-04] MEDS: CHOLECALCIFEROL (VITAMIN D3) 1,000 UNIT TABLET PO SCH (09:10)
[2017-05-04] MEDS: BENZTROPINE MESYLATE 0.5 MG TABLET PO SCH ×2 (09:10→20:07)
[2017-05-04] MEDS: PSYLLIUM SEED (WITH SUGAR) PACKET. PO SCH (09:10)
[2017-05-04] MEDS: AMOXICILLIN/K CLAV 875/125MG TABLET. PO SCH ×2 (09:10→20:07)
[2017-05-04] MEDS: OXYBUTYNIN CHLORIDE 5 MG TABLET PO SCH ×2 (09:10→20:07)
[2017-05-04] MEDS: PANTOPRAZOLE 40 MG TABLET. PO SCH (09:10)
[2017-05-04] MEDS: ASPIRIN ENTERIC COATED 325 MG TABLET.DR. PO SCH (09:10)
[2017-05-04] MEDS: LORazepam 0.5 MG TABLET PO SCH ×4 (09:14→20:04)
[2017-05-04] MEDS: MORPHINE ER 15 MG TABLET.ER PO SCH (09:14)
[2017-05-04] MEDS: SENNOSIDES/DOCUSATE 8.6/50MG TABLET. PO PRN (12:52)
--- NOTE | 2017-05-04 12:52 | NUR ---
Patient requested a "stool softener" for constipation. Administered PRN senna will monitor for BM.
[2017-05-04 15:56] VITALS: BP 139/78
[2017-05-04] MEDS: METOPROLOL TART IMMED RELEASE 25 MG TABLET PO SCH (17:59)
--- NOTE | 2017-05-04 19:45 | PDOC ---
Exam José Miguel Demential Exam: José Miguel Note: Please also refer to the separate dictated note~for this date of service dictated separately.~Patient seen individually. Discussed the patient with Nursing staff reviewed the chart.~Reviewed interim history and current functioning. Reviewed vital signs,~Labs/ Radiology~and current medications noted below. Continue current treatment with the changes noted in the dictated addendum note Assessment: Vital Signs: Vital Signs Date Time Temp Pulse Resp B/P (MAP) Pulse Ox O2 Delivery O2 Flow Rate FiO2 05/04/17 17:59 73 139/78 05/04/17 15:56 98.0 16 96 05/04/17 13:14 Room Air I&O Intake and Output 05/05/17 07:00 Intake Total 1520 ml Balance 1520 ml Intake Oral 1520 ml Current Medications: Meds: Current Medications Benztropine Mesylate (Cogentin) 0.5 mg BID PO Last administered on 05/04/17 09 :10; Start 05/02/17 at 21:00 Clozapine (Clozaril) 100 mg HS PO Last administered on 05/03/17 19:43; Start 05/02/17 at 21:00 Divalproex Sodium (Depakote Sprinkles) 750 mg BID PO Last administered on 09:10; Start 05/02/17 at 21:00 Haloperidol (Haldol) 5 mg PRN QID PRN PO ANXIETY / AGITATION; Start 05/02/17 at 18:30 Clomipramine HCl (Anafranil) 150 mg HS PO Last administered on 05/03/17 19:46 ; Start 05/02/17 at 21:00 Loxapine Succinate (Loxitane) 150 mg HS PO Last administered on 05/03/17 19:50 ; Start 05/02/17 at 21:00 Acetaminophen (Tylenol) 650 mg PRN Q6HRS PRN PO FEVER; Start 05/02/17 at 18:30 Amoxicillin/ Clavulanate Potassium (Augmentin 875/ 125mg) 1 tab BID PO Last administered on 05/04/17 09:10; Start 05/02/17 at 21:00 Aspirin (Aspirin Enteric Coated) 325 mg DAILY PO Last administered on 09:10; Start 05/03/17 at 09:00 Vitamin D (Vitamin D3) 2,000 unit DAILY PO Last administered on 05/04/17 09:10 ; Start 05/03/17 at 09:00 Ferrous Sulfate (Feosol) 325 mg DAILYAC PO ; Start 05/03/17 at 07:30 Finasteride (Proscar) 5 mg HS PO Last administered on 05/03/17 19:42; Start at 21:00 Lisinopril (Prinivil) 10 mg DAILY PO Last administered on 05/03/17 08:01; Start 05/03/17 at 09:00; Stop 05/03/17 at 13:47; Status DC Metoprolol Tartrate (Lopressor) 25 mg BIDWMEALS PO Last administered on 17:59; Start 05/03/17 at 08:00 Morphine Sulfate (Ms Contin) 15 mg DAILY PO Last administered on 05/04/17 09: 14; Start 05/03/17 at 09:00 Oxybutynin Chloride (Ditropan) 5 mg BID PO Last administered on 05/04/17 09:10 ; Start 05/02/17 at 21:00 Senna/Docusate Sodium (Senna Plus) 2 tab PRN BID PRN PO CONSTIPATION Last administered on 05/04/17 12:52; Start 05/02/17 at 18:30 Pantoprazole Sodium (Protonix) 40 mg DAILY PO Last administered on 05/04/17 09 :10; Start 05/03/17 at 09:00 Psyllium Hydrophilic Mucilloid (Metamucil) 1 pkt DAILY PO Last administered on 05/04/17 09:10; Start 05/03/17 at 09:00 Info (FLU VACCINE per PROTOCOL) 1 ea PRN 1X PRN MC PER PROTOCOL; Start at 19:15; Status UNV Influenza Virus Vaccine Quadrival (Fluarix Quad [id number] Syringe) 0.5 ml ONCE ONCE VAX IM Last administered on 05/03/17 14:46; Start 05/03/17 at 09:00; Stop 05/03/17 at 09:01; Status DC Lisinopril (Prinivil) 20 mg DAILY PO ; Start 05/04/17 at 09:00 Tamsulosin HCl (Flomax) 0.4 mg QHS PO Last administered on 05/03/17 19:49; Start 05/03/17 at 21:00 Lorazepam (Ativan) 0.5 mg QID PO Last administered on 05/04/17 17:59; Start at 21:00; Stop 05/04/17 at 19:05; Status DC Lorazepam (Ativan) 0.5 mg TID PO ; Start 05/04/17 at 21:00 Active Scripts Active Augmentin 875-125 Tablet (Amoxicillin/Potassium Clav) 1 Each Tablet 1 Tab PO BID Reported Tylenol (Acetaminophen) 325 Mg Tablet 2 Tab PO PRN Q6HRS PRN Clozapine 100 Mg Tablet 100 Mg PO HS Depakote Sprinkle (Divalproex Sodium) 125 Mg Cap.sprink 750 Mg PO BID Metamucil (Psyllium Husk) 660 Gm Powder 1 Packet PO DAILY Oxybutynin Chloride 5 Mg Tablet 5 Mg PO BID Omeprazole 40 Mg Capsule.dr 40 Mg PO DAILY Morphine Sulfate Er (Morphine Sulfate) 15 Mg Tablet.er 15 Mg PO DAILY Metoprolol Tartrate 25 Mg Tablet 25 Mg PO BIDWMEALS Loxapine (Loxapine Succinate) 50 Mg Capsule 150 Mg PO HS Lisinopril 10 Mg Tablet 10 Mg PO DAILY Haloperidol 5 Mg Tablet 5 Mg PO PRN QID PRN Finasteride 5 Mg Tablet 5 Mg PO HS Ferrous Sulfate 325 Mg Tablet 325 Mg PO DAILYAC Senna S Tablet (Sennosides/Docusate Sodium) 1 Each Tablet 2 Tab PO PRN BID PRN Clomipramine Hcl 75 Mg Capsule 150 Mg PO HS Vitamin D3 (Cholecalciferol (Vitamin D3)) 1,000 Unit Tablet 2,000 Unit PO DAILY Benztropine Mesylate 0.5 Mg Tablet 0.5 Mg PO BID Aspirin Ec (Aspirin) 325 Mg Tablet.dr 325 Mg PO DAILY Diagnosis: Problems: (1) Anxiety disorder (2) Impulse control disorder (3) Obsessive compulsive disorder (4) Schizoaffective disorder (5) Schizophrenia, disorganized, subchronic with acute exacerbation SHAKIR PAEZ MD May 04, 2017 19:45
[2017-05-04] MEDS: FINASTERIDE 5 MG TABLET PO SCH (20:06)
[2017-05-04] MEDS: TAMSULOSIN 0.4 MG CAP.ER.24H. PO SCH (20:07)
[2017-05-04] MEDS: cloZAPine 100 MG TABLET PO SCH (20:07)
[2017-05-04] MEDS: LOXAPINE SUCCINATE 25 MG CAPSULE PO SCH (20:11)
--- NOTE | 2017-05-04 21:50 | NUR ---
Behavior Intervention Response and Plan: BIRP Note: Behavior: Assumed Care of patient, patient located in Day Room at shift change. Patient exhibited the following behavior Interactive, Social, Disorganized. Brief assessment on rounds of vital signs, medication needs, lab studies, and pain. Treatment plan problems 1-3. Intervention: Patient assessed and the following interventions initiated safety checks 15 Minute Checks Head to toe Assessment , Medications , Nutrition. Response: After interactions and interventions patient responded in the following manner, Cooperative , Compliant ,Restless. Continue to assess behaviors and condition will continue to monitor throughout the shift as needed. Patient educated on ADL's, and hand hygiene. Plan: Continue to monitor Master Treatment Plan for patient's progress toward short term goals of Decreased Anxiety, Improved Mood, retirement goals to return to previous living setting vs placement. Continue to assess patient for changes in above assessment. Monitor for medication needs, pain, and safety concerns. Hourly rounding performed to ensure safe environment.
--- NOTE | 2017-05-05 00:50 | PN ---
DATE: 05/03/2017 This is a late entry for 05/03/2017 and covers elements not covered in my initial note of 05/03/217. I met with the patient evening of 05/03/2017. It appears at the time of transfer from [address] [place] [address], the patient was no Ativan and prior to which he was on Ativan 0.5 mg 4 times a day. We will restart it at 0.5 mg 4 times a day and then gradually taper this over time. Overall, the patient has been calm, compliant with medications and on assessment, more alert during the day. REVIEW OF SYSTEMS: Ambulation impaired, in a wheelchair. No CV, , pulmonary, eye, ENT system symptoms on review. MENTAL STATUS EXAM: Oriented to himself and situation. Speech, low in volume; often responses monosyllabic, coherent, abstraction fair, computation impaired, language function intact. Mood and affect is improved. Still some paranoia is evident, but shows improvement. LABORATORY DATA: Reviewed. IMPRESSION: Unchanged from initial note. PLAN: Continue current psychotropics including Clozaril 100 mg at bedtime, taper the Ativan after a day or two. Maintain Depakote, later taper the Loxitane. Continue Luvox, Haldol p.r.n. Cogentin reduced to 0.5 b.i.d., may reduce further in due course. Risk/benefit ratio favors no further change. SHAKIR PAEZ MD DR: MELISA/marvel JOB#: [id number] / [id number]
[2017-05-05 06:11] VITALS: BP 158/78
[2017-05-05] MEDS: PSYLLIUM SEED (WITH SUGAR) PACKET. PO SCH (07:44)
[2017-05-05] MEDS: DIVALPROEX 125 MG CAP.SPRINK PO SCH ×2 (07:45→20:20)
[2017-05-05] MEDS: CHOLECALCIFEROL (VITAMIN D3) 1,000 UNIT TABLET PO SCH (07:45)
[2017-05-05] MEDS: LORazepam 0.5 MG TABLET PO SCH ×3 (07:45→20:20)
[2017-05-05] MEDS: AMOXICILLIN/K CLAV 875/125MG TABLET. PO SCH ×2 (07:45→20:20)
[2017-05-05] MEDS: FERROUS SULFATE 325 MG TABLET PO SCH (07:45)
[2017-05-05] MEDS: LISINOPRIL 20 MG TABLET PO SCH (07:46)
[2017-05-05] MEDS: BENZTROPINE MESYLATE 0.5 MG TABLET PO SCH ×2 (07:46→20:20)
[2017-05-05] MEDS: METOPROLOL TART IMMED RELEASE 25 MG TABLET PO SCH ×2 (07:46→16:21)
[2017-05-05] MEDS: MORPHINE ER 15 MG TABLET.ER PO SCH (07:47)
[2017-05-05] MEDS: PANTOPRAZOLE 40 MG TABLET. PO SCH (07:47)
[2017-05-05] MEDS: OXYBUTYNIN CHLORIDE 5 MG TABLET PO SCH ×2 (07:47→20:20)
[2017-05-05] MEDS: ASPIRIN ENTERIC COATED 325 MG TABLET.DR. PO SCH (07:47)
--- NOTE | 2017-05-05 10:00 | NUR ---
THERAPEUTIC RECREATION GROUP NOTE TITLE :Fall Festival Decoration ACTIVITY : Arts/ Crafts GOAL : Increase socialization, fine motor skills, creativity DURATION : 90 Minutes RESPONSE : No participation.
--- NOTE | 2017-05-05 10:13 | NUR ---
Behavior Intervention Response and Plan: BIRP Note: Behavior: Assumed Care of patient, patient located in Day Room at shift change. Patient exhibited the following behavior Calm, Appropriate, Cooperative. Brief assessment on rounds of vital signs, medication needs, lab studies, and pain. Treatment plan problems 1 and 2. Intervention: Patient assessed and the following interventions initiated safety checks 15 Minute Checks Head to toe Assessment , Medications , Cognitive Assessment. Response: After interactions and interventions patient responded in the following manner, Disorganized , Restless ,Cooperative. Continue to assess behaviors and condition will continue to monitor throughout the shift as needed. Patient educated on ADL's, and hand hygiene. 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 Continue to assess patient for changes in above assessment. Monitor for medication needs, pain, and safety concerns. Hourly rounding performed to ensure safe environment.
--- NOTE | 2017-05-05 11:07 | NUR ---
Psychosocial assessment: SW completed updated PSA with information provided from previous chart as pt was on [facility] unit, went to Medical unit and then returned to [facility] for continued stabilization.
--- NOTE | 2017-05-05 11:07 | NUR ---
VIVIENNE faxed updates to Amara at [place]
--- NOTE | 2017-05-05 11:09 | NUR ---
VIVIENNE reviewed pt insurance upon admit back to [facility] Face sheet states Medicare, However [place] states they are Fee for Service pt is [facility]. VIVIENNE faxed updates requested by [place] this am.
--- NOTE | 2017-05-05 11:30 | NUR ---
THERAPEUTIC RECREATION GROUP NOTE TITLE :Movement to Music: Flexibility ACTIVITY : Movement/ Exercise GOAL : Increase morale, attention, flexibility. Decrease stress/anxiety. DURATION : 30 Minutes RESPONSE : No participation
--- NOTE | 2017-05-05 14:00 | NUR ---
THERAPEUTIC RECREATION GROUP NOTE TITLE :Picture Puzzles ACTIVITY : Cognitive Stimulation GOAL : Maintain or improve cognitive functioning and memory. DURATION : 60 Minutes RESPONSE : No participation. Pt. sleeping.
--- NOTE | 2017-05-05 15:18 | NUR ---
Group Note [facility] Group Type Enthusiasm and Attitude Start Time: 1:10 End Time: 2:00pm Problem: Depression Purpose: Increase Motivation,increased positivity, socialization, elevate mood, express feelings, Level of Participation: Absent Behaviors or Symptoms Observed: Interventions: Reframing Response: Plan: Group Participation Additional Comments:
[2017-05-05 16:14] VITALS: BP 116/68
[2017-05-05 19:35] LABS: ALBUMIN 2.9 g/dL (3.4-5.0); ALBUMIN/GLOBULIN RATIO 0.7 (1.0-1.7); CALCIUM 8.6 mg/dL (8.5-10.1); GFR 72.6; POTASSIUM 4.1 mmol/L (3.5-5.1); TOTAL BILIRUBIN 0.2 mg/dL (0.2-1.0); TOTAL PROTEIN 7.1 g/dL (6.4-8.2)
--- NOTE | 2017-05-05 19:42 | PDOC ---
Exam José Miguel Demential Exam: José Miguel Note: Please also refer to the separate dictated note~for this date of service dictated separately.~Patient seen individually. Discussed the patient with Nursing staff reviewed the chart.~Reviewed interim history and current functioning. Reviewed vital signs,~Labs/ Radiology~and current medications noted below. Continue current treatment with the changes noted in the dictated addendum note Assessment: Vital Signs: Vital Signs Date Time Temp Pulse Resp B/P (MAP) Pulse Ox O2 Delivery O2 Flow Rate FiO2 05/05/17 16:21 63 116/68 05/05/17 16:14 98.3 20 98 05/05/17 07:47 Room Air I&O Intake and Output 05/06/17 07:00 Intake Total 1080 ml Balance 1080 ml Intake Oral 1080 ml Labs: Laboratory Tests Test 05/05/17 18:55 Sodium Level 146 mmol/L (136-145) H Potassium Level 4.1 mmol/L (3.5-5.1) Chloride Level 107 mmol/L (98-107) Carbon Dioxide Level 33 mmol/L (21-32) H Anion Gap 6 (6-14) Blood Urea Nitrogen 21 mg/dL (8-26) Creatinine 1.0 mg/dL (0.7-1.3) Estimated GFR (Cockcroft-Gault) 72.6 BUN/Creatinine Ratio 21 (6-20) H Glucose Level 99 mg/dL (70-99) Calcium Level 8.6 mg/dL (8.5-10.1) Total Bilirubin 0.2 mg/dL (0.2-1.0) Aspartate Amino Transferase (AST) 11 U/L (15-37) L Alanine Aminotransferase (ALT) 15 U/L (16-63) L Alkaline Phosphatase 73 U/L (46-116) Total Protein 7.1 g/dL (6.4-8.2) Albumin 2.9 g/dL (3.4-5.0) L Albumin/Globulin Ratio 0.7 (1.0-1.7) L Current Medications: Meds: Current Medications Benztropine Mesylate (Cogentin) 0.5 mg BID PO Last administered on 05/05/17t 07 :46; Start 05/02/17 at 21:00; Stop 05/05/17 at 15:10; Status DC Clozapine (Clozaril) 100 mg HS PO Last administered on 05/04/17 20:07; Start 05/02/17 at 21:00 Divalproex Sodium (Depakote Sprinkles) 750 mg BID PO Last administered on 07:45; Start 05/02/17 at 21:00 Haloperidol (Haldol) 5 mg PRN QID PRN PO ANXIETY / AGITATION; Start 05/02/17 at 18:30 Clomipramine HCl (Anafranil) 150 mg HS PO Last administered on 05/04/17 20:13 ; Start 05/02/17 at 21:00 Loxapine Succinate (Loxitane) 150 mg HS PO Last administered on 05/04/17 20:11 ; Start 05/02/17 at 21:00 Acetaminophen (Tylenol) 650 mg PRN Q6HRS PRN PO FEVER; Start 05/02/17 at 18:30 Amoxicillin/ Clavulanate Potassium (Augmentin 875/ 125mg) 1 tab BID PO Last administered on 05/05/17 07:45; Start 05/02/17 at 21:00 Aspirin (Aspirin Enteric Coated) 325 mg DAILY PO Last administered on 07:47; Start 05/03/17 at 09:00 Vitamin D (Vitamin D3) 2,000 unit DAILY PO Last administered on 05/05/17 07:45 ; Start 05/03/17 at 09:00 Ferrous Sulfate (Feosol) 325 mg DAILYAC PO Last administered on 05/05/17 07:45 ; Start 05/03/17 at 07:30 Finasteride (Proscar) 5 mg HS PO Last administered on 05/04/17 20:06; Start at 21:00 Lisinopril (Prinivil) 10 mg DAILY PO Last administered on 05/03/17 08:01; Start 05/03/17 at 09:00; Stop 05/03/17 at 13:47; Status DC Metoprolol Tartrate (Lopressor) 25 mg BIDWMEALS PO Last administered on 16:21; Start 05/03/17 at 08:00 Morphine Sulfate (Ms Contin) 15 mg DAILY PO Last administered on 05/05/17 07: 47; Start 05/03/17 at 09:00 Oxybutynin Chloride (Ditropan) 5 mg BID PO Last administered on 05/05/17 07:47 ; Start 05/02/17 at 21:00 Senna/Docusate Sodium (Senna Plus) 2 tab PRN BID PRN PO CONSTIPATION Last administered on 05/04/17 12:52; Start 05/02/17 at 18:30 Pantoprazole Sodium (Protonix) 40 mg DAILY PO Last administered on 05/05/17 07 :47; Start 05/03/17 at 09:00 Psyllium Hydrophilic Mucilloid (Metamucil) 1 pkt DAILY PO Last administered on 05/05/17 07:44; Start 05/03/17 at 09:00 Info (FLU VACCINE per PROTOCOL) 1 ea PRN 1X PRN MC PER PROTOCOL; Start at 19:15; Status UNV Influenza Virus Vaccine Quadrival (Fluarix Quad [id number] Syringe) 0.5 ml ONCE ONCE VAX IM Last administered on 05/03/17 14:46; Start 05/03/17 at 09:00; Stop 05/03/17 at 09:01; Status DC Lisinopril (Prinivil) 20 mg DAILY PO Last administered on 05/05/17 07:46; Start 05/04/17 at 09:00 Tamsulosin HCl (Flomax) 0.4 mg QHS PO Last administered on 05/04/17 20:07; Start 05/03/17 at 21:00 Lorazepam (Ativan) 0.5 mg QID PO Last administered on 05/04/17 17:59; Start at 21:00; Stop 05/04/17 at 19:05; Status DC Lorazepam (Ativan) 0.5 mg TID PO Last administered on 05/05/17 13:33; Start at 21:00 Benztropine Mesylate (Cogentin) 0.5 mg DAILY PO ; Start 05/06/17 at 09:00 Docusate Calcium (Surfak) 240 mg DAILY PO ; Start 05/06/17 at 09:00 Active Scripts Active Augmentin 875-125 Tablet (Amoxicillin/Potassium Clav) 1 Each Tablet 1 Tab PO BID Reported Tylenol (Acetaminophen) 325 Mg Tablet 2 Tab PO PRN Q6HRS PRN Clozapine 100 Mg Tablet 100 Mg PO HS Depakote Sprinkle (Divalproex Sodium) 125 Mg Cap.sprink 750 Mg PO BID Metamucil (Psyllium Husk) 660 Gm Powder 1 Packet PO DAILY Oxybutynin Chloride 5 Mg Tablet 5 Mg PO BID Omeprazole 40 Mg Capsule.dr 40 Mg PO DAILY Morphine Sulfate Er (Morphine Sulfate) 15 Mg Tablet.er 15 Mg PO DAILY Metoprolol Tartrate 25 Mg Tablet 25 Mg PO BIDWMEALS Loxapine (Loxapine Succinate) 50 Mg Capsule 150 Mg PO HS Lisinopril 10 Mg Tablet 10 Mg PO DAILY Haloperidol 5 Mg Tablet 5 Mg PO PRN QID PRN Finasteride 5 Mg Tablet 5 Mg PO HS Ferrous Sulfate 325 Mg Tablet 325 Mg PO DAILYAC Senna S Tablet (Sennosides/Docusate Sodium) 1 Each Tablet 2 Tab PO PRN BID PRN Clomipramine Hcl 75 Mg Capsule 150 Mg PO HS Vitamin D3 (Cholecalciferol (Vitamin D3)) 1,000 Unit Tablet 2,000 Unit PO DAILY Benztropine Mesylate 0.5 Mg Tablet 0.5 Mg PO BID Aspirin Ec (Aspirin) 325 Mg Tablet.dr 325 Mg PO DAILY Diagnosis: Problems: (1) Anxiety disorder (2) Impulse control disorder (3) Obsessive compulsive disorder (4) Schizoaffective disorder (5) Schizophrenia, disorganized, subchronic with acute exacerbation SHAKIR PAEZ MD May 05, 2017 19:42
[2017-05-05 19:52] LABS: BASO % 0 % (0-3); EOS # 0.2 x10^3/uL (0.0-0.7); EOS % 2 % (0-3); HEMATOCRIT 33.4 % (39.0-53.0); HEMOGLOBIN 11.2 g/dL (13.0-17.5); LYMPH # 2.7 x10^3/uL (1.0-4.8); LYMPH % 24 % (24-48); MEAN CORPUSCULAR HEMOGLOBIN 34 pg (25-35); MEAN CORPUSCULAR HGB CONC 34 g/dL (31-37); MEAN CORPUSCULAR VOLUME 101 fL (79-100); MONO # 1.3 x10^3/uL (0.0-1.1); MONO % 12 % (0-9); NEUT % 62 % (31-73); PLATELET COUNT 342 x10^3/uL (140-400); RED BLOOD COUNT 3.33 x10^6/uL (4.30-5.70); RED CELL DISTRIBUTION WIDTH 13.6 % (11.5-14.5); WHITE BLOOD COUNT 11.3 x10^3/uL (4.0-11.0)
[2017-05-05] MEDS: cloZAPine 100 MG TABLET PO SCH (20:20)
[2017-05-05] MEDS: FINASTERIDE 5 MG TABLET PO SCH (20:20)
[2017-05-05] MEDS: TAMSULOSIN 0.4 MG CAP.ER.24H. PO SCH (20:21)
[2017-05-05] MEDS: LOXAPINE SUCCINATE 25 MG CAPSULE PO SCH (21:19)
--- NOTE | 2017-05-05 21:58 | NUR ---
Behavior Intervention Response and Plan: BIRP Note: Behavior: Assumed Care of patient, patient located in Day Room at shift change. Patient exhibited the following behavior Calm, Disorganized, Cooperative. Brief assessment on rounds of vital signs, medication needs, lab studies, and pain. Treatment plan problems 1 and 2. Intervention: Patient assessed and the following interventions initiated safety checks 15 Minute Checks Head to toe Assessment , Medications , Cognitive Assessment. Response: After interactions and interventions patient responded in the following manner, Disorganized , Drowsy ,Cooperative. Continue to assess behaviors and condition will continue to monitor throughout the shift as needed. Patient educated on ADL's, and hand hygiene. 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 Continue to assess patient for changes in above assessment. Monitor for medication needs, pain, and safety concerns. Hourly rounding performed to ensure safe environment.
[2017-05-05 22:52] LABS: % EOS 1 % (0-5); % LYMPHS 25 % (24-48); % MONOS 10 % (0-10); % MYELOS 2 % (0-0); % SEGS 61 % (35-66); PLT ESTIMATE ADEQUATE (ADEQUATE)
--- NOTE | 2017-05-06 04:57 | PN ---
DATE: 05/04/2017 SUBJECTIVE: This is a late entry 05/04/2017 covers elements not covered in my initial note of 05/04/2017. I met with the patient evening of 05/04/2017. Overall, the patient has had a good day. He has had some constipation. We will add a stool softener and Surfak 240 mg a day starting 05/05/2017. He has been confused, anxious, and compliant with medications at times. REVIEW OF SYSTEMS: Ambulation impaired in a wheelchair. No CV, , pulmonary, or eye system symptoms on review. MENTAL STATUS EXAM: Speech moderate latency, low in volume, and often responses monosyllabic. Pleasant, cooperative, and oriented to himself and situation. Abstraction fair, computation impaired, and language function intact. Attention span short and somewhat sedated at times. LABORATORY DATA: Reviewed. IMPRESSION: Unchanged from initial note. PLAN: We will reduce the Ativan from 0.5 mg 4 times a day to 0.5 mg 3 times a day as a gradual dose reduction. Starting 05/05/2017, start Surfak 240 mg a day. Reduce Cogentin from 0.5 mg b.i.d. to 0.5 mg once a day as he is having no extrapyramidal side effects from his psychotropics and additionally he is complaining of some constipation and anticholinergic side effects consequent to the Cogentin. We will make further adjustments as clinically indicated. Continue Clozaril at current dosage and increase as clinically indicated and then reduced the Loxitane at that stage. Reviewed drug interactions at length. Risk/benefit ratio favors no further change. SHAKIR PAEZ MD DR: MELISA/marvel JOB#: [id number] / [id number]
[2017-05-06 05:56] VITALS: BP 182/87
[2017-05-06] MEDS: DIVALPROEX 125 MG CAP.SPRINK PO SCH ×2 (09:19→20:15)
[2017-05-06] MEDS: AMOXICILLIN/K CLAV 875/125MG TABLET. PO SCH ×2 (09:19→20:16)
[2017-05-06] MEDS: PSYLLIUM SEED (WITH SUGAR) PACKET. PO SCH (09:20)
[2017-05-06] MEDS: OXYBUTYNIN CHLORIDE 5 MG TABLET PO SCH ×2 (09:20→20:16)
[2017-05-06] MEDS: PANTOPRAZOLE 40 MG TABLET. PO SCH (09:20)
[2017-05-06] MEDS: METOPROLOL TART IMMED RELEASE 25 MG TABLET PO SCH ×2 (09:20→17:33)
[2017-05-06] MEDS: CHOLECALCIFEROL (VITAMIN D3) 1,000 UNIT TABLET PO SCH (09:20)
[2017-05-06] MEDS: LISINOPRIL 20 MG TABLET PO SCH (09:20)
[2017-05-06] MEDS: ASPIRIN ENTERIC COATED 325 MG TABLET.DR. PO SCH (09:20)
[2017-05-06] MEDS: LORazepam 0.5 MG TABLET PO SCH ×3 (09:20→20:16)
[2017-05-06] MEDS: DOCUSATE CALCIUM 240 MG CAPSULE PO SCH (09:23)
[2017-05-06] MEDS: MORPHINE ER 15 MG TABLET.ER PO SCH (09:23)
--- NOTE | 2017-05-06 10:30 | NUR ---
THERAPEUTIC RECREATION GROUP NOTE TITLE :40 Ways to Relax in 5 ACTIVITY : Relaxation GOAL : Decrease stress, elevate mood, increase concentration/attention, encourage awareness DURATION : 60 Minutes RESPONSE : No participation
--- NOTE | 2017-05-06 14:00 | NUR ---
THERAPEUTIC RECREATION GROUP NOTE TITLE :Sing along with Mari ACTIVITY : Music GOAL : Increase socialization, elevate mood, stimulate memory DURATION : 60 minutes RESPONSE : Minimal participation. Pt. stayed around group the entire time and was calm and agreeable. He did not show much interest.
--- NOTE | 2017-05-06 14:41 | NUR ---
Behavior Intervention Response and Plan: BIRP Note: Behavior: Assumed Care of patient, patient located in Day Room at shift change. Patient exhibited the following behavior Calm, Disorganized, . Brief assessment on rounds of vital signs, medication needs, lab studies, and pain. Treatment plan problems: 1. alteration in mood, 2. fall risk. Intervention: Patient assessed and the following interventions initiated safety checks 15 Minute Checks Personal Alarm in place , Medications , Cognitive Assessment. Response: After interactions and interventions patient responded in the following manner, Calm , Withdrawn ,. Continue to assess behaviors and condition will continue to monitor throughout the shift as needed. Patient educated on ADL's, and hand hygiene. 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 Continue to assess patient for changes in above assessment. Monitor for medication needs, pain, and safety concerns. Hourly rounding performed to ensure safe environment.
[2017-05-06 15:45] VITALS: BP 135/68
--- NOTE | 2017-05-06 19:38 | PDOC ---
Exam José Miguel Demential Exam: José Miguel Note: Please also refer to the separate dictated note~for this date of service dictated separately.~Patient seen individually. Discussed the patient with Nursing staff reviewed the chart.~Reviewed interim history and current functioning. Reviewed vital signs,~Labs/ Radiology~and current medications noted below. Continue current treatment with the changes noted in the dictated addendum note Assessment: Vital Signs: Vital Signs Date Time Temp Pulse Resp B/P (MAP) Pulse Ox O2 Delivery O2 Flow Rate FiO2 05/06/17 17:33 64 135/68 05/06/17 15:45 97.8 20 98 05/06/17 13:45 Room Air I&O Intake and Output 05/07/17 07:00 Intake Total 360 ml Balance 360 ml Intake Oral 360 ml Current Medications: Meds: Current Medications Benztropine Mesylate (Cogentin) 0.5 mg BID PO Last administered on 05/05/17 07 :46; Start 05/02/17 at 21:00; Stop 05/05/17 at 15:10; Status DC Clozapine (Clozaril) 100 mg HS PO Last administered on 05/05/17 20:20; Start 05/02/17 at 21:00; Stop 05/06/17 at 00:09; Status DC Divalproex Sodium (Depakote Sprinkles) 750 mg BID PO Last administered on 09:19; Start 05/02/17 at 21:00 Haloperidol (Haldol) 5 mg PRN QID PRN PO ANXIETY / AGITATION; Start 05/02/17 at 18:30 Clomipramine HCl (Anafranil) 150 mg HS PO Last administered on 05/05/17 21:19 ; Start 05/02/17 at 21:00 Loxapine Succinate (Loxitane) 150 mg HS PO Last administered on 05/05/17 21:19 ; Start 05/02/17 at 21:00; Stop 05/06/17 at 18:25; Status DC Acetaminophen (Tylenol) 650 mg PRN Q6HRS PRN PO FEVER; Start 05/02/17 at 18:30 Amoxicillin/ Clavulanate Potassium (Augmentin 875/ 125mg) 1 tab BID PO Last administered on 05/06/17 09:19; Start 05/02/17 at 21:00 Aspirin (Aspirin Enteric Coated) 325 mg DAILY PO Last administered on 09:20; Start 05/03/17 at 09:00 Vitamin D (Vitamin D3) 2,000 unit DAILY PO Last administered on 05/06/17 09:20 ; Start 05/03/17 at 09:00 Ferrous Sulfate (Feosol) 325 mg DAILYAC PO Last administered on 05/05/17 07:45 ; Start 05/03/17 at 07:30; Stop 05/06/17 at 12:01; Status DC Finasteride (Proscar) 5 mg HS PO Last administered on 05/05/17 20:20; Start at 21:00 Lisinopril (Prinivil) 10 mg DAILY PO Last administered on 05/03/17 08:01; Start 05/03/17 at 09:00; Stop 05/03/17 at 13:47; Status DC Metoprolol Tartrate (Lopressor) 25 mg BIDWMEALS PO Last administered on 17:33; Start 05/03/17 at 08:00 Morphine Sulfate (Ms Contin) 15 mg DAILY PO Last administered on 05/06/17 09: 23; Start 05/03/17 at 09:00 Oxybutynin Chloride (Ditropan) 5 mg BID PO Last administered on 05/06/17 09:20 ; Start 05/02/17 at 21:00 Senna/Docusate Sodium (Senna Plus) 2 tab PRN BID PRN PO CONSTIPATION Last administered on 05/04/17 12:52; Start 05/02/17 at 18:30 Pantoprazole Sodium (Protonix) 40 mg DAILY PO Last administered on 05/06/17 09 :20; Start 05/03/17 at 09:00 Psyllium Hydrophilic Mucilloid (Metamucil) 1 pkt DAILY PO Last administered on 05/06/17 09:20; Start 05/03/17 at 09:00 Info (FLU VACCINE per PROTOCOL) 1 ea PRN 1X PRN MC PER PROTOCOL; Start at 19:15; Status UNV Influenza Virus Vaccine Quadrival (Fluarix Quad 2677-5431 Syringe) 0.5 ml ONCE ONCE VAX IM Last administered on 05/03/17 14:46; Start 05/03/17 at 09:00; Stop 05/03/17 at 09:01; Status DC Lisinopril (Prinivil) 20 mg DAILY PO Last administered on 05/06/17 09:20; Start 05/04/17 at 09:00 Tamsulosin HCl (Flomax) 0.4 mg QHS PO Last administered on 05/05/17 20:21; Start 05/03/17 at 21:00 Lorazepam (Ativan) 0.5 mg QID PO Last administered on 05/04/17 17:59; Start at 21:00; Stop 05/04/17 at 19:05; Status DC Lorazepam (Ativan) 0.5 mg TID PO Last administered on 05/06/17 14:23; Start at 21:00 Benztropine Mesylate (Cogentin) 0.5 mg DAILY PO Last administered on 05/05/17 20:20; Start 05/06/17 at 09:00 Docusate Calcium (Surfak) 240 mg DAILY PO Last administered on 05/06/17 09:23 ; Start 05/06/17 at 09:00 Clozapine (Clozaril) 100 mg QHS PO ; Start 05/06/17 at 21:00 Clozapine (Clozaril) 25 mg QHS PO ; Start 05/06/17 at 21:00 Ferrous Sulfate (Feosol) 325 mg DAILYAC PO ; Start 05/07/17 at 07:30 Loxapine Succinate (Loxitane) 100 mg HS PO ; Start 05/06/17 at 21:00 Active Scripts Active Augmentin 875-125 Tablet (Amoxicillin/Potassium Clav) 1 Each Tablet 1 Tab PO BID Reported Tylenol (Acetaminophen) 325 Mg Tablet 2 Tab PO PRN Q6HRS PRN Clozapine 100 Mg Tablet 100 Mg PO HS Depakote Sprinkle (Divalproex Sodium) 125 Mg Cap.sprink 750 Mg PO BID Metamucil (Psyllium Husk) 660 Gm Powder 1 Packet PO DAILY Oxybutynin Chloride 5 Mg Tablet 5 Mg PO BID Omeprazole 40 Mg Capsule.dr 40 Mg PO DAILY Morphine Sulfate Er (Morphine Sulfate) 15 Mg Tablet.er 15 Mg PO DAILY Metoprolol Tartrate 25 Mg Tablet 25 Mg PO BIDWMEALS Loxapine (Loxapine Succinate) 50 Mg Capsule 150 Mg PO HS Lisinopril 10 Mg Tablet 10 Mg PO DAILY Haloperidol 5 Mg Tablet 5 Mg PO PRN QID PRN Finasteride 5 Mg Tablet 5 Mg PO HS Ferrous Sulfate 325 Mg Tablet 325 Mg PO DAILYAC Senna S Tablet (Sennosides/Docusate Sodium) 1 Each Tablet 2 Tab PO PRN BID PRN Clomipramine Hcl 75 Mg Capsule 150 Mg PO HS Vitamin D3 (Cholecalciferol (Vitamin D3)) 1,000 Unit Tablet 2,000 Unit PO DAILY Benztropine Mesylate 0.5 Mg Tablet 0.5 Mg PO BID Aspirin Ec (Aspirin) 325 Mg Tablet.dr 325 Mg PO DAILY Diagnosis: Problems: (1) Anxiety disorder (2) Impulse control disorder (3) Obsessive compulsive disorder (4) Schizoaffective disorder (5) Schizophrenia, disorganized, subchronic with acute exacerbation SHAKIR PAEZ MD May 06, 2017 19:38
[2017-05-06] MEDS: TAMSULOSIN 0.4 MG CAP.ER.24H. PO SCH (20:15)
[2017-05-06] MEDS: FINASTERIDE 5 MG TABLET PO SCH (20:16)
[2017-05-06] MEDS: cloZAPine 25 MG TABLET PO SCH (20:19)
[2017-05-06] MEDS: LOXAPINE SUCCINATE 25 MG CAPSULE PO SCH (20:19)
[2017-05-06] MEDS: cloZAPine 100 MG TABLET PO SCH (20:19)
--- NOTE | 2017-05-06 22:54 | NUR ---
Behavior Intervention Response and Plan: BIRP Note: Behavior: Assumed Care of patient, patient located in Day Room at shift change. Patient exhibited the following behavior Calm, Disorganized, Cooperative. Brief assessment on rounds of vital signs, medication needs, lab studies, and pain. Treatment plan problems 1 and 2. Intervention: Patient assessed and the following interventions initiated safety checks 15 Minute Checks Cognitive Assessment , Head to toe Assessment , Medications. Response: After interactions and interventions patient responded in the following manner, Calm , Compliant ,Cooperative. Continue to assess behaviors and condition will continue to monitor throughout the shift as needed. Patient educated on ADL's, and hand hygiene. 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 Continue to assess patient for changes in above assessment. Monitor for medication needs, pain, and safety concerns. Hourly rounding performed to ensure safe environment.
--- NOTE | 2017-05-07 03:53 | PN ---
DATE: 05/05/2017 PSYCHIATRIC PROGRESS NOTE This is a late entry 05/05/2017 covers elements not covered in my initial note of 05/05/2017. I met with the patient evening of 05/05/2017. The patient slept 5-3/4 hours the previous evening. He has been less sedated since the Ativan was reduced to 0.5 mg t.i.d. He has been doing better with female staff members. REVIEW OF SYSTEMS: Ambulation impaired, in a wheelchair. No CV, , pulmonary, eye system symptoms on review. MENTAL STATUS EXAM: Oriented to himself and situation. Speech moderate latency, low in rate and rhythm, low in volume, often responses monosyllabic. Abstraction fair, computation impaired, language function intact, attention span short. Mood and affect somewhat withdrawn, but more animated, verbal as I met with him. LABORATORY DATA: Reviewed. IMPRESSION: Unchanged from initial note. PLAN: Check CBC, CMP, absolute neutrophil count on 05/05/2017. If this is unremarkable, we will increase the Clozaril to 125 mg p.o. at bedtime and continue with weekly CBC, CMP, absolute neutrophil counts every Friday. May reduce the Ativan further in due course and then reduce the Loxitane as we increase the Clozaril, continue the Luvox along with Haldol p.r.n. Stop the Cogentin as he does not seem to be having any extrapyramidal side effects. Reviewed drug interactions at length, risk, benefit ratio was reviewed, favors no further change. SHAKIR PAEZ MD DR: MELISA/marvel JOB#: [id number] / [id number]
[2017-05-07 05:28] VITALS: BP 173/85
[2017-05-07] MEDS: PSYLLIUM SEED (WITH SUGAR) PACKET. PO SCH (07:55)
[2017-05-07] MEDS: OXYBUTYNIN CHLORIDE 5 MG TABLET PO SCH ×2 (07:57→19:03)
[2017-05-07] MEDS: DOCUSATE CALCIUM 240 MG CAPSULE PO SCH (07:57)
[2017-05-07] MEDS: AMOXICILLIN/K CLAV 875/125MG TABLET. PO SCH ×2 (07:57→19:03)
[2017-05-07] MEDS: PANTOPRAZOLE 40 MG TABLET. PO SCH (07:57)
[2017-05-07] MEDS: METOPROLOL TART IMMED RELEASE 25 MG TABLET PO SCH ×2 (07:57→17:42)
[2017-05-07] MEDS: BENZTROPINE MESYLATE 0.5 MG TABLET PO SCH (07:57)
[2017-05-07] MEDS: ASPIRIN ENTERIC COATED 325 MG TABLET.DR. PO SCH (07:57)
[2017-05-07] MEDS: CHOLECALCIFEROL (VITAMIN D3) 1,000 UNIT TABLET PO SCH (07:57)
[2017-05-07] MEDS: DIVALPROEX 125 MG CAP.SPRINK PO SCH ×2 (07:58→19:04)
[2017-05-07] MEDS: LISINOPRIL 20 MG TABLET PO SCH (07:58)
[2017-05-07] MEDS: LORazepam 0.5 MG TABLET PO SCH ×3 (08:01→19:04)
[2017-05-07] MEDS: FERROUS SULFATE 325 MG TABLET. PO SCH (08:01)
[2017-05-07] MEDS: MORPHINE ER 15 MG TABLET.ER PO SCH (08:01)
--- NOTE | 2017-05-07 09:13 | NUR ---
VIVIENNE faxed updated clinicals to [facility] at [facility]. Same OR auth number as previous admit to this floor prior to going down to medical floor - # [id number].
--- NOTE | 2017-05-07 09:16 | NUR ---
SW contacted registration regarding Pt's primary payer source to be changed from [employer] to [employer] F[employer] for Service.
--- NOTE | 2017-05-07 10:15 | NUR ---
THERAPEUTIC RECREATION GROUP NOTE TITLE :Funny Videos and Jokes ACTIVITY : Humor GOAL : Decrease stress, elevate mood DURATION : 75 Minutes RESPONSE : No participation
--- NOTE | 2017-05-07 11:04 | NUR ---
Group Note [facility] Orientation Group Start Time: 9:05am End Time: 9:35am Problem: Anxiety Purpose: Reduction of Stress, Orientation, Reduction of Anxiety, Socializing Level of Participation: Moderate Behaviors or Symptoms Observed: Pt participated in group and answered some questions. Pt would get off topic of group discussion. Interventions: Clarification Response: Pt was redirected by SWS and informed that other participants were talking. Pt listened and remained in group for the whole time. Plan: Group Participation Additional Comments:
--- NOTE | 2017-05-07 11:22 | NUR ---
Behavior Intervention Response and Plan: BIRP Note: Behavior: Assumed Care of patient, patient located in Day Room at shift change. Patient exhibited the following behavior Restless, Wandering, Withdrawn. Brief assessment on rounds of vital signs, medication needs, lab studies, and pain. Treatment plan problems 1 and 2. Intervention: Patient assessed and the following interventions initiated safety checks 15 Minute Checks Cognitive Assessment , Head to toe Assessment , Medications. Response: After interactions and interventions patient responded in the following manner, Disorganized , Compliant ,Disorganized. Continue to assess behaviors and condition will continue to monitor throughout the shift as needed. Patient educated on ADL's, and hand hygiene. 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 Continue to assess patient for changes in above assessment. Monitor for medication needs, pain, and safety concerns. Hourly rounding performed to ensure safe environment.
--- NOTE | 2017-05-07 14:10 | NUR ---
THERAPEUTIC RECREATION GROUP NOTE TITLE :What can we do ALONE, needs NO SUPPLIES, that's FUN, and RELAXING? ACTIVITY : Leisure Awareness GOAL : Increase knowledge of leisure activities DURATION : 60 Minutes RESPONSE : No participation
[2017-05-07 16:41] VITALS: BP 117/79
[2017-05-07] MEDS: cloZAPine 25 MG TABLET PO SCH (19:03)
[2017-05-07] MEDS: FINASTERIDE 5 MG TABLET PO SCH (19:04)
[2017-05-07] MEDS: TAMSULOSIN 0.4 MG CAP.ER.24H. PO SCH (19:04)
[2017-05-07] MEDS: cloZAPine 100 MG TABLET PO SCH (19:04)
[2017-05-07] MEDS: LOXAPINE SUCCINATE 25 MG CAPSULE PO SCH (19:05)
[2017-05-07] MEDS: SENNOSIDES/DOCUSATE 8.6/50MG TABLET. PO PRN (19:20)
--- NOTE | 2017-05-07 21:04 | PDOC ---
Exam José Miguel Demential Exam: José Miguel Note: Please also refer to the separate dictated note~for this date of service dictated separately.~Patient seen individually. Discussed the patient with Nursing staff reviewed the chart.~Reviewed interim history and current functioning. Reviewed vital signs,~Labs/ Radiology~and current medications noted below. Continue current treatment with the changes noted in the dictated addendum note Assessment: Vital Signs: Vital Signs Date Time Temp Pulse Resp B/P (MAP) Pulse Ox O2 Delivery O2 Flow Rate FiO2 05/07/17 17:42 74 117/79 05/07/17 16:41 97.9 16 96 05/07/17 05:28 Room Air I&O Intake and Output 05/08/17 07:00 Intake Total 1280 ml Balance 1280 ml Intake Oral 1280 ml Current Medications: Meds: Current Medications Benztropine Mesylate (Cogentin) 0.5 mg BID PO Last administered on 05/05/17 07 :46; Start 05/02/17 at 21:00; Stop 05/05/17 at 15:10; Status DC Clozapine (Clozaril) 100 mg HS PO Last administered on 05/05/17 20:20; Start 05/02/17 at 21:00; Stop 05/06/17 at 00:09; Status DC Divalproex Sodium (Depakote Sprinkles) 750 mg BID PO Last administered on 19:04; Start 05/02/17 at 21:00 Haloperidol (Haldol) 5 mg PRN QID PRN PO ANXIETY / AGITATION; Start 05/02/17 at 18:30 Clomipramine HCl (Anafranil) 150 mg HS PO Last administered on 05/07/17 19:05 ; Start 05/02/17 at 21:00 Loxapine Succinate (Loxitane) 150 mg HS PO Last administered on 05/05/17 21:19 ; Start 05/02/17 at 21:00; Stop 05/06/17 at 18:25; Status DC Acetaminophen (Tylenol) 650 mg PRN Q6HRS PRN PO FEVER; Start 05/02/17 at 18:30 Amoxicillin/ Clavulanate Potassium (Augmentin 875/ 125mg) 1 tab BID PO Last administered on 05/07/17 19:03; Start 05/02/17 at 21:00 Aspirin (Aspirin Enteric Coated) 325 mg DAILY PO Last administered on 07:57; Start 05/03/17 at 09:00 Vitamin D (Vitamin D3) 2,000 unit DAILY PO Last administered on 05/07/17 07:57 ; Start 05/03/17 at 09:00 Ferrous Sulfate (Feosol) 325 mg DAILYAC PO Last administered on 05/05/17 07:45 ; Start 05/03/17 at 07:30; Stop 05/06/17 at 12:01; Status DC Finasteride (Proscar) 5 mg HS PO Last administered on 05/07/17 19:04; Start at 21:00 Lisinopril (Prinivil) 10 mg DAILY PO Last administered on 05/03/17 08:01; Start 05/03/17 at 09:00; Stop 05/03/17 at 13:47; Status DC Metoprolol Tartrate (Lopressor) 25 mg BIDWMEALS PO Last administered on 17:42; Start 05/03/17 at 08:00 Morphine Sulfate (Ms Contin) 15 mg DAILY PO Last administered on 05/07/17 08: 01; Start 05/03/17 at 09:00 Oxybutynin Chloride (Ditropan) 5 mg BID PO Last administered on 05/07/17 19:03 ; Start 05/02/17 at 21:00 Senna/Docusate Sodium (Senna Plus) 2 tab PRN BID PRN PO CONSTIPATION Last administered on 05/07/17 19:20; Start 05/02/17 at 18:30 Pantoprazole Sodium (Protonix) 40 mg DAILY PO Last administered on 05/07/17 07 :57; Start 05/03/17 at 09:00 Psyllium Hydrophilic Mucilloid (Metamucil) 1 pkt DAILY PO Last administered on 05/06/17 09:20; Start 05/03/17 at 09:00 Info (FLU VACCINE per PROTOCOL) 1 ea PRN 1X PRN MC PER PROTOCOL; Start at 19:15; Status UNV Influenza Virus Vaccine Quadrival (Fluarix Quad [id number] Syringe) 0.5 ml ONCE ONCE VAX IM Last administered on 05/03/17 14:46; Start 05/03/17 at 09:00; Stop 05/03/17 at 09:01; Status DC Lisinopril (Prinivil) 20 mg DAILY PO Last administered on 05/07/17 07:58; Start 05/04/17 at 09:00 Tamsulosin HCl (Flomax) 0.4 mg QHS PO Last administered on 05/07/17 19:04; Start 05/03/17 at 21:00 Lorazepam (Ativan) 0.5 mg QID PO Last administered on 05/04/17 17:59; Start at 21:00; Stop 05/04/17 at 19:05; Status DC Lorazepam (Ativan) 0.5 mg TID PO Last administered on 05/07/17 19:04; Start at 21:00 Benztropine Mesylate (Cogentin) 0.5 mg DAILY PO Last administered on 05/07/17 07:57; Start 05/06/17 at 09:00; Stop 05/07/17 at 13:31; Status DC Docusate Calcium (Surfak) 240 mg DAILY PO Last administered on 05/07/17 07:57 ; Start 05/06/17 at 09:00 Clozapine (Clozaril) 100 mg QHS PO Last administered on 05/07/17 19:04; Start 05/06/17 at 21:00 Clozapine (Clozaril) 25 mg QHS PO Last administered on 05/07/17 19:03; Start 05/06/17 at 21:00 Ferrous Sulfate (Feosol) 325 mg DAILYAC PO Last administered on 05/07/17 08:01 ; Start 05/07/17 at 07:30 Loxapine Succinate (Loxitane) 100 mg HS PO Last administered on 05/07/17 19:05 ; Start 05/06/17 at 21:00 Active Scripts Active Augmentin 875-125 Tablet (Amoxicillin/Potassium Clav) 1 Each Tablet 1 Tab PO BID Reported Tylenol (Acetaminophen) 325 Mg Tablet 2 Tab PO PRN Q6HRS PRN Clozapine 100 Mg Tablet 100 Mg PO HS Depakote Sprinkle (Divalproex Sodium) 125 Mg Cap.sprink 750 Mg PO BID Metamucil (Psyllium Husk) 660 Gm Powder 1 Packet PO DAILY Oxybutynin Chloride 5 Mg Tablet 5 Mg PO BID Omeprazole 40 Mg Capsule.dr 40 Mg PO DAILY Morphine Sulfate Er (Morphine Sulfate) 15 Mg Tablet.er 15 Mg PO DAILY Metoprolol Tartrate 25 Mg Tablet 25 Mg PO BIDWMEALS Loxapine (Loxapine Succinate) 50 Mg Capsule 150 Mg PO HS Lisinopril 10 Mg Tablet 10 Mg PO DAILY Haloperidol 5 Mg Tablet 5 Mg PO PRN QID PRN Finasteride 5 Mg Tablet 5 Mg PO HS Ferrous Sulfate 325 Mg Tablet 325 Mg PO DAILYAC Senna S Tablet (Sennosides/Docusate Sodium) 1 Each Tablet 2 Tab PO PRN BID PRN Clomipramine Hcl 75 Mg Capsule 150 Mg PO HS Vitamin D3 (Cholecalciferol (Vitamin D3)) 1,000 Unit Tablet 2,000 Unit PO DAILY Benztropine Mesylate 0.5 Mg Tablet 0.5 Mg PO BID Aspirin Ec (Aspirin) 325 Mg Tablet.dr 325 Mg PO DAILY Diagnosis: Problems: (1) Anxiety disorder (2) Impulse control disorder (3) Obsessive compulsive disorder (4) Schizoaffective disorder (5) Schizophrenia, disorganized, subchronic with acute exacerbation SHAKIR PAEZ MD May 07, 2017 21:04
--- NOTE | 2017-05-07 22:27 | NUR ---
Behavior Intervention Response and Plan: BIRP Note: Behavior: Assumed Care of patient, patient located in Day Room at shift change. Patient exhibited the following behavior Calm, Disorganized, Cooperative. Brief assessment on rounds of vital signs, medication needs, lab studies, and pain. Treatment plan problems 1 and 2. Intervention: Patient assessed and the following interventions initiated safety checks 15 Minute Checks Cognitive Assessment , Head to toe Assessment , Medications. Response: After interactions and interventions patient responded in the following manner, Calm , Compliant ,Cooperative. Continue to assess behaviors and condition will continue to monitor throughout the shift as needed. Patient educated on ADL's, and hand hygiene. 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 Continue to assess patient for changes in above assessment. Monitor for medication needs, pain, and safety concerns. Hourly rounding performed to ensure safe environment.
--- NOTE | 2017-05-08 01:39 | PN ---
DATE: 05/06/2017 This late entry for 05/06/2017 covers elements not covered in my initial note of 05/06/2017. SUBJECTIVE: I met with the patient the evening of 05/06/2017. Overall, the patient has been calm, compliant, somewhat withdrawn, but sitting up straight not leaning over forward as before. He has not been aggressive, less psychotic. REVIEW OF SYSTEMS: Ambulation impaired, in a wheelchair. No CV, , pulmonary, eye system symptoms on review. MENTAL STATUS EXAMINATION: Oriented to himself and situation. Speech moderate latency, often responses monosyllabic, pleasant, smiling as I met with him. Abstraction fair, computation impaired, language function intact, short term memory is impaired. No clear psychotic symptoms, suicidal or homicidal ideation. LABORATORY DATA: Reviewed. Absolute neutrophil count unremarkable on the Clozaril, which is currently 125 mg a day. IMPRESSION: Unchanged from initial note. PLAN: Reduce from 150 mg at bedtime to 100 mg at bedtime. Continue Clomipramine 150 mg at bedtime, Depakote Sprinkles 750 b.i.d., level is therapeutic; Clozaril 125 mg at bedtime, Haldol p.r.n., Ativan is 0.5 mg t.i.d. We will reduce in a day or so. Cogentin was discontinued. Reviewed drug interactions, risk/benefit ratio favors no further change. SHAKIR PAEZ MD DR: MELISA/marvel JOB#: [id number] / [id number]
[2017-05-08 05:46] VITALS: BP 157/81
--- NOTE | 2017-05-08 07:49 | NUR ---
patient complains of constipation. Given PRN MOM/Prune juice (brown cow) for constipation and will continue to monitor. Pt has history of constipation.
[2017-05-08] MEDS: DOCUSATE CALCIUM 240 MG CAPSULE PO SCH (07:51)
[2017-05-08] MEDS: ASPIRIN ENTERIC COATED 325 MG TABLET.DR. PO SCH (07:51)
[2017-05-08] MEDS: PSYLLIUM SEED (WITH SUGAR) PACKET. PO SCH (07:51)
[2017-05-08] MEDS: PANTOPRAZOLE 40 MG TABLET. PO SCH (07:51)
[2017-05-08] MEDS: FERROUS SULFATE 325 MG TABLET. PO SCH (07:51)
[2017-05-08] MEDS: AMOXICILLIN/K CLAV 875/125MG TABLET. PO SCH ×2 (07:51→19:50)
[2017-05-08] MEDS: CHOLECALCIFEROL (VITAMIN D3) 1,000 UNIT TABLET PO SCH (07:52)
[2017-05-08] MEDS: DIVALPROEX 125 MG CAP.SPRINK PO SCH ×2 (07:52→19:50)
[2017-05-08] MEDS: METOPROLOL TART IMMED RELEASE 25 MG TABLET PO SCH ×2 (07:52→17:16)
[2017-05-08] MEDS: OXYBUTYNIN CHLORIDE 5 MG TABLET PO SCH ×2 (07:52→19:50)
[2017-05-08] MEDS: LISINOPRIL 20 MG TABLET PO SCH (07:52)
[2017-05-08] MEDS: MORPHINE ER 15 MG TABLET.ER PO SCH (07:54)
[2017-05-08] MEDS: LORazepam 0.5 MG TABLET PO SCH ×3 (07:54→19:51)
[2017-05-08] MEDS ORDERED: MAGNESIUM HYDROXIDE 2,400 MG/30 ML ORAL.SUSP. PO PRN (08:00)
--- NOTE | 2017-05-08 08:00 | NUR ---
WEEKLY THERAPEUTIC RECREATION NOTE Date of Admission: 04/08/2017 Date of AT Assessment:04/11/2017 Goal aimed: To increase socialization and stress management Initial goal: Pt. will participate in at least one group before discharge and all sessions focused on stress management. Weekly progress towards goal: Poor progress Group participation level: Pt. does not participate in groups. At times he stays around groups but intterupts and asks lots of questions. Difficult to redirect. Behaviors observed: Sleeps/closes eyes often. Minimal interaction with others. Disruptive at times. Plan: No changes to goal
--- NOTE | 2017-05-08 10:45 | NUR ---
THERAPEUTIC RECREATION GROUP NOTE TITLE :Balloon/Pool Noodle ACTIVITY : Activities and Games GOAL : Increase alertness, focus, morale, decrease stress, team building, positive communication DURATION : 30 Minutes RESPONSE : No participation
--- NOTE | 2017-05-08 11:15 | NUR ---
THERAPEUTIC RECREATION GROUP NOTE TITLE :Movement to Music: Strength ACTIVITY : Movement/ Exercise GOAL : Increase morale, attention, flexibility. Decrease stress/anxiety. DURATION : 45 Minutes RESPONSE : No participation
--- NOTE | 2017-05-08 14:20 | NUR ---
THERAPEUTIC RECREATION GROUP NOTE TITLE :Fall Festival: Apple Cider, Pumpkin Bread and Tin Can Painting ACTIVITY : Social Events/ Holidays GOAL : Facilitate sense of belonging and well-being, elevate mood, increase socialization. Incorporate traditions. DURATION : 80 Minutes RESPONSE : No participation
[2017-05-08 16:21] VITALS: BP 164/72
[2017-05-08 17:10] LABS: C ANCA <1:20 titer (Neg:<1:20); P ANCA <1:20 titer (Neg:<1:20)
--- NOTE | 2017-05-08 17:27 | NUR ---
VIVIENNE faxed updated clinical notes to ZAIRA Maloney CM at [facility].
--- NOTE | 2017-05-08 17:30 | NUR ---
SW faxed updated clinical notes to Pt's facility w/[facility] dc date set for Friday.
[2017-05-08] MEDS: TAMSULOSIN 0.4 MG CAP.ER.24H. PO SCH (19:50)
[2017-05-08] MEDS: cloZAPine 100 MG TABLET PO SCH (19:50)
[2017-05-08] MEDS: FINASTERIDE 5 MG TABLET PO SCH (19:50)
[2017-05-08] MEDS: cloZAPine 25 MG TABLET PO SCH (19:50)
[2017-05-08] MEDS: LOXAPINE SUCCINATE 25 MG CAPSULE PO SCH (19:52)
--- NOTE | 2017-05-08 21:02 | PDOC ---
Exam José Miguel Demential Exam: José Miguel Note: Please also refer to the separate dictated note~for this date of service dictated separately.~Patient seen individually. Discussed the patient with Nursing staff reviewed the chart.~Reviewed interim history and current functioning. Reviewed vital signs,~Labs/ Radiology~and current medications noted below. Continue current treatment with the changes noted in the dictated addendum note Assessment: Vital Signs: Vital Signs Date Time Temp Pulse Resp B/P (MAP) Pulse Ox O2 Delivery O2 Flow Rate FiO2 05/08/17 17:16 73 164/72 05/08/17 16:21 97.6 20 94 05/08/17 05:46 Room Air I&O Intake and Output 05/09/17 07:00 Intake Total 1380 ml Balance 1380 ml Intake Oral 1380 ml Current Medications: Meds: Current Medications Benztropine Mesylate (Cogentin) 0.5 mg BID PO Last administered on 05/05/17 07 :46; Start 05/02/17 at 21:00; Stop 05/05/17 at 15:10; Status DC Clozapine (Clozaril) 100 mg HS PO Last administered on 05/05/17 20:20; Start 05/02/17 at 21:00; Stop 05/06/17 at 00:09; Status DC Divalproex Sodium (Depakote Sprinkles) 750 mg BID PO Last administered on 19:50; Start 05/02/17 at 21:00 Haloperidol (Haldol) 5 mg PRN QID PRN PO ANXIETY / AGITATION; Start 05/02/17 at 18:30 Clomipramine HCl (Anafranil) 150 mg HS PO Last administered on 05/08/17 19:52 ; Start 05/02/17 at 21:00 Loxapine Succinate (Loxitane) 150 mg HS PO Last administered on 05/05/17 21:19 ; Start 05/02/17 at 21:00; Stop 05/06/17 at 18:25; Status DC Acetaminophen (Tylenol) 650 mg PRN Q6HRS PRN PO FEVER; Start 05/02/17 at 18:30 Amoxicillin/ Clavulanate Potassium (Augmentin 875/ 125mg) 1 tab BID PO Last administered on 05/08/17 19:50; Start 05/02/17 at 21:00; Stop 05/09/17 at 09:01 Aspirin (Aspirin Enteric Coated) 325 mg DAILY PO Last administered on 07:51; Start 05/03/17 at 09:00 Vitamin D (Vitamin D3) 2,000 unit DAILY PO Last administered on 05/08/17 07:52 ; Start 05/03/17 at 09:00 Ferrous Sulfate (Feosol) 325 mg DAILYAC PO Last administered on 05/05/17 07:45 ; Start 05/03/17 at 07:30; Stop 05/06/17 at 12:01; Status DC Finasteride (Proscar) 5 mg HS PO Last administered on 05/08/17 19:50; Start at 21:00 Lisinopril (Prinivil) 10 mg DAILY PO Last administered on 05/03/17 08:01; Start 05/03/17 at 09:00; Stop 05/03/17 at 13:47; Status DC Metoprolol Tartrate (Lopressor) 25 mg BIDWMEALS PO Last administered on 17:16; Start 05/03/17 at 08:00 Morphine Sulfate (Ms Contin) 15 mg DAILY PO Last administered on 05/08/17 07: 54; Start 05/03/17 at 09:00 Oxybutynin Chloride (Ditropan) 5 mg BID PO Last administered on 05/08/17 19:50 ; Start 05/02/17 at 21:00 Senna/Docusate Sodium (Senna Plus) 2 tab PRN BID PRN PO CONSTIPATION Last administered on 05/07/17 19:20; Start 05/02/17 at 18:30 Pantoprazole Sodium (Protonix) 40 mg DAILY PO Last administered on 05/08/17 07 :51; Start 05/03/17 at 09:00 Psyllium Hydrophilic Mucilloid (Metamucil) 1 pkt DAILY PO Last administered on 05/08/17 07:51; Start 05/03/17 at 09:00 Info (FLU VACCINE per PROTOCOL) 1 ea PRN 1X PRN MC PER PROTOCOL; Start at 19:15; Status UNV Influenza Virus Vaccine Quadrival (Fluarix Quad 5362-6962 Syringe) 0.5 ml ONCE ONCE VAX IM Last administered on 05/03/17 14:46; Start 05/03/17 at 09:00; Stop 05/03/17 at 09:01; Status DC Lisinopril (Prinivil) 20 mg DAILY PO Last administered on 05/08/17 07:52; Start 05/04/17 at 09:00 Tamsulosin HCl (Flomax) 0.4 mg QHS PO Last administered on 05/08/17 19:50; Start 05/03/17 at 21:00 Lorazepam (Ativan) 0.5 mg QID PO Last administered on 05/04/17 17:59; Start at 21:00; Stop 05/04/17 at 19:05; Status DC Lorazepam (Ativan) 0.5 mg TID PO Last administered on 05/08/17 19:51; Start at 21:00 Benztropine Mesylate (Cogentin) 0.5 mg DAILY PO Last administered on 05/07/17 07:57; Start 05/06/17 at 09:00; Stop 05/07/17 at 13:31; Status DC Docusate Calcium (Surfak) 240 mg DAILY PO Last administered on 05/08/17 07:51 ; Start 05/06/17 at 09:00 Clozapine (Clozaril) 100 mg QHS PO Last administered on 05/08/17 19:50; Start 05/06/17 at 21:00 Clozapine (Clozaril) 25 mg QHS PO Last administered on 05/08/17 19:50; Start 05/06/17 at 21:00 Ferrous Sulfate (Feosol) 325 mg DAILYAC PO Last administered on 05/08/17 07:51 ; Start 05/07/17 at 07:30 Loxapine Succinate (Loxitane) 100 mg HS PO Last administered on 05/08/17 19:52 ; Start 05/06/17 at 21:00 Magnesium Hydroxide (Milk Of Magnesia) 2,400 mg PRN DAILY PRN PO CONSTIPATION Last administered on 05/08/17 17:16; Start 05/08/17 at 08:00 Active Scripts Active Augmentin 875-125 Tablet (Amoxicillin/Potassium Clav) 1 Each Tablet 1 Tab PO BID Reported Tylenol (Acetaminophen) 325 Mg Tablet 2 Tab PO PRN Q6HRS PRN Clozapine 100 Mg Tablet 100 Mg PO HS Depakote Sprinkle (Divalproex Sodium) 125 Mg Cap.sprink 750 Mg PO BID Metamucil (Psyllium Husk) 660 Gm Powder 1 Packet PO DAILY Oxybutynin Chloride 5 Mg Tablet 5 Mg PO BID Omeprazole 40 Mg Capsule.dr 40 Mg PO DAILY Morphine Sulfate Er (Morphine Sulfate) 15 Mg Tablet.er 15 Mg PO DAILY Metoprolol Tartrate 25 Mg Tablet 25 Mg PO BIDWMEALS Loxapine (Loxapine Succinate) 50 Mg Capsule 150 Mg PO HS Lisinopril 10 Mg Tablet 10 Mg PO DAILY Haloperidol 5 Mg Tablet 5 Mg PO PRN QID PRN Finasteride 5 Mg Tablet 5 Mg PO HS Ferrous Sulfate 325 Mg Tablet 325 Mg PO DAILYAC Senna S Tablet (Sennosides/Docusate Sodium) 1 Each Tablet 2 Tab PO PRN BID PRN Clomipramine Hcl 75 Mg Capsule 150 Mg PO HS Vitamin D3 (Cholecalciferol (Vitamin D3)) 1,000 Unit Tablet 2,000 Unit PO DAILY Benztropine Mesylate 0.5 Mg Tablet 0.5 Mg PO BID Aspirin Ec (Aspirin) 325 Mg Tablet.dr 325 Mg PO DAILY Diagnosis: Problems: (1) Anxiety disorder (2) Impulse control disorder (3) Obsessive compulsive disorder (4) Schizoaffective disorder (5) Schizophrenia, disorganized, subchronic with acute exacerbation SHAKIR PAEZ MD May 08, 2017 21:02
--- NOTE | 2017-05-08 22:53 | NUR ---
Behavior Intervention Response and Plan: BIRP Note: Behavior: Assumed Care of patient, patient located in Patient Room at shift change. Patient exhibited the following behavior Calm, Disorganized, Cooperative. Brief assessment on rounds of vital signs, medication needs, lab studies, and pain. Treatment plan problems 1 and 2. Intervention: Patient assessed and the following interventions initiated safety checks 15 Minute Checks Cognitive Assessment , Head to toe Assessment , Medications. Response: After interactions and interventions patient responded in the following manner, Calm , Compliant ,Cooperative. Continue to assess behaviors and condition will continue to monitor throughout the shift as needed. Patient educated on ADL's, and hand hygiene. Plan: Continue to monitor Master Treatment Plan for patient's progress toward short term goals of Decreased Agitation, Decreased Aggression, buttermaker goals to return to previous living setting vs placement. Continue to assess patient for changes in above assessment. Monitor for medication needs, pain, and safety concerns. Hourly rounding performed to ensure safe environment.
--- NOTE | 2017-05-08 22:55 | PN ---
DATE: 05/07/2017 PSYCHIATRIC PROGRESS NOTE This late entry date of service 05/07/2017 covers elements not covered in my initial note of 05/07/2017. SUBJECTIVE: I met with the patient evening of 05/07/2017. Per nursing report, the patient takes his medications crushed. WBC is 11.3, we will defer to Dr. Flores. He is less tired. REVIEW OF SYSTEMS: Ambulation impaired, in a wheelchair. No specific CV, , GI, pulmonary, eye system symptoms on review. MENTAL STATUS EXAM: Oriented to himself and situation. Speech has some latency, often responses monosyllabic, pleasant, smiling at times, less tired. No clear suicidal or homicidal ideation. No clear psychotic symptoms, mood appears improved, language function intact, intellect otherwise average. LABORATORY DATA: Reviewed. 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 Rest unchanged. PLAN: Reduce Ativan from 0.5 t.i.d. to 0.5 twice a day. Loxitane was reduced. Clozaril is at 125 mg at bedtime. Reviewed drug interactions, risk/benefit ratio favors no further change. MAN Ravi PAEZ MD DR: MELISA/marvel JOB#: [id number] / [id number]
[2017-05-09 05:52] VITALS: BP 168/88
--- NOTE | 2017-05-09 08:56 | NUR ---
VIVIENNE faxed Clinical update notes to [facility] at [place] per request.
--- NOTE | 2017-05-09 09:45 | NUR ---
Patient becoming agitated throughout the morning asking for his shoes. Nurse put bandaid on pt. left great toe and put shoes on patient. Patient thanked nurse and much calmer after shoes were on.
[2017-05-09] MEDS: LISINOPRIL 20 MG TABLET PO SCH (10:22)
[2017-05-09] MEDS: ASPIRIN ENTERIC COATED 325 MG TABLET.DR. PO SCH (10:22)
[2017-05-09] MEDS: FERROUS SULFATE 325 MG TABLET. PO SCH (10:22)
[2017-05-09] MEDS: DIVALPROEX 125 MG CAP.SPRINK PO SCH ×2 (10:23→19:48)
[2017-05-09] MEDS: AMOXICILLIN/K CLAV 875/125MG TABLET. PO SCH (10:23)
[2017-05-09] MEDS: CHOLECALCIFEROL (VITAMIN D3) 1,000 UNIT TABLET PO SCH (10:23)
[2017-05-09] MEDS: PANTOPRAZOLE 40 MG TABLET. PO SCH (10:23)
[2017-05-09] MEDS: DOCUSATE CALCIUM 240 MG CAPSULE PO SCH (10:24)
[2017-05-09] MEDS: OXYBUTYNIN CHLORIDE 5 MG TABLET PO SCH ×2 (10:24→19:48)
[2017-05-09] MEDS: METOPROLOL TART IMMED RELEASE 25 MG TABLET PO SCH ×2 (10:24→18:22)
[2017-05-09] MEDS: PSYLLIUM SEED (WITH SUGAR) PACKET. PO SCH (10:24)
[2017-05-09] MEDS: MORPHINE ER 15 MG TABLET.ER PO SCH (10:25)
[2017-05-09] MEDS: LORazepam 0.5 MG TABLET PO SCH ×3 (10:25→19:51)
--- NOTE | 2017-05-09 11:50 | NUR ---
Patient had very large bowel movement.
--- NOTE | 2017-05-09 11:51 | NUR ---
Behavior Intervention Response and Plan: BIRP Note: Behavior: Assumed Care of patient, patient located in Patient Room at shift change. Patient exhibited the following behavior Interactive, Able to Focus on Task, Demanding. Brief assessment on rounds of vital signs, medication needs, lab studies, and pain. Treatment plan problems 1 and 2. Intervention: Patient assessed and the following interventions initiated safety checks 15 Minute Checks Head to toe Assessment , Cognitive Assessment , Medications. Response: After interactions and interventions patient responded in the following manner, Disorganized , Compliant ,Cooperative. Continue to assess behaviors and condition will continue to monitor throughout the shift as needed. Patient educated on ADL's, and hand hygiene. Plan: Continue to monitor Master Treatment Plan for patient's progress toward short term goals of Decreased Agitation, Decreased Aggression, offline cutter goals to return to previous living setting vs placement. Continue to assess patient for changes in above assessment. Monitor for medication needs, pain, and safety concerns. Hourly rounding performed to ensure safe environment.
[2017-05-09 16:07] VITALS: BP 137/63
[2017-05-09] MEDS: FINASTERIDE 5 MG TABLET PO SCH (19:48)
[2017-05-09] MEDS: TAMSULOSIN 0.4 MG CAP.ER.24H. PO SCH (19:48)
[2017-05-09] MEDS: cloZAPine 25 MG TABLET PO SCH (19:48)
[2017-05-09] MEDS: cloZAPine 100 MG TABLET PO SCH (19:48)
[2017-05-09] MEDS: LOXAPINE SUCCINATE 25 MG CAPSULE PO SCH (19:50)
--- NOTE | 2017-05-09 20:53 | PDOC ---
Exam José Miguel Demential Exam: José Miguel Note: Please also refer to the separate dictated note~for this date of service dictated separately.~Patient seen individually. Discussed the patient with Nursing staff reviewed the chart.~Reviewed interim history and current functioning. Reviewed vital signs,~Labs/ Radiology~and current medications noted below. Continue current treatment with the changes noted in the dictated addendum note Assessment: Vital Signs: Vital Signs Date Time Temp Pulse Resp B/P (MAP) Pulse Ox O2 Delivery O2 Flow Rate FiO2 05/09/17 18:22 61 137/63 05/09/17 16:07 98.6 17 98 05/08/17 05:46 Room Air I&O Intake and Output 05/10/17 07:00 Intake Total 1080 ml Balance 1080 ml Intake Oral 1080 ml # Bowel Movements 1 Current Medications: Meds: Current Medications Benztropine Mesylate (Cogentin) 0.5 mg BID PO Last administered on 05/05/17 07 :46; Start 05/02/17 at 21:00; Stop 05/05/17 at 15:10; Status DC Clozapine (Clozaril) 100 mg HS PO Last administered on 05/05/17 20:20; Start 05/02/17 at 21:00; Stop 05/06/17 at 00:09; Status DC Divalproex Sodium (Depakote Sprinkles) 750 mg BID PO Last administered on 19:48; Start 05/02/17 at 21:00 Haloperidol (Haldol) 5 mg PRN QID PRN PO ANXIETY / AGITATION; Start 05/02/17 at 18:30 Clomipramine HCl (Anafranil) 150 mg HS PO Last administered on 05/09/17 19:50 ; Start 05/02/17 at 21:00 Loxapine Succinate (Loxitane) 150 mg HS PO Last administered on 05/05/17 21:19 ; Start 05/02/17 at 21:00; Stop 05/06/17 at 18:25; Status DC Acetaminophen (Tylenol) 650 mg PRN Q6HRS PRN PO FEVER; Start 05/02/17 at 18:30 Amoxicillin/ Clavulanate Potassium (Augmentin 875/ 125mg) 1 tab BID PO Last administered on 05/09/17 10:23; Start 05/02/17 at 21:00; Stop 05/09/17 at 09:01 ; Status DC Aspirin (Aspirin Enteric Coated) 325 mg DAILY PO Last administered on 10:22; Start 05/03/17 at 09:00 Vitamin D (Vitamin D3) 2,000 unit DAILY PO Last administered on 05/09/17 10:23 ; Start 05/03/17 at 09:00 Ferrous Sulfate (Feosol) 325 mg DAILYAC PO Last administered on 05/05/17 07:45 ; Start 05/03/17 at 07:30; Stop 05/06/17 at 12:01; Status DC Finasteride (Proscar) 5 mg HS PO Last administered on 05/09/17 19:48; Start at 21:00 Lisinopril (Prinivil) 10 mg DAILY PO Last administered on 05/03/17 08:01; Start 05/03/17 at 09:00; Stop 05/03/17 at 13:47; Status DC Metoprolol Tartrate (Lopressor) 25 mg BIDWMEALS PO Last administered on 18:22; Start 05/03/17 at 08:00 Morphine Sulfate (Ms Contin) 15 mg DAILY PO Last administered on 05/09/17 10: 25; Start 05/03/17 at 09:00 Oxybutynin Chloride (Ditropan) 5 mg BID PO Last administered on 05/09/17 19:48 ; Start 05/02/17 at 21:00 Senna/Docusate Sodium (Senna Plus) 2 tab PRN BID PRN PO CONSTIPATION Last administered on 05/07/17 19:20; Start 05/02/17 at 18:30 Pantoprazole Sodium (Protonix) 40 mg DAILY PO Last administered on 05/09/17 10 :23; Start 05/03/17 at 09:00 Psyllium Hydrophilic Mucilloid (Metamucil) 1 pkt DAILY PO Last administered on 05/09/17 10:24; Start 05/03/17 at 09:00 Info (FLU VACCINE per PROTOCOL) 1 ea PRN 1X PRN MC PER PROTOCOL; Start at 19:15; Status UNV Influenza Virus Vaccine Quadrival (Fluarix Quad 8369-0394 Syringe) 0.5 ml ONCE ONCE VAX IM Last administered on 05/03/17 14:46; Start 05/03/17 at 09:00; Stop 05/03/17 at 09:01; Status DC Lisinopril (Prinivil) 20 mg DAILY PO Last administered on 05/09/17 10:22; Start 05/04/17 at 09:00 Tamsulosin HCl (Flomax) 0.4 mg QHS PO Last administered on 05/09/17 19:48; Start 05/03/17 at 21:00 Lorazepam (Ativan) 0.5 mg QID PO Last administered on 05/04/17 17:59; Start at 21:00; Stop 05/04/17 at 19:05; Status DC Lorazepam (Ativan) 0.5 mg TID PO Last administered on 05/09/17 14:13; Start at 21:00; Stop 05/09/17 at 17:34; Status DC Benztropine Mesylate (Cogentin) 0.5 mg DAILY PO Last administered on 05/07/17 07:57; Start 05/06/17 at 09:00; Stop 05/07/17 at 13:31; Status DC Docusate Calcium (Surfak) 240 mg DAILY PO Last administered on 05/09/17 10:24 ; Start 05/06/17 at 09:00 Clozapine (Clozaril) 100 mg QHS PO Last administered on 05/09/17 19:48; Start 05/06/17 at 21:00 Clozapine (Clozaril) 25 mg QHS PO Last administered on 05/09/17 19:48; Start 05/06/17 at 21:00 Ferrous Sulfate (Feosol) 325 mg DAILYAC PO Last administered on 05/09/17 10:22 ; Start 05/07/17 at 07:30 Loxapine Succinate (Loxitane) 100 mg HS PO Last administered on 05/08/17 19:52 ; Start 05/06/17 at 21:00; Stop 05/09/17 at 17:34; Status DC Magnesium Hydroxide (Milk Of Magnesia) 2,400 mg PRN DAILY PRN PO CONSTIPATION Last administered on 05/08/17 17:16; Start 05/08/17 at 08:00 Lorazepam (Ativan) 0.5 mg BID PO Last administered on 05/09/17 19:51; Start at 21:00 Loxapine Succinate (Loxitane) 50 mg HS PO Last administered on 05/09/17 19:50 ; Start 05/09/17 at 21:00 Active Scripts Active Augmentin 875-125 Tablet (Amoxicillin/Potassium Clav) 1 Each Tablet 1 Tab PO BID Reported Tylenol (Acetaminophen) 325 Mg Tablet 2 Tab PO PRN Q6HRS PRN Clozapine 100 Mg Tablet 100 Mg PO HS Depakote Sprinkle (Divalproex Sodium) 125 Mg Cap.sprink 750 Mg PO BID Metamucil (Psyllium Husk) 660 Gm Powder 1 Packet PO DAILY Oxybutynin Chloride 5 Mg Tablet 5 Mg PO BID Omeprazole 40 Mg Capsule.dr 40 Mg PO DAILY Morphine Sulfate Er (Morphine Sulfate) 15 Mg Tablet.er 15 Mg PO DAILY Metoprolol Tartrate 25 Mg Tablet 25 Mg PO BIDWMEALS Loxapine (Loxapine Succinate) 50 Mg Capsule 150 Mg PO HS Lisinopril 10 Mg Tablet 10 Mg PO DAILY Haloperidol 5 Mg Tablet 5 Mg PO PRN QID PRN Finasteride 5 Mg Tablet 5 Mg PO HS Ferrous Sulfate 325 Mg Tablet 325 Mg PO DAILYAC Senna S Tablet (Sennosides/Docusate Sodium) 1 Each Tablet 2 Tab PO PRN BID PRN Clomipramine Hcl 75 Mg Capsule 150 Mg PO HS Vitamin D3 (Cholecalciferol (Vitamin D3)) 1,000 Unit Tablet 2,000 Unit PO DAILY Benztropine Mesylate 0.5 Mg Tablet 0.5 Mg PO BID Aspirin Ec (Aspirin) 325 Mg Tablet.dr 325 Mg PO DAILY Diagnosis: Problems: (1) Acute respiratory failure with hypoxia (2) Anxiety disorder (3) Impulse control disorder (4) Obsessive compulsive disorder (5) Schizoaffective disorder (6) Schizophrenia, disorganized, subchronic with acute exacerbation SHAKIR PAEZ MD May 09, 2017 20:53
--- NOTE | 2017-05-09 23:48 | NUR ---
Behavior Intervention Response and Plan: BIRP Note: Behavior: Assumed Care of patient, patient located in Day Room at shift change. Patient exhibited the following behavior Calm, Compliant, Cooperative. Brief assessment on rounds of vital signs, medication needs, lab studies, and pain. Treatment plan problems Alteration in Mood and Fall Risk. Intervention: Patient assessed and the following interventions initiated safety checks 15 Minute Checks Cognitive Assessment , Head to toe Assessment , Medications. Response: After interactions and interventions patient responded in the following manner, Calm , Compliant ,Cooperative. Continue to assess behaviors and condition will continue to monitor throughout the shift as needed. Patient educated on ADL's, and hand hygiene. Plan: Continue to monitor Master Treatment Plan for patient's progress toward short term goals of Improved Mood, , senior living goals to return to previous living setting vs placement. Continue to assess patient for changes in above assessment. Monitor for medication needs, pain, and safety concerns. Hourly rounding performed to ensure safe environment.
--- NOTE | 2017-05-10 01:02 | PN ---
DATE: 05/08/2017 This late entry 05/08/2017 covers elements not covered in my initial note of 05/08/2017. SUBJECTIVE: The patient was staffed at a treatment team meeting morning of 05/08/2017, seen individually evening of 05/08/2017. He has been fairly calm, compliant, less sedated, little more interactive but despite this is still withdrawn. REVIEW OF SYSTEMS: Ambulation impaired, in wheelchair. No CV, , pulmonary, eye system symptoms on review. MENTAL STATUS EXAM: Oriented to himself and situation. Speech moderate latency, often responses monosyllabic. Abstraction fair, computation impaired, language function intact, attention span short. Mood and affect still somewhat withdrawn, but less tired, less withdrawn, less compared to earlier. LABORATORY DATA: Reviewed. IMPRESSION: Unchanged from initial note. PLAN: Continue current psychotropics mentioned in my initial note. Clozaril is currently 125 mg at bedtime. Ativan reduced to 0.5 mg b.i.d.. Loxitane 100 mg at bedtime starting 05/09/2017, we will reduce it to 50 mg at bedtime. Adjust further as clinically indicated. MAN Ravi PAEZ MD DR: MELISA/mavrel JOB#: [id number] / [id number]
[2017-05-10 06:09] VITALS: BP 180/84
[2017-05-10] MEDS: FERROUS SULFATE 325 MG TABLET. PO SCH (08:40)
[2017-05-10] MEDS: DIVALPROEX 125 MG CAP.SPRINK PO SCH ×2 (08:43→19:31)
[2017-05-10] MEDS: ASPIRIN ENTERIC COATED 325 MG TABLET.DR. PO SCH (08:43)
[2017-05-10] MEDS: MORPHINE ER 15 MG TABLET.ER PO SCH (08:43)
[2017-05-10] MEDS: METOPROLOL TART IMMED RELEASE 25 MG TABLET PO SCH ×2 (08:43→17:28)
[2017-05-10] MEDS: LORazepam 0.5 MG TABLET PO SCH ×2 (08:43→19:33)
[2017-05-10] MEDS: OXYBUTYNIN CHLORIDE 5 MG TABLET PO SCH ×2 (08:44→19:31)
[2017-05-10] MEDS: PSYLLIUM SEED (WITH SUGAR) PACKET. PO SCH (08:44)
[2017-05-10] MEDS: PANTOPRAZOLE 40 MG TABLET. PO SCH (08:45)
[2017-05-10] MEDS: CHOLECALCIFEROL (VITAMIN D3) 1,000 UNIT TABLET PO SCH (08:45)
[2017-05-10] MEDS: LISINOPRIL 20 MG TABLET PO SCH (08:45)
[2017-05-10] MEDS: DOCUSATE CALCIUM 240 MG CAPSULE PO SCH (08:45)
--- NOTE | 2017-05-10 11:37 | NUR ---
Behavior Intervention Response and Plan: BIRP Note: Behavior: Assumed Care of patient, patient located in Patient Room at shift change. Patient exhibited the following behavior Interactive, cooperative, confused, disorganized. Brief assessment on rounds of vital signs, medication needs, lab studies, and pain. Treatment plan problems 1 and 2. Intervention: Patient assessed and the following interventions initiated safety checks 15 Minute Checks Head to toe Assessment , Cognitive Assessment , Medications. Response: After interactions and interventions patient responded in the following manner, Disorganized, Compliant, Cooperative, and confused. Continue to assess behaviors and condition will continue to monitor throughout the shift as needed. Patient educated on ADL's, and hand hygiene. Plan: Continue to monitor Master Treatment Plan for patient's progress toward short term goals of Decreased Agitation, Decreased Aggression, detention goals to return to previous living setting vs placement. Continue to assess patient for changes in above assessment. Monitor for medication needs, pain, and safety concerns. Hourly rounding performed to ensure safe environment.
[2017-05-10 16:49] VITALS: BP 116/60
[2017-05-10] MEDS: TAMSULOSIN 0.4 MG CAP.ER.24H. PO SCH (19:31)
[2017-05-10] MEDS: FINASTERIDE 5 MG TABLET PO SCH (19:31)
[2017-05-10] MEDS: cloZAPine 100 MG TABLET PO SCH (19:33)
[2017-05-10] MEDS: cloZAPine 25 MG TABLET PO SCH (19:33)
[2017-05-10] MEDS: LOXAPINE SUCCINATE 25 MG CAPSULE PO SCH (19:34)
--- NOTE | 2017-05-10 21:04 | PN ---
DATE: 05/09/2017 This is a late entry for 05/09/2017 and covers the elements not covered in my initial note of 05/09/2017. SUBJECTIVE: I met with the patient the evening of 05/09/2017. He has been cooperative on medications, not slumped over forward like he was in days before, less obsessive and less psychotic, tolerating the Clozaril. REVIEW OF SYSTEMS: Ambulation impaired, in a wheelchair. No CV, , pulmonary, eye, ENT system symptoms on review. MENTAL STATUS EXAM: Oriented to himself and situation. Speech has some latency, often responses monosyllabic. Abstraction fair, computation impaired, language function intact, attention span short, mood and affect somewhat withdrawn. LABORATORY DATA: Reviewed. IMPRESSION: Unchanged from initial note. PLAN: Continue current psychotropics including the Clozaril, may consider stopping Loxitane in a couple of days. Reviewed drug contractions. Risk/benefit ratio favors no further change at this time. SHAKIR PAEZ MD DR: MELISA/marvel JOB#: [id number] / [id number]
--- NOTE | 2017-05-10 21:08 | PDOC ---
Exam José Miguel Demential Exam: José Miguel Note: Please also refer to the separate dictated note~for this date of service dictated separately.~Patient seen individually. Discussed the patient with Nursing staff reviewed the chart.~Reviewed interim history and current functioning. Reviewed vital signs,~Labs/ Radiology~and current medications noted below. Continue current treatment with the changes noted in the dictated addendum note Assessment: Vital Signs: Vital Signs Date Time Temp Pulse Resp B/P (MAP) Pulse Ox O2 Delivery O2 Flow Rate FiO2 05/10/17 17:28 67 116/60 05/10/17 16:49 97.9 18 97 Room Air I&O Intake and Output 05/11/17 07:00 Intake Total 720 ml Balance 720 ml Intake Oral 720 ml Current Medications: Meds: Current Medications Benztropine Mesylate (Cogentin) 0.5 mg BID PO Last administered on 05/05/17 07 :46; Start 05/02/17 at 21:00; Stop 05/05/17 at 15:10; Status DC Clozapine (Clozaril) 100 mg HS PO Last administered on 05/05/17 20:20; Start 05/02/17 at 21:00; Stop 05/06/17 at 00:09; Status DC Divalproex Sodium (Depakote Sprinkles) 750 mg BID PO Last administered on 19:31; Start 05/02/17 at 21:00 Haloperidol (Haldol) 5 mg PRN QID PRN PO ANXIETY / AGITATION; Start 05/02/17 at 18:30 Clomipramine HCl (Anafranil) 150 mg HS PO Last administered on 05/10/17 19:34 ; Start 05/02/17 at 21:00 Loxapine Succinate (Loxitane) 150 mg HS PO Last administered on 05/05/17 21:19 ; Start 05/02/17 at 21:00; Stop 05/06/17 at 18:25; Status DC Acetaminophen (Tylenol) 650 mg PRN Q6HRS PRN PO FEVER; Start 05/02/17 at 18:30 Amoxicillin/ Clavulanate Potassium (Augmentin 875/ 125mg) 1 tab BID PO Last administered on 05/09/17 10:23; Start 05/02/17 at 21:00; Stop 05/09/17 at 09:01 ; Status DC Aspirin (Aspirin Enteric Coated) 325 mg DAILY PO Last administered on 08:43; Start 05/03/17 at 09:00 Vitamin D (Vitamin D3) 2,000 unit DAILY PO Last administered on 05/10/17 08:45 ; Start 05/03/17 at 09:00 Ferrous Sulfate (Feosol) 325 mg DAILYAC PO Last administered on 05/05/17 07:45 ; Start 05/03/17 at 07:30; Stop 05/06/17 at 12:01; Status DC Finasteride (Proscar) 5 mg HS PO Last administered on 05/10/17 19:31; Start at 21:00 Lisinopril (Prinivil) 10 mg DAILY PO Last administered on 05/03/17 08:01; Start 05/03/17 at 09:00; Stop 05/03/17 at 13:47; Status DC Metoprolol Tartrate (Lopressor) 25 mg BIDWMEALS PO Last administered on 17:28; Start 05/03/17 at 08:00 Morphine Sulfate (Ms Contin) 15 mg DAILY PO Last administered on 05/10/17 08: 43; Start 05/03/17 at 09:00 Oxybutynin Chloride (Ditropan) 5 mg BID PO Last administered on 05/10/17 19:31 ; Start 05/02/17 at 21:00 Senna/Docusate Sodium (Senna Plus) 2 tab PRN BID PRN PO CONSTIPATION Last administered on 05/07/17 19:20; Start 05/02/17 at 18:30 Pantoprazole Sodium (Protonix) 40 mg DAILY PO Last administered on 05/10/17 08 :45; Start 05/03/17 at 09:00 Psyllium Hydrophilic Mucilloid (Metamucil) 1 pkt DAILY PO Last administered on 05/10/17 08:44; Start 05/03/17 at 09:00 Info (FLU VACCINE per PROTOCOL) 1 ea PRN 1X PRN MC PER PROTOCOL; Start at 19:15; Status UNV Influenza Virus Vaccine Quadrival (Fluarix Quad 6306-9637 Syringe) 0.5 ml ONCE ONCE VAX IM Last administered on 05/03/17 14:46; Start 05/03/17 at 09:00; Stop 05/03/17 at 09:01; Status DC Lisinopril (Prinivil) 20 mg DAILY PO Last administered on 05/10/17 08:45; Start 05/04/17 at 09:00 Tamsulosin HCl (Flomax) 0.4 mg QHS PO Last administered on 05/10/17 19:31; Start 05/03/17 at 21:00 Lorazepam (Ativan) 0.5 mg QID PO Last administered on 05/04/17 17:59; Start at 21:00; Stop 05/04/17 at 19:05; Status DC Lorazepam (Ativan) 0.5 mg TID PO Last administered on 05/09/17 14:13; Start at 21:00; Stop 05/09/17 at 17:34; Status DC Benztropine Mesylate (Cogentin) 0.5 mg DAILY PO Last administered on 05/07/17 07:57; Start 05/06/17 at 09:00; Stop 05/07/17 at 13:31; Status DC Docusate Calcium (Surfak) 240 mg DAILY PO Last administered on 05/10/17 08:45 ; Start 05/06/17 at 09:00 Clozapine (Clozaril) 100 mg QHS PO Last administered on 05/10/17 19:33; Start 05/06/17 at 21:00 Clozapine (Clozaril) 25 mg QHS PO Last administered on 05/10/17 19:33; Start 05/06/17 at 21:00 Ferrous Sulfate (Feosol) 325 mg DAILYAC PO Last administered on 05/10/17 08:40 ; Start 05/07/17 at 07:30 Loxapine Succinate (Loxitane) 100 mg HS PO Last administered on 05/08/17 19:52 ; Start 05/06/17 at 21:00; Stop 05/09/17 at 17:34; Status DC Magnesium Hydroxide (Milk Of Magnesia) 2,400 mg PRN DAILY PRN PO CONSTIPATION Last administered on 05/08/17 17:16; Start 05/08/17 at 08:00 Lorazepam (Ativan) 0.5 mg BID PO Last administered on 05/10/17 19:33; Start at 21:00 Loxapine Succinate (Loxitane) 50 mg HS PO Last administered on 05/10/17 19:34 ; Start 05/09/17 at 21:00 Active Scripts Active Augmentin 875-125 Tablet (Amoxicillin/Potassium Clav) 1 Each Tablet 1 Tab PO BID Reported Tylenol (Acetaminophen) 325 Mg Tablet 2 Tab PO PRN Q6HRS PRN Clozapine 100 Mg Tablet 100 Mg PO HS Depakote Sprinkle (Divalproex Sodium) 125 Mg Cap.sprink 750 Mg PO BID Metamucil (Psyllium Husk) 660 Gm Powder 1 Packet PO DAILY Oxybutynin Chloride 5 Mg Tablet 5 Mg PO BID Omeprazole 40 Mg Capsule.dr 40 Mg PO DAILY Morphine Sulfate Er (Morphine Sulfate) 15 Mg Tablet.er 15 Mg PO DAILY Metoprolol Tartrate 25 Mg Tablet 25 Mg PO BIDWMEALS Loxapine (Loxapine Succinate) 50 Mg Capsule 150 Mg PO HS Lisinopril 10 Mg Tablet 10 Mg PO DAILY Haloperidol 5 Mg Tablet 5 Mg PO PRN QID PRN Finasteride 5 Mg Tablet 5 Mg PO HS Ferrous Sulfate 325 Mg Tablet 325 Mg PO DAILYAC Senna S Tablet (Sennosides/Docusate Sodium) 1 Each Tablet 2 Tab PO PRN BID PRN Clomipramine Hcl 75 Mg Capsule 150 Mg PO HS Vitamin D3 (Cholecalciferol (Vitamin D3)) 1,000 Unit Tablet 2,000 Unit PO DAILY Benztropine Mesylate 0.5 Mg Tablet 0.5 Mg PO BID Aspirin Ec (Aspirin) 325 Mg Tablet.dr 325 Mg PO DAILY Diagnosis: Problems: (1) Anxiety disorder (2) Impulse control disorder (3) Obsessive compulsive disorder (4) Schizoaffective disorder (5) Mild cognitive disorder (6) Schizophrenia, disorganized, subchronic with acute exacerbation SHAKIR PAEZ MD May 10, 2017 21:08
--- NOTE | 2017-05-11 01:40 | NUR ---
Behavior Intervention Response and Plan: BIRP Note: Behavior: Assumed Care of patient, patient located in Patient Room at shift change. Patient exhibited the following behavior Calm, Disorganized, Withdrawn. Brief assessment on rounds of vital signs, medication needs, lab studies, and pain. Treatment plan problems Danger to others, Altered Though Process and Fall Risk. Intervention: Patient assessed and the following interventions initiated safety checks 15 Minute Checks Cognitive Assessment , Head to toe Assessment , Medications. Response: After interactions and interventions patient responded in the following manner, Calm , Withdrawn ,Disorganized. Continue to assess behaviors and condition will continue to monitor throughout the shift as needed. Patient educated on ADL's, and hand hygiene. 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 Continue to assess patient for changes in above assessment. Monitor for medication needs, pain, and safety concerns. Hourly rounding performed to ensure safe environment.
[2017-05-11 06:28] VITALS: BP 144/77
[2017-05-11] MEDS: FERROUS SULFATE 325 MG TABLET. PO SCH (08:44)
[2017-05-11] MEDS: METOPROLOL TART IMMED RELEASE 25 MG TABLET PO SCH ×2 (08:44→17:05)
[2017-05-11] MEDS: OXYBUTYNIN CHLORIDE 5 MG TABLET PO SCH ×2 (08:45→19:44)
[2017-05-11] MEDS: ASPIRIN ENTERIC COATED 325 MG TABLET.DR. PO SCH (08:45)
[2017-05-11] MEDS: DIVALPROEX 125 MG CAP.SPRINK PO SCH ×2 (08:45→19:44)
[2017-05-11] MEDS: LORazepam 0.5 MG TABLET PO SCH ×2 (08:45→19:44)
[2017-05-11] MEDS: PANTOPRAZOLE 40 MG TABLET. PO SCH (08:46)
[2017-05-11] MEDS: DOCUSATE CALCIUM 240 MG CAPSULE PO SCH (08:46)
[2017-05-11] MEDS: LISINOPRIL 20 MG TABLET PO SCH (08:46)
[2017-05-11] MEDS: PSYLLIUM SEED (WITH SUGAR) PACKET. PO SCH (08:46)
[2017-05-11] MEDS: MORPHINE ER 15 MG TABLET.ER PO SCH (08:46)
[2017-05-11] MEDS: CHOLECALCIFEROL (VITAMIN D3) 1,000 UNIT TABLET PO SCH (08:47)
--- NOTE | 2017-05-11 10:08 | NUR ---
Behavior Intervention Response and Plan: BIRP Note: Behavior: Assumed Care of patient, patient located in Patient Room at shift change. Patient exhibited the following behavior Interactive, cooperative, confused. Brief assessment on rounds of vital signs, medication needs, lab studies, and pain. Treatment plan problems 1 and 2. Intervention: Patient assessed and the following interventions initiated safety checks 15 Minute Checks Head to toe Assessment , Cognitive Assessment , Medications. Response: After interactions and interventions patient responded in the following manner, Compliant, Cooperative, and confused. Continue to assess behaviors and condition will continue to monitor throughout the shift as needed. Patient educated on ADL's, and hand hygiene. 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 Continue to assess patient for changes in above assessment. Monitor for medication needs, pain, and safety concerns. Hourly rounding performed to ensure safe environment.
[2017-05-11 16:13] VITALS: BP 139/74
[2017-05-11] MEDS: LOXAPINE SUCCINATE 25 MG CAPSULE PO SCH (19:43)
[2017-05-11] MEDS: TAMSULOSIN 0.4 MG CAP.ER.24H. PO SCH (19:44)
[2017-05-11] MEDS: cloZAPine 25 MG TABLET PO SCH (19:44)
[2017-05-11] MEDS: FINASTERIDE 5 MG TABLET PO SCH (19:44)
[2017-05-11] MEDS: cloZAPine 100 MG TABLET PO SCH (19:44)
--- NOTE | 2017-05-11 20:12 | PN ---
DATE: 05/10/2017 This is a late entry 05/10/2017, covers elements not covered in my initial note 05/10/2017. SUBJECTIVE: I met with the patient evening of 05/10/2017. The patient has been calm, compliant with medications and assessments, social, wandering in his wheelchair per nursing report. He is less paranoid, smiling as I met with him. REVIEW OF SYSTEMS: Ambulation impaired, in a wheelchair. No CV, , pulmonary, eye system symptoms on review. MENTAL STATUS EXAM: Oriented to himself and situation. Speech moderate latency, low in rate and rhythm, low in volume. Abstraction fair, computation impaired, language function intact. Attention span short and less paranoid, less psychotic. No active suicidal or homicidal ideation. IMPRESSION: Unchanged from initial note. PLAN: Continue current psychotropics. Loxitane was reduced. Ativan has been reduced as well. Clozapine has been gradually increased. We will plan on stopping the Loxitane in a couple of days. We will get a CBC, absolute neutrophil count on 05/12/2017 and then consider increasing the Clozaril at that stage. Valproic acid level has been therapeutic. Reviewed drug interactions. Risk/benefit ratio favors no further change. SHAKIR PAEZ MD DR: MELISA/marvel JOB#: [id number] / [id number]
--- NOTE | 2017-05-11 22:33 | PDOC ---
Exam José Miguel Demential Exam: José Miguel Note: Please also refer to the separate dictated note~for this date of service dictated separately.~Patient seen individually. Discussed the patient with Nursing staff reviewed the chart.~Reviewed interim history and current functioning. Reviewed vital signs,~Labs/ Radiology~and current medications noted below. Continue current treatment with the changes noted in the dictated addendum note Assessment: Vital Signs: Vital Signs Date Time Temp Pulse Resp B/P (MAP) Pulse Ox O2 Delivery O2 Flow Rate FiO2 05/11/17 17:05 60 144/77 05/11/17 16:13 97.9 19 95 05/10/17 16:49 Room Air I&O Intake and Output 05/12/17 07:00 Intake Total 1200 ml Balance 1200 ml Intake Oral 1200 ml # Voids 2 # Bowel Movements 1 Current Medications: Meds: Current Medications Benztropine Mesylate (Cogentin) 0.5 mg BID PO Last administered on 05/05/17 07 :46; Start 05/02/17 at 21:00; Stop 05/05/17 at 15:10; Status DC Clozapine (Clozaril) 100 mg HS PO Last administered on 05/05/17 20:20; Start 05/02/17 at 21:00; Stop 05/06/17 at 00:09; Status DC Divalproex Sodium (Depakote Sprinkles) 750 mg BID PO Last administered on 19:44; Start 05/02/17 at 21:00 Haloperidol (Haldol) 5 mg PRN QID PRN PO ANXIETY / AGITATION; Start 05/02/17 at 18:30 Clomipramine HCl (Anafranil) 150 mg HS PO Last administered on 05/11/17 19:45 ; Start 05/02/17 at 21:00 Loxapine Succinate (Loxitane) 150 mg HS PO Last administered on 05/05/17 21:19 ; Start 05/02/17 at 21:00; Stop 05/06/17 at 18:25; Status DC Acetaminophen (Tylenol) 650 mg PRN Q6HRS PRN PO FEVER; Start 05/02/17 at 18:30 Amoxicillin/ Clavulanate Potassium (Augmentin 875/ 125mg) 1 tab BID PO Last administered on 05/09/17 10:23; Start 05/02/17 at 21:00; Stop 05/09/17 at 09:01 ; Status DC Aspirin (Aspirin Enteric Coated) 325 mg DAILY PO Last administered on 08:45; Start 05/03/17 at 09:00 Vitamin D (Vitamin D3) 2,000 unit DAILY PO Last administered on 05/11/17 08:47 ; Start 05/03/17 at 09:00 Ferrous Sulfate (Feosol) 325 mg DAILYAC PO Last administered on 05/05/17 07:45 ; Start 05/03/17 at 07:30; Stop 05/06/17 at 12:01; Status DC Finasteride (Proscar) 5 mg HS PO Last administered on 05/11/17 19:44; Start at 21:00 Lisinopril (Prinivil) 10 mg DAILY PO Last administered on 05/03/17 08:01; Start 05/03/17 at 09:00; Stop 05/03/17 at 13:47; Status DC Metoprolol Tartrate (Lopressor) 25 mg BIDWMEALS PO Last administered on 17:05; Start 05/03/17 at 08:00 Morphine Sulfate (Ms Contin) 15 mg DAILY PO Last administered on 05/11/17 08: 46; Start 05/03/17 at 09:00 Oxybutynin Chloride (Ditropan) 5 mg BID PO Last administered on 05/11/17 19:44 ; Start 05/02/17 at 21:00 Senna/Docusate Sodium (Senna Plus) 2 tab PRN BID PRN PO CONSTIPATION Last administered on 05/07/17 19:20; Start 05/02/17 at 18:30 Pantoprazole Sodium (Protonix) 40 mg DAILY PO Last administered on 05/11/17 08 :46; Start 05/03/17 at 09:00 Psyllium Hydrophilic Mucilloid (Metamucil) 1 pkt DAILY PO Last administered on 05/10/17 08:44; Start 05/03/17 at 09:00 Info (FLU VACCINE per PROTOCOL) 1 ea PRN 1X PRN MC PER PROTOCOL; Start at 19:15; Status UNV Influenza Virus Vaccine Quadrival (Fluarix Quad [id number] Syringe) 0.5 ml ONCE ONCE VAX IM Last administered on 05/03/17 14:46; Start 05/03/17 at 09:00; Stop 05/03/17 at 09:01; Status DC Lisinopril (Prinivil) 20 mg DAILY PO Last administered on 05/11/17 08:46; Start 05/04/17 at 09:00 Tamsulosin HCl (Flomax) 0.4 mg QHS PO Last administered on 05/11/17 19:44; Start 05/03/17 at 21:00 Lorazepam (Ativan) 0.5 mg QID PO Last administered on 05/04/17 17:59; Start at 21:00; Stop 05/04/17 at 19:05; Status DC Lorazepam (Ativan) 0.5 mg TID PO Last administered on 05/09/17 14:13; Start at 21:00; Stop 05/09/17 at 17:34; Status DC Benztropine Mesylate (Cogentin) 0.5 mg DAILY PO Last administered on 05/07/17 07:57; Start 05/06/17 at 09:00; Stop 05/07/17 at 13:31; Status DC Docusate Calcium (Surfak) 240 mg DAILY PO Last administered on 05/11/17 08:46 ; Start 05/06/17 at 09:00 Clozapine (Clozaril) 100 mg QHS PO Last administered on 05/11/17 19:44; Start 05/06/17 at 21:00 Clozapine (Clozaril) 25 mg QHS PO Last administered on 05/11/17 19:44; Start 05/06/17 at 21:00 Ferrous Sulfate (Feosol) 325 mg DAILYAC PO Last administered on 05/11/17 08:44 ; Start 05/07/17 at 07:30 Loxapine Succinate (Loxitane) 100 mg HS PO Last administered on 05/08/17 19:52 ; Start 05/06/17 at 21:00; Stop 05/09/17 at 17:34; Status DC Magnesium Hydroxide (Milk Of Magnesia) 2,400 mg PRN DAILY PRN PO CONSTIPATION Last administered on 05/08/17 17:16; Start 05/08/17 at 08:00 Lorazepam (Ativan) 0.5 mg BID PO Last administered on 05/11/17 19:44; Start at 21:00 Loxapine Succinate (Loxitane) 50 mg HS PO Last administered on 05/11/17 19:43 ; Start 05/09/17 at 21:00; Stop 05/12/17 at 20:00 Active Scripts Active Augmentin 875-125 Tablet (Amoxicillin/Potassium Clav) 1 Each Tablet 1 Tab PO BID Reported Tylenol (Acetaminophen) 325 Mg Tablet 2 Tab PO PRN Q6HRS PRN Clozapine 100 Mg Tablet 100 Mg PO HS Depakote Sprinkle (Divalproex Sodium) 125 Mg Cap.sprink 750 Mg PO BID Metamucil (Psyllium Husk) 660 Gm Powder 1 Packet PO DAILY Oxybutynin Chloride 5 Mg Tablet 5 Mg PO BID Omeprazole 40 Mg Capsule.dr 40 Mg PO DAILY Morphine Sulfate Er (Morphine Sulfate) 15 Mg Tablet.er 15 Mg PO DAILY Metoprolol Tartrate 25 Mg Tablet 25 Mg PO BIDWMEALS Loxapine (Loxapine Succinate) 50 Mg Capsule 150 Mg PO HS Lisinopril 10 Mg Tablet 10 Mg PO DAILY Haloperidol 5 Mg Tablet 5 Mg PO PRN QID PRN Finasteride 5 Mg Tablet 5 Mg PO HS Ferrous Sulfate 325 Mg Tablet 325 Mg PO DAILYAC Senna S Tablet (Sennosides/Docusate Sodium) 1 Each Tablet 2 Tab PO PRN BID PRN Clomipramine Hcl 75 Mg Capsule 150 Mg PO HS Vitamin D3 (Cholecalciferol (Vitamin D3)) 1,000 Unit Tablet 2,000 Unit PO DAILY Benztropine Mesylate 0.5 Mg Tablet 0.5 Mg PO BID Aspirin Ec (Aspirin) 325 Mg Tablet.dr 325 Mg PO DAILY Diagnosis: Problems: (1) Anxiety disorder (2) Impulse control disorder (3) Obsessive compulsive disorder (4) Schizoaffective disorder (5) Schizophrenia, disorganized, subchronic with acute exacerbation SHAKIR PAEZ MD May 11, 2017 22:33
--- NOTE | 2017-05-11 23:44 | NUR ---
Behavior Intervention Response and Plan: BIRP Note: Behavior: Assumed Care of patient, patient located in Patient Room at shift change. Patient exhibited the following behavior Calm, Disorganized, Withdrawn. Brief assessment on rounds of vital signs, medication needs, lab studies, and pain. Treatment plan problems Danger to others, Altered Though Process and Fall Risk. Intervention: Patient assessed and the following interventions initiated safety checks 15 Minute Checks Cognitive Assessment , Head to toe Assessment , Medications. Response: After interactions and interventions patient responded in the following manner, Calm , Withdrawn ,Disorganized. Continue to assess behaviors and condition will continue to monitor throughout the shift as needed. Patient educated on ADL's, and hand hygiene. 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 Continue to assess patient for changes in above assessment. Monitor for medication needs, pain, and safety concerns. Hourly rounding performed to ensure safe environment.
[2017-05-12] MEDS ORDERED: DOCU240C13 PO (00:29)
[2017-05-12] MEDS ORDERED: LISI-334 PO (00:31)
[2017-05-12] MEDS ORDERED: LORA0.5T PO (00:33)
[2017-05-12] MEDS ORDERED: TAMS0.4C97 PO (00:42)
[2017-05-12] MEDS ORDERED: CLOZ25TA7 PO (00:43)
[2017-05-12 06:42] LABS: BASO % 0 % (0-3); EOS # 0.2 x10^3/uL (0.0-0.7); EOS % 2 % (0-3); HEMATOCRIT 33.9 % (39.0-53.0); HEMOGLOBIN 11.5 g/dL (13.0-17.5); LYMPH # 2.4 x10^3/uL (1.0-4.8); LYMPH % 16 % (24-48); MEAN CORPUSCULAR HEMOGLOBIN 34 pg (25-35); MEAN CORPUSCULAR HGB CONC 34 g/dL (31-37); MEAN CORPUSCULAR VOLUME 100 fL (79-100); MONO # 1.7 x10^3/uL (0.0-1.1); MONO % 11 % (0-9); NEUT # 10.7 x10^3uL (1.8-7.7); NEUT % 71 % (31-73); PLATELET COUNT 458 x10^3/uL (140-400); RED CELL DISTRIBUTION WIDTH 13.6 % (11.5-14.5); WHITE BLOOD COUNT 15.1 x10^3/uL (4.0-11.0)
[2017-05-12 06:46] LABS: ALBUMIN 2.8 g/dL (3.4-5.0); ALBUMIN/GLOBULIN RATIO 0.7 (1.0-1.7); BLOOD UREA NITROGEN 20 mg/dL (8-26); BUN/CREATININE RATIO 22 (6-20); CALCIUM 8.5 mg/dL (8.5-10.1); CREATININE 0.9 mg/dL (0.7-1.3); GLUCOSE 87 mg/dL (70-99); TOTAL BILIRUBIN 0.2 mg/dL (0.2-1.0); TOTAL PROTEIN 6.7 g/dL (6.4-8.2)
[2017-05-12 06:47] LABS: ALK PHOS 79 U/L (46-116); ALT (SGPT) 11 U/L (16-63); ANION GAP 5 (6-14); AST (SGOT) < 5 U/L (15-37); CARBON DIOXIDE 33 mmol/L (21-32); CHLORIDE 106 mmol/L (98-107); SODIUM 144 mmol/L (136-145)
[2017-05-12 06:50] VITALS: BP 155/81
--- NOTE | 2017-05-12 08:15 | NUR ---
VIVIENNE sent updated fax to [facility] per request, as well as reason for continued stay per [facility]'s request. No other questions noted at this time, possible d/c on Fri.
[2017-05-12] MEDS: DOCUSATE CALCIUM 240 MG CAPSULE PO SCH (08:35)
[2017-05-12] MEDS: ASPIRIN ENTERIC COATED 325 MG TABLET.DR. PO SCH (08:35)
[2017-05-12] MEDS: LORazepam 0.5 MG TABLET PO SCH ×2 (08:35→19:57)
[2017-05-12] MEDS: OXYBUTYNIN CHLORIDE 5 MG TABLET PO SCH ×2 (08:35→19:55)
[2017-05-12] MEDS: PANTOPRAZOLE 40 MG TABLET. PO SCH (08:36)
[2017-05-12] MEDS: CHOLECALCIFEROL (VITAMIN D3) 1,000 UNIT TABLET PO SCH (08:36)
[2017-05-12] MEDS: FERROUS SULFATE 325 MG TABLET. PO SCH (08:36)
[2017-05-12] MEDS: METOPROLOL TART IMMED RELEASE 25 MG TABLET PO SCH ×2 (08:36→17:42)
[2017-05-12] MEDS: MORPHINE ER 15 MG TABLET.ER PO SCH (08:36)
[2017-05-12] MEDS: LISINOPRIL 20 MG TABLET PO SCH (08:36)
[2017-05-12] MEDS: PSYLLIUM SEED (WITH SUGAR) PACKET. PO SCH (08:37)
[2017-05-12] MEDS: DIVALPROEX 125 MG CAP.SPRINK PO SCH ×2 (08:37→19:55)
--- NOTE | 2017-05-12 08:37 | NUR ---
RAND called Saundra at [facility] to update her on pt's changed discharge date. SWS faxed a updated medication list to [facility] per Saundra's request. RAND also left message for Jesus Estrada and Zeus Bhatt called back and was updated as well.
--- NOTE | 2017-05-12 09:55 | NUR ---
Group Note [facility] Group Type Orientation Group Start Time: 9:00am End Time: 9:15am Problem: Anxiety Purpose: Increase Orientation Level of Participation: low Behaviors or Symptoms Observed: Pt was present at group but did not participate. Interventions: Education, Orientation, Socialization Response: Pt remained quiet for the duration of group. Plan: Group Participation Additional Comments:
--- NOTE | 2017-05-12 11:23 | NUR ---
Behavior Intervention Response and Plan: BIRP Note: Behavior: Assumed Care of patient, patient located in Day Room at shift change. Patient exhibited the following behavior Calm, Disorganized, Withdrawn. Brief assessment on rounds of vital signs, medication needs, lab studies, and pain. Treatment plan problems 1-2. Intervention: Patient assessed and the following interventions initiated safety checks 15 Minute Checks Personal Alarm in place , Cognitive Assessment , Head to toe Assessment. Response: After interactions and interventions patient responded in the following manner, Disorganized , Drowsy ,Compliant. Continue to assess behaviors and condition will continue to monitor throughout the shift as needed. Patient educated on ADL's, and hand hygiene. 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 Continue to assess patient for changes in above assessment. Monitor for medication needs, pain, and safety concerns. Hourly rounding performed to ensure safe environment.
--- NOTE | 2017-05-12 13:30 | NUR ---
Discussed pt's labs with Dr. Church. Received orders to collect UA.
[2017-05-12 16:21] VITALS: BP 131/68
[2017-05-12] MEDS: FINASTERIDE 5 MG TABLET PO SCH (19:55)
[2017-05-12] MEDS: TAMSULOSIN 0.4 MG CAP.ER.24H. PO SCH (19:55)
[2017-05-12] MEDS: cloZAPine 100 MG TABLET PO SCH (19:57)
[2017-05-12] MEDS: cloZAPine 25 MG TABLET PO SCH (19:58)
[2017-05-12 20:54] LABS: BACTERIA,URINE 0 /HPF (0-FEW); BILIRUBIN,URINE NEG (NEG); CLARITY,URINE HAZY; COLOR,URINE YELLOW; GLUCOSE,URINE NEG (NEG); NITRITE,URINE NEG (NEG); RBC,URINE 20-40 /HPF (0-2); SQUAMOUS EPITHELIAL CELL,UR MANY /LPF; UROBILINOGEN,URINE 0.2 mg/dL (0.2 mg/dL); WBC,URINE OCC /HPF (0-4)
--- NOTE | 2017-05-12 20:56 | PDOC ---
Exam José Miguel Demential Exam: José Miguel Note: Please also refer to the separate dictated note~for this date of service dictated separately.~Patient seen individually. Discussed the patient with Nursing staff reviewed the chart.~Reviewed interim history and current functioning. Reviewed vital signs,~Labs/ Radiology~and current medications noted below. Continue current treatment with the changes noted in the dictated addendum note Assessment: Vital Signs: Vital Signs Date Time Temp Pulse Resp B/P (MAP) Pulse Ox O2 Delivery O2 Flow Rate FiO2 05/12/17 17:42 57 131/68 05/12/17 16:21 97.7 20 99 05/10/17 16:49 Room Air I&O Intake and Output 05/13/17 07:00 Intake Total 1080 ml Balance 1080 ml Intake Oral 1080 ml # Bowel Movements 1 Labs: Laboratory Tests Test 05/12/17 06:12 White Blood Count 15.1 x10^3/uL (4.0-11.0) H Red Blood Count 3.40 x10^6/uL (4.30-5.70) L Hemoglobin 11.5 g/dL (13.0-17.5) L Hematocrit 33.9 % (39.0-53.0) L Mean Corpuscular Volume 100 fL (79-100) Mean Corpuscular Hemoglobin 34 pg (25-35) Mean Corpuscular Hemoglobin Concent 34 g/dL (31-37) Red Cell Distribution Width 13.6 % (11.5-14.5) Platelet Count 458 x10^3/uL (140-400) H Neutrophils (%) (Auto) 71 % (31-73) Lymphocytes (%) (Auto) 16 % (24-48) L Monocytes (%) (Auto) 11 % (0-9) H Eosinophils (%) (Auto) 2 % (0-3) Basophils (%) (Auto) 0 % (0-3) Neutrophils # (Auto) 10.7 x10^3uL (1.8-7.7) H Lymphocytes # (Auto) 2.4 x10^3/uL (1.0-4.8) Monocytes # (Auto) 1.7 x10^3/uL (0.0-1.1) H Eosinophils # (Auto) 0.2 x10^3/uL (0.0-0.7) Basophils # (Auto) 0.0 x10^3/uL (0.0-0.2) Sodium Level 144 mmol/L (136-145) Potassium Level 4.0 mmol/L (3.5-5.1) Chloride Level 106 mmol/L (98-107) Carbon Dioxide Level 33 mmol/L (21-32) H Anion Gap 5 (6-14) L Blood Urea Nitrogen 20 mg/dL (8-26) Creatinine 0.9 mg/dL (0.7-1.3) Estimated GFR (Cockcroft-Gault) 82.0 BUN/Creatinine Ratio 22 (6-20) H Glucose Level 87 mg/dL (70-99) Calcium Level 8.5 mg/dL (8.5-10.1) Total Bilirubin 0.2 mg/dL (0.2-1.0) Aspartate Amino Transferase (AST) < 5 U/L (15-37) L Alanine Aminotransferase (ALT) 11 U/L (16-63) L Alkaline Phosphatase 79 U/L (46-116) Total Protein 6.7 g/dL (6.4-8.2) Albumin 2.8 g/dL (3.4-5.0) L Albumin/Globulin Ratio 0.7 (1.0-1.7) L Current Medications: Meds: Current Medications Benztropine Mesylate (Cogentin) 0.5 mg BID PO Last administered on 05/05/17 07 :46; Start 05/02/17 at 21:00; Stop 05/05/17 at 15:10; Status DC Clozapine (Clozaril) 100 mg HS PO Last administered on 05/05/17 20:20; Start 05/02/17 at 21:00; Stop 05/06/17 at 00:09; Status DC Divalproex Sodium (Depakote Sprinkles) 750 mg BID PO Last administered on 19:55; Start 05/02/17 at 21:00 Haloperidol (Haldol) 5 mg PRN QID PRN PO ANXIETY / AGITATION; Start 05/02/17 at 18:30 Clomipramine HCl (Anafranil) 150 mg HS PO Last administered on 05/12/17 19:58 ; Start 05/02/17 at 21:00 Loxapine Succinate (Loxitane) 150 mg HS PO Last administered on 05/05/17 21:19 ; Start 05/02/17 at 21:00; Stop 05/06/17 at 18:25; Status DC Acetaminophen (Tylenol) 650 mg PRN Q6HRS PRN PO FEVER; Start 05/02/17 at 18:30 Amoxicillin/ Clavulanate Potassium (Augmentin 875/ 125mg) 1 tab BID PO Last administered on 05/09/17 10:23; Start 05/02/17 at 21:00; Stop 05/09/17 at 09:01 ; Status DC Aspirin (Aspirin Enteric Coated) 325 mg DAILY PO Last administered on 08:35; Start 05/03/17 at 09:00 Vitamin D (Vitamin D3) 2,000 unit DAILY PO Last administered on 05/12/17 08:36 ; Start 05/03/17 at 09:00 Ferrous Sulfate (Feosol) 325 mg DAILYAC PO Last administered on 05/05/17 07:45 ; Start 05/03/17 at 07:30; Stop 05/06/17 at 12:01; Status DC Finasteride (Proscar) 5 mg HS PO Last administered on 05/12/17 19:55; Start at 21:00 Lisinopril (Prinivil) 10 mg DAILY PO Last administered on 05/03/17 08:01; Start 05/03/17 at 09:00; Stop 05/03/17 at 13:47; Status DC Metoprolol Tartrate (Lopressor) 25 mg BIDWMEALS PO Last administered on 17:42; Start 05/03/17 at 08:00 Morphine Sulfate (Ms Contin) 15 mg DAILY PO Last administered on 05/12/17 08: 36; Start 05/03/17 at 09:00 Oxybutynin Chloride (Ditropan) 5 mg BID PO Last administered on 05/12/17 19:55 ; Start 05/02/17 at 21:00 Senna/Docusate Sodium (Senna Plus) 2 tab PRN BID PRN PO CONSTIPATION Last administered on 05/07/17 19:20; Start 05/02/17 at 18:30 Pantoprazole Sodium (Protonix) 40 mg DAILY PO Last administered on 05/12/17 08 :36; Start 05/03/17 at 09:00 Psyllium Hydrophilic Mucilloid (Metamucil) 1 pkt DAILY PO Last administered on 05/10/17 08:44; Start 05/03/17 at 09:00 Info (FLU VACCINE per PROTOCOL) 1 ea PRN 1X PRN MC PER PROTOCOL; Start at 19:15; Status UNV Influenza Virus Vaccine Quadrival (Fluarix Quad [id number] Syringe) 0.5 ml ONCE ONCE VAX IM Last administered on 05/03/17 14:46; Start 05/03/17 at 09:00; Stop 05/03/17 at 09:01; Status DC Lisinopril (Prinivil) 20 mg DAILY PO Last administered on 05/12/17 08:36; Start 05/04/17 at 09:00 Tamsulosin HCl (Flomax) 0.4 mg QHS PO Last administered on 05/12/17 19:55; Start 05/03/17 at 21:00 Lorazepam (Ativan) 0.5 mg QID PO Last administered on 05/04/17 17:59; Start at 21:00; Stop 05/04/17 at 19:05; Status DC Lorazepam (Ativan) 0.5 mg TID PO Last administered on 05/09/17 14:13; Start at 21:00; Stop 05/09/17 at 17:34; Status DC Benztropine Mesylate (Cogentin) 0.5 mg DAILY PO Last administered on 05/07/17 07:57; Start 05/06/17 at 09:00; Stop 05/07/17 at 13:31; Status DC Docusate Calcium (Surfak) 240 mg DAILY PO Last administered on 05/12/17 08:35 ; Start 05/06/17 at 09:00 Clozapine (Clozaril) 100 mg QHS PO Last administered on 05/12/17 19:57; Start 05/06/17 at 21:00 Clozapine (Clozaril) 25 mg QHS PO Last administered on 05/11/17 19:44; Start 05/06/17 at 21:00; Stop 05/12/17 at 18:27; Status DC Ferrous Sulfate (Feosol) 325 mg DAILYAC PO Last administered on 05/12/17 08:36 ; Start 05/07/17 at 07:30 Loxapine Succinate (Loxitane) 100 mg HS PO Last administered on 05/08/17 19:52 ; Start 05/06/17 at 21:00; Stop 05/09/17 at 17:34; Status DC Magnesium Hydroxide (Milk Of Magnesia) 2,400 mg PRN DAILY PRN PO CONSTIPATION Last administered on 05/08/17 17:16; Start 05/08/17 at 08:00 Lorazepam (Ativan) 0.5 mg BID PO Last administered on 05/12/17 19:57; Start at 21:00 Loxapine Succinate (Loxitane) 50 mg HS PO Last administered on 05/11/17 19:43 ; Start 05/09/17 at 21:00; Stop 05/12/17 at 20:00; Status DC Clozapine (Clozaril) 50 mg QHS PO Last administered on 05/12/17 19:58; Start 05/12/17 at 21:00 Active Scripts Active Reported Clozapine 25 Mg Tablet 25 Mg PO QHS Flomax (Tamsulosin Hcl) 0.4 Mg Cap.er.24h 0.4 Mg PO QHS Lorazepam 0.5 Mg Tablet 0.5 Mg PO BID Lisinopril 20 Mg Tablet 20 Mg PO DAILY Docusate Calcium 240 Mg Capsule 240 Mg PO DAILY Tylenol (Acetaminophen) 325 Mg Tablet 2 Tab PO PRN Q6HRS PRN Clozapine 100 Mg Tablet 100 Mg PO HS Depakote Sprinkle (Divalproex Sodium) 125 Mg Cap.sprink 750 Mg PO BID Metamucil (Psyllium Husk) 660 Gm Powder 1 Packet PO DAILY Oxybutynin Chloride 5 Mg Tablet 5 Mg PO BID Omeprazole 40 Mg Capsule.dr 40 Mg PO DAILY Morphine Sulfate Er (Morphine Sulfate) 15 Mg Tablet.er 15 Mg PO DAILY Metoprolol Tartrate 25 Mg Tablet 25 Mg PO BIDWMEALS Loxapine (Loxapine Succinate) 50 Mg Capsule 150 Mg PO HS Lisinopril 10 Mg Tablet 10 Mg PO DAILY Haloperidol 5 Mg Tablet 5 Mg PO PRN QID PRN Finasteride 5 Mg Tablet 5 Mg PO HS Ferrous Sulfate 325 Mg Tablet 325 Mg PO DAILYAC Senna S Tablet (Sennosides/Docusate Sodium) 1 Each Tablet 2 Tab PO PRN BID PRN Clomipramine Hcl 75 Mg Capsule 150 Mg PO HS Vitamin D3 (Cholecalciferol (Vitamin D3)) 1,000 Unit Tablet 2,000 Unit PO DAILY Benztropine Mesylate 0.5 Mg Tablet 0.5 Mg PO BID Aspirin Ec (Aspirin) 325 Mg Tablet.dr 325 Mg PO DAILY Diagnosis: Problems: (1) Anxiety disorder (2) Impulse control disorder (3) Obsessive compulsive disorder (4) Schizoaffective disorder (5) Schizophrenia, disorganized, subchronic with acute exacerbation SHAKIR PAEZ MD May 12, 2017 20:56
[2017-05-13 06:15] VITALS: BP 172/70
--- NOTE | 2017-05-13 06:36 | PN ---
DATE: 05/11/2017 PSYCHIATRIC PROGRESS NOTE This late entry 05/11/2017 covers elements not covered in my initial note of 05/11/2017. I met with the patient, the evening of 05/11/2017. Overall, the patient has done better. He remains somewhat withdrawn, but not slouched forward like he was in the past. He has done much better as we significantly reduced rather high dosages of antipsychotics he was on and simplified the regimen to Clozaril. REVIEW OF SYSTEMS: Ambulation impaired, in a wheelchair. No CV, , pulmonary, eye system symptoms on review. MENTAL STATUS EXAM: Oriented to himself and situation, wearing dark glasses inside, looks rather cute per nursing staff. He has been pleasant. Speech, low in rate, rhythm, low in volume, often responses monosyllabic, as I met with him. Attention, concentration somewhat impaired. Memory has some impairment. No active suicidal or homicidal ideation. IMPRESSION: Unchanged from my initial note. PLAN: Continue current psychotropics, stop the Loxitane on 05/12/2017. Check CBC, absolute neutrophil count 05/12/2017. If this is unremarkable, we will increase the Clozaril further to 150 mg at bedtime, Luvox will continue together with Depakote and Ativan and then may try and reduce the Ativan further. Reviewed drug interactions, risk/benefit ratio favors no further change. MAN Ravi PAEZ MD DR: MELISA/marvel JOB#: [id number] / [id number]
[2017-05-13] MEDS: DOCUSATE CALCIUM 240 MG CAPSULE PO SCH ×2 (08:36→08:45)
[2017-05-13] MEDS: DIVALPROEX 125 MG CAP.SPRINK PO SCH ×2 (08:37→19:26)
[2017-05-13] MEDS: ASPIRIN ENTERIC COATED 325 MG TABLET.DR. PO SCH (08:37)
[2017-05-13] MEDS: METOPROLOL TART IMMED RELEASE 25 MG TABLET PO SCH ×2 (08:37→16:23)
[2017-05-13] MEDS: FERROUS SULFATE 325 MG TABLET. PO SCH (08:37)
[2017-05-13] MEDS: PANTOPRAZOLE 40 MG TABLET. PO SCH (08:38)
[2017-05-13] MEDS: OXYBUTYNIN CHLORIDE 5 MG TABLET PO SCH ×2 (08:38→19:25)
[2017-05-13] MEDS: LORazepam 0.5 MG TABLET PO SCH ×2 (08:38→19:25)
[2017-05-13] MEDS: MORPHINE ER 15 MG TABLET.ER PO SCH (08:38)
[2017-05-13] MEDS: CHOLECALCIFEROL (VITAMIN D3) 1,000 UNIT TABLET PO SCH (08:38)
[2017-05-13] MEDS: LISINOPRIL 20 MG TABLET PO SCH (08:39)
[2017-05-13] MEDS: PSYLLIUM SEED (WITH SUGAR) PACKET. PO SCH (08:39)
--- NOTE | 2017-05-13 10:21 | NUR ---
VIVIENNE faxed updated clinicals to Amara at [facility].
--- NOTE | 2017-05-13 10:25 | NUR ---
Behavior Intervention Response and Plan: BIRP Note: Behavior: Assumed Care of patient, patient located in Dining Room at shift change. Patient exhibited the following behavior Calm, Disorganized, Cooperative. Brief assessment on rounds of vital signs, medication needs, lab studies, and pain. Treatment plan problems 1-4. Intervention: Patient assessed and the following interventions initiated safety checks 15 Minute Checks Cognitive Assessment , Head to toe Assessment , Medications. Response: After interactions and interventions patient responded in the following manner, Calm , Disorganized ,Cooperative. Continue to assess behaviors and condition will continue to monitor throughout the shift as needed. Patient educated on ADL's, and hand hygiene. 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 Continue to assess patient for changes in above assessment. Monitor for medication needs, pain, and safety concerns. 15 minute rounding performed to ensure safe environment.
[2017-05-13 16:01] VITALS: BP 101/56
[2017-05-13] MEDS: cloZAPine 100 MG TABLET PO SCH (19:25)
[2017-05-13] MEDS: cloZAPine 25 MG TABLET PO SCH (19:25)
[2017-05-13] MEDS: TAMSULOSIN 0.4 MG CAP.ER.24H. PO SCH (19:25)
[2017-05-13] MEDS: FINASTERIDE 5 MG TABLET PO SCH (19:25)
--- NOTE | 2017-05-13 20:48 | PDOC ---
Exam José Miguel Demential Exam: José Miguel Note: Please also refer to the separate dictated note~for this date of service dictated separately.~Patient seen individually. Discussed the patient with Nursing staff reviewed the chart.~Reviewed interim history and current functioning. Reviewed vital signs,~Labs/ Radiology~and current medications noted below. Continue current treatment with the changes noted in the dictated addendum note Assessment: Vital Signs: Vital Signs Date Time Temp Pulse Resp B/P (MAP) Pulse Ox O2 Delivery O2 Flow Rate FiO2 05/13/17 16:23 101/56 05/13/17 16:01 98.0 65 19 96 05/10/17 16:49 Room Air I&O Intake and Output 05/14/17 07:00 Intake Total 1080 ml Balance 1080 ml Intake Oral 1080 ml Current Medications: Meds: Current Medications Benztropine Mesylate (Cogentin) 0.5 mg BID PO Last administered on 05/05/17 07 :46; Start 05/02/17 at 21:00; Stop 05/05/17 at 15:10; Status DC Clozapine (Clozaril) 100 mg HS PO Last administered on 05/05/17 20:20; Start 05/02/17 at 21:00; Stop 05/06/17 at 00:09; Status DC Divalproex Sodium (Depakote Sprinkles) 750 mg BID PO Last administered on 19:26; Start 05/02/17 at 21:00 Haloperidol (Haldol) 5 mg PRN QID PRN PO ANXIETY / AGITATION; Start 05/02/17 at 18:30 Clomipramine HCl (Anafranil) 150 mg HS PO Last administered on 05/13/17 19:26 ; Start 05/02/17 at 21:00 Loxapine Succinate (Loxitane) 150 mg HS PO Last administered on 05/05/17 21:19 ; Start 05/02/17 at 21:00; Stop 05/06/17 at 18:25; Status DC Acetaminophen (Tylenol) 650 mg PRN Q6HRS PRN PO FEVER; Start 05/02/17 at 18:30 Amoxicillin/ Clavulanate Potassium (Augmentin 875/ 125mg) 1 tab BID PO Last administered on 05/09/17 10:23; Start 05/02/17 at 21:00; Stop 05/09/17 at 09:01 ; Status DC Aspirin (Aspirin Enteric Coated) 325 mg DAILY PO Last administered on 08:37; Start 05/03/17 at 09:00 Vitamin D (Vitamin D3) 2,000 unit DAILY PO Last administered on 05/13/17 08:38 ; Start 05/03/17 at 09:00 Ferrous Sulfate (Feosol) 325 mg DAILYAC PO Last administered on 05/05/17 07:45 ; Start 05/03/17 at 07:30; Stop 05/06/17 at 12:01; Status DC Finasteride (Proscar) 5 mg HS PO Last administered on 05/13/17 19:25; Start at 21:00 Lisinopril (Prinivil) 10 mg DAILY PO Last administered on 05/03/17 08:01; Start 05/03/17 at 09:00; Stop 05/03/17 at 13:47; Status DC Metoprolol Tartrate (Lopressor) 25 mg BIDWMEALS PO Last administered on 08:37; Start 05/03/17 at 08:00 Morphine Sulfate (Ms Contin) 15 mg DAILY PO Last administered on 05/13/17 08: 38; Start 05/03/17 at 09:00 Oxybutynin Chloride (Ditropan) 5 mg BID PO Last administered on 05/13/17 19:25 ; Start 05/02/17 at 21:00 Senna/Docusate Sodium (Senna Plus) 2 tab PRN BID PRN PO CONSTIPATION Last administered on 05/07/17 19:20; Start 05/02/17 at 18:30 Pantoprazole Sodium (Protonix) 40 mg DAILY PO Last administered on 05/13/17 08 :38; Start 05/03/17 at 09:00 Psyllium Hydrophilic Mucilloid (Metamucil) 1 pkt DAILY PO Last administered on 05/13/17 08:39; Start 05/03/17 at 09:00 Info (FLU VACCINE per PROTOCOL) 1 ea PRN 1X PRN MC PER PROTOCOL; Start at 19:15; Status UNV Influenza Virus Vaccine Quadrival (Fluarix Quad [id number] Syringe) 0.5 ml ONCE ONCE VAX IM Last administered on 05/03/17 14:46; Start 05/03/17 at 09:00; Stop 05/03/17 at 09:01; Status DC Lisinopril (Prinivil) 20 mg DAILY PO Last administered on 05/13/17 08:39; Start 05/04/17 at 09:00 Tamsulosin HCl (Flomax) 0.4 mg QHS PO Last administered on 05/13/17 19:25; Start 05/03/17 at 21:00 Lorazepam (Ativan) 0.5 mg QID PO Last administered on 05/04/17 17:59; Start at 21:00; Stop 05/04/17 at 19:05; Status DC Lorazepam (Ativan) 0.5 mg TID PO Last administered on 05/09/17 14:13; Start at 21:00; Stop 05/09/17 at 17:34; Status DC Benztropine Mesylate (Cogentin) 0.5 mg DAILY PO Last administered on 05/07/17 07:57; Start 05/06/17 at 09:00; Stop 05/07/17 at 13:31; Status DC Docusate Calcium (Surfak) 240 mg DAILY PO Last administered on 05/12/17 08:35 ; Start 05/06/17 at 09:00 Clozapine (Clozaril) 100 mg QHS PO Last administered on 05/13/17 19:25; Start 05/06/17 at 21:00 Clozapine (Clozaril) 25 mg QHS PO Last administered on 05/11/17 19:44; Start 05/06/17 at 21:00; Stop 05/12/17 at 18:27; Status DC Ferrous Sulfate (Feosol) 325 mg DAILYAC PO Last administered on 05/13/17 08:37 ; Start 05/07/17 at 07:30 Loxapine Succinate (Loxitane) 100 mg HS PO Last administered on 05/08/17 19:52 ; Start 05/06/17 at 21:00; Stop 05/09/17 at 17:34; Status DC Magnesium Hydroxide (Milk Of Magnesia) 2,400 mg PRN DAILY PRN PO CONSTIPATION Last administered on 05/08/17 17:16; Start 05/08/17 at 08:00 Lorazepam (Ativan) 0.5 mg BID PO Last administered on 05/13/17 19:25; Start at 21:00 Loxapine Succinate (Loxitane) 50 mg HS PO Last administered on 05/11/17 19:43 ; Start 05/09/17 at 21:00; Stop 05/12/17 at 20:00; Status DC Clozapine (Clozaril) 50 mg QHS PO Last administered on 05/13/17 19:25; Start 05/12/17 at 21:00 Active Scripts Active Reported Clozapine 25 Mg Tablet 25 Mg PO QHS Flomax (Tamsulosin Hcl) 0.4 Mg Cap.er.24h 0.4 Mg PO QHS Lorazepam 0.5 Mg Tablet 0.5 Mg PO BID Lisinopril 20 Mg Tablet 20 Mg PO DAILY Docusate Calcium 240 Mg Capsule 240 Mg PO DAILY Tylenol (Acetaminophen) 325 Mg Tablet 2 Tab PO PRN Q6HRS PRN Clozapine 100 Mg Tablet 100 Mg PO HS Depakote Sprinkle (Divalproex Sodium) 125 Mg Cap.sprink 750 Mg PO BID Metamucil (Psyllium Husk) 660 Gm Powder 1 Packet PO DAILY Oxybutynin Chloride 5 Mg Tablet 5 Mg PO BID Omeprazole 40 Mg Capsule.dr 40 Mg PO DAILY Morphine Sulfate Er (Morphine Sulfate) 15 Mg Tablet.er 15 Mg PO DAILY Metoprolol Tartrate 25 Mg Tablet 25 Mg PO BIDWMEALS Loxapine (Loxapine Succinate) 50 Mg Capsule 150 Mg PO HS Lisinopril 10 Mg Tablet 10 Mg PO DAILY Haloperidol 5 Mg Tablet 5 Mg PO PRN QID PRN Finasteride 5 Mg Tablet 5 Mg PO HS Ferrous Sulfate 325 Mg Tablet 325 Mg PO DAILYAC Senna S Tablet (Sennosides/Docusate Sodium) 1 Each Tablet 2 Tab PO PRN BID PRN Clomipramine Hcl 75 Mg Capsule 150 Mg PO HS Vitamin D3 (Cholecalciferol (Vitamin D3)) 1,000 Unit Tablet 2,000 Unit PO DAILY Benztropine Mesylate 0.5 Mg Tablet 0.5 Mg PO BID Aspirin Ec (Aspirin) 325 Mg Tablet.dr 325 Mg PO DAILY Diagnosis: Problems: (1) Anxiety disorder (2) Impulse control disorder (3) Obsessive compulsive disorder (4) Schizoaffective disorder (5) Schizophrenia, disorganized, subchronic with acute exacerbation SHAKIR PAEZ MD May 13, 2017 20:48
--- NOTE | 2017-05-14 03:29 | NUR ---
Behavior Intervention Response and Plan: BIRP Note: Behavior: Assumed Care of patient, patient located in Day Room at shift change. Patient exhibited the following behavior Calm, Social, Compliant. Brief assessment on rounds of vital signs, medication needs, lab studies, and pain. Treatment plan problems . Intervention: Patient assessed and the following interventions initiated safety checks 15 Minute Checks Cognitive Assessment , Head to toe Assessment , Medications. Response: After interactions and interventions patient responded in the following manner, Calm , Able to Focus on Task ,Appropriate. Continue to assess behaviors and condition will continue to monitor throughout the shift as needed. Patient educated on ADL's, and hand hygiene. Plan: Continue to monitor Master Treatment Plan for patient's progress toward short term goals of Decreased Anxiety, Medication Compliance, correction goals to return to previous living setting vs placement. Continue to assess patient for changes in above assessment. Monitor for medication needs, pain, and safety concerns. Hourly rounding performed to ensure safe environment.
[2017-05-14] MEDS ORDERED: MAGN2400 PO (07:50)
[2017-05-14 08:20] VITALS: BP 158/76
--- NOTE | 2017-05-14 08:29 | NUR ---
[facility] Social Work Discharge Planning Form Patient Name AMARILIS JEWELL Admit Date: 05/02/17 DISCHARGE PLAN Discharge Destination: return to [facility] Transportation: [place] to provide transport 05/14/17 at 10:30 Special Instructions/Notes: All new scripts to be written for [place] [facility] DISCHARGE TO FACILITY Facility: [facility] Address: [address] [place] [address] Contact Name: [facility] Pharmacy: [facility] Hand written scripts Psychiatrist/Mental Health Follow Up: Dr. Praneeth Becker @ [facility] PHONE: [phone] EXT [id number] FAX: [phone] FOLLOW UP APPOINTMENT SCHEDULED FOR 2016 AT 1:00pm Primary Care Follow Up: Willie Kaminski NP at [facility] PHONE: [phone] EXT [id number] FAX: [phone] FOLLOW UP APPOINTMENT SCHEDULED FOR May AT 3:00pm
[2017-05-14] MEDS: DIVALPROEX 125 MG CAP.SPRINK PO SCH (08:52)
[2017-05-14] MEDS: MORPHINE ER 15 MG TABLET.ER PO SCH (08:52)
[2017-05-14] MEDS: PSYLLIUM SEED (WITH SUGAR) PACKET. PO SCH (08:52)
[2017-05-14] MEDS: ASPIRIN ENTERIC COATED 325 MG TABLET.DR. PO SCH (08:52)
[2017-05-14] MEDS: DOCUSATE CALCIUM 240 MG CAPSULE PO SCH (08:52)
[2017-05-14] MEDS: LISINOPRIL 20 MG TABLET PO SCH (08:52)
[2017-05-14] MEDS: CHOLECALCIFEROL (VITAMIN D3) 1,000 UNIT TABLET PO SCH (08:52)
[2017-05-14 08:53] VITALS: BP 158/76
[2017-05-14] MEDS: METOPROLOL TART IMMED RELEASE 25 MG TABLET PO SCH (08:53)
[2017-05-14] MEDS: OXYBUTYNIN CHLORIDE 5 MG TABLET PO SCH (08:53)
[2017-05-14] MEDS: FERROUS SULFATE 325 MG TABLET. PO SCH (08:53)
[2017-05-14] MEDS: PANTOPRAZOLE 40 MG TABLET. PO SCH (08:53)
[2017-05-14] MEDS: LORazepam 0.5 MG TABLET PO SCH (08:53)
--- NOTE | 2017-05-14 09:50 | NUR ---
Group Note [facility] Group Type Orientation Group Start Time: 9:00am End Time: 9:15am Problem: Anxiety Purpose: Increase Orientation Level of Participation: Low Behaviors or Symptoms Observed: Pt was present during group but was disengaged. Interventions: Clarification Response: Pt remained for the duration of group and did not participate. Pt mostly stared at the ground. Plan: Group Participation Additional Comments:
--- NOTE | 2017-05-14 10:00 | NUR ---
Behavior Intervention Response and Plan: BIRP Note: Behavior: Assumed Care of patient, patient located in Hallway at shift change. Patient exhibited the following behavior Calm, Disorganized, Compliant. Brief assessment on rounds of vital signs, medication needs, lab studies, and pain. Treatment plan problems 1 and 2. Intervention: Patient assessed and the following interventions initiated safety checks 15 Minute Checks Cognitive Assessment , Head to toe Assessment , Medications. Response: After interactions and interventions patient responded in the following manner, Compliant , Cooperative ,Appropriate. Continue to assess behaviors and condition will continue to monitor throughout the shift as needed. Patient educated on ADL's, and hand hygiene. 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 Continue to assess patient for changes in above assessment. Monitor for medication needs, pain, and safety concerns. Hourly rounding performed to ensure safe environment.
--- NOTE | 2017-05-14 10:52 | NUR ---
Patient discharged from unit at 1045. [facility] by [facility] transportation back to "[facility]". Patient very reluctant to get into transport wheelchair, encouraged by staff with snack and thickened liquids to get into chair. Assisted by staff of 2 to transport vehicle, where patient then stated that he had to urinate. Staff obtained urinal and patient was able to urinate with assistance, but without difficulty. Hub Borer then seatbelted patient wheelchair into van and left the hospital property.
--- NOTE | 2017-05-14 11:02 | NUR ---
Transition Record was faxed to follow-up provider with the following elements: Reason for admission, procedures, tests, principal diagnosis, pending studies, patient instructions, 10/03 contact information for unit, phone number to obtain pending test results, plan for follow-up care, physician follow-up, advanced directive information, and medication list with dose, duration and instructions. This information was included in the following documents: History and physical, lab results, study results, progress notes, social work planning form, DC instruction form, patient visit summary, and medication reconciliation form. Date & time record faxed: 1000 05/14/2017 Record faxed to: Saundra [place], [place]. Record discussed with/ report given to: HERNÁN Murray @ [phone]
--- NOTE | 2017-05-14 12:37 | PN ---
DATE: 05/12/2017 This late entry 05/12/2017 covers elements not covered in my initial note of 05/12/2017. SUBJECTIVE: I met with the patient in the evening of 05/12/2017. Overall, per nursing report, the patient has done better. Per nursing report, he looks "sweetheart" with his dark glasses, which he wears inside. He is very pleasant, smiling, appropriate, as I met with him. WBC's are increased, absolute neutrophil count consequently for the Clozaril at least is unremarkable, but Dr. Church is working the patient up for any infection. REVIEW OF SYSTEMS: Ambulation impaired, in a wheelchair. No CV, , pulmonary, eye, ENT system symptoms on review. MENTAL STATUS EXAM: Oriented to himself and situation. Speech has moderate latency, low in rate and rhythm, often responses monosyllabic. Abstraction fair, computation impaired, language function intact, attention span short. Mood and affect is improved. LABORATORY DATA: Reviewed. IMPRESSION: Unchanged from initial note. PLAN: Increase Clozaril to 150 mg at bedtime. Loxitane has been stopped. Continue clomipramine 150 mg at bedtime, Ativan 0.5 mg b.i.d., Haldol p.r.n., continue CBC, absolute neutrophil count weekly for the Clozaril. Consider transition to correction in the next couple of days. Valproic acid level is therapeutic. SHAKIR PAEZ MD DR: MELISA/marvel JOB#: [id number] / [id number]
--- NOTE | 2017-05-14 12:51 | NUR ---
VIVIENNE faxed VIVIENNE DC document to Amara at the [place].
[2017-05-14 16:10] LABS: C ANCA <1:20 titer (Neg:<1:20); P ANCA <1:20 titer (Neg:<1:20)
--- NOTE | 2017-05-14 18:54 | PDOC ---
Exam José Miguel Demential Exam: José Miguel Note: Please also refer to the separate dictated note~for this date of service dictated separately.~Patient seen individually. Discussed the patient with Nursing staff reviewed the chart.~Reviewed interim history and current functioning. Reviewed vital signs,~Labs/ Radiology~and current medications noted below. Continue current treatment with the changes noted in the dictated addendum note Assessment: Vital Signs: Vital Signs Date Time Temp Pulse Resp B/P (MAP) Pulse Ox O2 Delivery O2 Flow Rate FiO2 05/14/17 08:53 75 158/76 05/14/17 08:20 98.6 18 96 Room Air I&O Intake and Output 05/15/17 07:00 Intake Total 360 ml Balance 360 ml Intake Oral 360 ml Current Medications: Meds: Current Medications Benztropine Mesylate (Cogentin) 0.5 mg BID PO Last administered on 05/05/17 07 :46; Start 05/02/17 at 21:00; Stop 05/05/17 at 15:10; Status DC Clozapine (Clozaril) 100 mg HS PO Last administered on 05/05/17 20:20; Start 05/02/17 at 21:00; Stop 05/06/17 at 00:09; Status DC Divalproex Sodium (Depakote Sprinkles) 750 mg BID PO Last administered on 08:52; Start 05/02/17 at 21:00; Stop 05/14/17 at 11:15; Status DC Haloperidol (Haldol) 5 mg PRN QID PRN PO ANXIETY / AGITATION; Start 05/02/17 at 18:30; Stop 05/14/17 at 11:15; Status DC Clomipramine HCl (Anafranil) 150 mg HS PO Last administered on 05/13/17 19:26 ; Start 05/02/17 at 21:00; Stop 05/14/17 at 11:15; Status DC Loxapine Succinate (Loxitane) 150 mg HS PO Last administered on 05/05/17 21:19 ; Start 05/02/17 at 21:00; Stop 05/06/17 at 18:25; Status DC Acetaminophen (Tylenol) 650 mg PRN Q6HRS PRN PO FEVER; Start 05/02/17 at 18:30 ; Stop 05/14/17 at 11:15; Status DC Amoxicillin/ Clavulanate Potassium (Augmentin 875/ 125mg) 1 tab BID PO Last administered on 05/09/17 10:23; Start 05/02/17 at 21:00; Stop 05/09/17 at 09:01 ; Status DC Aspirin (Aspirin Enteric Coated) 325 mg DAILY PO Last administered on 08:52; Start 05/03/17 at 09:00; Stop 05/14/17 at 11:15; Status DC Vitamin D (Vitamin D3) 2,000 unit DAILY PO Last administered on 05/14/17 08:52 ; Start 05/03/17 at 09:00; Stop 05/14/17 at 11:15; Status DC Ferrous Sulfate (Feosol) 325 mg DAILYAC PO Last administered on 05/05/17 07:45 ; Start 05/03/17 at 07:30; Stop 05/06/17 at 12:01; Status DC Finasteride (Proscar) 5 mg HS PO Last administered on 05/13/17 19:25; Start at 21:00; Stop 05/14/17 at 11:15; Status DC Lisinopril (Prinivil) 10 mg DAILY PO Last administered on 05/03/17 08:01; Start 05/03/17 at 09:00; Stop 05/03/17 at 13:47; Status DC Metoprolol Tartrate (Lopressor) 25 mg BIDWMEALS PO Last administered on 08:53; Start 05/03/17 at 08:00; Stop 05/14/17 at 11:15; Status DC Morphine Sulfate (Ms Contin) 15 mg DAILY PO Last administered on 05/14/17 08: 52; Start 05/03/17 at 09:00; Stop 05/14/17 at 11:15; Status DC Oxybutynin Chloride (Ditropan) 5 mg BID PO Last administered on 05/14/17 08:53 ; Start 05/02/17 at 21:00; Stop 05/14/17 at 11:15; Status DC Senna/Docusate Sodium (Senna Plus) 2 tab PRN BID PRN PO CONSTIPATION Last administered on 05/07/17 19:20; Start 05/02/17 at 18:30; Stop 05/14/17 at 11:15 ; Status DC Pantoprazole Sodium (Protonix) 40 mg DAILY PO Last administered on 05/14/17 08 :53; Start 05/03/17 at 09:00; Stop 05/14/17 at 11:15; Status DC Psyllium Hydrophilic Mucilloid (Metamucil) 1 pkt DAILY PO Last administered on 05/14/17 08:52; Start 05/03/17 at 09:00; Stop 05/14/17 at 11:15; Status DC Info (FLU VACCINE per PROTOCOL) 1 ea PRN 1X PRN MC PER PROTOCOL; Start at 19:15; Status UNV Influenza Virus Vaccine Quadrival (Fluarix Quad [id number] Syringe) 0.5 ml ONCE ONCE VAX IM Last administered on 05/03/17 14:46; Start 05/03/17 at 09:00; Stop 05/03/17 at 09:01; Status DC Lisinopril (Prinivil) 20 mg DAILY PO Last administered on 05/14/17 08:52; Start 05/04/17 at 09:00; Stop 05/14/17 at 11:15; Status DC Tamsulosin HCl (Flomax) 0.4 mg QHS PO Last administered on 05/13/17 19:25; Start 05/03/17 at 21:00; Stop 05/14/17 at 11:15; Status DC Lorazepam (Ativan) 0.5 mg QID PO Last administered on 05/04/17 17:59; Start at 21:00; Stop 05/04/17 at 19:05; Status DC Lorazepam (Ativan) 0.5 mg TID PO Last administered on 05/09/17 14:13; Start at 21:00; Stop 05/09/17 at 17:34; Status DC Benztropine Mesylate (Cogentin) 0.5 mg DAILY PO Last administered on 05/07/17 07:57; Start 05/06/17 at 09:00; Stop 05/07/17 at 13:31; Status DC Docusate Calcium (Surfak) 240 mg DAILY PO Last administered on 05/14/17 08:52 ; Start 05/06/17 at 09:00; Stop 05/14/17 at 11:15; Status DC Clozapine (Clozaril) 100 mg QHS PO Last administered on 05/13/17 19:25; Start 05/06/17 at 21:00; Stop 05/14/17 at 11:15; Status DC Clozapine (Clozaril) 25 mg QHS PO Last administered on 05/11/17 19:44; Start 05/06/17 at 21:00; Stop 05/12/17 at 18:27; Status DC Ferrous Sulfate (Feosol) 325 mg DAILYAC PO Last administered on 05/14/17 08:53 ; Start 05/07/17 at 07:30; Stop 05/14/17 at 11:15; Status DC Loxapine Succinate (Loxitane) 100 mg HS PO Last administered on 05/08/17 19:52 ; Start 05/06/17 at 21:00; Stop 05/09/17 at 17:34; Status DC Magnesium Hydroxide (Milk Of Magnesia) 2,400 mg PRN DAILY PRN PO CONSTIPATION Last administered on 05/08/17 17:16; Start 05/08/17 at 08:00; Stop 05/14/17 at 11:15; Status DC Lorazepam (Ativan) 0.5 mg BID PO Last administered on 05/14/17 08:53; Start at 21:00; Stop 05/14/17 at 11:15; Status DC Loxapine Succinate (Loxitane) 50 mg HS PO Last administered on 05/11/17 19:43 ; Start 05/09/17 at 21:00; Stop 05/12/17 at 20:00; Status DC Clozapine (Clozaril) 50 mg QHS PO Last administered on 05/13/17 19:25; Start 05/12/17 at 21:00; Stop 05/14/17 at 11:15; Status DC Active Scripts Active Reported Milk Of Magnesia (Magnesium Hydroxide) 2,400 Mg/10 Ml Oral.susp 2,400 Mg PO PRN DAILY PRN Clozapine 25 Mg Tablet 50 Mg PO QHS Flomax (Tamsulosin Hcl) 0.4 Mg Cap.er.24h 0.4 Mg PO QHS Lorazepam 0.5 Mg Tablet 0.5 Mg PO BID Lisinopril 20 Mg Tablet 20 Mg PO DAILY Docusate Calcium 240 Mg Capsule 240 Mg PO DAILY Tylenol (Acetaminophen) 325 Mg Tablet 650 Mg PO PRN Q6HRS PRN MDD 4000mg from All Sources Clozapine 100 Mg Tablet 100 Mg PO HS Depakote Sprinkle (Divalproex Sodium) 125 Mg Cap.sprink 750 Mg PO BID Metamucil (Psyllium Husk) 660 Gm Powder 2 Tbs PO DAILY Oxybutynin Chloride 5 Mg Tablet 5 Mg PO BID Omeprazole 40 Mg Capsule.dr 40 Mg PO DAILY Morphine Sulfate Er (Morphine Sulfate) 15 Mg Tablet.er 15 Mg PO DAILY Metoprolol Tartrate 25 Mg Tablet 25 Mg PO BIDWMEALS Haloperidol 5 Mg Tablet 5 Mg PO PRN QID PRN Finasteride 5 Mg Tablet 5 Mg PO HS Ferrous Sulfate 325 Mg Tablet 325 Mg PO DAILYAC Senna S Tablet (Sennosides/Docusate Sodium) 1 Each Tablet 2 Tab PO PRN BID PRN Clomipramine Hcl 75 Mg Capsule 150 Mg PO HS Vitamin D3 (Cholecalciferol (Vitamin D3)) 1,000 Unit Tablet 2,000 Unit PO DAILY Aspirin Ec (Aspirin) 325 Mg Tablet.dr 325 Mg PO DAILY Diagnosis: Problems: (1) Schizophrenia, disorganized, subchronic with acute exacerbation (2) Mild cognitive disorder (3) Schizoaffective disorder (4) Obsessive compulsive disorder (5) Impulse control disorder (6) Anxiety disorder SHAKIR PAEZ MD May 14, 2017 18:54
--- NOTE | 2017-05-15 03:00 | PN ---
DATE: 05/13/2017 This is late entry for 05/13/2017, covers the elements not covered in my initial note of 05/13/2017. I met with the patient evening of 05/13/2017. The patient has been calm, cooperative, spends time in the day room, which is an improvement for him. WBC count is elevated at 15.1. We will defer to Dr. Church. REVIEW OF SYSTEMS: Ambulation impaired, in a wheelchair, hard of hearing. No CV, , pulmonary, eye system symptoms on review. Reliability varies. MENTAL STATUS EXAM: Oriented to himself and situation. Speech moderate latency, often responses monosyllabic. Abstraction fair, computation impaired, language function intact. Attention span short. Psychotic symptoms, seem improved despite marked simplification and his antipsychotic medications and the only antipsychotic he is on right now is Clozapine 150 mg at bedtime. IMPRESSION: Unchanged from initial note. PLAN: Continue current psychotropics, reviewed drug interactions, risk/benefit ratio favors no further change, medical followup with Dr. Church once medically stable consequent ____ WBC count, will [facility]. SHAKIR PAEZ MD DR: MELISA/marvel JOB#: [id number] / [id number]
--- NOTE | 2017-05-15 23:17 | DS ---
DATE OF DISCHARGE: 05/14/2017 DISCHARGE SUMMARY/PSYCHIATRIC PROGRESS NOTE This is a late entry, date of service 05/14/2017 and covers the elements not covered in my initial note of 05/14/2017. REASON FOR ADMISSION: Please refer to the admission history for details. Briefly, the patient is a 76-year-old male who was transferred to the ICU for medical stabilization while he was on the [facility] for psychiatric stabilization of his schizoaffective disorder, bipolar type/schizophrenia. He was medically stabilized, but remained psychotic with marked mood lability and we were in the middle of adjusting his Clozaril while tapering off his other antipsychotics since he had been on 3 different antipsychotics at one point. He returned to us. SIGNIFICANT FINDINGS AND CLINICAL COURSE: Following admission, the patient was seen daily individually by myself, followed medically per Dr. Flores/Dr. Church. Adjustments were made in his psychotropics with weekly blood counts and absolute neutrophil counts for Clozaril and he seemed to respond to a combination of Depakote Sprinkles 750 b.i.d. with a therapeutic blood level for the valproic acid. He was also on clomipramine 150 mg at bedtime, Clozaril 150 mg at bedtime, Haldol 5 mg q.i.d. p.r.n., Ativan 0.5 mg b.i.d. with a plan to taper and discontinue it post-discharge. Gradually, mood appeared to stabilize. He is much less psychotic, pleasant, cooperative, did have short term memory deficits. No active suicidal or homicidal ideation at discharge reviewed. REVIEW OF SYSTEMS: Prior to discharge, ambulation impaired. No CV, , pulmonary, eye, ENT system symptoms on review. Reliability poor. MENTAL STATUS EXAM: Oriented to himself and situation. Speech moderate latency, often responses monosyllabic, pleasant, smiling at times. No active hallucinations. Abstraction fair, computation impaired, short term memory is intact. Mood and affect, lability was improved. CONDITION AT DISCHARGE: Improved. FINAL DIAGNOSES: Schizoaffective disorder, bipolar type, mixed with psychotic features, in partial remission; schizophrenia, chronic, undifferentiated with psychotic features and acute exacerbation, in partial remission; anxiety disorder, unspecified; cognitive disorder, unspecified versus mild cognitive impairment. Rest of the diagnosis unchanged. DISCHARGE MEDICATIONS: Please refer to the [facility]. Outpatient psychiatric and medical followup at the nursing facility and he needs weekly CBC, CMP, absolute neutrophil counts while he is on the Clozaril. His Abilify and Loxitane had been totally discontinued and he seemed stable on a single antipsychotic Clozaril at discharge. Time for discharge day management greater than 30 minutes. MAN Ravi PAEZ MD DR: MELISA/amrvel JOB#: [id number] / [id number]
== END 2017-05-14 11:14 | disposition home or self-care (01) | DRG 885 ==
LOC: GEROPSY 16:45
PROVIDERS: ADMIT Psychiatry & Neurology Psychiatry; ATTEND Psychiatry & Neurology Psychiatry
DX: F25.0 Schizoaffective disorder, bipolar type (principal); J96.01 Acute respiratory failure with hypoxia; E43 Unspecified severe protein-calorie malnutrition; G92 Toxic encephalopathy; R13.10 Dysphagia, unspecified; N39.0 Urinary tract infection, site not specified; Z68.1 Body mass index [BMI] 19.9 or less, adult; B19.20 Unspecified viral hepatitis C without hepatic coma; E78.5 Hyperlipidemia, unspecified; F01.50 Vascular dementia, unspecified severity, without behavioral disturbance, psychotic disturbance, mood disturbance, and anxiety; F09 Unspecified mental disorder due to known physiological condition; F41.9 Anxiety disorder, unspecified; F42.9 Obsessive-compulsive disorder, unspecified; F63.9 Impulse disorder, unspecified; H91.90 Unspecified hearing loss, unspecified ear; I10 Essential (primary) hypertension; K21.9 Gastro-esophageal reflux disease without esophagitis; D64.9 Anemia, unspecified; N40.0 Benign prostatic hyperplasia without lower urinary tract symptoms; R29.6 Repeated falls; Z86.711 Personal history of pulmonary embolism; Z87.440 Personal history of urinary (tract) infections; Z95.0 Presence of cardiac pacemaker; Z86.718 Personal history of other venous thrombosis and embolism; Z88.8 Allergy status to other drugs, medicaments and biological substances; K59.00 Constipation, unspecified
CPT/HCPCS: 36415; 80053; 81001; 85007; 85025; 86021; 90686